=== PATIENT | female | born 1965 | race American Indian/Alaskan Native ===

== ENCOUNTER 2016-04-30 11:37 | Outpatient (CLI) | payer MEDICARE ==
--- NOTE | 2016-04-30 13:01 | XRay Report ---
Chest 2 views: History: Dyspnea, CHF. Findings: Borderline cardiomegaly. Trachea is midline. Suspicion of mild pulmonary venous congestion. No consolidation or pleural effusion. Impression: Cardiomegaly with suspicion of mild venous congestion.
== END 2016-04-30 11:38 | disposition home or self-care (01) ==
LOC: XRAY 11:37
PROVIDERS: ATTEND Specialist
DX: I50.9 Heart failure, unspecified (principal); I51.7 Cardiomegaly; R06.00 Dyspnea, unspecified; R09.02 Hypoxemia
CPT/HCPCS: 71020

== ENCOUNTER 2016-09-13 13:55 | Outpatient (CLI) | payer MEDICARE ==
--- NOTE | 2016-09-13 15:24 | Mammography Report ---
BILATERAL DIGITAL SCREENING MAMMOGRAM with CAD: 09/13/16 13:55:00 CLINICAL: Routine screening. COMPARISON:09/01/15 FINDINGS: The breasts are almost entirely fatty. No mass, architectural distortion or suspicious calcifications. IMPRESSION: No mammographic evidence of malignancy. BI-RADS CATEGORY: 1 - - Negative RECOMMENDATION: Routine mammographic screening in one year. COMMENT: Patient follow-up letters are generated by our [employer] application.
== END 2016-09-13 13:56 | disposition home or self-care (01) ==
LOC: MAMMO 13:55
PROVIDERS: ATTEND Obstetrics & Gynecology
DX: Z12.31 Encounter for screening mammogram for malignant neoplasm of breast (principal); I11.0 Hypertensive heart disease with heart failure; I50.9 Heart failure, unspecified; F17.200 Nicotine dependence, unspecified, uncomplicated
CPT/HCPCS: 77067; G0202

== ENCOUNTER 2017-04-06 20:15 | Inpatient (IN) | payer MEDICARE ==
[2017-04-06] MEDS ORDERED: PROVENTIL IH ONE (20:23)
[2017-04-06] MEDS ORDERED: ATROVENT IH ONE (20:23)
--- NOTE | 2017-04-06 20:38 | Emergency Department Report ---
ED Shortness of Breath HPI - General Stated Complaint: HILDA Time Seen by Provider: 04/06/17 20:30 Source: patient, EMS Limitations: Physical Limitation - History of Present Illness Initial Comments: 51 YO FEMALE BROUGHT IN BY EMS BECAUSE OR RESPIRATORY DISTRESS. PER EMS, THE PT 'S SATURATION WAS 70% ON ROOM AIR AND WENT UP TO 85 ON A NONREBREATHER. PT WAS PLACED ON BIPAP IMMEDIATELY UPON ARRIVAL. SHE IS ABLE TO ANSWER QUESTIONS BUT THSI IS DIFFICULT WITH THE BIPAP MASK IN PLACE. MD Complaint: shortness of breath -: Gradual, week(s) (few) Severity: severe Known History Of: COPD, asthma, congestive heart failure Associated Symptoms: denies other symptoms - Related Data Allergies Allergy/AdvReac Type Severity Reaction Status Date / Time No Known Allergies Allergy Unverified 08/12/13 15:01 ED Review of Systems ROS: Stated complaint: HILDA Other details as noted in HPI Constitutional: denies: chills, fever Eyes: denies: eye pain, eye discharge, vision change ENT: denies: ear pain, throat pain Respiratory: denies: cough, wheezing Cardiovascular: denies: chest pain, palpitations Endocrine: no symptoms reported Gastrointestinal: denies: abdominal pain, nausea, diarrhea Genitourinary: denies: urgency, dysuria, discharge Musculoskeletal: denies: back pain, joint swelling, arthralgia Skin: denies: rash, lesions Neurological: denies: headache, weakness, paresthesias Psychiatric: denies: anxiety, depression Hematological/Lymphatic: denies: easy bleeding, easy bruising ED Past Medical Hx - Past Medical History Hx Hypertension: Yes Hx Congestive Heart Failure: Yes Additional medical history: SARCOIDOSIS, high cholesterol - Surgical History Additional Surgical History: ECTOPIC LEFT TUBE REMOVED - Social History Smoking Status: Current Every Day Smoker Substance Use Type: Alcohol ED Physical Exam - General General appearance: alert, in distress - Head Head exam: Present: atraumatic, normocephalic - Eye Eye exam: Present: normal appearance, EOMI - ENT ENT exam: Present: mucous membranes moist - Neck Neck exam: Present: normal inspection, full ROM - Respiratory Respiratory exam: Present: normal lung sounds bilaterally, wheezes, rales, decreased breath sounds (bilateral). Absent: respiratory distress - Cardiovascular Cardiovascular Exam: Present: regular rate, normal rhythm. Absent: systolic murmur, diastolic murmur, rubs, gallop - GI/Abdominal GI/Abdominal exam: Present: soft, normal bowel sounds, other (large centripital fat) - Rectal Rectal exam: Present: deferred - Extremities Exam Extremities exam: Present: normal inspection, full ROM - Back Exam Back exam: Present: normal inspection - Neurological Exam Neurological exam: Present: alert, oriented X3, CN II-XII intact - Psychiatric Psychiatric exam: Present: normal affect, normal mood - Skin Skin exam: Present: warm, dry, intact, normal color. Absent: rash ED Course Vital Signs 04/06/17 04/06/17 04/06/17 20:20 20:34 22:11 Pulse Rate 82 Pulse Rate [ 80 69 Anterior Bilateral Throughout] Respiratory 31 H Rate Respiratory 28 H 30 H Rate [Anterior Bilateral Throughout] Blood Pressure 121/66 O2 Sat by Pulse 98 Oximetry - Reevaluation(s) Reevaluation #1: 04/06/17 22:25 PT DOING WELL ON BIPAP ED Medical Decision Making - Lab Data Result diagrams: 04/06/17 21:19 04/06/17 20:40 - EKG Data EKG shows normal: sinus rhythm, axis, intervals (PAC), QRS complexes, ST-T waves Rate: normal (84) - Radiology Data Radiology results: report reviewed, image reviewed (CXR:CHF, CANNOT EXCLUDE INFILTRATES) Critical Care Time: Yes Critical care time in (mins) excluding proc time.: 60 Critical care attestation.: If time is entered above; I have spent that time in minutes in the direct care of this critically ill patient, excluding procedure time. MOISES Critical Care Time: 60MIN ED Disposition Clinical Impression: Acute dyspnea, Sarcoidosis of lung Disposition: DC-09 OP ADMIT IP TO THIS HOSP Is pt being admited?: Yes Does the pt Need Aspirin: No Condition: Critical Referrals: JACINTO SAWYER MD [Primary Care Provider] - 3-5 Days Time of Disposition: 22:26 (DR MONROE HOSPITALIST PAGED AND CASE REVIEWED AND SHE WILL ADMIT THE PT TO THE HOSPITAL)
[2017-04-06 21:17] LABS: Creatine Kinase MB 2.7 ng/mL (0.0-4.0)
[2017-04-06 21:18] LABS: Alanine Aminotransferase 19 units/L (7-56); BUN/Creatinine Ratio 43; Blood Urea Nitrogen 17 mg/dL (7-17); Calcium 8.7 mg/dL (8.4-10.2); Hemolysis Index 3
--- NOTE | 2017-04-06 21:19 | XRay Report ---
FINAL REPORT PROCEDURE: Portable upright chest x-ray TECHNIQUE: Chest radiograph anteroposterior view. CPT 11481 HISTORY: short of breath COMPARISON: No prior studies are available for comparison. FINDINGS: The heart is enlarged. The pulmonary vasculature is distended and ill-defined. Interstitial markings are coarsened. Patchy alveolar densities are present in both lower lobes. I cannot exclude small effusions. No acute bony abnormalities are identified. IMPRESSION: Cardiomegaly and pulmonary venous hypertension changes as described with increased density in both lung bases as well as prominence of the interstitial markings suggesting acute congestive heart failure. Alveolar densities in the bases may represent asymmetric edema and/or atelectasis. Underlying infiltrates needs clinical exclusion...
[2017-04-06 21:28] LABS: Hematocrit 30.1 % (30.3-42.9); Hemoglobin 9.2 gm/dl (10.1-14.3); Mean Corpuscular HGB Conc 31 % (30-34); Mean Corpuscular Volume 79 fl (79-97); Platelet Count 272 K/mm3 (140-440); Red Blood Count 3.82 M/mm3 (3.65-5.03)
[2017-04-06] MEDS ORDERED: LASIX IV ONE (21:40)
[2017-04-06] MEDS ORDERED: NITRO-BID 2% TP ONE (21:40)
[2017-04-06 21:42] LABS: Mean Corpuscular Hemoglobin 24 pg (28-32); Red Cell Distribution Width 20.5 % (13.2-15.2)
[2017-04-06 22:12] LABS: Band Neutrophils # (Manual) 0.7 K/mm3; Basophils % (Manual) 0 % (0.0-1.8); Eosinophils % (Manual) 0 % (0.0-4.3); Total Cells Counted 100
[2017-04-06 22:13] LABS: Anisocytosis 1+
[2017-04-06 22:14] LABS: Giant Platelets Few; Hypochromasia 2+; Large Platelets Few
[2017-04-06 22:15] LABS: Ovalocytes Few; Poikilocytosis Few
[2017-04-06] MEDS ORDERED: PROVENTIL IH PRN (23:06)
[2017-04-06] MEDS ORDERED: MILK OF MAGNESIA PO PRN (23:06)
[2017-04-06] MEDS ORDERED: DULCOLAX PR PRN (23:06)
[2017-04-06] MEDS ORDERED: ZOFRAN IV PRN (23:06)
[2017-04-06] MEDS ORDERED: TYLENOL PO PRN (23:06)
--- NOTE | 2017-04-06 23:11 | History and Physical Report ---
History of Present Illness Date of examination: 04/06/17 History of present illness: 51 -year-old woman with a history of CHF, hypertension, hyperlipidemia, sarcoidosis, emergency room with complaints of shortness of breath and lower extremity edema 7 days. Her symptoms as worsened over the last 2 days. Patient will switch from daily Lasix to once weekly a" few months" ago. Denies PND, orthopnea, states she is compliant with medications. Patient was hypoxic and placed on BiPAP Review Of Systems: Constitutional: no weight loss Ears, eyes, nose, mouth and throat: no nasal congestion, no nasal discharge, no sinus pressure, blurry vision, diplopia Neck: No neck pain or rigidity. Cardiovascular: No chest pain, palpitations Respiratory: No cough Gastrointestinal: No abdominal pain, hematochezia Genitourinary : no dysuria, frequency , hematuria Musculoskeletal: no muscle ache Integumentary: no rash, no pruritis Neurological: no parathesias, focal weakness Endocrine: no cold or heat intolerance, no polyuria or polydipsia Hematologic/Lymphatic: no easy bruising, no easy bleeding, no gland swelling Allergic/Immunologic: no urticaria, no angioedema. PAST MEDICAL HISTORY:CHF, hypertension, hyperlipidemia, sarcoidosis, PAST SURGICAL HISTORY:left tube removed FAMILY HISTORY: Hypertension SOCIAL HISTORY: Quit smoking, social alcohol, no drugs Medications and Allergies Allergies Allergy/AdvReac Type Severity Reaction Status Date / Time No Known Allergies Allergy Unverified 08/12/13 15:01 Home Medications Medication Instructions Recorded Confirmed Last Taken Type Atorvastatin Calcium 40 mg PO HS 04/08/17 04/08/17 04/06/17 22:00 History ISOSORBIDE MONOnitrate [Imdur ER] 30 mg PO DAILY 04/08/17 04/08/17 04/06/17 09: 00 History Metformin HCl 500 mg PO BID 04/08/17 04/12/17 04/06/17 09:00 History Amiodarone [Cordarone 200 MG TAB] 200 mg PO BID #60 tablet 04/13/17 Unknown Rx Apixaban [Eliquis] 5 mg PO Q12HR #60 tablet 04/13/17 Unknown Rx Furosemide [Lasix TAB] 40 mg PO QDAY #30 tablet 04/13/17 Unknown Rx Metoprolol [Lopressor TAB] 50 mg PO BID #60 tablet 04/13/17 Unknown Rx Active Meds: Active Medications Acetaminophen (Tylenol) 650 mg PO Q4H PRN PRN Reason: Pain MILD(1-3)/Fever >100.5/ALVES Albuterol (Proventil) 2.5 mg IH Q3HRT PRN PRN Reason: Shortness Of Breath Aspirin (Aspirin) 325 mg PO QDAY HIREN Bisacodyl (Dulcolax) 10 mg [place] QDAY PRN PRN Reason: Constipation unrelieved by MOM Carvedilol (Coreg) 3.125 mg PO BID HIREN Enoxaparin Sodium (Lovenox) 40 mg SUB-Q QDAY HIREN Furosemide (Lasix) 40 mg IV BID@0600,1800 HIREN Lisinopril (Zestril) 2.5 mg PO QDAY HIREN Magnesium Hydroxide (Milk Of Magnesia) 30 ml PO Q4H PRN PRN Reason: Constipation Ondansetron HCl (Zofran) 4 mg IV Q8H PRN PRN Reason: N/V unrelieved by Reglan Oxycodone/Acetaminophen (Percocet 5/325) 1 tab PO Q6H PRN PRN Reason: Pain, Moderate (4-6) Exam - Physical Exam Narrative exam: Gen. appearance: Patient lying in bed in no acute distress HEENT: Normocephalic/atraumatic, pupils equal round reactive to light, extra occular movement intact, no scleral icterus, no JVD or thyromegaly or nodule, neck is supple, mucous membrane moist, no erythema or exudate Heart: S1-S2, regular rate and rhythm Lungs:crackles bilateral breathing comfortable Abdomen: Positive bowel sounds, nontender, nondistended, no organomegaly Extremities: + edema, cyanosis, clubbing Neuro:: Oriented 3 , cranial nerves II-12 intact, speech, motor intact Skin: No rash, nodules, warm dry - Constitutional Vitals: Temp Pulse Resp BP Pulse Ox 73 30 H 104/65 98 04/06/17 22:40 04/06/17 22:11 04/06/17 22:40 04/06/17 20:20 Results - Labs CBC & Chem 7: 04/12/17 05:20 04/12/17 05:20 Labs: Abnormal lab results 04/06/17 04/06/17 Range/Units 20:40 21:19 WBC 14.3 H (4.5-11.0) K/mm3 Hgb 9.2 L (10.1-14.3) gm/dl Hct 30.1 L (30.3-42.9) % MCH 24 L (28-32) pg RDW 20.5 H (13.2-15.2) % Seg Neuts % (Manual) 88.0 H (40.0-70.0) % Lymphocytes % (Manual) 6.0 L (13.4-35.0) % Nucleated RBC % 2.0 H (0.0-0.9) % Seg Neutrophils # Man 12.6 H (1.8-7.7) K/mm3 Lymphocytes # (Manual) 0.9 L (1.2-5.4) K/mm3 Chloride 96.9 L (98-107) mmol/L Creatinine 0.4 L (0.7-1.2) mg/dL Glucose 251 H (65-100) mg/dL NT-Pro-B Natriuret Pep 1023 H (0-900) pg/mL - Imaging and Cardiology EKG: image reviewed Chest x-ray: image reviewed Assessment and Plan Assessment Acute respiratory failure Acute CHF exacerbation, probably diastolic dysfunction Hypertension Hyperlipidemia Sarcoidosis Plan Admit to medicine Diurese and IV Lasix, continue BiPAP Monitor I/Os, daily weights Start beta baylee, MAGNOLIA inhibitor, aspirin Check cardiac enzymes, echo, consult cardiology Continue appropriate outpatient medications DVT prophylaxis
[2017-04-07] MEDS: LASIX IV SCH ×2 (05:10→18:27)
[2017-04-07 06:17] LABS: Basophils % (Auto) 0.3 % (0.0-1.8); Hematocrit 29.8 % (30.3-42.9); Hemoglobin 9.2 gm/dl (10.1-14.3); Lymphocytes # (Auto) 1.1 K/mm3 (1.2-5.4); Lymphocytes % (Auto) 9.8 % (13.4-35.0); Mean Corpuscular HGB Conc 31 % (30-34); Mean Corpuscular Volume 80 fl (79-97); Monocytes # (Auto) 0.7 K/mm3 (0.0-0.8); Monocytes % (Auto) 6.2 % (0.0-7.3); Platelet Count 269 K/mm3 (140-440); Red Blood Count 3.74 M/mm3 (3.65-5.03)
[2017-04-07 06:20] LABS: Mean Corpuscular Hemoglobin 25 pg (28-32); Red Cell Distribution Width 20.4 % (13.2-15.2)
[2017-04-07 06:23] LABS: BUN/Creatinine Ratio 32; Blood Urea Nitrogen 16 mg/dL (7-17); Calcium 8.5 mg/dL (8.4-10.2); Hemolysis Index 1
[2017-04-07] MEDS: ASPIRIN PO SCH (09:36)
[2017-04-07] MEDS: LOVENOX SUB-Q SCH (09:36)
--- NOTE | 2017-04-07 09:49 | Progress Note ---
Assessment and Plan Assessment and plan: Acute hypoxic respiratory failure. Etiology secondary to CHF exacerbation and sarcoidosis. Cont. Bipap as clinically indicated Acute CHF exacerbation. Etiology likely diastolic dysfunction. Check echocardiogram. BNP slightly elevated at 1023. Cont. beta baylee, MAGNOLIA inhibitor, aspirin. Cardiology consulted. Hypertension. Continue antihypertensive medications Hyperlipidemia. Sarcoidosis. The patient is followed by Dr. Chirinos History Interval history: No new issues overnight. Hospitalist Physical - Constitutional Vitals: Temp Pulse Resp BP Pulse Ox 98.5 F 80 18 103/64 95 04/07/17 04:36 04/07/17 04:36 04/07/17 04:36 04/07/17 04:36 04/07/17 04:36 General appearance: Present: no acute distress, well-nourished - EENT Eyes: Present: PERRL, EOM intact ENT: hearing intact, clear oral mucosa, dentition normal - Neck Neck: Present: supple, normal ROM - Respiratory Respiratory effort: normal Respiratory: bilateral: CTA - Cardiovascular Rhythm: regular Heart Sounds: Present: S1 & S2. Absent: gallop, rub - Extremities Extremities: no ischemia, No edema, Full ROM - Abdominal General gastrointestinal: soft, non-tender, non-distended, normal bowel sounds - Integumentary Integumentary: Present: clear, warm, dry - Neurologic Neurologic: CNII-XII intact, moves all extremities Results - Labs CBC & Chem 7: 04/07/17 04:57 04/07/17 04:57 Labs: Laboratory Last Values WBC 11.7 K/mm3 (4.5-11.0) H 04/07/17 04:57 RBC 3.74 M/mm3 (3.65-5.03) 04/07/17 04:57 Hgb 9.2 gm/dl (10.1-14.3) L 04/07/17 04:57 Hct 29.8 % (30.3-42.9) L 04/07/17 04:57 MCV 80 fl (79-97) 04/07/17 04:57 MCH 25 pg (28-32) L 04/07/17 04:57 MCHC 31 % (30-34) 04/07/17 04:57 RDW 20.4 % (13.2-15.2) H 04/07/17 04:57 Plt Count 269 K/mm3 (140-440) 04/07/17 04:57 Lymph % (Auto) 9.8 % (13.4-35.0) L 04/07/17 04:57 [place] % (Auto) 6.2 % (0.0-7.3) 04/07/17 04:57 Eos % (Auto) 0.0 % (0.0-4.3) 04/07/17 04:57 Baso % (Auto) 0.3 % (0.0-1.8) 04/07/17 04:57 Lymph # 1.1 K/mm3 (1.2-5.4) L 04/07/17 04:57 [place] # 0.7 K/mm3 (0.0-0.8) 04/07/17 04:57 Eos # 0.0 K/mm3 (0.0-0.4) 04/07/17 04:57 Baso # 0.0 K/mm3 (0.0-0.1) 04/07/17 04:57 Add Manual Diff Complete 04/06/17 21:19 Total Counted 100 04/06/17 21:19 Seg Neutrophils % 83.7 % (40.0-70.0) H 04/07/17 04:57 Seg Neuts % (Manual) 88.0 % (40.0-70.0) H 04/06/17 21:19 Band Neutrophils % 5.0 % 04/06/17 21:19 Lymphocytes % (Manual) 6.0 % (13.4-35.0) L 04/06/17 21:19 Reactive Lymphs % (Man) 0 % 04/06/17 21:19 Monocytes % (Manual) 1.0 % (0.0-7.3) 04/06/17 21:19 Eosinophils % (Manual) 0 % (0.0-4.3) 04/06/17 21:19 Basophils % (Manual) 0 % (0.0-1.8) 04/06/17 21:19 Metamyelocytes % 0 % 04/06/17 21:19 Myelocytes % 0 % 04/06/17 21:19 Promyelocytes % 0 % 04/06/17 21:19 Blast Cells % 0 % 04/06/17 21:19 Nucleated RBC % 2.0 % (0.0-0.9) H 04/06/17 21:19 Seg Neutrophils # 9.8 K/mm3 (1.8-7.7) H 04/07/17 04:57 Seg Neutrophils # Man 12.6 K/mm3 (1.8-7.7) H 04/06/17 21:19 Band Neutrophils # 0.7 K/mm3 04/06/17 21:19 Lymphocytes # (Manual) 0.9 K/mm3 (1.2-5.4) L 04/06/17 21:19 Abs React Lymphs (Man) 0.0 K/mm3 04/06/17 21:19 Monocytes # (Manual) 0.1 K/mm3 (0.0-0.8) 04/06/17 21:19 Eosinophils # (Manual) 0.0 K/mm3 (0.0-0.4) 04/06/17 21:19 Basophils # (Manual) 0.0 K/mm3 (0.0-0.1) 04/06/17 21:19 Metamyelocytes # 0.0 K/mm3 04/06/17 21:19 Myelocytes # 0.0 K/mm3 04/06/17 21:19 Promyelocytes # 0.0 K/mm3 04/06/17 21:19 Blast Cells # 0.0 K/mm3 04/06/17 21:19 WBC Morphology Not Reportable 04/06/17 21:19 Hypersegmented Neuts Not Reportable 04/06/17 21:19 Hyposegmented Neuts Not Reportable 04/06/17 21:19 Hypogranular Neuts Not Reportable 04/06/17 21:19 Smudge Cells Not Reportable 04/06/17 21:19 Toxic Granulation Not Reportable 04/06/17 21:19 Toxic Vacuolation Not Reportable 04/06/17 21:19 Dohle Bodies Not Reportable 04/06/17 21:19 Pelger-Huet Anomaly Not Reportable 04/06/17 21:19 Chiara Rods Not Reportable 04/06/17 21:19 Platelet Estimate Appears normal 04/06/17 21:19 Clumped Platelets Not Reportable 04/06/17 21:19 Plt Clumps, EDTA Not Reportable 04/06/17 21:19 Large Platelets Few 04/06/17 21:19 Giant Platelets Few 04/06/17 21:19 Platelet Satelliting Not Reportable 04/06/17 21:19 Plt Morphology Comment Not Reportable 04/06/17 21:19 RBC Morphology Not Reportable 04/06/17 21:19 Dimorphic RBCs Not Reportable 04/06/17 21:19 Polychromasia Few 04/06/17 21:19 Hypochromasia 2+ 04/06/17 21:19 Poikilocytosis Few 04/06/17 21:19 Anisocytosis 1+ 04/06/17 21:19 Microcytosis 1+ 04/06/17 21:19 Macrocytosis Not Reportable 04/06/17 21:19 Spherocytes Not Reportable 04/06/17 21:19 Pappenheimer Bodies Not Reportable 04/06/17 21:19 Sickle Cells Not Reportable 04/06/17 21:19 Target Cells Not Reportable 04/06/17 21:19 Tear Drop Cells Not Reportable 04/06/17 21:19 Ovalocytes Few 04/06/17 21:19 Helmet Cells Not Reportable 04/06/17 21:19 Mora-Tynan Bodies Not Reportable 04/06/17 21:19 [place] Rings Not Reportable 04/06/17 21:19 Poth Cells Not Reportable 04/06/17 21:19 Bite Cells Not Reportable 04/06/17 21:19 Crenated Cell Not Reportable 04/06/17 21:19 Elliptocytes Not Reportable 04/06/17 21:19 Acanthocytes (Spur) Not Reportable 04/06/17 21:19 Rouleaux Not Reportable 04/06/17 21:19 Hemoglobin C Crystals Not Reportable 04/06/17 21:19 Schistocytes Not Reportable 04/06/17 21:19 Malaria parasites Not Reportable 04/06/17 21:19 Bryant Bodies Not Reportable 04/06/17 21:19 Hem Pathologist Commnt No 04/06/17 21:19 POC ABG pH 7.435 (7.35-7.45) 04/06/17 22:54 POC ABG pCO2 41.8 (35-45) 04/06/17 22:54 POC ABG pO2 103 (80-105) 04/06/17 22:54 POC ABG HCO3 28.1 04/06/17 22:54 POC ABG Total CO2 29 04/06/17 22:54 POC ABG O2 Sat 98 04/06/17 22:54 POC ABG Base Excess 4 04/06/17 22:54 FiO2 80 % 04/06/17 22:54 Sodium 140 mmol/L (137-145) 04/07/17 04:57 Potassium 4.3 mmol/L (3.6-5.0) 04/07/17 04:57 Chloride 98.1 mmol/L (98-107) 04/07/17 04:57 Carbon Dioxide 30 mmol/L (22-30) 04/07/17 04:57 Anion Gap 16 mmol/L 04/07/17 04:57 BUN 16 mg/dL (7-17) 04/07/17 04:57 Creatinine 0.5 mg/dL (0.7-1.2) L 04/07/17 04:57 Estimated GFR > 60 ml/min 04/07/17 04:57 BUN/Creatinine Ratio 32 % 04/07/17 04:57 Glucose 127 mg/dL (65-100) H 04/07/17 04:57 Calcium 8.5 mg/dL (8.4-10.2) 04/07/17 04:57 Total Bilirubin 0.40 mg/dL (0.1-1.2) 04/06/17 20:40 AST 15 units/L (5-40) 04/06/17 20:40 ALT 19 units/L (7-56) 04/06/17 20:40 Alkaline Phosphatase 65 units/L (35-129) 04/06/17 20:40 Total Creatine Kinase 107 units/L (30-135) 04/06/17 20:40 CK-MB (CK-2) 2.7 ng/mL (0.0-4.0) 04/06/17 20:40 CK-MB (CK-2) Rel Index 2.5 (0-4) 04/06/17 20:40 Troponin T < 0.010 ng/mL (0.00-0.029) 04/06/17 20:40 NT-Pro-B Natriuret Pep 1023 pg/mL (0-900) H 04/06/17 20:40 Total Protein 7.2 g/dL (6.3-8.2) 04/06/17 20:40 Albumin 4.0 g/dL (3.9-5) 04/06/17 20:40 Albumin/Globulin Ratio 1.3 % 04/06/17 20:40
[2017-04-07] MEDS: ZESTRIL PO SCH (10:28)
[2017-04-07] MEDS: COREG PO SCH ×2 (10:29→21:56)
[2017-04-07] MEDS: LEVAQUIN 750MG/150ML 750 MG/150 ML BAG IV SCH (12:28)
--- NOTE | 2017-04-07 13:54 | Event Note ---
Date: 04/07/17 Cardiology note dictated #1 CHF #2 sarcoidosis #3 hypertension #4 hyperlipidemia Patient has been followed by Dr. Ornelas in the office. Patient is now admitted with acute onset of difficulty in breathing. This appears to be a combination of pulmonary as well as cardiac problems. We will obtain echocardiogram and follow on monitor closely with you Thank you for allowing me to participate in the care of this pleasant lady Dr. SAUL Saldivar
--- NOTE | 2017-04-07 14:07 | Consultation ---
History of Present Illness Consult date: 04/07/17 Reason for consult: dyspnea, COPD, other (CHF,sarcoid) History of present illness: Called to evaluate case of a 51-year-old -Wel[place] female, with history of obesity and sarcoidosis. The patient presented to the hospital complaining of shortness of breath. Onset is also unclear but apparently she had been short of breath for the past week. This has also was found to be of orthopnea and dyspnea upon exertion. Mild coughing and lower extremity swelling also reported. She denies fever, chills, hemoptysis or chest pain. She does not report flulike illness or FITO contact. She also has history of DRE and follows with Dr. Smith for this. Also uses oxygen at home. Patient claims to be using her CPAP as ordered, uses her oxygen as needed. Former smoker and she quit smoking years ago. She was diagnosed with sarcoidosis in [place], [place], many years ago and is not on active treatment reportedly at this time. Has not seen her surgical corsetier recently. Admission chest x-ray showed evidence of cardiomegaly with what appears to be pulmonary venous congestion, lower lobes infiltrates. This is different from her film in April. Past History Past Medical History: COPD, sarcoidosis, other (DRE) Social history: smoking (former). denies: alcohol abuse, prescription drug abuse Medications and Allergies Allergies Allergy/AdvReac Type Severity Reaction Status Date / Time No Known Allergies Allergy Unverified 08/12/13 15:01 Active Meds: Active Medications Acetaminophen (Tylenol) 650 mg PO Q4H PRN PRN Reason: Pain MILD(1-3)/Fever >100.5/ALVES Albuterol (Proventil) 2.5 mg IH Q3HRT PRN PRN Reason: Shortness Of Breath Aspirin (Aspirin) 325 mg PO QDAY [facility] Last Admin: 04/07/17 09:36 Dose: 325 mg Bisacodyl (Dulcolax) 10 mg WA QDAY PRN PRN Reason: Constipation unrelieved by MOM Carvedilol (Coreg) 3.125 mg PO BID [facility] Last Admin: 04/07/17 10:29 Dose: Not Given Enoxaparin Sodium (Lovenox) 40 mg SUB-Q QDAY [facility] Last Admin: 04/07/17 09:36 Dose: 40 mg Furosemide (Lasix) 40 mg IV BID@0600,1800 [facility] Last Admin: 04/07/17 05:10 Dose: 40 mg Levofloxacin/Dextrose (Levaquin 750mg/150ml) 750 mg in 150 mls @ 100 mls/hr IV Q24HR [facility] PRN Reason: Protocol Last Admin: 04/07/17 12:28 Dose: 100 mls/hr Lisinopril (Zestril) 2.5 mg PO QDAY [facility] Last Admin: 04/07/17 10:28 Dose: Not Given Magnesium Hydroxide (Milk Of Magnesia) 30 ml PO Q4H PRN PRN Reason: Constipation Ondansetron HCl (Zofran) 4 mg IV Q8H PRN PRN Reason: N/V unrelieved by Reglan Oxycodone/Acetaminophen (Percocet 5/325) 1 tab PO Q6H PRN PRN Reason: Pain, Moderate (4-6) Review of Systems Constitutional: weight gain, fatigue, malaise, daytime sleepiness, no fever, no chills, no sweats, no night sweats, no anorexia, no weakness Cardiovascular: orthopnea, palpitations, edema, shortness of breath, dyspnea on exertion, paroxysmal nocturnal dyspnea, no rapid/irregular heart beat, no syncope, no lightheadedness Respiratory: cough, shortness of breath, no cough with sputum, no excessive sputum, no hemoptysis, no wheezing Gastrointestinal: no abdominal pain, no nausea, no vomiting, no diarrhea Neurological: headaches, no head injury, no transient paralysis, no paralysis, no weakness, no parathesias, no numbness Psychiatric: memory loss, sleep disturbances, insomnia Allergic/Immunologic: no urticaria, no allergic rhinitis, no wheezing, no persistent infections Physical Examination Vital signs: Vital Signs Pulse Ox 69 L 04/06/17 20:08 General appearance: no acute distress, alert, other (morbidly obese) Eyes: non-icteric ENT: oropharynx moist, other (Mallampati 4) Ascultation: Bilateral: diminished breath sounds, rhonchi (sporadic bases) Cardiovascular: regular rate and rhythm Gastrointestinal: normoactive bowel sounds, non-distended Extremities: no cyanosis, other (trace pretibial edema. No cyanosis) Musculoskeletal: no deformities normal mental status, non-focal exam, CN II-XII normal, motor strength normal and mood appropriate, affect normal, anxious Results - Laboratory Findings CBC and BMP: 04/07/17 04:57 04/07/17 04:57 ABG POC ABG pH 7.435 (7.35-7.45) 04/06/17 22:54 POC ABG pCO2 41.8 (35-45) 04/06/17 22:54 POC ABG pO2 103 (80-105) 04/06/17 22:54 POC ABG HCO3 28.1 04/06/17 22:54 POC ABG Total CO2 29 04/06/17 22:54 POC ABG O2 Sat 98 04/06/17 22:54 Abnormal lab findings: Abnormal Labs 04/06/17 04/06/17 04/07/17 20:40 21:19 04:57 WBC 14.3 H 11.7 H Hgb 9.2 L 9.2 L Hct 30.1 L 29.8 L MCH 24 L 25 L RDW 20.5 H 20.4 H Lymph % (Auto) 9.8 L Lymph # 1.1 L Seg Neutrophils % 83.7 H Seg Neuts % (Manual) 88.0 H Lymphocytes % (Manual) 6.0 L Nucleated RBC % 2.0 H Seg Neutrophils # 9.8 H Seg Neutrophils # Man 12.6 H Lymphocytes # (Manual) 0.9 L Chloride 96.9 L Creatinine 0.4 L Glucose 251 H NT-Pro-B Natriuret Pep 1023 H 04/07/17 04:57 WBC Hgb Hct MCH RDW Lymph % (Auto) Lymph # Seg Neutrophils % Seg Neuts % (Manual) Lymphocytes % (Manual) Nucleated RBC % Seg Neutrophils # Seg Neutrophils # Man Lymphocytes # (Manual) Chloride Creatinine 0.5 L Glucose 127 H NT-Pro-B Natriuret Pep - Diagnostic Findings Chest x-ray: report reviewed, image reviewed Assessment and Plan Acute hypoxemic respiratory failure. 33 secondary to pulmonary vascular congestion at this point. Visited the context of previous tumor problems including sarcoidosis Congestive heart failure with exacerbation DRE. Patient remained status currently unclear. She claims to be compliant Morbid obesity Recommendations Continue current oxygen support. I agree with BiPAP at nighttime. Monitor tolerance and oximetry. Gentle diuresis. Echocardiogram evaluation with attention to diastolic ventricular dysfunction and pulmonary hypertension Will leave to cardiology to do any additional cardiac workup for CAD and cardiac sarcoid. DVT prophylaxis f/u chest x-rays in 24-48 hours. If persistent infiltrates after aggressive diuresis, consider chest CT scan high-resolution evaluation. Findings discussed with the patient in detail. All questions answered. Thanks
[2017-04-08] MEDS: LASIX IV SCH ×2 (06:26→17:44)
[2017-04-08] MEDS: LEVAQUIN 750MG/150ML 750 MG/150 ML BAG IV SCH (10:15)
[2017-04-08] MEDS: ZESTRIL PO SCH (10:15)
[2017-04-08] MEDS: ASPIRIN PO SCH (10:15)
[2017-04-08] MEDS: COREG PO SCH ×2 (10:16→21:47)
[2017-04-08] MEDS: LOVENOX SUB-Q SCH (10:16)
--- NOTE | 2017-04-08 13:27 | Progress Note ---
Assessment and Plan #1 CHF #2 sarcoidosis #3 hypertension #4 hyperlipidemia Patient is improving significantly. Echo is pending patient has no significant chest pain or difficulty breathing today. - Patient Problems (1) Acute CHF Current Visit: Yes Status: Acute (2) Sarcoidosis of lung Current Visit: Yes Status: Acute Subjective Date of service: 04/15/17 Interval history: Patient is feeling much better today. Dyspnea has improved significantly. Objective Vital Signs Temp Pulse Resp BP Pulse Ox 04/08/17 12:06 98.6 F 82 20 105/66 94 04/08/17 10:00 94 04/08/17 09:00 96 04/08/17 07:47 98.6 F 79 26 H 106/61 95 04/08/17 05:07 98.2 F 81 18 106/62 96 04/08/17 01:00 85 28 H 16 L 04/07/17 23:18 98.1 F 83 18 99/58 96 04/07/17 22:00 93 04/07/17 21:57 80 31 H 94 04/07/17 21:56 93 H 107/53 04/07/17 20:00 79 04/07/17 19:45 97.8 F 77 18 107/53 95 04/07/17 16:48 78 101/61 99 - Physical Examination General: Appears Well HEENT: Positive: PERRL Neck: Positive: neck supple Cardiac: Positive: Reg Rate and Rhythm Lungs: Positive: clear to auscultation Abdomen: Positive: Soft Skin: Positive: Clear Extremities: Present: normal - Imaging and Cardiology EKG: image reviewed
--- NOTE | 2017-04-08 13:48 | Progress Note ---
Assessment and Plan 51 y/o female with known sarcoid, DRE on CPAP admitted with CHF exacerbation and pulmonary edema 1. Continue net negative state on a daily basis 2. Likely can stop IV abx therapy 3. No need for oral steroid therapy at this time 4. Will continue to follow. Subjective Date of service: 04/08/17 Interval history: No acute events. Breathing is better Objective Vital Signs - 12hr 04/08/17 04/08/17 04/08/17 05:07 07:47 09:00 Temperature 98.2 F 98.6 F Pulse Rate 81 79 Respiratory 18 26 H Rate Blood Pressure 106/62 106/61 O2 Sat by Pulse 96 95 96 Oximetry 04/08/17 04/08/17 10:00 12:06 Temperature 98.6 F Pulse Rate 82 Respiratory 20 Rate Blood Pressure 105/66 O2 Sat by Pulse 94 94 Oximetry Constitutional: no acute distress, alert, other (morbidly obese) Eyes: non-icteric ENT: oropharynx moist, other (Mallampati 4) Ascultation: Bilateral: diminished breath sounds, rhonchi (sporadic bases) Cardiovascular: regular rate and rhythm Gastrointestinal: normoactive bowel sounds, non-distended Extremities: no cyanosis, other (trace pretibial edema. No cyanosis) Neurologic: normal mental status, non-focal exam, CN II-XII normal, motor strength normal and Psychiatric: mood appropriate, affect normal, anxious CBC and BMP: 04/09/17 06:02 04/09/17 06:02 ABG, PT/INR, D-dimer: ABG POC ABG pH 7.435 (7.35-7.45) 04/06/17 22:54 POC ABG pCO2 41.8 (35-45) 04/06/17 22:54 POC ABG pO2 103 (80-105) 04/06/17 22:54 POC ABG HCO3 28.1 04/06/17 22:54 POC ABG Total CO2 29 04/06/17 22:54 POC ABG O2 Sat 98 04/06/17 22:54 Abnormal lab findings: Abnormal Labs 04/06/17 04/06/17 04/07/17 20:40 21:19 04:57 WBC 14.3 H 11.7 H Hgb 9.2 L 9.2 L Hct 30.1 L 29.8 L MCH 24 L 25 L RDW 20.5 H 20.4 H Lymph % (Auto) 9.8 L Lymph # 1.1 L Seg Neutrophils % 83.7 H Seg Neuts % (Manual) 88.0 H Lymphocytes % (Manual) 6.0 L Nucleated RBC % 2.0 H Seg Neutrophils # 9.8 H Seg Neutrophils # Man 12.6 H Lymphocytes # (Manual) 0.9 L Chloride 96.9 L Creatinine 0.4 L Glucose 251 H NT-Pro-B Natriuret Pep 1023 H 04/07/17 04:57 WBC Hgb Hct MCH RDW Lymph % (Auto) Lymph # Seg Neutrophils % Seg Neuts % (Manual) Lymphocytes % (Manual) Nucleated RBC % Seg Neutrophils # Seg Neutrophils # Man Lymphocytes # (Manual) Chloride Creatinine 0.5 L Glucose 127 H NT-Pro-B Natriuret Pep
--- NOTE | 2017-04-08 13:53 | Consultation ---
REASON FOR EVALUATION: Difficulty in breathing. HISTORY OF PRESENT ILLNESS: The dyspnea has gotten much worse yesterday and she was apparently gasping for breath. The patient came to the Emergency Room and she is admitted for further management. The patient has a history of congestive heart failure for the past several years, originally diagnosed in 2004 and used to be followed by Dr. Yanes, currently followed by Alfreda. She is also known to have sarcoidosis and is followed by Dr. Chirinos. She is known to have hypertension and hyperlipidemia also. The patient claims to have stopped smoking recently. She denies chest pain. Currently her breathing has improved today. The patient is seen for further evaluation and management. REVIEW OF SYSTEMS: HEAD, EYES, EARS, NOSE AND THROAT: No symptoms. ENDOCRINE: No history of diabetes. No history of thyroid problems. GASTROINTESTINAL: No abdominal pain, nausea, or vomiting. Bowel habits have been regular. GENITOURINARY: No symptoms. CENTRAL NERVOUS SYSTEM: No history of cerebrovascular accident or convulsive disorder. PHYSICAL EXAMINATION: GENERAL: Adult moderately obese female, in no acute distress. VITAL SIGNS: Blood pressure 103/64. HEAD, EYES, EARS, NOSE, AND THROAT: Unremarkable. NECK: Supple. No thyromegaly. Both carotids are palpable and equal. Neck veins are flat. CHEST: Symmetrical. LUNGS: Essentially clear. HEART: S1 and S2 are heard with no S3. ABDOMEN: Soft, nontender, no hepatosplenomegaly. Peristaltic sounds are heard though. EXTREMITIES: No calf tenderness, 1+ edema is present. LABORATORY DATA: EKG: Sinus rhythm with occasional PACs, minor ST changes are present. WBC 11.7, hemoglobin 9.2, hematocrit 39.8. Sodium 140, potassium 4.3, BUN 16, creatinine 0.5, blood sugar 127. BNP 1023. IMPRESSION: 1. Congestive heart failure. 2. Hypertension. 3. Hyperlipidemia. 4. Sarcoidosis followed by Dr. Chirinos. 5. Respiratory failure. The patient is seen for cardiac evaluation. Her problem appears to be multifactorial including sarcoidosis with hypoxia requiring significant oxygen administration earlier. Today, she is doing better. She also appears to have mild congestive heart failure. We will obtain an echocardiogram. The patient will be monitored and followed closely along with you. Thank you for allowing me to participate in the care of this pleasant lady. JOB# [id number] M/NTS
--- NOTE | 2017-04-08 16:55 | XRay Report ---
FINAL REPORT PROCEDURE: XR CHEST 1V AP TECHNIQUE: Chest radiograph anteroposterior view. CPT 83142 HISTORY: Dyspnea COMPARISON: 04/06/2017 FINDINGS: Heart: Moderately enlarged. Mediastinum/Vessels: Moderate congestion. Lungs/Pleural space: Effusion and or airspace process in the lower lung zones decreased from prior study but incompletely resolved. Bony thorax: No acute osseous abnormality. Life support devices: None. IMPRESSION: Interval marked improved aeration of the lungs with persistent mild CHF and lower lung zone effusion/infiltrate or atelectasis
[2017-04-08] MEDS ORDERED: LOPRESSOR IV STA (18:36)
--- NOTE | 2017-04-08 18:43 | Progress Note ---
Assessment and Plan Assessment and plan: Acute hypoxic respiratory failure due to CHF exacerbation and sarcoidosis. Continue supplemental Oxygen. BIPAP as clinically indicated. Pulm following. Acute exacerbation of chronic CHF. Echocardiogram. BNP slightly elevated at 1023. Cont. Lasix iv, Coreh , MAGNOLIA inhibitor, aspirin. Cardiology following. Hypertension. Continue antihypertensive medications Diabetes mellitus type 2. On Metformin. Hyperlipidemia. Sarcoidosis. The patient is followed by Dr. Chirinos DVT prophylaxis with Lovenox. Full code status History Interval history: Shortness of breath worse on exertion, no chest pain Hospitalist Physical - Physical exam Narrative exam: GEN APPEARANCE : Not in acute distress, lying in bed, obese HEENT: Normocephalic, Atraumatic NECK : supple, no JVD LUNGS: Bilateral basal crackles, no wheezing HEART: S1 and S2 regular, no murmurs, rubs or gallop ABD: Soft, non tender, non distended, normal bowel sounds EXT: Bilateral leg edema, no clubbing, no cyanosis NEURO: Awake,alert, oriented x 3, speech normal, no focal signs - Constitutional Vitals: Temp Pulse Resp BP Pulse Ox 98.5 F 87 20 114/72 94 04/08/17 16:55 04/08/17 16:55 04/08/17 16:55 04/08/17 16:55 04/08/17 16:55 General appearance: Present: no acute distress, well-nourished Results - Labs CBC & Chem 7: 04/07/17 04:57 04/07/17 04:57 Labs: Laboratory Last Values WBC 11.7 K/mm3 (4.5-11.0) H 04/07/17 04:57 RBC 3.74 M/mm3 (3.65-5.03) 04/07/17 04:57 Hgb 9.2 gm/dl (10.1-14.3) L 04/07/17 04:57 Hct 29.8 % (30.3-42.9) L 04/07/17 04:57 MCV 80 fl (79-97) 04/07/17 04:57 MCH 25 pg (28-32) L 04/07/17 04:57 MCHC 31 % (30-34) 04/07/17 04:57 RDW 20.4 % (13.2-15.2) H 04/07/17 04:57 Plt Count 269 K/mm3 (140-440) 04/07/17 04:57 Lymph % (Auto) 9.8 % (13.4-35.0) L 04/07/17 04:57 [place] % (Auto) 6.2 % (0.0-7.3) 04/07/17 04:57 Eos % (Auto) 0.0 % (0.0-4.3) 04/07/17 04:57 Baso % (Auto) 0.3 % (0.0-1.8) 04/07/17 04:57 Lymph # 1.1 K/mm3 (1.2-5.4) L 04/07/17 04:57 [place] # 0.7 K/mm3 (0.0-0.8) 04/07/17 04:57 Eos # 0.0 K/mm3 (0.0-0.4) 04/07/17 04:57 Baso # 0.0 K/mm3 (0.0-0.1) 04/07/17 04:57 Add Manual Diff Complete 04/06/17 21:19 Total Counted 100 04/06/17 21:19 Seg Neutrophils % 83.7 % (40.0-70.0) H 04/07/17 04:57 Seg Neuts % (Manual) 88.0 % (40.0-70.0) H 04/06/17 21:19 Band Neutrophils % 5.0 % 04/06/17 21:19 Lymphocytes % (Manual) 6.0 % (13.4-35.0) L 04/06/17 21:19 Reactive Lymphs % (Man) 0 % 04/06/17 21:19 Monocytes % (Manual) 1.0 % (0.0-7.3) 04/06/17 21:19 Eosinophils % (Manual) 0 % (0.0-4.3) 04/06/17 21:19 Basophils % (Manual) 0 % (0.0-1.8) 04/06/17 21:19 Metamyelocytes % 0 % 04/06/17 21:19 Myelocytes % 0 % 04/06/17 21:19 Promyelocytes % 0 % 04/06/17 21:19 Blast Cells % 0 % 04/06/17 21:19 Nucleated RBC % 2.0 % (0.0-0.9) H 04/06/17 21:19 Seg Neutrophils # 9.8 K/mm3 (1.8-7.7) H 04/07/17 04:57 Seg Neutrophils # Man 12.6 K/mm3 (1.8-7.7) H 04/06/17 21:19 Band Neutrophils # 0.7 K/mm3 04/06/17 21:19 Lymphocytes # (Manual) 0.9 K/mm3 (1.2-5.4) L 04/06/17 21:19 Abs React Lymphs (Man) 0.0 K/mm3 04/06/17 21:19 Monocytes # (Manual) 0.1 K/mm3 (0.0-0.8) 04/06/17 21:19 Eosinophils # (Manual) 0.0 K/mm3 (0.0-0.4) 04/06/17 21:19 Basophils # (Manual) 0.0 K/mm3 (0.0-0.1) 04/06/17 21:19 Metamyelocytes # 0.0 K/mm3 04/06/17 21:19 Myelocytes # 0.0 K/mm3 04/06/17 21:19 Promyelocytes # 0.0 K/mm3 04/06/17 21:19 Blast Cells # 0.0 K/mm3 04/06/17 21:19 WBC Morphology Not Reportable 04/06/17 21:19 Hypersegmented Neuts Not Reportable 04/06/17 21:19 Hyposegmented Neuts Not Reportable 04/06/17 21:19 Hypogranular Neuts Not Reportable 04/06/17 21:19 Smudge Cells Not Reportable 04/06/17 21:19 Toxic Granulation Not Reportable 04/06/17 21:19 Toxic Vacuolation Not Reportable 04/06/17 21:19 Dohle Bodies Not Reportable 04/06/17 21:19 Pelger-Huet Anomaly Not Reportable 04/06/17 21:19 Chiara Rods Not Reportable 04/06/17 21:19 Platelet Estimate Appears normal 04/06/17 21:19 Clumped Platelets Not Reportable 04/06/17 21:19 Plt Clumps, EDTA Not Reportable 04/06/17 21:19 Large Platelets Few 04/06/17 21:19 Giant Platelets Few 04/06/17 21:19 Platelet Satelliting Not Reportable 04/06/17 21:19 Plt Morphology Comment Not Reportable 04/06/17 21:19 RBC Morphology Not Reportable 04/06/17 21:19 Dimorphic RBCs Not Reportable 04/06/17 21:19 Polychromasia Few 04/06/17 21:19 Hypochromasia 2+ 04/06/17 21:19 Poikilocytosis Few 04/06/17 21:19 Anisocytosis 1+ 04/06/17 21:19 Microcytosis 1+ 04/06/17 21:19 Macrocytosis Not Reportable 04/06/17 21:19 Spherocytes Not Reportable 04/06/17 21:19 Pappenheimer Bodies Not Reportable 04/06/17 21:19 Sickle Cells Not Reportable 04/06/17 21:19 Target Cells Not Reportable 04/06/17 21:19 Tear Drop Cells Not Reportable 04/06/17 21:19 Ovalocytes Few 04/06/17 21:19 Helmet Cells Not Reportable 04/06/17 21:19 Mora-Crockett Bodies Not Reportable 04/06/17 21:19 [place] Rings Not Reportable 04/06/17 21:19 [place] Cells Not Reportable 04/06/17 21:19 Bite Cells Not Reportable 04/06/17 21:19 Crenated Cell Not Reportable 04/06/17 21:19 Elliptocytes Not Reportable 04/06/17 21:19 Acanthocytes (Spur) Not Reportable 04/06/17 21:19 Rouleaux Not Reportable 04/06/17 21:19 Hemoglobin C Crystals Not Reportable 04/06/17 21:19 Schistocytes Not Reportable 04/06/17 21:19 Malaria parasites Not Reportable 04/06/17 21:19 Bryant Bodies Not Reportable 04/06/17 21:19 Hem Pathologist Commnt No 04/06/17 21:19 POC ABG pH 7.435 (7.35-7.45) 04/06/17 22:54 POC ABG pCO2 41.8 (35-45) 04/06/17 22:54 POC ABG pO2 103 (80-105) 04/06/17 22:54 POC ABG HCO3 28.1 04/06/17 22:54 POC ABG Total CO2 29 04/06/17 22:54 POC ABG O2 Sat 98 04/06/17 22:54 POC ABG Base Excess 4 04/06/17 22:54 FiO2 80 % 04/06/17 22:54 Sodium 140 mmol/L (137-145) 04/07/17 04:57 Potassium 4.3 mmol/L (3.6-5.0) 04/07/17 04:57 Chloride 98.1 mmol/L (98-107) 04/07/17 04:57 Carbon Dioxide 30 mmol/L (22-30) 04/07/17 04:57 Anion Gap 16 mmol/L 04/07/17 04:57 BUN 16 mg/dL (7-17) 04/07/17 04:57 Creatinine 0.5 mg/dL (0.7-1.2) L 04/07/17 04:57 Estimated GFR > 60 ml/min 04/07/17 04:57 BUN/Creatinine Ratio 32 % 04/07/17 04:57 Glucose 127 mg/dL (65-100) H 04/07/17 04:57 Calcium 8.5 mg/dL (8.4-10.2) 04/07/17 04:57 Total Bilirubin 0.40 mg/dL (0.1-1.2) 04/06/17 20:40 AST 15 units/L (5-40) 04/06/17 20:40 ALT 19 units/L (7-56) 04/06/17 20:40 Alkaline Phosphatase 65 units/L (35-129) 04/06/17 20:40 Total Creatine Kinase 107 units/L (30-135) 04/06/17 20:40 CK-MB (CK-2) 2.7 ng/mL (0.0-4.0) 04/06/17 20:40 CK-MB (CK-2) Rel Index 2.5 (0-4) 04/06/17 20:40 Troponin T < 0.010 ng/mL (0.00-0.029) 04/06/17 20:40 NT-Pro-B Natriuret Pep 1023 pg/mL (0-900) H 04/06/17 20:40 Total Protein 7.2 g/dL (6.3-8.2) 04/06/17 20:40 Albumin 4.0 g/dL (3.9-5) 04/06/17 20:40 Albumin/Globulin Ratio 1.3 % 04/06/17 20:40
[2017-04-08] MEDS: APRESOLINE PO SCH (21:46)
[2017-04-08] MEDS: PERCOCET 5/325 PO PRN (21:47)
[2017-04-08] MEDS: LOPRESSOR IV PRN (23:06)
[2017-04-09] MEDS ORDERED: CARDIZEM IV ONE (00:38)
[2017-04-09] MEDS: LOPRESSOR IV PRN ×3 (05:13→22:29)
[2017-04-09] MEDS: LASIX IV SCH ×2 (05:15→18:10)
[2017-04-09] MEDS: PERCOCET 5/325 PO PRN ×2 (05:17→18:00)
[2017-04-09 06:25] LABS: Hematocrit 30.5 % (30.3-42.9); Hemoglobin 9.4 gm/dl (10.1-14.3); Mean Corpuscular HGB Conc 31 % (30-34); Mean Corpuscular Volume 80 fl (79-97); Platelet Count 251 K/mm3 (140-440); Red Blood Count 3.83 M/mm3 (3.65-5.03)
[2017-04-09 06:27] LABS: Mean Corpuscular Hemoglobin 25 pg (28-32); Red Cell Distribution Width 20.6 % (13.2-15.2)
[2017-04-09 06:43] LABS: BUN/Creatinine Ratio 29; Blood Urea Nitrogen 20 mg/dL (7-17); Calcium 8.6 mg/dL (8.4-10.2); Hemolysis Index 1
[2017-04-09] MEDS ORDERED: GLUCOPHAGE PO SCH (08:00)
--- NOTE | 2017-04-09 08:03 | Progress Note ---
Assessment and Plan Assessment and plan: Acute hypoxic respiratory failure due to CHF exacerbation and sarcoidosis. Continue supplemental Oxygen. BIPAP as clinically indicated. Pulm following. Atrial fibrillation with rapid ventricular response. Start cardizem drip, Lovenox 1mg/kg and transfer to ICU Acute exacerbation of chronic CHF. Echocardiogram ordered. BNP slightly elevated at 1023. Cont. Lasix iv, Coreh , MAGNOLIA inhibitor, aspirin. Cardiology following. Elevated d-dimer. Will do CT chest when afib stable Hypertension. Continue antihypertensive medications Diabetes mellitus type 2. On Metformin. Hyperlipidemia. Sarcoidosis. The patient is followed as outpatient by Dr. Chirinos DVT prophylaxis with Lovenox. Full code status History Interval history: Shortness of breath worse on exertion, rapid heart rate on Telemetry No chest pain Hospitalist Physical - Physical exam Narrative exam: GEN APPEARANCE : Not in acute distress, morbidly obese HEENT: Normocephalic, Atraumatic NECK : supple, no JVD LUNGS: Bilateral basal crackles, no wheezing HEART: S1 and S2 irregular irregular, no murmurs, rubs or gallop ABD: Soft, non tender, non distended, normal bowel sounds EXT: Bilateral leg edema, no clubbing, no cyanosis NEURO: Awake,alert, oriented x 3, speech normal, no focal signs - Constitutional Vitals: Temp Pulse Resp BP Pulse Ox 97.6 F 65 24 127/73 100 04/09/17 07:40 04/09/17 07:40 04/09/17 07:40 04/09/17 07:40 04/09/17 07:40 General appearance: Present: no acute distress, well-nourished Results - Labs CBC & Chem 7: 04/09/17 06:02 04/09/17 06:02 Labs: Laboratory Last Values WBC 9.8 K/mm3 (4.5-11.0) 04/09/17 06:02 RBC 3.83 M/mm3 (3.65-5.03) 04/09/17 06:02 Hgb 9.4 gm/dl (10.1-14.3) L 04/09/17 06:02 Hct 30.5 % (30.3-42.9) 04/09/17 06:02 MCV 80 fl (79-97) 04/09/17 06:02 MCH 25 pg (28-32) L 04/09/17 06:02 MCHC 31 % (30-34) 04/09/17 06:02 RDW 20.6 % (13.2-15.2) H 04/09/17 06:02 Plt Count 251 K/mm3 (140-440) 04/09/17 06:02 Lymph % (Auto) 9.8 % (13.4-35.0) L 04/07/17 04:57 [place] % (Auto) 6.2 % (0.0-7.3) 04/07/17 04:57 Eos % (Auto) 0.0 % (0.0-4.3) 04/07/17 04:57 Baso % (Auto) 0.3 % (0.0-1.8) 04/07/17 04:57 Lymph # 1.1 K/mm3 (1.2-5.4) L 04/07/17 04:57 [place] # 0.7 K/mm3 (0.0-0.8) 04/07/17 04:57 Eos # 0.0 K/mm3 (0.0-0.4) 04/07/17 04:57 Baso # 0.0 K/mm3 (0.0-0.1) 04/07/17 04:57 Add Manual Diff Complete 04/06/17 21:19 Total Counted 100 04/06/17 21:19 Seg Neutrophils % 83.7 % (40.0-70.0) H 04/07/17 04:57 Seg Neuts % (Manual) 88.0 % (40.0-70.0) H 04/06/17 21:19 Band Neutrophils % 5.0 % 04/06/17 21:19 Lymphocytes % (Manual) 6.0 % (13.4-35.0) L 04/06/17 21:19 Reactive Lymphs % (Man) 0 % 04/06/17 21:19 Monocytes % (Manual) 1.0 % (0.0-7.3) 04/06/17 21:19 Eosinophils % (Manual) 0 % (0.0-4.3) 04/06/17 21:19 Basophils % (Manual) 0 % (0.0-1.8) 04/06/17 21:19 Metamyelocytes % 0 % 04/06/17 21:19 Myelocytes % 0 % 04/06/17 21:19 Promyelocytes % 0 % 04/06/17 21:19 Blast Cells % 0 % 04/06/17 21:19 Nucleated RBC % 2.0 % (0.0-0.9) H 04/06/17 21:19 Seg Neutrophils # 9.8 K/mm3 (1.8-7.7) H 04/07/17 04:57 Seg Neutrophils # Man 12.6 K/mm3 (1.8-7.7) H 04/06/17 21:19 Band Neutrophils # 0.7 K/mm3 04/06/17 21:19 Lymphocytes # (Manual) 0.9 K/mm3 (1.2-5.4) L 04/06/17 21:19 Abs React Lymphs (Man) 0.0 K/mm3 04/06/17 21:19 Monocytes # (Manual) 0.1 K/mm3 (0.0-0.8) 04/06/17 21:19 Eosinophils # (Manual) 0.0 K/mm3 (0.0-0.4) 04/06/17 21:19 Basophils # (Manual) 0.0 K/mm3 (0.0-0.1) 04/06/17 21:19 Metamyelocytes # 0.0 K/mm3 04/06/17 21:19 Myelocytes # 0.0 K/mm3 04/06/17 21:19 Promyelocytes # 0.0 K/mm3 04/06/17 21:19 Blast Cells # 0.0 K/mm3 04/06/17 21:19 WBC Morphology Not Reportable 04/06/17 21:19 Hypersegmented Neuts Not Reportable 04/06/17 21:19 Hyposegmented Neuts Not Reportable 04/06/17 21:19 Hypogranular Neuts Not Reportable 04/06/17 21:19 Smudge Cells Not Reportable 04/06/17 21:19 Toxic Granulation Not Reportable 04/06/17 21:19 Toxic Vacuolation Not Reportable 04/06/17 21:19 Dohle Bodies Not Reportable 04/06/17 21:19 Pelger-Huet Anomaly Not Reportable 04/06/17 21:19 Chiara Rods Not Reportable 04/06/17 21:19 Platelet Estimate Appears normal 04/06/17 21:19 Clumped Platelets Not Reportable 04/06/17 21:19 Plt Clumps, EDTA Not Reportable 04/06/17 21:19 Large Platelets Few 04/06/17 21:19 Giant Platelets Few 04/06/17 21:19 Platelet Satelliting Not Reportable 04/06/17 21:19 Plt Morphology Comment Not Reportable 04/06/17 21:19 RBC Morphology Not Reportable 04/06/17 21:19 Dimorphic RBCs Not Reportable 04/06/17 21:19 Polychromasia Few 04/06/17 21:19 Hypochromasia 2+ 04/06/17 21:19 Poikilocytosis Few 04/06/17 21:19 Anisocytosis 1+ 04/06/17 21:19 Microcytosis 1+ 04/06/17 21:19 Macrocytosis Not Reportable 04/06/17 21:19 Spherocytes Not Reportable 04/06/17 21:19 Pappenheimer Bodies Not Reportable 04/06/17 21:19 Sickle Cells Not Reportable 04/06/17 21:19 Target Cells Not Reportable 04/06/17 21:19 Tear Drop Cells Not Reportable 04/06/17 21:19 Ovalocytes Few 04/06/17 21:19 Helmet Cells Not Reportable 04/06/17 21:19 [place] Bodies Not Reportable 04/06/17 21:19 [place] Rings Not Reportable 04/06/17 21:19 Consuelo Cells Not Reportable 04/06/17 21:19 Bite Cells Not Reportable 04/06/17 21:19 Crenated Cell Not Reportable 04/06/17 21:19 Elliptocytes Not Reportable 04/06/17 21:19 Acanthocytes (Spur) Not Reportable 04/06/17 21:19 Rouleaux Not Reportable 04/06/17 21:19 Hemoglobin C Crystals Not Reportable 04/06/17 21:19 Schistocytes Not Reportable 04/06/17 21:19 Malaria parasites Not Reportable 04/06/17 21:19 [place] Bodies Not Reportable 04/06/17 21:19 Hem Pathologist Commnt No 04/06/17 21:19 D-Dimer 783.86 ng/mlDDU (0-234) H 04/09/17 06:02 POC ABG pH 7.435 (7.35-7.45) 04/06/17 22:54 POC ABG pCO2 41.8 (35-45) 04/06/17 22:54 POC ABG pO2 103 (80-105) 04/06/17 22:54 POC ABG HCO3 28.1 04/06/17 22:54 POC ABG Total CO2 29 04/06/17 22:54 POC ABG O2 Sat 98 04/06/17 22:54 POC ABG Base Excess 4 04/06/17 22:54 FiO2 80 % 04/06/17 22:54 Sodium 141 mmol/L (137-145) 04/09/17 06:02 Potassium 4.4 mmol/L (3.6-5.0) 04/09/17 06:02 Chloride 95.0 mmol/L (98-107) L 04/09/17 06:02 Carbon Dioxide 35 mmol/L (22-30) H 04/09/17 06:02 Anion Gap 15 mmol/L 04/09/17 06:02 BUN 20 mg/dL (7-17) H 04/09/17 06:02 Creatinine 0.7 mg/dL (0.7-1.2) 04/09/17 06:02 Estimated GFR > 60 ml/min 04/09/17 06:02 BUN/Creatinine Ratio 29 % 04/09/17 06:02 Glucose 186 mg/dL (65-100) H 04/09/17 06:02 Calcium 8.6 mg/dL (8.4-10.2) 04/09/17 06:02 Phosphorus 4.00 mg/dL (2.5-4.5) 04/09/17 06:02 Magnesium 1.70 mg/dL (1.7-2.3) 04/09/17 06:02 Total Bilirubin 0.40 mg/dL (0.1-1.2) 04/06/17 20:40 AST 15 units/L (5-40) 04/06/17 20:40 ALT 19 units/L (7-56) 04/06/17 20:40 Alkaline Phosphatase 65 units/L (35-129) 04/06/17 20:40 Total Creatine Kinase 107 units/L (30-135) 04/06/17 20:40 CK-MB (CK-2) 2.7 ng/mL (0.0-4.0) 04/06/17 20:40 CK-MB (CK-2) Rel Index 2.5 (0-4) 04/06/17 20:40 Troponin T < 0.010 ng/mL (0.00-0.029) 04/09/17 06:02 NT-Pro-B Natriuret Pep 1023 pg/mL (0-900) H 04/06/17 20:40 Total Protein 7.2 g/dL (6.3-8.2) 04/06/17 20:40 Albumin 4.0 g/dL (3.9-5) 04/06/17 20:40 Albumin/Globulin Ratio 1.3 % 04/06/17 20:40 TSH 2.850 mlU/mL (0.270-4.200) 04/09/17 06:02
[2017-04-09] MEDS ORDERED: LOVENOX SUB-Q STA (08:05)
[2017-04-09] MEDS ORDERED: LOVENOX SUB-Q ONE ×2 (09:00)
[2017-04-09] MEDS: CARDIZEM/D5W 100MG/100ML 100 MG/100 ML BAG IV SCH (09:46)
[2017-04-09] MEDS: ASPIRIN PO SCH (09:57)
[2017-04-09] MEDS ORDERED: NORVASC PO SCH (10:00)
[2017-04-09] MEDS ORDERED: NACL 0.9% 500 ML 500 ML IV ONE (10:00)
--- NOTE | 2017-04-09 10:01 | Progress Note ---
Assessment and Plan 51 y/o female with known sarcoid, DRE on CPAP admitted with CHF exacerbation and pulmonary edema now with tachycardia, appears to be afib with RVR 1. Normal saline bolus now 2. Will add mag level 3. Check TSH and Free T4 4. Hold all other BP meds at this time. May need to use Amio if BP becomes an issue vs cardioversion with electricity. Subjective Date of service: 04/09/17 Interval history: patient with elevation in heart rate this am. Currently in the 160's. No chest pain. Not short of breath. Essentially asymptomatic. IMS I assumed checked a D-Dimer this am and it was elevated but patient is not behaving like PE. Given metoprolol with no improvement in HR. Objective Vital Signs - 12hr 04/08/17 04/08/17 04/08/17 22:00 22:02 23:00 Temperature Pulse Rate 160 H 174 H Pulse Rate [ 165 H From Monitor] Respiratory 22 28 H Rate Respiratory 20 Rate [Lower Abdomen] Blood Pressure Blood Pressure [Right] O2 Sat by Pulse 96 Oximetry 04/08/17 04/09/17 04/09/17 23:06 01:02 01:13 Temperature Pulse Rate 168 H 166 H 169 H Pulse Rate [ From Monitor] Respiratory Rate Respiratory Rate [Lower Abdomen] Blood Pressure 102/75 109/85 Blood Pressure 109/85 [Right] O2 Sat by Pulse 96 Oximetry 04/09/17 04/09/17 04/09/17 05:13 05:17 07:40 Temperature 97.6 F Pulse Rate 158 H 65 Pulse Rate [ From Monitor] Respiratory 22 24 Rate Respiratory Rate [Lower Abdomen] Blood Pressure 107/78 127/73 Blood Pressure [Right] O2 Sat by Pulse 100 Oximetry 04/09/17 04/09/17 04/09/17 09:22 09:31 09:46 Temperature Pulse Rate 168 H 155 H 160 H Pulse Rate [ From Monitor] Respiratory 18 22 Rate Respiratory Rate [Lower Abdomen] Blood Pressure Blood Pressure [Right] O2 Sat by Pulse 91 Oximetry Constitutional: no acute distress, alert, other (morbidly obese) Eyes: non-icteric ENT: oropharynx moist, other (Mallampati 4) Ascultation: Bilateral: diminished breath sounds, rhonchi (sporadic bases) Cardiovascular: regular rate and rhythm Gastrointestinal: normoactive bowel sounds, non-distended Extremities: no cyanosis, other (trace pretibial edema. No cyanosis) Neurologic: normal mental status, non-focal exam, CN II-XII normal, motor strength normal and Psychiatric: mood appropriate, affect normal, anxious CBC and BMP: 04/09/17 06:02 04/09/17 06:02 ABG, PT/INR, D-dimer: ABG POC ABG pH 7.435 (7.35-7.45) 04/06/17 22:54 POC ABG pCO2 41.8 (35-45) 04/06/17 22:54 POC ABG pO2 103 (80-105) 04/06/17 22:54 POC ABG HCO3 28.1 04/06/17 22:54 POC ABG Total CO2 29 04/06/17 22:54 POC ABG O2 Sat 98 04/06/17 22:54 PT/INR, D-dimer D-Dimer 783.86 ng/mlDDU (0-234) H 04/09/17 06:02 Abnormal lab findings: Abnormal Labs 04/06/17 04/06/17 04/07/17 20:40 21:19 04:57 WBC 14.3 H 11.7 H Hgb 9.2 L 9.2 L Hct 30.1 L 29.8 L MCH 24 L 25 L RDW 20.5 H 20.4 H Lymph % (Auto) 9.8 L Lymph # 1.1 L Seg Neutrophils % 83.7 H Seg Neuts % (Manual) 88.0 H Lymphocytes % (Manual) 6.0 L Nucleated RBC % 2.0 H Seg Neutrophils # 9.8 H Seg Neutrophils # Man 12.6 H Lymphocytes # (Manual) 0.9 L D-Dimer Chloride 96.9 L Carbon Dioxide BUN Creatinine 0.4 L Glucose 251 H POC Glucose NT-Pro-B Natriuret Pep 1023 H 04/07/17 04/09/17 04/09/17 04:57 06:02 06:02 WBC Hgb 9.4 L Hct MCH 25 L RDW 20.6 H Lymph % (Auto) Lymph # Seg Neutrophils % Seg Neuts % (Manual) Lymphocytes % (Manual) Nucleated RBC % Seg Neutrophils # Seg Neutrophils # Man Lymphocytes # (Manual) D-Dimer Chloride 95.0 L Carbon Dioxide 35 H BUN 20 H Creatinine 0.5 L Glucose 127 H 186 H POC Glucose NT-Pro-B Natriuret Pep 04/09/17 04/09/17 06:02 08:04 WBC Hgb Hct MCH RDW Lymph % (Auto) Lymph # Seg Neutrophils % Seg Neuts % (Manual) Lymphocytes % (Manual) Nucleated RBC % Seg Neutrophils # Seg Neutrophils # Man Lymphocytes # (Manual) D-Dimer 783.86 H Chloride Carbon Dioxide BUN Creatinine Glucose POC Glucose 196 H NT-Pro-B Natriuret Pep
--- NOTE | 2017-04-09 10:29 | Progress Note ---
Assessment and Plan Assessment: New onset atrial fibrillation with RVR Acute on chronic respiratory failure Acute on chronic heart failure Sarcoidosis Hypertension Hyperlipidemia Plan: Agree with IV cardizem. Continue lasix and close monitoring of volume status. Await echo findings. The patient has been seen in conjunction with Dr. Schwartz who agrees with the assessment and plan of care. Subjective Date of service: 04/09/17 Principal diagnosis: atrial fibrillation with RVR Interval history: Patient transferred to ICU this morning for rapid afib. She has been started on a cardizem gtt. Objective Last Vital Signs Temp 97.6 F 04/09/17 07:40 Pulse 160 H 04/09/17 09:46 Resp 22 04/09/17 09:31 BP 127/73 04/09/17 07:40 Pulse Ox 91 04/09/17 09:31 - Physical Examination General: Appears Well, No Apparent Distress HEENT: Positive: PERRL Neck: Positive: neck supple Cardiac: Positive: irregularly irregular, S1/S2 Lungs: Positive: clear to auscultation Neuro: Positive: Grossly Intact Abdomen: Positive: Soft Skin: Positive: Clear. Negative: Rash Extremities: Present: normal - Labs and Meds CBC 04/09/17 Range/Units 06:02 WBC 9.8 (4.5-11.0) K/mm3 RBC 3.83 (3.65-5.03) M/mm3 Hgb 9.4 L (10.1-14.3) gm/dl Hct 30.5 (30.3-42.9) % Plt Count 251 (140-440) K/mm3 Comprehensive Metabolic Panel 04/09/17 Range/Units 06:02 Sodium 141 (137-145) mmol/L Potassium 4.4 (3.6-5.0) mmol/L Chloride 95.0 L (98-107) mmol/L Carbon Dioxide 35 H (22-30) mmol/L BUN 20 H (7-17) mg/dL Creatinine 0.7 (0.7-1.2) mg/dL Glucose 186 H (65-100) mg/dL Calcium 8.6 (8.4-10.2) mg/dL - Imaging and Cardiology EKG: image reviewed Echo: report reviewed (04/2016: EF 55%) - Telemetry EKG Rhythm: Atrial Fibrillation
[2017-04-09] MEDS ORDERED: MAGNESIUM SULFATE 3 GM in NACL 0.9% 100 ML IV ONE (10:30)
[2017-04-09] MEDS: APRESOLINE PO SCH ×2 (11:21→21:13)
[2017-04-09] MEDS: LEVAQUIN 750MG/150ML 750 MG/150 ML BAG IV SCH (11:21)
[2017-04-09] MEDS: COREG PO SCH ×2 (11:21→21:15)
[2017-04-09] MEDS: ALDACTONE PO SCH (11:21)
[2017-04-09] MEDS: IMDUR PO SCH (11:22)
[2017-04-09] MEDS: ZESTRIL PO SCH (11:22)
[2017-04-09] MEDS: NORVASC PO SCH (11:22)
[2017-04-09] MEDS ORDERED: GLUCOPHAGE ONE (13:11)
[2017-04-09] MEDS ORDERED: D50W (25GM) Syringe IV PRN (13:50)
[2017-04-09] MEDS ORDERED: CORDARONE 150 MG in D5W 97 ML IV ONE (14:30)
[2017-04-09] MEDS: CORDARONE 900 MG in D5W 482 ML IV SCH (16:15)
[2017-04-09] MEDS: NOVOLOG SUB-Q SCH ×2 (18:09→21:21)
[2017-04-10] MEDS: CARDIZEM/D5W 100MG/100ML 100 MG/100 ML BAG IV SCH ×2 (01:00→07:02)
[2017-04-10] MEDS: LOVENOX SUB-Q SCH ×3 (01:02→21:15)
[2017-04-10] MEDS: PERCOCET 5/325 PO PRN ×4 (01:54→21:16)
[2017-04-10 04:34] LABS: Hematocrit 29.5 % (30.3-42.9); Hemoglobin 9.1 gm/dl (10.1-14.3); Mean Corpuscular HGB Conc 31 % (30-34); Mean Corpuscular Volume 79 fl (79-97); Platelet Count 257 K/mm3 (140-440); Red Blood Count 3.76 M/mm3 (3.65-5.03)
[2017-04-10 04:36] LABS: Mean Corpuscular Hemoglobin 24 pg (28-32)
[2017-04-10 04:37] LABS: Red Cell Distribution Width 20.8 % (13.2-15.2)
[2017-04-10 04:54] LABS: BUN/Creatinine Ratio 31; Blood Urea Nitrogen 22 mg/dL (7-17); Calcium 8.6 mg/dL (8.4-10.2); Hemolysis Index 7
[2017-04-10] MEDS: LOPRESSOR IV PRN (05:03)
[2017-04-10] MEDS: LASIX IV SCH ×2 (07:02→17:43)
--- NOTE | 2017-04-10 08:29 | Progress Note ---
Assessment and Plan Assessment and plan: Acute hypoxic respiratory failure due to CHF exacerbation and sarcoidosis. Continue supplemental Oxygen. BIPAP as clinically indicated. Pulm following. Atrial fibrillation with rapid ventricular response. She was transferred here to ICU yesterday. Initially started on Cardizem drip. Heart rate was not controlled therefore switched to Amiodarone drip. Heart rate still uncontrolled. She denies chest pain or palpitations. cardiology following. Acute exacerbation of chronic CHF. Echocardiogram ordered. Cont. Lasix iv, Coreg , MAGNOLIA inhibitor, aspirin. Cardiology following. Elevated d-dimer. Ordered CTA chest. She refused saying she is claustrophobic. august order V/Q scan Hypertension. Continue antihypertensive medications Diabetes mellitus type 2. On Metformin. Hyperlipidemia. Sarcoidosis. The patient is followed as outpatient by Dr. Chirinos DVT prophylaxis with Lovenox. Full code status History Interval history: Shortness of breath worse on exertion, Patient diagnosed with rapid afib, new onset, Heart rate still elevated, No chest pain Hospitalist Physical - Physical exam Narrative exam: GEN APPEARANCE : Not in acute distress, morbidly obese HEENT: Normocephalic, Atraumatic NECK : supple, no JVD LUNGS: Bilateral basal crackles, no wheezing HEART: S1 and S2 irregular irregular, no murmurs, rubs or gallop ABD: Soft, non tender, non distended, normal bowel sounds EXT: Bilateral leg edema, no clubbing, no cyanosis NEURO: Awake,alert, oriented x 3, speech normal, no focal signs - Constitutional Vitals: Temp Pulse Resp BP Pulse Ox 98.5 F 156 H 33 H 144/98 93 04/10/17 04:00 04/10/17 05:03 04/10/17 03:01 04/10/17 05:03 04/10/17 07:09 General appearance: Present: no acute distress, well-nourished Results - Labs CBC & Chem 7: 04/10/17 03:57 04/10/17 03:57 Labs: Laboratory Last Values WBC 11.1 K/mm3 (4.5-11.0) H 04/10/17 03:57 RBC 3.76 M/mm3 (3.65-5.03) 04/10/17 03:57 Hgb 9.1 gm/dl (10.1-14.3) L 04/10/17 03:57 Hct 29.5 % (30.3-42.9) L 04/10/17 03:57 MCV 79 fl (79-97) 04/10/17 03:57 MCH 24 pg (28-32) L 04/10/17 03:57 MCHC 31 % (30-34) 04/10/17 03:57 RDW 20.8 % (13.2-15.2) H 04/10/17 03:57 Plt Count 257 K/mm3 (140-440) 04/10/17 03:57 Lymph % (Auto) 9.8 % (13.4-35.0) L 04/07/17 04:57 [place] % (Auto) 6.2 % (0.0-7.3) 04/07/17 04:57 Eos % (Auto) 0.0 % (0.0-4.3) 04/07/17 04:57 Baso % (Auto) 0.3 % (0.0-1.8) 04/07/17 04:57 Lymph # 1.1 K/mm3 (1.2-5.4) L 04/07/17 04:57 [place] # 0.7 K/mm3 (0.0-0.8) 04/07/17 04:57 Eos # 0.0 K/mm3 (0.0-0.4) 04/07/17 04:57 Baso # 0.0 K/mm3 (0.0-0.1) 04/07/17 04:57 Add Manual Diff Complete 04/06/17 21:19 Total Counted 100 04/06/17 21:19 Seg Neutrophils % 83.7 % (40.0-70.0) H 04/07/17 04:57 Seg Neuts % (Manual) 88.0 % (40.0-70.0) H 04/06/17 21:19 Band Neutrophils % 5.0 % 04/06/17 21:19 Lymphocytes % (Manual) 6.0 % (13.4-35.0) L 04/06/17 21:19 Reactive Lymphs % (Man) 0 % 04/06/17 21:19 Monocytes % (Manual) 1.0 % (0.0-7.3) 04/06/17 21:19 Eosinophils % (Manual) 0 % (0.0-4.3) 04/06/17 21:19 Basophils % (Manual) 0 % (0.0-1.8) 04/06/17 21:19 Metamyelocytes % 0 % 04/06/17 21:19 Myelocytes % 0 % 04/06/17 21:19 Promyelocytes % 0 % 04/06/17 21:19 Blast Cells % 0 % 04/06/17 21:19 Nucleated RBC % 2.0 % (0.0-0.9) H 04/06/17 21:19 Seg Neutrophils # 9.8 K/mm3 (1.8-7.7) H 04/07/17 04:57 Seg Neutrophils # Man 12.6 K/mm3 (1.8-7.7) H 04/06/17 21:19 Band Neutrophils # 0.7 K/mm3 04/06/17 21:19 Lymphocytes # (Manual) 0.9 K/mm3 (1.2-5.4) L 04/06/17 21:19 Abs React Lymphs (Man) 0.0 K/mm3 04/06/17 21:19 Monocytes # (Manual) 0.1 K/mm3 (0.0-0.8) 04/06/17 21:19 Eosinophils # (Manual) 0.0 K/mm3 (0.0-0.4) 04/06/17 21:19 Basophils # (Manual) 0.0 K/mm3 (0.0-0.1) 04/06/17 21:19 Metamyelocytes # 0.0 K/mm3 04/06/17 21:19 Myelocytes # 0.0 K/mm3 04/06/17 21:19 Promyelocytes # 0.0 K/mm3 04/06/17 21:19 Blast Cells # 0.0 K/mm3 04/06/17 21:19 WBC Morphology Not Reportable 04/06/17 21:19 Hypersegmented Neuts Not Reportable 04/06/17 21:19 Hyposegmented Neuts Not Reportable 04/06/17 21:19 Hypogranular Neuts Not Reportable 04/06/17 21:19 Smudge Cells Not Reportable 04/06/17 21:19 Toxic Granulation Not Reportable 04/06/17 21:19 Toxic Vacuolation Not Reportable 04/06/17 21:19 Dohle Bodies Not Reportable 04/06/17 21:19 Pelger-Huet Anomaly Not Reportable 04/06/17 21:19 Chiara Rods Not Reportable 04/06/17 21:19 Platelet Estimate Appears normal 04/06/17 21:19 Clumped Platelets Not Reportable 04/06/17 21:19 Plt Clumps, EDTA Not Reportable 04/06/17 21:19 Large Platelets Few 04/06/17 21:19 Giant Platelets Few 04/06/17 21:19 Platelet Satelliting Not Reportable 04/06/17 21:19 Plt Morphology Comment Not Reportable 04/06/17 21:19 RBC Morphology Not Reportable 04/06/17 21:19 Dimorphic RBCs Not Reportable 04/06/17 21:19 Polychromasia Few 04/06/17 21:19 Hypochromasia 2+ 04/06/17 21:19 Poikilocytosis Few 04/06/17 21:19 Anisocytosis 1+ 04/06/17 21:19 Microcytosis 1+ 04/06/17 21:19 Macrocytosis Not Reportable 04/06/17 21:19 Spherocytes Not Reportable 04/06/17 21:19 Pappenheimer Bodies Not Reportable 04/06/17 21:19 Sickle Cells Not Reportable 04/06/17 21:19 Target Cells Not Reportable 04/06/17 21:19 Tear Drop Cells Not Reportable 04/06/17 21:19 Ovalocytes Few 04/06/17 21:19 Helmet Cells Not Reportable 04/06/17 21:19 [place] Bodies Not Reportable 04/06/17 21:19 [place] Rings Not Reportable 04/06/17 21:19 Consuelo Cells Not Reportable 04/06/17 21:19 Bite Cells Not Reportable 04/06/17 21:19 Crenated Cell Not Reportable 04/06/17 21:19 Elliptocytes Not Reportable 04/06/17 21:19 Acanthocytes (Spur) Not Reportable 04/06/17 21:19 Rouleaux Not Reportable 04/06/17 21:19 Hemoglobin C Crystals Not Reportable 04/06/17 21:19 Schistocytes Not Reportable 04/06/17 21:19 Malaria parasites Not Reportable 04/06/17 21:19 [place] Bodies Not Reportable 04/06/17 21:19 Hem Pathologist Commnt No 04/06/17 21:19 D-Dimer 783.86 ng/mlDDU (0-234) H 04/09/17 06:02 POC ABG pH 7.435 (7.35-7.45) 04/06/17 22:54 POC ABG pCO2 41.8 (35-45) 04/06/17 22:54 POC ABG pO2 103 (80-105) 04/06/17 22:54 POC ABG HCO3 28.1 04/06/17 22:54 POC ABG Total CO2 29 04/06/17 22:54 POC ABG O2 Sat 98 04/06/17 22:54 POC ABG Base Excess 4 04/06/17 22:54 FiO2 80 % 04/06/17 22:54 Sodium 141 mmol/L (137-145) 04/10/17 03:57 Potassium 4.2 mmol/L (3.6-5.0) 04/10/17 03:57 Chloride 94.1 mmol/L (98-107) L 04/10/17 03:57 Carbon Dioxide 37 mmol/L (22-30) H 04/10/17 03:57 Anion Gap 14 mmol/L 04/10/17 03:57 BUN 22 mg/dL (7-17) H 04/10/17 03:57 Creatinine 0.7 mg/dL (0.7-1.2) 04/10/17 03:57 Estimated GFR > 60 ml/min 04/10/17 03:57 BUN/Creatinine Ratio 31 % 04/10/17 03:57 Glucose 183 mg/dL (65-100) H 04/10/17 03:57 POC Glucose 264 (70-105) H 04/09/17 21:18 Calcium 8.6 mg/dL (8.4-10.2) 04/10/17 03:57 Phosphorus 4.00 mg/dL (2.5-4.5) 04/09/17 06:02 Magnesium 1.70 mg/dL (1.7-2.3) 04/09/17 06:02 Total Bilirubin 0.40 mg/dL (0.1-1.2) 04/06/17 20:40 AST 15 units/L (5-40) 04/06/17 20:40 ALT 19 units/L (7-56) 04/06/17 20:40 Alkaline Phosphatase 65 units/L (35-129) 04/06/17 20:40 Total Creatine Kinase 107 units/L (30-135) 04/06/17 20:40 CK-MB (CK-2) 2.7 ng/mL (0.0-4.0) 04/06/17 20:40 CK-MB (CK-2) Rel Index 2.5 (0-4) 04/06/17 20:40 Troponin T < 0.010 ng/mL (0.00-0.029) 04/09/17 06:02 NT-Pro-B Natriuret Pep 1023 pg/mL (0-900) H 04/06/17 20:40 Total Protein 7.2 g/dL (6.3-8.2) 04/06/17 20:40 Albumin 4.0 g/dL (3.9-5) 04/06/17 20:40 Albumin/Globulin Ratio 1.3 % 04/06/17 20:40 TSH 2.850 mlU/mL (0.270-4.200) 04/09/17 06:02 Free T4 1.25 ng/dL (0.76-1.46) 04/09/17 06:02
[2017-04-10] MEDS: APRESOLINE PO SCH ×2 (09:08→21:15)
[2017-04-10] MEDS: COREG PO SCH (09:09)
[2017-04-10] MEDS: ALDACTONE PO SCH (09:09)
[2017-04-10] MEDS: NORVASC PO SCH (09:11)
[2017-04-10] MEDS: ASPIRIN PO SCH (09:12)
[2017-04-10] MEDS: IMDUR PO SCH (09:13)
[2017-04-10] MEDS: ZESTRIL PO SCH (09:13)
--- NOTE | 2017-04-10 09:21 | Progress Note ---
Assessment and Plan Assessment: New onset atrial fibrillation with RVR Acute on chronic respiratory failure Acute on chronic heart failure Sarcoidosis Hypertension Hyperlipidemia Plan: Patient remains in rapid atrial fibrillation. Will d/c cardizem gtt and rebolus with amiodarone and continue amio gtt at 1mg/min. Initiate digoxin (0.5mg x 1 then 0.25mg Q6H x 2). Will tentatively plan for ANGELIKA guided cardioversion tomorrow if patient does not respond to medication. The patient has been seen in conjunction with Dr. Schwartz who agrees with the assessment and plan of care. Subjective Date of service: 04/10/17 Principal diagnosis: atrial fibrillation with RVR Interval history: The patient is resting bed. States she "feels fine." She remains in afib with HR 130s-150s. Objective Last Vital Signs Temp 98.4 F 04/10/17 08:00 Pulse 144 H 04/10/17 10:01 Resp 27 H 04/10/17 10:01 BP 139/109 04/10/17 10:01 Pulse Ox 94 04/10/17 10:01 - Physical Examination General: Appears Well, No Apparent Distress HEENT: Positive: PERRL Neck: Positive: neck supple Cardiac: Positive: irregularly irregular, S1/S2 Lungs: Positive: Decreased Breath Sounds Neuro: Positive: Grossly Intact Abdomen: Positive: Soft Skin: Positive: Clear. Negative: Rash Extremities: Present: normal. Absent: edema - Labs and Meds CBC 04/10/17 Range/Units 03:57 WBC 11.1 H (4.5-11.0) K/mm3 RBC 3.76 (3.65-5.03) M/mm3 Hgb 9.1 L (10.1-14.3) gm/dl Hct 29.5 L (30.3-42.9) % Plt Count 257 (140-440) K/mm3 Comprehensive Metabolic Panel 04/10/17 Range/Units 03:57 Sodium 141 (137-145) mmol/L Potassium 4.2 (3.6-5.0) mmol/L Chloride 94.1 L (98-107) mmol/L Carbon Dioxide 37 H (22-30) mmol/L BUN 22 H (7-17) mg/dL Creatinine 0.7 (0.7-1.2) mg/dL Glucose 183 H (65-100) mg/dL Calcium 8.6 (8.4-10.2) mg/dL - Imaging and Cardiology EKG: image reviewed Echo: report reviewed (04/2016: EF 55%, 04/2017: technically suboptimal and nondiagnostic) - Telemetry EKG Rhythm: Atrial Fibrillation
[2017-04-10] MEDS: NOVOLOG SUB-Q SCH ×4 (09:28→21:14)
[2017-04-10] MEDS ORDERED: LANOXIN IV ONE ×2 (09:43→09:44)
--- NOTE | 2017-04-10 09:51 | Progress Note ---
Assessment and Plan 51 y/o female with known sarcoid, DRE on CPAP admitted with CHF exacerbation and pulmonary edema now with tachycardia, appears to be afib with RVR 1. Spoke with Cards, getting Dig today, if no conversion, will cardiovert electrically tomorrow per their plan. 2. Follow up mag Level 3. Thyroid studies are normal 4. Continue ICU care Subjective Date of service: 04/10/17 Principal diagnosis: atrial fibrillation with RVR Interval history: No acute events overnight. Still in Afib with RVR. Rate was not controlled on Dilt drip. Started on IV amiodarone. Rate still not controlled. K is normal, gave mag yesterday and ordered stat repeat. Breathing is stable on 5 liters NC Objective Vital Signs - 12hr 04/09/17 04/09/17 04/09/17 22:01 22:15 22:25 Temperature Pulse Rate 146 H 126 H 140 H Pulse Rate [ From Monitor] Pulse Rate [ Left Radial] Pulse Rate [ None] Pulse Rate [ Right Radial] Respiratory 24 21 26 H Rate Blood Pressure 178/121 178/121 178/121 O2 Sat by Pulse 100 98 99 Oximetry 04/09/17 04/09/17 04/09/17 22:28 22:29 23:01 Temperature Pulse Rate 151 H 143 H Pulse Rate [ From Monitor] Pulse Rate [ Left Radial] Pulse Rate [ 151 H None] Pulse Rate [ Right Radial] Respiratory 24 20 Rate Blood Pressure 178/78 178/78 204/62 O2 Sat by Pulse 99 Oximetry 04/09/17 04/10/17 04/10/17 23:52 00:00 00:01 Temperature 97.7 F Pulse Rate 148 H 141 H Pulse Rate [ 151 H From Monitor] Pulse Rate [ 156 H Left Radial] Pulse Rate [ None] Pulse Rate [ 142 H Right Radial] Respiratory 14 25 H Rate Blood Pressure 144/106 140/90 O2 Sat by Pulse 95 98 Oximetry 04/10/17 04/10/17 04/10/17 01:00 01:01 01:54 Temperature Pulse Rate 148 H 124 H Pulse Rate [ From Monitor] Pulse Rate [ Left Radial] Pulse Rate [ None] Pulse Rate [ Right Radial] Respiratory 24 28 H Rate Blood Pressure 144/106 144/106 O2 Sat by Pulse 97 Oximetry 04/10/17 04/10/17 04/10/17 02:01 03:01 04:00 Temperature 98.5 F Pulse Rate 137 H 152 H 145 H Pulse Rate [ From Monitor] Pulse Rate [ Left Radial] Pulse Rate [ None] Pulse Rate [ Right Radial] Respiratory 21 33 H 21 Rate Blood Pressure 148/116 120/85 135/97 O2 Sat by Pulse 98 97 95 Oximetry 04/10/17 04/10/17 04/10/17 05:01 05:03 06:01 Temperature Pulse Rate 152 H 156 H 143 H Pulse Rate [ From Monitor] Pulse Rate [ Left Radial] Pulse Rate [ None] Pulse Rate [ Right Radial] Respiratory 16 25 H Rate Blood Pressure 135/97 144/98 174/123 O2 Sat by Pulse 94 96 Oximetry 04/10/17 04/10/17 04/10/17 07:00 07:01 07:09 Temperature Pulse Rate 147 H 127 H Pulse Rate [ From Monitor] Pulse Rate [ Left Radial] Pulse Rate [ None] Pulse Rate [ Right Radial] Respiratory 18 Rate Blood Pressure 134/86 O2 Sat by Pulse 93 93 Oximetry 04/10/17 04/10/17 04/10/17 08:00 08:01 09:08 Temperature 98.4 F Pulse Rate 147 H 147 H Pulse Rate [ From Monitor] Pulse Rate [ Left Radial] Pulse Rate [ 121 H None] Pulse Rate [ Right Radial] Respiratory 21 27 H Rate Blood Pressure 136/104 136/104 129/102 O2 Sat by Pulse 92 92 Oximetry 04/10/17 04/10/17 04/10/17 09:09 09:11 09:13 Temperature Pulse Rate 146 H 138 H 139 H Pulse Rate [ From Monitor] Pulse Rate [ Left Radial] Pulse Rate [ None] Pulse Rate [ Right Radial] Respiratory Rate Blood Pressure 129/112 129/102 129/102 O2 Sat by Pulse Oximetry Constitutional: no acute distress, alert, other (morbidly obese) Eyes: non-icteric ENT: oropharynx moist, other (Mallampati 4) Ascultation: Bilateral: diminished breath sounds, rhonchi (sporadic bases) Cardiovascular: regular rate and rhythm Gastrointestinal: normoactive bowel sounds, non-distended Extremities: no cyanosis, other (trace pretibial edema. No cyanosis) Neurologic: normal mental status, non-focal exam, CN II-XII normal, motor strength normal and Psychiatric: mood appropriate, affect normal, anxious CBC and BMP: 04/10/17 03:57 04/10/17 03:57 ABG, PT/INR, D-dimer: ABG POC ABG pH 7.435 (7.35-7.45) 04/06/17 22:54 POC ABG pCO2 41.8 (35-45) 04/06/17 22:54 POC ABG pO2 103 (80-105) 04/06/17 22:54 POC ABG HCO3 28.1 04/06/17 22:54 POC ABG Total CO2 29 04/06/17 22:54 POC ABG O2 Sat 98 04/06/17 22:54 PT/INR, D-dimer D-Dimer 783.86 ng/mlDDU (0-234) H 04/09/17 06:02 Abnormal lab findings: Abnormal Labs 04/06/17 04/06/17 04/07/17 20:40 21:19 04:57 WBC 14.3 H 11.7 H Hgb 9.2 L 9.2 L Hct 30.1 L 29.8 L MCH 24 L 25 L RDW 20.5 H 20.4 H Lymph % (Auto) 9.8 L Lymph # 1.1 L Seg Neutrophils % 83.7 H Seg Neuts % (Manual) 88.0 H Lymphocytes % (Manual) 6.0 L Nucleated RBC % 2.0 H Seg Neutrophils # 9.8 H Seg Neutrophils # Man 12.6 H Lymphocytes # (Manual) 0.9 L D-Dimer Chloride 96.9 L Carbon Dioxide BUN Creatinine 0.4 L Glucose 251 H POC Glucose NT-Pro-B Natriuret Pep 1023 H 04/07/17 04/09/17 04/09/17 04:57 06:02 06:02 WBC Hgb 9.4 L Hct MCH 25 L RDW 20.6 H Lymph % (Auto) Lymph # Seg Neutrophils % Seg Neuts % (Manual) Lymphocytes % (Manual) Nucleated RBC % Seg Neutrophils # Seg Neutrophils # Man Lymphocytes # (Manual) D-Dimer Chloride 95.0 L Carbon Dioxide 35 H BUN 20 H Creatinine 0.5 L Glucose 127 H 186 H POC Glucose NT-Pro-B Natriuret Pep 04/09/17 04/09/17 04/09/17 06:02 08:04 11:46 WBC Hgb Hct MCH RDW Lymph % (Auto) Lymph # Seg Neutrophils % Seg Neuts % (Manual) Lymphocytes % (Manual) Nucleated RBC % Seg Neutrophils # Seg Neutrophils # Man Lymphocytes # (Manual) D-Dimer 783.86 H Chloride Carbon Dioxide BUN Creatinine Glucose POC Glucose 196 H 320 H NT-Pro-B Natriuret Pep 04/09/17 04/10/17 04/10/17 21:18 03:57 03:57 WBC 11.1 H Hgb 9.1 L Hct 29.5 L MCH 24 L RDW 20.8 H Lymph % (Auto) Lymph # Seg Neutrophils % Seg Neuts % (Manual) Lymphocytes % (Manual) Nucleated RBC % Seg Neutrophils # Seg Neutrophils # Man Lymphocytes # (Manual) D-Dimer Chloride 94.1 L Carbon Dioxide 37 H BUN 22 H Creatinine Glucose 183 H POC Glucose 264 H NT-Pro-B Natriuret Pep
[2017-04-10] MEDS ORDERED: CORDARONE 150 MG in D5W 100 ML IV ONE (10:00)
[2017-04-10] MEDS ORDERED: LOPRESSOR IV ONE (13:30)
[2017-04-10] MEDS: LANOXIN IV SCH ×2 (14:51→21:19)
[2017-04-11] MEDS: LASIX IV SCH ×2 (06:27→18:21)
[2017-04-11 07:31] LABS: BUN/Creatinine Ratio 33; Blood Urea Nitrogen 20 mg/dL (7-17); Calcium 8.8 mg/dL (8.4-10.2); Hemolysis Index 13
[2017-04-11 07:43] LABS: Mean Corpuscular HGB Conc 30 % (30-34); Mean Corpuscular Volume 78 fl (79-97); Platelet Count 234 K/mm3 (140-440); Red Blood Count 3.96 M/mm3 (3.65-5.03); Red Cell Distribution Width 19.6 % (13.2-15.2)
[2017-04-11 07:46] LABS: Hematocrit 30.7 % (30.3-42.9); Hemoglobin 9.1 gm/dl (10.1-14.3); Mean Corpuscular Hemoglobin 23 pg (28-32)
--- NOTE | 2017-04-11 08:53 | Progress Note ---
Assessment and Plan Assessment and plan: Acute hypoxic respiratory failure due to CHF exacerbation and sarcoidosis. Continue supplemental Oxygen. BIPAP as clinically indicated. Pulm following. Atrial fibrillation with rapid ventricular response. Continue Lovenox. Initially started on Cardizem drip. Heart rate was not controlled therefore switched to Amiodarone drip. Heart rate still uncontrolled. She denies chest pain or palpitations. cardiology following.For ANGELIKA and cardioversion tomorrow if heart rate remains high. Acute exacerbation of chronic CHF. Echocardiogram EF 50-55% Cont. Lasix iv, Coreg , MAGNOLIA inhibitor, aspirin. Cardiology following. Elevated d-dimer. Ordered CTA chest. She refused saying she is claustrophobic. May order V/Q scan Hypertension. Continue antihypertensive medications Diabetes mellitus type 2. On Metformin. Hyperlipidemia. Sarcoidosis. The patient is followed as outpatient by Dr. Chirinos DVT prophylaxis with Lovenox. Full code status History Interval history: Shortness of breath worse on exertion, Patient diagnosed with rapid afib, new onset, Heart rate still elevated, No chest pain She refused to do CT Chest Hospitalist Physical - Physical exam Narrative exam: GEN APPEARANCE : Not in acute distress, morbidly obese HEENT: Normocephalic, Atraumatic NECK : supple, no JVD LUNGS: Bilateral basal crackles, no wheezing HEART: S1 and S2 irregular irregular, no murmurs, rubs or gallop ABD: Soft, non tender, non distended, normal bowel sounds EXT: Bilateral leg edema, no clubbing, no cyanosis NEURO: Awake,alert, oriented x 3, speech normal, no focal signs - Constitutional Vitals: Temp Pulse Resp BP Pulse Ox 98.8 F 153 H 23 112/86 98 04/11/17 04:00 04/11/17 06:01 04/11/17 06:01 04/11/17 06:01 04/11/17 06:01 General appearance: Present: no acute distress, well-nourished Results - Labs CBC & Chem 7: 04/11/17 06:38 04/11/17 06:38 Labs: Laboratory Last Values WBC 12.9 K/mm3 (4.5-11.0) H 04/11/17 06:38 RBC 3.96 M/mm3 (3.65-5.03) 04/11/17 06:38 Hgb 9.1 gm/dl (10.1-14.3) L 04/11/17 06:38 Hct 30.7 % (30.3-42.9) 04/11/17 06:38 MCV 78 fl (79-97) L 04/11/17 06:38 MCH 23 pg (28-32) L 04/11/17 06:38 MCHC 30 % (30-34) 04/11/17 06:38 RDW 19.6 % (13.2-15.2) H 04/11/17 06:38 Plt Count 234 K/mm3 (140-440) 04/11/17 06:38 Lymph % (Auto) 9.8 % (13.4-35.0) L 04/07/17 04:57 [place] % (Auto) 6.2 % (0.0-7.3) 04/07/17 04:57 Eos % (Auto) 0.0 % (0.0-4.3) 04/07/17 04:57 Baso % (Auto) 0.3 % (0.0-1.8) 04/07/17 04:57 Lymph # 1.1 K/mm3 (1.2-5.4) L 04/07/17 04:57 [place] # 0.7 K/mm3 (0.0-0.8) 04/07/17 04:57 Eos # 0.0 K/mm3 (0.0-0.4) 04/07/17 04:57 Baso # 0.0 K/mm3 (0.0-0.1) 04/07/17 04:57 Add Manual Diff Complete 04/06/17 21:19 Total Counted 100 04/06/17 21:19 Seg Neutrophils % 83.7 % (40.0-70.0) H 04/07/17 04:57 Seg Neuts % (Manual) 88.0 % (40.0-70.0) H 04/06/17 21:19 Band Neutrophils % 5.0 % 04/06/17 21:19 Lymphocytes % (Manual) 6.0 % (13.4-35.0) L 04/06/17 21:19 Reactive Lymphs % (Man) 0 % 04/06/17 21:19 Monocytes % (Manual) 1.0 % (0.0-7.3) 04/06/17 21:19 Eosinophils % (Manual) 0 % (0.0-4.3) 04/06/17 21:19 Basophils % (Manual) 0 % (0.0-1.8) 04/06/17 21:19 Metamyelocytes % 0 % 04/06/17 21:19 Myelocytes % 0 % 04/06/17 21:19 Promyelocytes % 0 % 04/06/17 21:19 Blast Cells % 0 % 04/06/17 21:19 Nucleated RBC % 2.0 % (0.0-0.9) H 04/06/17 21:19 Seg Neutrophils # 9.8 K/mm3 (1.8-7.7) H 04/07/17 04:57 Seg Neutrophils # Man 12.6 K/mm3 (1.8-7.7) H 04/06/17 21:19 Band Neutrophils # 0.7 K/mm3 04/06/17 21:19 Lymphocytes # (Manual) 0.9 K/mm3 (1.2-5.4) L 04/06/17 21:19 Abs React Lymphs (Man) 0.0 K/mm3 04/06/17 21:19 Monocytes # (Manual) 0.1 K/mm3 (0.0-0.8) 04/06/17 21:19 Eosinophils # (Manual) 0.0 K/mm3 (0.0-0.4) 04/06/17 21:19 Basophils # (Manual) 0.0 K/mm3 (0.0-0.1) 04/06/17 21:19 Metamyelocytes # 0.0 K/mm3 04/06/17 21:19 Myelocytes # 0.0 K/mm3 04/06/17 21:19 Promyelocytes # 0.0 K/mm3 04/06/17 21:19 Blast Cells # 0.0 K/mm3 04/06/17 21:19 WBC Morphology Not Reportable 04/06/17 21:19 Hypersegmented Neuts Not Reportable 04/06/17 21:19 Hyposegmented Neuts Not Reportable 04/06/17 21:19 Hypogranular Neuts Not Reportable 04/06/17 21:19 Smudge Cells Not Reportable 04/06/17 21:19 Toxic Granulation Not Reportable 04/06/17 21:19 Toxic Vacuolation Not Reportable 04/06/17 21:19 Dohle Bodies Not Reportable 04/06/17 21:19 Pelger-Huet Anomaly Not Reportable 04/06/17 21:19 Chiara Rods Not Reportable 04/06/17 21:19 Platelet Estimate Appears normal 04/06/17 21:19 Clumped Platelets Not Reportable 04/06/17 21:19 Plt Clumps, EDTA Not Reportable 04/06/17 21:19 Large Platelets Few 04/06/17 21:19 Giant Platelets Few 04/06/17 21:19 Platelet Satelliting Not Reportable 04/06/17 21:19 Plt Morphology Comment Not Reportable 04/06/17 21:19 RBC Morphology Not Reportable 04/06/17 21:19 Dimorphic RBCs Not Reportable 04/06/17 21:19 Polychromasia Few 04/06/17 21:19 Hypochromasia 2+ 04/06/17 21:19 Poikilocytosis Few 04/06/17 21:19 Anisocytosis 1+ 04/06/17 21:19 Microcytosis 1+ 04/06/17 21:19 Macrocytosis Not Reportable 04/06/17 21:19 Spherocytes Not Reportable 04/06/17 21:19 Pappenheimer Bodies Not Reportable 04/06/17 21:19 Sickle Cells Not Reportable 04/06/17 21:19 Target Cells Not Reportable 04/06/17 21:19 Tear Drop Cells Not Reportable 04/06/17 21:19 Ovalocytes Few 04/06/17 21:19 Helmet Cells Not Reportable 04/06/17 21:19 [place] Bodies Not Reportable 04/06/17 21:19 [place] Rings Not Reportable 04/06/17 21:19 [place]uelo Cells Not Reportable 04/06/17 21:19 Bite Cells Not Reportable 04/06/17 21:19 Crenated Cell Not Reportable 04/06/17 21:19 Elliptocytes Not Reportable 04/06/17 21:19 Acanthocytes (Spur) Not Reportable 04/06/17 21:19 Rouleaux Not Reportable 04/06/17 21:19 Hemoglobin C Crystals Not Reportable 04/06/17 21:19 Schistocytes Not Reportable 04/06/17 21:19 Malaria parasites Not Reportable 04/06/17 21:19 [place] Bodies Not Reportable 04/06/17 21:19 Hem Pathologist Commnt No 04/06/17 21:19 D-Dimer 783.86 ng/mlDDU (0-234) H 04/09/17 06:02 POC ABG pH 7.435 (7.35-7.45) 04/06/17 22:54 POC ABG pCO2 41.8 (35-45) 04/06/17 22:54 POC ABG pO2 103 (80-105) 04/06/17 22:54 POC ABG HCO3 28.1 04/06/17 22:54 POC ABG Total CO2 29 04/06/17 22:54 POC ABG O2 Sat 98 04/06/17 22:54 POC ABG Base Excess 4 04/06/17 22:54 FiO2 80 % 04/06/17 22:54 Sodium 138 mmol/L (137-145) 04/11/17 06:38 Potassium 3.9 mmol/L (3.6-5.0) 04/11/17 06:38 Chloride 92.9 mmol/L (98-107) L 04/11/17 06:38 Carbon Dioxide 32 mmol/L (22-30) H 04/11/17 06:38 Anion Gap 17 mmol/L 04/11/17 06:38 BUN 20 mg/dL (7-17) H 04/11/17 06:38 Creatinine 0.6 mg/dL (0.7-1.2) L 04/11/17 06:38 Estimated GFR > 60 ml/min 04/11/17 06:38 BUN/Creatinine Ratio 33 % 04/11/17 06:38 Glucose 153 mg/dL (65-100) H 04/11/17 06:38 POC Glucose 219 (70-105) H 04/10/17 21:04 Calcium 8.8 mg/dL (8.4-10.2) 04/11/17 06:38 Phosphorus 4.00 mg/dL (2.5-4.5) 04/09/17 06:02 Magnesium 2.30 mg/dL (1.7-2.3) 04/10/17 03:57 Total Bilirubin 0.40 mg/dL (0.1-1.2) 04/06/17 20:40 AST 15 units/L (5-40) 04/06/17 20:40 ALT 19 units/L (7-56) 04/06/17 20:40 Alkaline Phosphatase 65 units/L (35-129) 04/06/17 20:40 Total Creatine Kinase 107 units/L (30-135) 04/06/17 20:40 CK-MB (CK-2) 2.7 ng/mL (0.0-4.0) 04/06/17 20:40 CK-MB (CK-2) Rel Index 2.5 (0-4) 04/06/17 20:40 Troponin T < 0.010 ng/mL (0.00-0.029) 04/09/17 06:02 NT-Pro-B Natriuret Pep 1023 pg/mL (0-900) H 04/06/17 20:40 Total Protein 7.2 g/dL (6.3-8.2) 04/06/17 20:40 Albumin 4.0 g/dL (3.9-5) 04/06/17 20:40 Albumin/Globulin Ratio 1.3 % 04/06/17 20:40 TSH 2.850 mlU/mL (0.270-4.200) 04/09/17 06:02 Free T4 1.25 ng/dL (0.76-1.46) 04/09/17 06:02
[2017-04-11] MEDS: ASPIRIN PO SCH (09:56)
[2017-04-11] MEDS: LOVENOX SUB-Q SCH ×2 (09:56→22:33)
[2017-04-11] MEDS: PERCOCET 5/325 PO PRN ×2 (09:57→18:19)
[2017-04-11] MEDS ORDERED: LOPRESSOR PO SCH ×2 (10:00)
--- NOTE | 2017-04-11 10:11 | Progress Note ---
Assessment and Plan Assessment: New onset atrial fibrillation with RVR Acute on chronic respiratory failure Acute on chronic diastolic heart failure Sarcoidosis Hypertension Hyperlipidemia Plan: Patient remains in rapid atrial fibrillation. Will d/c hydralazine and add PO metoprolol 50mg BID. Continue amiodarone gtt at 0.5mg/min. Plan for ANGELIKA guided cardioversion tomorrow morning at 8:00am. The patient has been seen in conjunction with Dr. Schwartz who agrees with the assessment and plan of care. Subjective Date of service: 04/11/17 Principal diagnosis: atrial fibrillation with RVR Interval history: The patient is resting in bed. No new complaints. Remains in atrial fibrillation with HR 150s. Objective Vital Signs Temp Pulse Pulse Pulse Resp BP Pulse Ox 04/11/17 08:00 99.1 F 04/11/17 06:01 153 H 23 112/86 98 04/11/17 05:01 20 112/87 100 04/11/17 04:01 165 H 22 126/92 96 04/11/17 04:00 98.8 F 122 H 94 04/11/17 03:01 151 H 18 112/73 88 04/11/17 02:01 131 H 21 114/79 98 04/11/17 01:00 109/57 92 04/11/17 00:49 78 20 130/85 100 04/11/17 00:01 152 H 20 118/88 96 04/11/17 00:00 98.7 F 120 H 94 04/10/17 23:01 154 H 19 118/88 95 04/10/17 23:00 140 H 04/10/17 22:01 140 H 19 122/80 90 04/10/17 21:19 140 H 118/87 04/10/17 21:16 17 04/10/17 21:15 135 H 118/87 04/10/17 21:01 140 H 26 H 118/87 96 04/10/17 20:01 134 H 27 H 102/66 95 04/10/17 20:00 98.8 F 142 H 17 95 04/10/17 19:01 146 H 20 102/66 97 04/10/17 16:00 98.3 F 150 H 96 04/10/17 15:00 150 H 04/10/17 14:51 150 H 04/10/17 12:00 97.9 F 138 H 20 140/82 100 04/10/17 11:01 121 H 24 139/109 95 - Physical Examination General: Appears Well, No Apparent Distress HEENT: Positive: PERRL Neck: Positive: neck supple Cardiac: Positive: irregularly irregular, S1/S2 Lungs: Positive: clear to auscultation Neuro: Positive: Grossly Intact Abdomen: Positive: Soft Skin: Positive: Clear. Negative: Rash Extremities: Present: normal. Absent: edema - Labs and Meds CBC 04/11/17 Range/Units 06:38 WBC 12.9 H (4.5-11.0) K/mm3 RBC 3.96 (3.65-5.03) M/mm3 Hgb 9.1 L (10.1-14.3) gm/dl Hct 30.7 (30.3-42.9) % Plt Count 234 (140-440) K/mm3 Comprehensive Metabolic Panel 04/11/17 Range/Units 06:38 Sodium 138 (137-145) mmol/L Potassium 3.9 (3.6-5.0) mmol/L Chloride 92.9 L (98-107) mmol/L Carbon Dioxide 32 H (22-30) mmol/L BUN 20 H (7-17) mg/dL Creatinine 0.6 L (0.7-1.2) mg/dL Glucose 153 H (65-100) mg/dL Calcium 8.8 (8.4-10.2) mg/dL - Imaging and Cardiology EKG: image reviewed Echo: report reviewed (04/2016: EF 55%, 04/2017: technically suboptimal and nondiagnostic) - Telemetry EKG Rhythm: Atrial Fibrillation
[2017-04-11] MEDS: NOVOLOG SUB-Q SCH ×4 (11:21→22:41)
[2017-04-11] MEDS: LOPRESSOR PO SCH ×2 (11:37→22:33)
--- NOTE | 2017-04-11 11:37 | Progress Note ---
Assessment and Plan 51 y/o female with known sarcoid, DRE on CPAP admitted with CHF exacerbation and pulmonary edema now with tachycardia, appears to be afib with RVR 1. Did not convert with added therapy. Per cards will cardiovert with ANGELIKA in the am 2. Asked for transfer but cards not comfortable with watching on floor. Clinically stable and hemodynamics unchanged. Subjective Date of service: 04/11/17 Principal diagnosis: atrial fibrillation with RVR Interval history: Remains in uncontrolled afib. Breathing is stable Objective Vital Signs - 12hr 04/11/17 04/11/17 04/11/17 00:00 00:01 00:49 Temperature 98.7 F Pulse Rate 152 H 78 Pulse Rate [ 120 H From Monitor] Respiratory 20 20 Rate Blood Pressure 118/88 130/85 O2 Sat by Pulse 94 96 100 Oximetry 04/11/17 04/11/17 04/11/17 01:00 02:01 03:01 Temperature Pulse Rate 131 H 151 H Pulse Rate [ From Monitor] Respiratory 21 18 Rate Blood Pressure 109/57 114/79 112/73 O2 Sat by Pulse 92 98 88 Oximetry 04/11/17 04/11/17 04/11/17 04:00 04:01 05:01 Temperature 98.8 F Pulse Rate 165 H Pulse Rate [ 122 H From Monitor] Respiratory 22 20 Rate Blood Pressure 126/92 112/87 O2 Sat by Pulse 94 96 100 Oximetry 04/11/17 04/11/17 06:01 08:00 Temperature 99.1 F Pulse Rate 153 H Pulse Rate [ From Monitor] Respiratory 23 Rate Blood Pressure 112/86 O2 Sat by Pulse 98 Oximetry Constitutional: no acute distress, alert, other (morbidly obese) Eyes: non-icteric ENT: oropharynx moist, other (Mallampati 4) Ascultation: Bilateral: diminished breath sounds Cardiovascular: regular rate and rhythm Gastrointestinal: normoactive bowel sounds, non-distended Extremities: no cyanosis, other (trace pretibial edema. No cyanosis) Neurologic: normal mental status, non-focal exam, CN II-XII normal, motor strength normal and Psychiatric: mood appropriate, affect normal, anxious CBC and BMP: 04/11/17 06:38 04/11/17 06:38 ABG, PT/INR, D-dimer: ABG POC ABG pH 7.435 (7.35-7.45) 04/06/17 22:54 POC ABG pCO2 41.8 (35-45) 04/06/17 22:54 POC ABG pO2 103 (80-105) 04/06/17 22:54 POC ABG HCO3 28.1 04/06/17 22:54 POC ABG Total CO2 29 04/06/17 22:54 POC ABG O2 Sat 98 04/06/17 22:54 PT/INR, D-dimer D-Dimer 783.86 ng/mlDDU (0-234) H 04/09/17 06:02 Abnormal lab findings: Abnormal Labs 04/06/17 04/06/17 04/07/17 20:40 21:19 04:57 WBC 14.3 H 11.7 H Hgb 9.2 L 9.2 L Hct 30.1 L 29.8 L MCV MCH 24 L 25 L RDW 20.5 H 20.4 H Lymph % (Auto) 9.8 L Lymph # 1.1 L Seg Neutrophils % 83.7 H Seg Neuts % (Manual) 88.0 H Lymphocytes % (Manual) 6.0 L Nucleated RBC % 2.0 H Seg Neutrophils # 9.8 H Seg Neutrophils # Man 12.6 H Lymphocytes # (Manual) 0.9 L D-Dimer Chloride 96.9 L Carbon Dioxide BUN Creatinine 0.4 L Glucose 251 H POC Glucose NT-Pro-B Natriuret Pep 1023 H 04/07/17 04/09/17 04/09/17 04:57 06:02 06:02 WBC Hgb 9.4 L Hct MCV MCH 25 L RDW 20.6 H Lymph % (Auto) Lymph # Seg Neutrophils % Seg Neuts % (Manual) Lymphocytes % (Manual) Nucleated RBC % Seg Neutrophils # Seg Neutrophils # Man Lymphocytes # (Manual) D-Dimer Chloride 95.0 L Carbon Dioxide 35 H BUN 20 H Creatinine 0.5 L Glucose 127 H 186 H POC Glucose NT-Pro-B Natriuret Pep 04/09/17 04/09/17 04/09/17 06:02 08:04 11:46 WBC Hgb Hct MCV MCH RDW Lymph % (Auto) Lymph # Seg Neutrophils % Seg Neuts % (Manual) Lymphocytes % (Manual) Nucleated RBC % Seg Neutrophils # Seg Neutrophils # Man Lymphocytes # (Manual) D-Dimer 783.86 H Chloride Carbon Dioxide BUN Creatinine Glucose POC Glucose 196 H 320 H NT-Pro-B Natriuret Pep 04/09/17 04/09/17 04/10/17 17:04 21:18 03:57 WBC 11.1 H Hgb 9.1 L Hct 29.5 L MCV MCH 24 L RDW 20.8 H Lymph % (Auto) Lymph # Seg Neutrophils % Seg Neuts % (Manual) Lymphocytes % (Manual) Nucleated RBC % Seg Neutrophils # Seg Neutrophils # Man Lymphocytes # (Manual) D-Dimer Chloride Carbon Dioxide BUN Creatinine Glucose POC Glucose 219 H 264 H NT-Pro-B Natriuret Pep 04/10/17 04/10/17 04/10/17 03:57 08:28 11:54 WBC Hgb Hct MCV MCH RDW Lymph % (Auto) Lymph # Seg Neutrophils % Seg Neuts % (Manual) Lymphocytes % (Manual) Nucleated RBC % Seg Neutrophils # Seg Neutrophils # Man Lymphocytes # (Manual) D-Dimer Chloride 94.1 L Carbon Dioxide 37 H BUN 22 H Creatinine Glucose 183 H POC Glucose 203 H 305 H NT-Pro-B Natriuret Pep 04/10/17 04/10/17 04/11/17 16:41 21:04 06:38 WBC 12.9 H Hgb 9.1 L Hct MCV 78 L MCH 23 L RDW 19.6 H Lymph % (Auto) Lymph # Seg Neutrophils % Seg Neuts % (Manual) Lymphocytes % (Manual) Nucleated RBC % Seg Neutrophils # Seg Neutrophils # Man Lymphocytes # (Manual) D-Dimer Chloride Carbon Dioxide BUN Creatinine Glucose POC Glucose 127 H 219 H NT-Pro-B Natriuret Pep 04/11/17 06:38 WBC Hgb Hct MCV MCH RDW Lymph % (Auto) Lymph # Seg Neutrophils % Seg Neuts % (Manual) Lymphocytes % (Manual) Nucleated RBC % Seg Neutrophils # Seg Neutrophils # Man Lymphocytes # (Manual) D-Dimer Chloride 92.9 L Carbon Dioxide 32 H BUN 20 H Creatinine 0.6 L Glucose 153 H POC Glucose NT-Pro-B Natriuret Pep
[2017-04-11] MEDS: CORDARONE 900 MG in D5W 482 ML IV SCH (20:18)
[2017-04-12 06:16] LABS: BUN/Creatinine Ratio 30; Blood Urea Nitrogen 18 mg/dL (7-17); Calcium 8.8 mg/dL (8.4-10.2); Hemolysis Index 2
[2017-04-12] MEDS: PERCOCET 5/325 PO PRN ×3 (07:07→20:48)
[2017-04-12 07:09] LABS: Mean Corpuscular HGB Conc 30 % (30-34); Mean Corpuscular Volume 78 fl (79-97); Platelet Count 195 K/mm3 (140-440); Red Blood Count 4.19 M/mm3 (3.65-5.03)
[2017-04-12 07:10] LABS: Hematocrit 32.8 % (30.3-42.9); Hemoglobin 9.7 gm/dl (10.1-14.3); Mean Corpuscular Hemoglobin 23 pg (28-32); Red Cell Distribution Width 20.3 % (13.2-15.2)
[2017-04-12] MEDS: LASIX IV SCH ×2 (07:10→18:34)
[2017-04-12] MEDS ORDERED: DIPRIVAN 10 MG/ML IV ONE (07:56)
[2017-04-12] MEDS ORDERED: VERSED ONE (07:57)
[2017-04-12] MEDS ORDERED: HURRICAINE ONE 20% TOPICAL SPRAY MM (08:10)
--- NOTE | 2017-04-12 08:15 | Progress Note ---
Assessment and Plan Assessment: New onset atrial fibrillation with RVR--> s/p DCCV this morning, currently sinus rhythm Acute on chronic respiratory failure Acute on chronic diastolic heart failure Sarcoidosis Hypertension Hyperlipidemia Plan: S/p successful DCCV this am. Remains in sinus rhythm. D/c amiodarone gtt and initiate PO amiodraone 200mg BID. Continue metoprolol 50mg BID. Initiate Eliquis 5mg PO BID. May transfer to telemetry from a cardiac standpoint. The patient has been seen in conjunction with Dr. Schwartz who agrees with the assessment and plan of care. Subjective Date of service: 04/12/17 Principal diagnosis: atrial fibrillation with RVR Interval history: The patient is resting in bed. No complaints. Underwent successful ANGELIKA guided cardioversion this morning. Remains in sinus rhythm. Objective Last Vital Signs Temp 100.7 F H 04/12/17 08:49 Pulse 91 H 04/12/17 09:06 Resp 20 04/12/17 09:06 BP 136/93 04/12/17 09:06 Pulse Ox 100 04/12/17 09:06 - Physical Examination General: Appears Well, No Apparent Distress HEENT: Positive: PERRL Neck: Positive: neck supple Cardiac: Positive: Reg Rate and Rhythm, S1/S2 Lungs: Positive: clear to auscultation Neuro: Positive: Grossly Intact Abdomen: Positive: Soft Skin: Positive: Clear. Negative: Rash Extremities: Present: normal. Absent: edema - Labs and Meds CBC 04/12/17 Range/Units 05:20 WBC 11.7 H (4.5-11.0) K/mm3 RBC 4.19 (3.65-5.03) M/mm3 Hgb 9.7 L (10.1-14.3) gm/dl Hct 32.8 (30.3-42.9) % Plt Count 195 (140-440) K/mm3 Comprehensive Metabolic Panel 04/12/17 Range/Units 05:20 Sodium 132 L (137-145) mmol/L Potassium 4.0 (3.6-5.0) mmol/L Chloride 104.0 (98-107) mmol/L Carbon Dioxide 35 H (22-30) mmol/L BUN 18 H (7-17) mg/dL Creatinine 0.6 L (0.7-1.2) mg/dL Glucose 133 H (65-100) mg/dL Calcium 8.8 (8.4-10.2) mg/dL - Imaging and Cardiology EKG: image reviewed Echo: report reviewed (04/2016: EF 55%, 04/2017: technically suboptimal and nondiagnostic) - Telemetry EKG Rhythm: Sinus Rhythm
[2017-04-12] MEDS ORDERED: NACL 0.9% 1000 ML 1,000 ML ONE (08:17)
[2017-04-12] MEDS ORDERED: APRESOLINE ONE (08:49)
[2017-04-12] MEDS ORDERED: NACL 0.9% 1000 ML 1,000 ML IV SCH (09:00)
[2017-04-12] MEDS ORDERED: HURRICAINE ONE 20% TOPICAL SPRAY MM NR (09:00)
--- NOTE | 2017-04-12 09:04 | Anesthesia Consultation ---
Anesthesia Consult and Med Hx Date of service: 04/12/17 - Airway Anesthetic Teeth Evaluation: Good ROM Head & Neck: Adequate Mental/Hyoid Distance: Adequate Mallampati Class: Class IV Intubation Access Assessment: Difficult - Pulmonary Exam CTA: Yes - Pre-Operative Health Status ASA Pre-Surgery Classification: ASA3 Proposed Anesthetic Plan: General - Pulmonary Hx Smoking: Yes (Quit 3 years ago) COPD: Yes Hx Sleep Apnea: Yes - Cardiovascular System Hx Hypertension: Yes Hx Cardia Arrhythmia: Yes (A fib) - Endocrine Hx Non-Insulin Dependent Diabetes: Yes - Other Systems Hx Obesity: Yes - Additional Comments Anesthesia Medical History Comments: CHF, DRE. NAC previously.
--- NOTE | 2017-04-12 09:05 | Anesthesia Day of Surgery ---
Anesthesia Day of Surgery - Day of Surgery Patient Examined: Yes Patient H&P Reviewed: Yes Patient is NPO: Yes
[2017-04-12] MEDS: LOPRESSOR PO SCH ×2 (10:30→22:57)
[2017-04-12] MEDS: CORDARONE PO SCH ×2 (10:30→22:57)
[2017-04-12] MEDS: NOVOLOG SUB-Q SCH ×4 (10:32→23:03)
--- NOTE | 2017-04-12 11:21 | Progress Note ---
Assessment and Plan 51 y/o female with known sarcoid, DRE on CPAP admitted with CHF exacerbation and pulmonary edema now with tachycardia, appears to be afib with RVR 1. Sinus rhythm now. hemodynamically stable 2. Transfer to floor 3. Sarcoid stable and not flaring Subjective Date of service: 04/12/17 Principal diagnosis: atrial fibrillation with RVR Interval history: Shocked this am after ANGELIKA and now in sinus rhythm. Heart rate stable. No acute events Post-therapy. Objective Vital Signs - 12hr 04/11/17 04/12/17 04/12/17 23:39 00:00 00:01 Temperature 98.8 F Temperature [ Post-Procedure] Pulse Rate 75 124 H 124 H Pulse Rate [ 124 H From Monitor] Pulse Rate [ Intra-Procedure ] Pulse Rate [ Post-Procedure] Pulse Rate [Pre -Procedure] Respiratory 18 23 Rate Respiratory Rate [Intra- Procedure] Respiratory Rate [Post- Procedure] Respiratory Rate [Pre- Procedure] Blood Pressure 113/73 Blood Pressure [Intra- Procedure] Blood Pressure [Post-Procedure ] Blood Pressure [Pre-Procedure] O2 Sat by Pulse 99 96 94 Oximetry O2 Sat by Pulse Oximetry [ Intra-Procedure ] O2 Sat by Pulse Oximetry [Post -Procedure] O2 Sat by Pulse Oximetry [Pre- Procedure] 04/12/17 04/12/17 04/12/17 01:01 02:01 03:01 Temperature Temperature [ Post-Procedure] Pulse Rate 106 H 123 H 143 H Pulse Rate [ From Monitor] Pulse Rate [ Intra-Procedure ] Pulse Rate [ Post-Procedure] Pulse Rate [Pre -Procedure] Respiratory 21 17 23 Rate Respiratory Rate [Intra- Procedure] Respiratory Rate [Post- Procedure] Respiratory Rate [Pre- Procedure] Blood Pressure 136/91 137/89 119/95 Blood Pressure [Intra- Procedure] Blood Pressure [Post-Procedure ] Blood Pressure [Pre-Procedure] O2 Sat by Pulse 90 93 93 Oximetry O2 Sat by Pulse Oximetry [ Intra-Procedure ] O2 Sat by Pulse Oximetry [Post -Procedure] O2 Sat by Pulse Oximetry [Pre- Procedure] 04/12/17 04/12/17 04/12/17 04:00 04:01 05:01 Temperature 98.8 F Temperature [ Post-Procedure] Pulse Rate 135 H 117 H Pulse Rate [ 118 H From Monitor] Pulse Rate [ Intra-Procedure ] Pulse Rate [ Post-Procedure] Pulse Rate [Pre -Procedure] Respiratory 15 16 Rate Respiratory Rate [Intra- Procedure] Respiratory Rate [Post- Procedure] Respiratory Rate [Pre- Procedure] Blood Pressure 124/90 134/80 Blood Pressure [Intra- Procedure] Blood Pressure [Post-Procedure ] Blood Pressure [Pre-Procedure] O2 Sat by Pulse 98 92 91 Oximetry O2 Sat by Pulse Oximetry [ Intra-Procedure ] O2 Sat by Pulse Oximetry [Post -Procedure] O2 Sat by Pulse Oximetry [Pre- Procedure] 04/12/17 04/12/17 04/12/17 06:01 07:01 08:00 Temperature 99.0 F Temperature [ Post-Procedure] Pulse Rate 117 H 157 H Pulse Rate [ From Monitor] Pulse Rate [ Intra-Procedure ] Pulse Rate [ Post-Procedure] Pulse Rate [Pre -Procedure] Respiratory 17 21 Rate Respiratory Rate [Intra- Procedure] Respiratory Rate [Post- Procedure] Respiratory Rate [Pre- Procedure] Blood Pressure 119/80 124/70 Blood Pressure [Intra- Procedure] Blood Pressure [Post-Procedure ] Blood Pressure [Pre-Procedure] O2 Sat by Pulse 86 88 Oximetry O2 Sat by Pulse Oximetry [ Intra-Procedure ] O2 Sat by Pulse Oximetry [Post -Procedure] O2 Sat by Pulse Oximetry [Pre- Procedure] 04/12/17 04/12/17 04/12/17 08:20 08:25 08:28 Temperature Temperature [ Post-Procedure] Pulse Rate Pulse Rate [ From Monitor] Pulse Rate [ 171 H 136 H Intra-Procedure ] Pulse Rate [ Post-Procedure] Pulse Rate [Pre 163 H -Procedure] Respiratory Rate Respiratory 16 21 Rate [Intra- Procedure] Respiratory Rate [Post- Procedure] Respiratory 22 Rate [Pre- Procedure] Blood Pressure Blood Pressure 135/98 127/72 [Intra- Procedure] Blood Pressure [Post-Procedure ] Blood Pressure 135/98 [Pre-Procedure] O2 Sat by Pulse Oximetry O2 Sat by Pulse 100 68 L Oximetry [ Intra-Procedure ] O2 Sat by Pulse Oximetry [Post -Procedure] O2 Sat by Pulse 100 Oximetry [Pre- Procedure] 04/12/17 04/12/17 04/12/17 08:33 08:36 08:38 Temperature Temperature [ Post-Procedure] Pulse Rate Pulse Rate [ From Monitor] Pulse Rate [ 150 H 137 H 139 H Intra-Procedure ] Pulse Rate [ Post-Procedure] Pulse Rate [Pre -Procedure] Respiratory Rate Respiratory 26 H 27 H 16 Rate [Intra- Procedure] Respiratory Rate [Post- Procedure] Respiratory Rate [Pre- Procedure] Blood Pressure Blood Pressure 147/91 147/91 132/87 [Intra- Procedure] Blood Pressure [Post-Procedure ] Blood Pressure [Pre-Procedure] O2 Sat by Pulse Oximetry O2 Sat by Pulse 93 83 L 84 Oximetry [ Intra-Procedure ] O2 Sat by Pulse Oximetry [Post -Procedure] O2 Sat by Pulse Oximetry [Pre- Procedure] 04/12/17 04/12/17 04/12/17 08:44 08:48 08:49 Temperature Temperature [ 100.7 F H Post-Procedure] Pulse Rate Pulse Rate [ From Monitor] Pulse Rate [ 139 H 95 H Intra-Procedure ] Pulse Rate [ 87 Post-Procedure] Pulse Rate [Pre -Procedure] Respiratory Rate Respiratory 50 H 12 Rate [Intra- Procedure] Respiratory 22 Rate [Post- Procedure] Respiratory Rate [Pre- Procedure] Blood Pressure Blood Pressure 140/99 145/81 [Intra- Procedure] Blood Pressure 145/81 [Post-Procedure ] Blood Pressure [Pre-Procedure] O2 Sat by Pulse Oximetry O2 Sat by Pulse 87 84 Oximetry [ Intra-Procedure ] O2 Sat by Pulse 92 Oximetry [Post -Procedure] O2 Sat by Pulse Oximetry [Pre- Procedure] 04/12/17 09:06 Temperature Temperature [ Post-Procedure] Pulse Rate Pulse Rate [ From Monitor] Pulse Rate [ Intra-Procedure ] Pulse Rate [ 91 H Post-Procedure] Pulse Rate [Pre -Procedure] Respiratory Rate Respiratory Rate [Intra- Procedure] Respiratory 20 Rate [Post- Procedure] Respiratory Rate [Pre- Procedure] Blood Pressure Blood Pressure [Intra- Procedure] Blood Pressure 136/93 [Post-Procedure ] Blood Pressure [Pre-Procedure] O2 Sat by Pulse Oximetry O2 Sat by Pulse Oximetry [ Intra-Procedure ] O2 Sat by Pulse 100 Oximetry [Post -Procedure] O2 Sat by Pulse Oximetry [Pre- Procedure] Constitutional: no acute distress, alert, other (morbidly obese) Eyes: non-icteric ENT: oropharynx moist, other (Mallampati 4) Ascultation: Bilateral: diminished breath sounds, rhonchi (sporadic bases) Cardiovascular: regular rate and rhythm Gastrointestinal: normoactive bowel sounds, non-distended Extremities: no cyanosis, other (trace pretibial edema. No cyanosis) Neurologic: normal mental status, non-focal exam, CN II-XII normal, motor strength normal and Psychiatric: mood appropriate, affect normal, anxious CBC and BMP: 04/12/17 05:20 04/12/17 05:20 ABG, PT/INR, D-dimer: ABG POC ABG pH 7.435 (7.35-7.45) 04/06/17 22:54 POC ABG pCO2 41.8 (35-45) 04/06/17 22:54 POC ABG pO2 103 (80-105) 04/06/17 22:54 POC ABG HCO3 28.1 04/06/17 22:54 POC ABG Total CO2 29 04/06/17 22:54 POC ABG O2 Sat 98 04/06/17 22:54 PT/INR, D-dimer D-Dimer 783.86 ng/mlDDU (0-234) H 04/09/17 06:02 Abnormal lab findings: Abnormal Labs 04/06/17 04/06/17 04/07/17 20:40 21:19 04:57 WBC 14.3 H 11.7 H Hgb 9.2 L 9.2 L Hct 30.1 L 29.8 L MCV MCH 24 L 25 L RDW 20.5 H 20.4 H Lymph % (Auto) 9.8 L Lymph # 1.1 L Seg Neutrophils % 83.7 H Seg Neuts % (Manual) 88.0 H Lymphocytes % (Manual) 6.0 L Nucleated RBC % 2.0 H Seg Neutrophils # 9.8 H Seg Neutrophils # Man 12.6 H Lymphocytes # (Manual) 0.9 L D-Dimer Sodium Chloride 96.9 L Carbon Dioxide BUN Creatinine 0.4 L Glucose 251 H POC Glucose NT-Pro-B Natriuret Pep 1023 H 04/07/17 04/09/17 04/09/17 04:57 06:02 06:02 WBC Hgb 9.4 L Hct MCV MCH 25 L RDW 20.6 H Lymph % (Auto) Lymph # Seg Neutrophils % Seg Neuts % (Manual) Lymphocytes % (Manual) Nucleated RBC % Seg Neutrophils # Seg Neutrophils # Man Lymphocytes # (Manual) D-Dimer Sodium Chloride 95.0 L Carbon Dioxide 35 H BUN 20 H Creatinine 0.5 L Glucose 127 H 186 H POC Glucose NT-Pro-B Natriuret Pep 04/09/17 04/09/1718 06:02 08:04 11:46 WBC Hgb Hct MCV MCH RDW Lymph % (Auto) Lymph # Seg Neutrophils % Seg Neuts % (Manual) Lymphocytes % (Manual) Nucleated RBC % Seg Neutrophils # Seg Neutrophils # Man Lymphocytes # (Manual) D-Dimer 783.86 H Sodium Chloride Carbon Dioxide BUN Creatinine Glucose POC Glucose 196 H 320 H NT-Pro-B Natriuret Pep 04/09/17 04/09/17 04/10/17 17:04 21:18 03:57 WBC 11.1 H Hgb 9.1 L Hct 29.5 L MCV MCH 24 L RDW 20.8 H Lymph % (Auto) Lymph # Seg Neutrophils % Seg Neuts % (Manual) Lymphocytes % (Manual) Nucleated RBC % Seg Neutrophils # Seg Neutrophils # Man Lymphocytes # (Manual) D-Dimer Sodium Chloride Carbon Dioxide BUN Creatinine Glucose POC Glucose 219 H 264 H NT-Pro-B Natriuret Pep 04/10/17 04/10/17 04/10/17 03:57 08:28 11:54 WBC Hgb Hct MCV MCH RDW Lymph % (Auto) Lymph # Seg Neutrophils % Seg Neuts % (Manual) Lymphocytes % (Manual) Nucleated RBC % Seg Neutrophils # Seg Neutrophils # Man Lymphocytes # (Manual) D-Dimer Sodium Chloride 94.1 L Carbon Dioxide 37 H BUN 22 H Creatinine Glucose 183 H POC Glucose 203 H 305 H NT-Pro-B Natriuret Pep 04/10/17 04/10/17 04/11/17 16:41 21:04 06:38 WBC 12.9 H Hgb 9.1 L Hct MCV 78 L MCH 23 L RDW 19.6 H Lymph % (Auto) Lymph # Seg Neutrophils % Seg Neuts % (Manual) Lymphocytes % (Manual) Nucleated RBC % Seg Neutrophils # Seg Neutrophils # Man Lymphocytes # (Manual) D-Dimer Sodium Chloride Carbon Dioxide BUN Creatinine Glucose POC Glucose 127 H 219 H NT-Pro-B Natriuret Pep 04/11/17 04/11/17 04/11/17 06:38 07:45 10:57 WBC Hgb Hct MCV MCH RDW Lymph % (Auto) Lymph # Seg Neutrophils % Seg Neuts % (Manual) Lymphocytes % (Manual) Nucleated RBC % Seg Neutrophils # Seg Neutrophils # Man Lymphocytes # (Manual) D-Dimer Sodium Chloride 92.9 L Carbon Dioxide 32 H BUN 20 H Creatinine 0.6 L Glucose 153 H POC Glucose 133 H 266 H NT-Pro-B Natriuret Pep 04/11/17 04/11/17 04/12/17 16:29 22:31 05:20 WBC 11.7 H Hgb 9.7 L Hct MCV 78 L MCH 23 L RDW 20.3 H Lymph % (Auto) Lymph # Seg Neutrophils % Seg Neuts % (Manual) Lymphocytes % (Manual) Nucleated RBC % Seg Neutrophils # Seg Neutrophils # Man Lymphocytes # (Manual) D-Dimer Sodium Chloride Carbon Dioxide BUN Creatinine Glucose POC Glucose 182 H 217 H NT-Pro-B Natriuret Pep 04/12/17 04/12/17 05:20 07:43 WBC Hgb Hct MCV MCH RDW Lymph % (Auto) Lymph # Seg Neutrophils % Seg Neuts % (Manual) Lymphocytes % (Manual) Nucleated RBC % Seg Neutrophils # Seg Neutrophils # Man Lymphocytes # (Manual) D-Dimer Sodium 132 L Chloride Carbon Dioxide 35 H BUN 18 H Creatinine 0.6 L Glucose 133 H POC Glucose 181 H NT-Pro-B Natriuret Pep
[2017-04-12] MEDS: ELIQUIS PO SCH ×2 (12:00→22:57)
[2017-04-12] MEDS: ASPIRIN PO SCH (16:51)
--- NOTE | 2017-04-12 18:10 | Progress Note ---
Hospitalist Physical - Constitutional Vitals: Temp Pulse Resp BP Pulse Ox 98.5 F 84 20 120/80 86 04/12/17 17:32 04/12/17 17:32 04/12/17 17:32 04/12/17 17:32 04/12/17 17:32 General appearance: Present: no acute distress, well-nourished Results - Labs CBC & Chem 7: 04/12/17 05:20 04/12/17 05:20 Labs: Laboratory Last Values WBC 11.7 K/mm3 (4.5-11.0) H 04/12/17 05:20 RBC 4.19 M/mm3 (3.65-5.03) 04/12/17 05:20 Hgb 9.7 gm/dl (10.1-14.3) L 04/12/17 05:20 Hct 32.8 % (30.3-42.9) 04/12/17 05:20 MCV 78 fl (79-97) L 04/12/17 05:20 MCH 23 pg (28-32) L 04/12/17 05:20 MCHC 30 % (30-34) 04/12/17 05:20 RDW 20.3 % (13.2-15.2) H 04/12/17 05:20 Plt Count 195 K/mm3 (140-440) 04/12/17 05:20 Lymph % (Auto) 9.8 % (13.4-35.0) L 04/07/17 04:57 [place] % (Auto) 6.2 % (0.0-7.3) 04/07/17 04:57 Eos % (Auto) 0.0 % (0.0-4.3) 04/07/17 04:57 Baso % (Auto) 0.3 % (0.0-1.8) 04/07/17 04:57 Lymph # 1.1 K/mm3 (1.2-5.4) L 04/07/17 04:57 [place] # 0.7 K/mm3 (0.0-0.8) 04/07/17 04:57 Eos # 0.0 K/mm3 (0.0-0.4) 04/07/17 04:57 Baso # 0.0 K/mm3 (0.0-0.1) 04/07/17 04:57 Add Manual Diff Complete 04/06/17 21:19 Total Counted 100 04/06/17 21:19 Seg Neutrophils % 83.7 % (40.0-70.0) H 04/07/17 04:57 Seg Neuts % (Manual) 88.0 % (40.0-70.0) H 04/06/17 21:19 Band Neutrophils % 5.0 % 04/06/17 21:19 Lymphocytes % (Manual) 6.0 % (13.4-35.0) L 04/06/17 21:19 Reactive Lymphs % (Man) 0 % 04/06/17 21:19 Monocytes % (Manual) 1.0 % (0.0-7.3) 04/06/17 21:19 Eosinophils % (Manual) 0 % (0.0-4.3) 04/06/17 21:19 Basophils % (Manual) 0 % (0.0-1.8) 04/06/17 21:19 Metamyelocytes % 0 % 04/06/17 21:19 Myelocytes % 0 % 04/06/17 21:19 Promyelocytes % 0 % 04/06/17 21:19 Blast Cells % 0 % 04/06/17 21:19 Nucleated RBC % 2.0 % (0.0-0.9) H 04/06/17 21:19 Seg Neutrophils # 9.8 K/mm3 (1.8-7.7) H 04/07/17 04:57 Seg Neutrophils # Man 12.6 K/mm3 (1.8-7.7) H 04/06/17 21:19 Band Neutrophils # 0.7 K/mm3 04/06/17 21:19 Lymphocytes # (Manual) 0.9 K/mm3 (1.2-5.4) L 04/06/17 21:19 Abs React Lymphs (Man) 0.0 K/mm3 04/06/17 21:19 Monocytes # (Manual) 0.1 K/mm3 (0.0-0.8) 04/06/17 21:19 Eosinophils # (Manual) 0.0 K/mm3 (0.0-0.4) 04/06/17 21:19 Basophils # (Manual) 0.0 K/mm3 (0.0-0.1) 04/06/17 21:19 Metamyelocytes # 0.0 K/mm3 04/06/17 21:19 Myelocytes # 0.0 K/mm3 04/06/17 21:19 Promyelocytes # 0.0 K/mm3 04/06/17 21:19 Blast Cells # 0.0 K/mm3 04/06/17 21:19 WBC Morphology Not Reportable 04/06/17 21:19 Hypersegmented Neuts Not Reportable 04/06/17 21:19 Hyposegmented Neuts Not Reportable 04/06/17 21:19 Hypogranular Neuts Not Reportable 04/06/17 21:19 Smudge Cells Not Reportable 04/06/17 21:19 Toxic Granulation Not Reportable 04/06/17 21:19 Toxic Vacuolation Not Reportable 04/06/17 21:19 Dohle Bodies Not Reportable 04/06/17 21:19 Pelger-Huet Anomaly Not Reportable 04/06/17 21:19 Chiara Rods Not Reportable 04/06/17 21:19 Platelet Estimate Appears normal 04/06/17 21:19 Clumped Platelets Not Reportable 04/06/17 21:19 Plt Clumps, EDTA Not Reportable 04/06/17 21:19 Large Platelets Few 04/06/17 21:19 Giant Platelets Few 04/06/17 21:19 Platelet Satelliting Not Reportable 04/06/17 21:19 Plt Morphology Comment Not Reportable 04/06/17 21:19 RBC Morphology Not Reportable 04/06/17 21:19 Dimorphic RBCs Not Reportable 04/06/17 21:19 Polychromasia Few 04/06/17 21:19 Hypochromasia 2+ 04/06/17 21:19 Poikilocytosis Few 04/06/17 21:19 Anisocytosis 1+ 04/06/17 21:19 Microcytosis 1+ 04/06/17 21:19 Macrocytosis Not Reportable 04/06/17 21:19 Spherocytes Not Reportable 04/06/17 21:19 Pappenheimer Bodies Not Reportable 04/06/17 21:19 Sickle Cells Not Reportable 04/06/17 21:19 Target Cells Not Reportable 04/06/17 21:19 Tear Drop Cells Not Reportable 04/06/17 21:19 Ovalocytes Few 04/06/17 21:19 Helmet Cells Not Reportable 04/06/17 21:19 Mora-Dufur Bodies Not Reportable 04/06/17 21:19 Wittmann Rings Not Reportable 04/06/17 21:19 [place] Cells Not Reportable 04/06/17 21:19 Bite Cells Not Reportable 04/06/17 21:19 Crenated Cell Not Reportable 04/06/17 21:19 Elliptocytes Not Reportable 04/06/17 21:19 Acanthocytes (Spur) Not Reportable 04/06/17 21:19 Rouleaux Not Reportable 04/06/17 21:19 Hemoglobin C Crystals Not Reportable 04/06/17 21:19 Schistocytes Not Reportable 04/06/17 21:19 Malaria parasites Not Reportable 04/06/17 21:19 [place] Bodies Not Reportable 04/06/17 21:19 Hem Pathologist Commnt No 04/06/17 21:19 D-Dimer 783.86 ng/mlDDU (0-234) H 04/09/17 06:02 POC ABG pH 7.435 (7.35-7.45) 04/06/17 22:54 POC ABG pCO2 41.8 (35-45) 04/06/17 22:54 POC ABG pO2 103 (80-105) 04/06/17 22:54 POC ABG HCO3 28.1 04/06/17 22:54 POC ABG Total CO2 29 04/06/17 22:54 POC ABG O2 Sat 98 04/06/17 22:54 POC ABG Base Excess 4 04/06/17 22:54 FiO2 80 % 04/06/17 22:54 Sodium 132 mmol/L (137-145) L 04/12/17 05:20 Potassium 4.0 mmol/L (3.6-5.0) 04/12/17 05:20 Chloride 104.0 mmol/L (98-107) 04/12/17 05:20 Carbon Dioxide 35 mmol/L (22-30) H 04/12/17 05:20 Anion Gap -3 mmol/L 04/12/17 05:20 BUN 18 mg/dL (7-17) H 04/12/17 05:20 Creatinine 0.6 mg/dL (0.7-1.2) L 04/12/17 05:20 Estimated GFR > 60 ml/min 04/12/17 05:20 BUN/Creatinine Ratio 30 % 04/12/17 05:20 Glucose 133 mg/dL (65-100) H 04/12/17 05:20 POC Glucose 312 (70-105) H 04/12/17 12:04 Calcium 8.8 mg/dL (8.4-10.2) 04/12/17 05:20 Phosphorus 4.00 mg/dL (2.5-4.5) 04/09/17 06:02 Magnesium 2.30 mg/dL (1.7-2.3) 04/10/17 03:57 Total Bilirubin 0.40 mg/dL (0.1-1.2) 04/06/17 20:40 AST 15 units/L (5-40) 04/06/17 20:40 ALT 19 units/L (7-56) 04/06/17 20:40 Alkaline Phosphatase 65 units/L (35-129) 04/06/17 20:40 Total Creatine Kinase 107 units/L (30-135) 04/06/17 20:40 CK-MB (CK-2) 2.7 ng/mL (0.0-4.0) 04/06/17 20:40 CK-MB (CK-2) Rel Index 2.5 (0-4) 04/06/17 20:40 Troponin T < 0.010 ng/mL (0.00-0.029) 04/09/17 06:02 NT-Pro-B Natriuret Pep 1023 pg/mL (0-900) H 04/06/17 20:40 Total Protein 7.2 g/dL (6.3-8.2) 04/06/17 20:40 Albumin 4.0 g/dL (3.9-5) 04/06/17 20:40 Albumin/Globulin Ratio 1.3 % 04/06/17 20:40 TSH 2.850 mlU/mL (0.270-4.200) 04/09/17 06:02 Free T4 1.25 ng/dL (0.76-1.46) 04/09/17 06:02
[2017-04-13] MEDS: LASIX IV SCH (06:22)
[2017-04-13 08:32] VITALS: BP 123/68
[2017-04-13] MEDS: PERCOCET 5/325 PO PRN (09:10)
[2017-04-13] MEDS: ASPIRIN PO SCH (09:10)
[2017-04-13] MEDS: ELIQUIS PO SCH (09:10)
[2017-04-13] MEDS: LOPRESSOR PO SCH (09:11)
[2017-04-13] MEDS: CORDARONE PO SCH (09:11)
[2017-04-13] MEDS: NOVOLOG SUB-Q SCH (09:28)
--- NOTE | 2017-04-13 09:31 | Progress Note ---
Assessment and Plan parox afib/rvr remains in nsr s/p hakeem guided dc cardioversion continue current mgt no new cardiac rec f/u with dr wells in office in 7-10 days Subjective Date of service: 04/13/17 Principal diagnosis: atrial fibrillation with RVR Interval history: no cp or sob remains in sinus rhythm Objective Vital Signs Temp Pulse Resp BP BP Pulse Ox 04/13/17 07:45 98.5 F 71 20 123/68 86 04/13/17 04:44 98.2 F 98 H 18 160/75 92 04/13/17 04:39 98.2 F 81 18 138/69 83 L 04/13/17 04:30 74 04/13/17 00:04 98.3 F 71 18 125/85 97 04/13/17 00:00 80 18 100 04/12/17 22:57 89 145/74 04/12/17 20:00 82 04/12/17 19:45 98.3 F 79 18 145/74 95 04/12/17 17:32 98.5 F 84 20 120/80 86 04/12/17 17:11 98.5 F 20 128/80 04/12/17 12:20 81 22 121/70 04/12/17 12:11 80 18 121/70 04/12/17 12:01 80 21 140/83 04/12/17 12:00 99.1 F 04/12/17 11:01 89 17 140/83 04/12/17 10:01 82 14 140/83 04/12/17 09:42 80 121/85 - Physical Examination General: Appears Well, No Apparent Distress HEENT: Positive: PERRL Neck: Positive: neck supple Cardiac: Positive: Reg Rate and Rhythm. Negative: S3 Lungs: Positive: clear to auscultation Neuro: Positive: Grossly Intact Abdomen: Positive: Soft Skin: Positive: Clear. Negative: Rash Extremities: Present: normal. Absent: edema - Imaging and Cardiology EKG: image reviewed Echo: report reviewed (04/2016: EF 55%, 04/2017: technically suboptimal and nondiagnostic)
--- NOTE | 2017-04-13 10:49 | Progress Note ---
Assessment and Plan 51 y/o female with known sarcoid, DRE on CPAP admitted with CHF exacerbation and pulmonary edema now with tachycardia, appears to be afib with RVR 1. Sinus rhythm now. hemodynamically stable 2. Sarcoid stable and not flaring 3. Stable pulm status. Will sign off. Call if questions. Subjective Date of service: 04/13/17 Principal diagnosis: atrial fibrillation with RVR Interval history: No acute events. Successful transfer to the floor. Objective Vital Signs - 12hr 04/12/17 04/13/17 04/13/17 22:57 00:00 00:04 Temperature 98.3 F Pulse Rate 89 80 71 Respiratory 18 18 Rate Blood Pressure 145/74 125/85 O2 Sat by Pulse 100 97 Oximetry 04/13/17 04/13/17 04/13/17 04:30 04:39 04:44 Temperature 98.2 F 98.2 F Pulse Rate 74 81 98 H Respiratory 18 18 Rate Blood Pressure 138/69 160/75 O2 Sat by Pulse 83 L 92 Oximetry 04/13/17 07:45 Temperature 98.5 F Pulse Rate 71 Respiratory 20 Rate Blood Pressure 123/68 O2 Sat by Pulse 86 Oximetry Constitutional: no acute distress, alert, other (morbidly obese) Eyes: non-icteric ENT: oropharynx moist, other (Mallampati 4) Ascultation: Bilateral: diminished breath sounds, rhonchi (sporadic bases) Cardiovascular: regular rate and rhythm Gastrointestinal: normoactive bowel sounds, non-distended Extremities: no cyanosis, other (trace pretibial edema. No cyanosis) Neurologic: normal mental status, non-focal exam, CN II-XII normal, motor strength normal and Psychiatric: mood appropriate, affect normal, anxious CBC and BMP: 04/12/17 05:20 04/12/17 05:20 ABG, PT/INR, D-dimer: ABG POC ABG pH 7.435 (7.35-7.45) 04/06/17 22:54 POC ABG pCO2 41.8 (35-45) 04/06/17 22:54 POC ABG pO2 103 (80-105) 04/06/17 22:54 POC ABG HCO3 28.1 04/06/17 22:54 POC ABG Total CO2 29 04/06/17 22:54 POC ABG O2 Sat 98 04/06/17 22:54 PT/INR, D-dimer D-Dimer 783.86 ng/mlDDU (0-234) H 04/09/17 06:02 Abnormal lab findings: Abnormal Labs 04/06/17 04/06/17 04/07/17 20:40 21:19 04:57 WBC 14.3 H 11.7 H Hgb 9.2 L 9.2 L Hct 30.1 L 29.8 L MCV MCH 24 L 25 L RDW 20.5 H 20.4 H Lymph % (Auto) 9.8 L Lymph # 1.1 L Seg Neutrophils % 83.7 H Seg Neuts % (Manual) 88.0 H Lymphocytes % (Manual) 6.0 L Nucleated RBC % 2.0 H Seg Neutrophils # 9.8 H Seg Neutrophils # Man 12.6 H Lymphocytes # (Manual) 0.9 L D-Dimer Sodium Chloride 96.9 L Carbon Dioxide BUN Creatinine 0.4 L Glucose 251 H POC Glucose NT-Pro-B Natriuret Pep 1023 H 04/07/17 04/09/17 04/09/17 04:57 06:02 06:02 WBC Hgb 9.4 L Hct MCV MCH 25 L RDW 20.6 H Lymph % (Auto) Lymph # Seg Neutrophils % Seg Neuts % (Manual) Lymphocytes % (Manual) Nucleated RBC % Seg Neutrophils # Seg Neutrophils # Man Lymphocytes # (Manual) D-Dimer Sodium Chloride 95.0 L Carbon Dioxide 35 H BUN 20 H Creatinine 0.5 L Glucose 127 H 186 H POC Glucose NT-Pro-B Natriuret Pep 04/09/17 04/09/17 04/09/17 06:02 08:04 11:46 WBC Hgb Hct MCV MCH RDW Lymph % (Auto) Lymph # Seg Neutrophils % Seg Neuts % (Manual) Lymphocytes % (Manual) Nucleated RBC % Seg Neutrophils # Seg Neutrophils # Man Lymphocytes # (Manual) D-Dimer 783.86 H Sodium Chloride Carbon Dioxide BUN Creatinine Glucose POC Glucose 196 H 320 H NT-Pro-B Natriuret Pep 04/09/17 04/09/17 04/10/17 17:04 21:18 03:57 WBC 11.1 H Hgb 9.1 L Hct 29.5 L MCV MCH 24 L RDW 20.8 H Lymph % (Auto) Lymph # Seg Neutrophils % Seg Neuts % (Manual) Lymphocytes % (Manual) Nucleated RBC % Seg Neutrophils # Seg Neutrophils # Man Lymphocytes # (Manual) D-Dimer Sodium Chloride Carbon Dioxide BUN Creatinine Glucose POC Glucose 219 H 264 H NT-Pro-B Natriuret Pep 04/10/17 04/10/17 04/10/17 03:57 08:28 11:54 WBC Hgb Hct MCV MCH RDW Lymph % (Auto) Lymph # Seg Neutrophils % Seg Neuts % (Manual) Lymphocytes % (Manual) Nucleated RBC % Seg Neutrophils # Seg Neutrophils # Man Lymphocytes # (Manual) D-Dimer Sodium Chloride 94.1 L Carbon Dioxide 37 H BUN 22 H Creatinine Glucose 183 H POC Glucose 203 H 305 H NT-Pro-B Natriuret Pep 04/10/17 04/10/17 04/11/17 16:41 21:04 06:38 WBC 12.9 H Hgb 9.1 L Hct MCV 78 L MCH 23 L RDW 19.6 H Lymph % (Auto) Lymph # Seg Neutrophils % Seg Neuts % (Manual) Lymphocytes % (Manual) Nucleated RBC % Seg Neutrophils # Seg Neutrophils # Man Lymphocytes # (Manual) D-Dimer Sodium Chloride Carbon Dioxide BUN Creatinine Glucose POC Glucose 127 H 219 H NT-Pro-B Natriuret Pep 04/11/17 04/11/17 04/11/17 06:38 07:45 10:57 WBC Hgb Hct MCV MCH RDW Lymph % (Auto) Lymph # Seg Neutrophils % Seg Neuts % (Manual) Lymphocytes % (Manual) Nucleated RBC % Seg Neutrophils # Seg Neutrophils # Man Lymphocytes # (Manual) D-Dimer Sodium Chloride 92.9 L Carbon Dioxide 32 H BUN 20 H Creatinine 0.6 L Glucose 153 H POC Glucose 133 H 266 H NT-Pro-B Natriuret Pep 04/11/17 04/11/17 04/12/17 16:29 22:31 05:20 WBC 11.7 H Hgb 9.7 L Hct MCV 78 L MCH 23 L RDW 20.3 H Lymph % (Auto) Lymph # Seg Neutrophils % Seg Neuts % (Manual) Lymphocytes % (Manual) Nucleated RBC % Seg Neutrophils # Seg Neutrophils # Man Lymphocytes # (Manual) D-Dimer Sodium Chloride Carbon Dioxide BUN Creatinine Glucose POC Glucose 182 H 217 H NT-Pro-B Natriuret Pep 04/12/17 04/12/17 04/12/17 05:20 07:43 12:04 WBC Hgb Hct MCV MCH RDW Lymph % (Auto) Lymph # Seg Neutrophils % Seg Neuts % (Manual) Lymphocytes % (Manual) Nucleated RBC % Seg Neutrophils # Seg Neutrophils # Man Lymphocytes # (Manual) D-Dimer Sodium 132 L Chloride Carbon Dioxide 35 H BUN 18 H Creatinine 0.6 L Glucose 133 H POC Glucose 181 H 312 H NT-Pro-B Natriuret Pep 04/12/17 04/13/17 21:22 09:28 WBC Hgb Hct MCV MCH RDW Lymph % (Auto) Lymph # Seg Neutrophils % Seg Neuts % (Manual) Lymphocytes % (Manual) Nucleated RBC % Seg Neutrophils # Seg Neutrophils # Man Lymphocytes # (Manual) D-Dimer Sodium Chloride Carbon Dioxide BUN Creatinine Glucose POC Glucose 320 H 152 H NT-Pro-B Natriuret Pep
--- NOTE | 2017-04-13 10:56 | Discharge Summary ---
Providers - Providers Date of Admission: 04/06/17 23:06 Date of discharge: 04/13/17 Attending physician: JACINTO MEJIA 04/06/17 23:06 Consult to Physician [CONS] Routine Consulting Provider: NINO GANT Reason For Exam: chf Place consult to:: Notified:: Phone number called:: [phone] Was contact made?: Yes If yes, spoke with:: JULISA Time called:: 09:52 Comment:: MENA Primary care physician: JACINTO SAWYER Hospitalization Condition: Fair Disposition: DC-01 TO HOME OR SELFCARE Exam - Constitutional Vitals: Temp Pulse Resp BP Pulse Ox 98.5 F 71 20 123/68 86 04/13/17 07:45 04/13/17 07:45 04/13/17 07:45 04/13/17 07:45 04/13/17 07:45 Plan Activity: advance as tolerated Diet: low fat, low cholesterol, low salt, diabetic Additional Instructions: 1.Follow up with PCP in 1 week. 2.Follow up with Dr. Gant in 1 week. 3.Check BMP in 1 week to be followed by PCP Follow up with: JACINTO SAWYER MD [Primary Care Provider] - 3-5 Days Prescriptions: Amiodarone [Cordarone 200 MG TAB] 200 mg PO BID #60 tablet Apixaban [Eliquis] 5 mg PO Q12HR #60 tablet Furosemide [Lasix TAB] 40 mg PO QDAY #30 tablet Metoprolol [Lopressor TAB] 50 mg PO BID #60 tablet
--- NOTE | 2017-04-14 02:54 | Procedure Note ---
REASON FOR ELECTRICAL CARDIOVERSION: Atrial fibrillation. DESCRIPTION OF PROCEDURE: Informed consent was first obtained for electrical cardioversion. With the patient in a supine position, electrode pads were applied over the anterior and posterior chest govea. The patient was then placed on the continuous electrocardiographic and hemodynamic monitoring. The patient was sedated by the anesthesiologist using intravenous propofol. After adequate sedation, a 200-joule synchronized shock was applied over the electrode pads. The patient promptly converted to normal sinus rhythm. The procedure was well tolerated with no obvious complications. JOB# [id number] CHRISTY/KATHI
== END 2017-04-13 11:20 | disposition home or self-care (01) | DRG 291 ==
LOC: ED 20:15 → 4A 23:06 → CC1 04-09 09:30 → 4A 04-12 12:59
PROVIDERS: ADMIT Internal Medicine; ATTEND Internal Medicine
PROC: 4A033R1 Measurement of Arterial Saturation, Peripheral, Percutaneous Approach (ICD-10-PCS; 2017-04-06)
PROC: 5A09357 Assistance with Respiratory Ventilation, Less than 24 Consecutive Hours, Continuous Positive Airway Pressure (ICD-10-PCS; 2017-04-06)
PROC: 5A09357 Assistance with Respiratory Ventilation, Less than 24 Consecutive Hours, Continuous Positive Airway Pressure (ICD-10-PCS; 2017-04-07)
PROC: 5A09357 Assistance with Respiratory Ventilation, Less than 24 Consecutive Hours, Continuous Positive Airway Pressure (ICD-10-PCS; 2017-04-08)
PROC: 5A09357 Assistance with Respiratory Ventilation, Less than 24 Consecutive Hours, Continuous Positive Airway Pressure (ICD-10-PCS; 2017-04-09)
PROC: 5A09357 Assistance with Respiratory Ventilation, Less than 24 Consecutive Hours, Continuous Positive Airway Pressure (ICD-10-PCS; 2017-04-10)
PROC: 5A09357 Assistance with Respiratory Ventilation, Less than 24 Consecutive Hours, Continuous Positive Airway Pressure (ICD-10-PCS; 2017-04-11)
PROC: 5A2204Z Restoration of Cardiac Rhythm, Single (ICD-10-PCS; principal; 2017-04-12)
PROC: B24BZZ4 Ultrasonography of Heart with Aorta, Transesophageal (ICD-10-PCS; 2017-04-12)
PROC: 5A09357 Assistance with Respiratory Ventilation, Less than 24 Consecutive Hours, Continuous Positive Airway Pressure (ICD-10-PCS; 2017-04-13)
DX: I11.0 Hypertensive heart disease with heart failure (principal); J96.01 Acute respiratory failure with hypoxia; Z68.42 Body mass index [BMI] 45.0-49.9, adult; E78.5 Hyperlipidemia, unspecified; E11.9 Type 2 diabetes mellitus without complications; E78.00 Pure hypercholesterolemia, unspecified; D86.0 Sarcoidosis of lung; E66.9 Obesity, unspecified; G47.33 Obstructive sleep apnea (adult) (pediatric); I48.0 Paroxysmal atrial fibrillation; Z87.891 Personal history of nicotine dependence; Z82.49 Family history of ischemic heart disease and other diseases of the circulatory system; Z79.84 Long term (current) use of oral hypoglycemic drugs; Z79.899 Other long term (current) drug therapy; I50.33 Acute on chronic diastolic (congestive) heart failure
CPT/HCPCS: 36415; 71010; 71045; 80048; 80053; 82550; 82553; 82803; 82962; 83735; 83880; 84100; 84439; 84443; 84484; 85007; 85025; 85027; 85379; 93005; 93010; 93306; 93312; 93320; 93325; 94640; 94660; 94760; 96374; 99291; A9270-GY; J0282; J0360; J1160; J1650; J1815; J1940; J1956; J2250; J2704; J3475; J7030; J7040; J7060

== ENCOUNTER 2017-05-15 09:34 | Inpatient (IN) | payer MEDICARE ==
[2017-05-15 10:50] LABS: Basophils # (Auto) 0.1 K/mm3 (0.0-0.1); Basophils % (Auto) 0.7 % (0.0-1.8); Eosinophils % (Auto) 0.5 % (0.0-4.3); Lymphocytes # (Auto) 1.5 K/mm3 (1.2-5.4); Lymphocytes % (Auto) 18.2 % (13.4-35.0); Mean Corpuscular HGB Conc 29 % (30-34); Mean Corpuscular Volume 75 fl (79-97); Monocytes # (Auto) 0.7 K/mm3 (0.0-0.8); Monocytes % (Auto) 8.2 % (0.0-7.3); Platelet Count 418 K/mm3 (140-440); Red Blood Count 3.53 M/mm3 (3.65-5.03)
[2017-05-15 10:53] LABS: Hematocrit 26.3 % (30.3-42.9); Hemoglobin 7.6 gm/dl (10.1-14.3); Mean Corpuscular Hemoglobin 22 pg (28-32); Red Cell Distribution Width 23.2 % (13.2-15.2)
[2017-05-15 11:06] LABS: BUN/Creatinine Ratio 18; Blood Urea Nitrogen 11 mg/dL (7-17); Calcium 7.8 mg/dL (8.4-10.2); Hemolysis Index 2
--- NOTE | 2017-05-15 11:41 | XRay Report ---
ROUTINE CHEST, TWO VIEWS: HISTORY: Shortness of breath. Moderate cardiomegaly and pulmonary venous congestion are identified. The lungs are generally clear. No evidence for pneumonia, CHF or pneumothorax. The bony structures are grossly intact. Little change since 04/08/17. IMPRESSION: Cardiomegaly and pulmonary venous congestion but no CHF.
[2017-05-15] MEDS ORDERED: NACL 0.9% 500 ML 500 ML IV ONE (12:17)
--- NOTE | 2017-05-15 12:20 | Emergency Department Report ---
HPI - General Chief Complaint: Dyspnea/Respdistress Time Seen by Provider: 05/15/17 10:50 - HPI HPI: The patient is a 52-year-old female with a history of congestive heart failure who presents for evaluation of worsening dyspnea. The patient has a history of congestive heart failure and has experienced progressively worsening dyspnea for the past 6-8 weeks, significantly worsened and constant for the past one to 2 weeks, exacerbated with exertion or ambulation, improved at rest. She shares that she experienced a heavy episode of vaginal bleeding one to 2 weeks ago for her symptoms worsen. She has a history of fibroids and episodic heavy bleeding. She also admits to severe bilateral lower leg swelling for the past week. The patient denies fever, cough, syncope, chest pain, hemoptysis, unilateral leg swelling, oral contraceptive use, recent immobilization, history of DVT or PE, recent cancer. ED Past Medical Hx - Past Medical History Previous Medical History?: Yes Hx Hypertension: Yes Hx Congestive Heart Failure: Yes Hx Diabetes: Yes Hx COPD: Yes Additional medical history: SARCOIDOSIS, high cholesterol - Surgical History Past Surgical History?: Yes Additional Surgical History: ECTOPIC LEFT TUBE REMOVED - Social History Smoking Status: Never Smoker Substance Use Type: Alcohol - Medications Home Medications: Home Medications Medication Instructions Recorded Confirmed Last Taken Type Atorvastatin Calcium 40 mg PO HS 04/08/17 04/08/17 04/06/17 22:00 History ISOSORBIDE MONOnitrate [Imdur ER] 30 mg PO DAILY 04/08/17 04/08/17 04/06/17 09: 00 History Metformin HCl 500 mg PO BID 04/08/17 04/12/17 04/06/17 09:00 History Amiodarone [Cordarone 200 MG TAB] 200 mg PO BID #60 tablet 04/13/17 Unknown Rx Apixaban [Eliquis] 5 mg PO Q12HR #60 tablet 04/13/17 Unknown Rx Furosemide [Lasix TAB] 40 mg PO QDAY #30 tablet 04/13/17 Unknown Rx Metoprolol [Lopressor TAB] 50 mg PO BID #60 tablet 04/13/17 Unknown Rx ED Review of Systems ROS: Stated complaint: LOW BLOOD COUNT Other details as noted in HPI Constitutional: denies: fever ENT: denies: throat or neck pain Respiratory: reports cough and shortness of breath Cardiovascular: denies: chest pain Endocrine: denies unexplained weight loss or gain Gastrointestinal: denies: abdominal pain, nausea Genitourinary: denies: dysuria Musculoskeletal: reports leg swelling Skin: denies: rash Neurological: denies: headache Hematological/Lymphatic: denies: easy bleeding or easy bruising Psych: denies sadness or hopelessness Physical Exam - Physical Exam Vital Signs: Vital Signs 05/15/17 10:16 Temperature 98.6 F Pulse Rate 98 H Respiratory 22 Rate Blood Pressure 120/81 O2 Sat by Pulse 72 L Oximetry Physical Exam: General: well-nourished, well-developed, no acute distress Head: Normocephalic, atraumatic Eyes: normal sclera ENT: Mucous membranes are pink and moist Neck: trachea midline, neck supple, No neck stiffness, no cervical adenopathy Respiratory: Mildly diminished bibasilar breath sounds and rales present Cardio: S1 and S2 present, no murmurs, rubs, gallops, capillary refill is brisk Abdomen: Normoactive bowel sounds, soft abdomen, no rigidity, no guarding or rebound tenderness Chest WALL/Back: No tenderness to palpation of the chest wall, no CVA tenderness with percussion Musc: 2+ pitting edema to the bilateral lower legs present Skin: No rash Neuro: no facial drooping, normal speech Psych: Normal affect ED Course Vital Signs 05/15/17 10:16 Temperature 98.6 F Pulse Rate 98 H Respiratory 22 Rate Blood Pressure 120/81 O2 Sat by Pulse 72 L Oximetry ED Medical Decision Making - Lab Data Result diagrams: 05/15/17 10:30 05/15/17 10:30 - Medical Decision Making The patient was seen and examined by myself. The patient is placed on a property assessment monitor and continuous pulse ox. On initial evaluation, the patient was found to have tachycardia and hypoxia on room air. The patient is placed on supplemental oxygen. Evaluation orders were placed. X-ray of the chest as evidenced cardiomegaly. The patient is given Lasix for treatment of her CHF. Lab results revealed low hemoglobin of 7.6. As the patient's found have tachycardia, hypoxia, with severely low hemoglobin, she'll be transfused 1 unit PRBCs for txt of her severe symptomatic anemia. As she is also expressive fluid overload and acute exacerbation of CHF, she'll be admitted for continued treatment and close cardio pulmonary monitoring. The on-call hospitalist service was contacted. They agreed to admit the patient for further treatment and close monitoring. The ED admit order was placed. The patient was admitted in guarded condition. Critical care attestation.: If time is entered above; I have spent that time in minutes in the direct care of this critically ill patient, excluding procedure time. ED Disposition Clinical Impression: Severe anemia, Symptomatic anemia, Anemia requiring transfusions, Hypoxia Acute CHF Qualifiers: Congestive heart failure type: systolic Qualified Code(s): I50.21 - Acute systolic (congestive) heart failure Disposition: 09 OP ADMIT IP TO THIS HOSP Is pt being admited?: Yes Does the pt Need Aspirin: Yes Condition: Serious Time of Disposition: 12:19
[2017-05-15] MEDS ORDERED: LASIX IV ONE (12:31)
[2017-05-15] MEDS ORDERED: NACL 0.9% 250ML 250 ML IV ONE (17:30)
--- NOTE | 2017-05-15 19:04 | History and Physical Report ---
History of Present Illness Date of examination: 05/15/17 Date of admission: 05/15/17 12:58 Chief complaint: CC Increasing SOB on minimal exertion History of present illness: MARY 52-year-old female with a history of congestive heart failure,Arrhythmias T2DM and CAD presents for evaluation of worsening dyspnea. The patient has a history of congestive heart failure and has experienced progressively worsening dyspnea for the past 6-8 weeks, significantly worsened and constant for the past one to 2 weeks, exacerbated with exertion or ambulation, improved at rest. Also ortopnea present.She shares that she experienced a heavy episode of vaginal bleeding one to 2 weeks ago and her symptoms worsened. She has a history of fibroids and episodic heavy bleeding. She also admits to severe bilateral lower leg swelling for the past week. The patient denies fever, cough , syncope, chest pain, hemoptysis, unilateral leg swelling, oral contraceptive use, recent immobilization, history of DVT or PE, recent cancer. Past Medical History Previous Medical History?: Yes Hx Hypertension: Yes Hx Congestive Heart Failure: Yes Hx Diabetes: Yes Hx COPD: Yes Additional medical history: SARCOIDOSIS, high cholesterol Surgical History Past Surgical History?: Yes Additional Surgical History: ECTOPIC LEFT TUBE REMOVED Social History Smoking Status: Never Smoker Substance Use Type: Alcohol Fam Hx Htn - Medications Home Medications: Home Medications Medication Instructions Recorded Confirmed Last Taken Type Atorvastatin Calcium 40 mg PO HS 04/08/17 04/08/17 04/06/17 22:00 History ISOSORBIDE MONOnitrate [Imdur ER] 30 mg PO DAILY 04/08/17 04/08/17 04/06/17 09: 00 History Metformin HCl 500 mg PO BID 04/08/17 04/12/17 04/06/17 09:00 History Amiodarone [Cordarone 200 MG TAB] 200 mg PO BID #60 tablet 04/13/17 Unknown Rx Apixaban [Eliquis] 5 mg PO Q12HR #60 tablet 04/13/17 Unknown Rx Furosemide [Lasix TAB] 40 mg PO QDAY #30 tablet 04/13/17 Unknown Rx Metoprolol [Lopressor TAB] 50 mg PO BID #60 tablet 04/13/17 Unknown Rx ROS: Stated complaint: LOW BLOOD COUNT Other details as noted in HPI Constitutional: denies: fever ENT: denies: throat or neck pain Respiratory: reports cough and shortness of breath Cardiovascular: denies: chest pain Endocrine: denies unexplained weight loss or gain Gastrointestinal: denies: abdominal pain, nausea Genitourinary: denies: dysuria Musculoskeletal: reports leg swelling Skin: denies: rash Neurological: denies: headache Hematological/Lymphatic: denies: easy bleeding or easy bruising Psych: denies sadness or hopelessness Medications and Allergies Allergies Allergy/AdvReac Type Severity Reaction Status Date / Time No Known Allergies Allergy Unverified 08/12/13 15:01 Home Medications Medication Instructions Recorded Confirmed Last Taken Type Atorvastatin Calcium 40 mg PO HS 04/08/17 05/15/17 04/06/17 22:00 History ISOSORBIDE MONOnitrate [Imdur ER] 60 mg PO DAILY 04/08/17 05/15/17 04/06/17 09: 00 History Metformin HCl 500 mg PO BID 04/08/17 05/15/17 04/06/17 09:00 History Amiodarone [Cordarone 200 MG TAB] 200 mg PO BID #60 tablet 04/13/17 05/15/17 Unknown Rx Apixaban [Eliquis] 5 mg PO Q12HR #60 tablet 04/13/17 05/15/17 Unknown Rx Furosemide [Lasix TAB] 40 mg PO QDAY #30 tablet 04/13/17 05/15/17 Unknown Rx Metoprolol [Lopressor TAB] 50 mg PO BID #60 tablet 04/13/17 05/15/17 Unknown Rx ALBUTEROL Inhaler [Proair] 2 puff IH QID PRN 05/15/17 05/15/17 Unknown History Budesonide/Formoterol Fumarate 10.2 gm IH PRN 05/15/17 05/15/17 Unknown History [Symbicort 80-4.5 Mcg Inhaler] HYDROcodone/APAP 5-325 [Powell 1 each PO Q6HR PRN 05/15/17 05/15/17 Unknown History 5/325] buPROPion SR [Wellbutrin Sr] 150 mg PO BID 05/15/17 05/15/17 Unknown History Active Meds: Active Medications Oxycodone/Acetaminophen (Percocet 5/325) 1 tab PO Q6H PRN PRN Reason: Pain, Moderate (4-6) Exam - Constitutional Vitals: Temp Pulse Resp BP Pulse Ox 98.8 F 60 20 133/87 97 05/15/17 18:08 05/15/17 18:08 05/15/17 18:08 05/15/17 18:08 05/15/17 18:08 General appearance: Present: no acute distress, well-nourished - EENT Eyes: Present: PERRL ENT: hearing intact, clear oral mucosa - Neck Neck: Present: supple, normal ROM - Respiratory Respiratory effort: normal Respiratory: bilateral: CTA - Cardiovascular Heart rate: 82 Rhythm: regular Heart Sounds: Present: S1 & S2. Absent: rub, click - Extremities Extremities: no ischemia, pulses intact, pulses symmetrical, No edema Peripheral Pulses: within normal limits - Abdominal General gastrointestinal: Present: soft, non-tender, non-distended, normal bowel sounds Female genitourinary: Present: normal - Integumentary Integumentary: Present: clear, warm, dry - Musculoskeletal Musculoskeletal: gait normal, strength equal bilaterally - Psychiatric Psychiatric: appropriate mood/affect, intact judgment & insight - Neurologic Neurologic: CNII-XII intact, moves all extremities - Allied Health Allied health notes reviewed: nursing, case management Results - Labs CBC & Chem 7: 05/15/17 10:30 05/15/17 10:30 Labs: Laboratory Last Values WBC 8.3 K/mm3 (4.5-11.0) 05/15/17 10:30 RBC 3.53 M/mm3 (3.65-5.03) L 05/15/17 10:30 Hgb 7.6 gm/dl (10.1-14.3) L 05/15/17 10:30 Hct 26.3 % (30.3-42.9) L 05/15/17 10:30 MCV 75 fl (79-97) L 05/15/17 10:30 MCH 22 pg (28-32) L 05/15/17 10:30 MCHC 29 % (30-34) L 05/15/17 10:30 RDW 23.2 % (13.2-15.2) H 05/15/17 10:30 Plt Count 418 K/mm3 (140-440) 05/15/17 10:30 Lymph % (Auto) 18.2 % (13.4-35.0) 05/15/17 10:30 [place] % (Auto) 8.2 % (0.0-7.3) H 05/15/17 10:30 Eos % (Auto) 0.5 % (0.0-4.3) 05/15/17 10:30 Baso % (Auto) 0.7 % (0.0-1.8) 05/15/17 10:30 Lymph # 1.5 K/mm3 (1.2-5.4) 05/15/17 10:30 [place] # 0.7 K/mm3 (0.0-0.8) 05/15/17 10:30 Eos # 0.0 K/mm3 (0.0-0.4) 05/15/17 10:30 Baso # 0.1 K/mm3 (0.0-0.1) 05/15/17 10:30 Seg Neutrophils % 72.4 % (40.0-70.0) H 05/15/17 10:30 Seg Neutrophils # 6.0 K/mm3 (1.8-7.7) 05/15/17 10:30 Sodium 144 mmol/L (137-145) 05/15/17 10:30 Potassium 3.8 mmol/L (3.6-5.0) 05/15/17 10:30 Chloride 96.0 mmol/L (98-107) L 05/15/17 10:30 Carbon Dioxide 33 mmol/L (22-30) H 05/15/17 10:30 Anion Gap 19 mmol/L 05/15/17 10:30 BUN 11 mg/dL (7-17) 05/15/17 10:30 Creatinine 0.6 mg/dL (0.7-1.2) L 05/15/17 10:30 Estimated GFR > 60 ml/min 05/15/17 10:30 BUN/Creatinine Ratio 18 % 05/15/17 10:30 Glucose 163 mg/dL (65-100) H 05/15/17 10:30 Calcium 7.8 mg/dL (8.4-10.2) L 05/15/17 10:30 Troponin T < 0.010 ng/mL (0.00-0.029) 05/15/17 12:25 NT-Pro-B Natriuret Pep 2140 pg/mL (0-900) H 05/15/17 12:25 HCG, Qual Negative (Negative) 05/15/17 10:30 Blood Type O POSITIVE 05/15/17 12:25 Antibody Screen Negative 05/15/17 10:30 Crossmatch See Detail 05/15/17 10:30 Short CBC 05/15/17 Range/Units 10:30 WBC 8.3 (4.5-11.0) K/mm3 Hgb 7.6 L (10.1-14.3) gm/dl Hct 26.3 L (30.3-42.9) % Plt Count 418 (140-440) K/mm3 BMP 05/15/17 10:30 Sodium 144 Potassium 3.8 Chloride 96.0 L Carbon Dioxide 33 H BUN 11 Creatinine 0.6 L Glucose 163 H Calcium 7.8 L Cardiac Enzymes 05/15/17 Range/Units 12:25 Troponin T < 0.010 (0.00-0.029) ng/mL - Imaging and Cardiology EKG: report reviewed (NSR 82/min ) Chest x-ray: report reviewed (PVC) Assessment and Plan Advance Directives: Yes (Full code) VTE prophylaxis?: Chemical Plan of care discussed with patient/family: Yes - Patient Problems (1) Acute on chronic diastolic (congestive) heart failure Current Visit: No Status: Acute Plan to address problem: CHF exacerbation Lasix 40 mg q24 IV ECHO for EF and Valve fun Diastolic Heart failurection (2) Symptomatic anemia Current Visit: Yes Status: Chronic Plan to address problem: No Transfusion at this point Iron levels low Supplement Iron Has Fibroids Corporate Travel Coordinator consult so that she can follow as out patient for Menorrhagia (3) Paroxysmal atrial fibrillation Current Visit: Yes Status: Chronic Plan to address problem: On Amiodarone and Plavix/Eliquis.Eliquis kept on Hold.Will defer to cardiology (4) HLD (hyperlipidemia) Current Visit: Yes Status: Chronic Qualifiers: Hyperlipidemia type: mixed hyperlipidemia Qualified Code(s): E78.2 - Mixed hyperlipidemia Plan to address problem: on statins (5) Arrhythmia Current Visit: Yes Status: Chronic Qualifiers: Arrhythmia type: atrial fibrillation Plan to address problem: Amiodarone (6) T2DM (type 2 diabetes mellitus) Current Visit: Yes Status: Chronic Qualifiers: Diabetes mellitus complication status: without complication Plan to address problem: Cont Metformin and coverage Check A1c (7) HTN (hypertension) Current Visit: Yes Status: Chronic Qualifiers: Hypertension type: essential hypertension Qualified Code(s): I10 - Essential (primary) hypertension Plan to address problem: On Metoprolol (8) DVT prophylaxis Current Visit: Yes Status: Acute Plan to address problem: on Scd's
[2017-05-15] MEDS: PERCOCET 5/325 PO PRN (19:27)
[2017-05-16] MEDS ORDERED: MILK OF MAGNESIA PO PRN (00:12)
[2017-05-16] MEDS ORDERED: TYLENOL PO PRN (00:12)
[2017-05-16] MEDS ORDERED: DILAUDID IV PRN (00:12)
[2017-05-16] MEDS ORDERED: DULCOLAX PR PRN (00:12)
[2017-05-16] MEDS ORDERED: ZOFRAN IV PRN (00:12)
[2017-05-16] MEDS: PERCOCET 5/325 PO PRN ×3 (02:16→18:13)
[2017-05-16 03:24] LABS: % Iron Saturation 3.52 %
[2017-05-16 07:09] LABS: Basophils % (Auto) 0.4 % (0.0-1.8); Eosinophils # (Auto) 0.1 K/mm3 (0.0-0.4); Eosinophils % (Auto) 0.9 % (0.0-4.3); Lymphocytes # (Auto) 1.7 K/mm3 (1.2-5.4); Lymphocytes % (Auto) 19.7 % (13.4-35.0); Mean Corpuscular HGB Conc 29 % (30-34); Mean Corpuscular Volume 75 fl (79-97); Monocytes # (Auto) 0.7 K/mm3 (0.0-0.8); Monocytes % (Auto) 7.9 % (0.0-7.3); Platelet Count 373 K/mm3 (140-440); Red Blood Count 3.73 M/mm3 (3.65-5.03)
[2017-05-16 07:11] LABS: Hematocrit 27.8 % (30.3-42.9); Hemoglobin 8.1 gm/dl (10.1-14.3); Mean Corpuscular Hemoglobin 22 pg (28-32); Red Cell Distribution Width 23.7 % (13.2-15.2)
[2017-05-16 07:31] LABS: BUN/Creatinine Ratio 20; Blood Urea Nitrogen 12 mg/dL (7-17); Calcium 7.8 mg/dL (8.4-10.2); Hemolysis Index 5
--- NOTE | 2017-05-16 08:47 | Progress Note ---
Assessment and Plan (1) Acute on chronic diastolic (congestive) heart failure CHF exacerbation Lasix 40 mg q24 IV, ACEI, BB, ECHO for EF and Valve fun Diastolic Heart failurection (2) Symptomatic anemia Secondary to menorrhagia from uterine fibroid No Transfusion at this point Iron levels low Supplement Iron Manager Educational consult so that she can follow as out patient for Menorrhagia (3) Paroxysmal atrial fibrillation low dose Amiodarone and Lopressor Hold Plavix/Eliquis because of systemic anemia Cardiology following (4) HLD (hyperlipidemia) on statins (5) Arrhythmia Arrhythmia type: atrial fibrillation Plan to address problem: On Amiodarone (6) T2DM (type 2 diabetes mellitus) Cont sliding scale insulin, consistent carbohydrate diet Metformin Check A1c 7.7% (7) HTN (hypertension) On Metoprolol (8) DVT prophylaxis on Scd's. Holding anticoagulation because of menorrhagia and symptomatic anemia Subjective Date of service: 05/16/17 Principal diagnosis: diastolic heart failure, symptomatic anemia, PAfib, diabetes Interval history: Patient is a do not on the chart. Complaining of pain on the lowest extremities , bilateral pedal edema, knee pain, shortness of breath. Objective - Constitutional Vitals: Vital Signs - 12hr 05/15/17 05/15/17 05/15/17 20:59 21:29 22:00 Temperature 98.9 F 98.9 F Pulse Rate 120 H 117 H Respiratory 20 20 18 Rate Blood Pressure 148/95 144/90 O2 Sat by Pulse 96 97 97 Oximetry 05/15/17 05/15/17 05/16/17 22:52 22:59 00:48 Temperature 99 F 99.1 F Pulse Rate 130 H 120 H 108 H Respiratory 20 18 Rate Blood Pressure 145/109 132/94 O2 Sat by Pulse 94 100 Oximetry 05/16/17 05/16/17 03:07 05:07 Temperature 98.6 F Pulse Rate 111 H 131 H Respiratory 20 22 Rate Blood Pressure 135/84 O2 Sat by Pulse 94 92 Oximetry General appearance: Present: no acute distress, well-nourished - EENT Eyes: PERRL, EOM intact - Neck Neck: supple, normal ROM - Respiratory Respiratory effort: normal Respiratory: bilateral: diminished - Cardiovascular Rhythm: regular Heart Sounds: Present: S1 & S2. Absent: gallop, rub Extremities: pulses intact, No edema, normal color, Full ROM - Gastrointestinal General gastrointestinal: Present: soft, non-tender, non-distended, normal bowel sounds - Genitourinary Female genitourinary: normal - Integumentary Integumentary: clear, warm, dry - Musculoskeletal Musculoskeletal: 1, strength equal bilaterally - Neurologic Neurologic: moves all extremities - Psychiatric Psychiatric: appropriate mood/affect, intact judgment & insight, memory intact - Labs CBC & Chem 7: 05/16/17 06:13 05/16/17 06:13 Labs: Abnormal lab results 05/15/17 05/15/17 05/15/17 Range/Units 10:30 10:30 10:30 RBC 3.53 L (3.65-5.03) M/mm3 Hgb 7.6 L (10.1-14.3) gm/dl Hct 26.3 L (30.3-42.9) % MCV 75 L (79-97) fl MCH 22 L (28-32) pg MCHC 29 L (30-34) % RDW 23.2 H (13.2-15.2) % Wood % (Auto) 8.2 H (0.0-7.3) % Seg Neutrophils % 72.4 H (40.0-70.0) % Sodium (137-145) mmol/L Chloride 96.0 L (98-107) mmol/L Carbon Dioxide 33 H (22-30) mmol/L Creatinine 0.6 L (0.7-1.2) mg/dL Glucose 163 H (65-100) mg/dL POC Glucose (70-105) Hemoglobin A1c (4-6) % Calcium 7.8 L (8.4-10.2) mg/dL Iron (37-170) ug/dL NT-Pro-B Natriuret Pep (0-900) pg/mL Crossmatch See Detail 05/15/17 05/15/17 05/15/17 Range/Units 12:25 16:07 22:01 RBC (3.65-5.03) M/mm3 Hgb (10.1-14.3) gm/dl Hct (30.3-42.9) % MCV (79-97) fl MCH (28-32) pg MCHC (30-34) % RDW (13.2-15.2) % Wood % (Auto) (0.0-7.3) % Seg Neutrophils % (40.0-70.0) % Sodium (137-145) mmol/L Chloride (98-107) mmol/L Carbon Dioxide (22-30) mmol/L Creatinine (0.7-1.2) mg/dL Glucose (65-100) mg/dL POC Glucose 186 H 116 H (70-105) Hemoglobin A1c (4-6) % Calcium (8.4-10.2) mg/dL Iron (37-170) ug/dL NT-Pro-B Natriuret Pep 2140 H (0-900) pg/mL Crossmatch 05/16/17 05/16/17 05/16/17 Range/Units 01:03 01:03 06:13 RBC (3.65-5.03) M/mm3 Hgb 8.1 L (10.1-14.3) gm/dl Hct 27.8 L (30.3-42.9) % MCV 75 L (79-97) fl MCH 22 L (28-32) pg MCHC 29 L (30-34) % RDW 23.7 H (13.2-15.2) % Wood % (Auto) 7.9 H (0.0-7.3) % Seg Neutrophils % 71.1 H (40.0-70.0) % Sodium (137-145) mmol/L Chloride (98-107) mmol/L Carbon Dioxide (22-30) mmol/L Creatinine (0.7-1.2) mg/dL Glucose (65-100) mg/dL POC Glucose (70-105) Hemoglobin A1c 7.7 H (4-6) % Calcium (8.4-10.2) mg/dL Iron 14 L (37-170) ug/dL NT-Pro-B Natriuret Pep (0-900) pg/mL Crossmatch 05/16/17 Range/Units 06:13 RBC (3.65-5.03) M/mm3 Hgb (10.1-14.3) gm/dl Hct (30.3-42.9) % MCV (79-97) fl MCH (28-32) pg MCHC (30-34) % RDW (13.2-15.2) % Wood % (Auto) (0.0-7.3) % Seg Neutrophils % (40.0-70.0) % Sodium 146 H (137-145) mmol/L Chloride (98-107) mmol/L Carbon Dioxide 35 H (22-30) mmol/L Creatinine 0.6 L (0.7-1.2) mg/dL Glucose 135 H (65-100) mg/dL POC Glucose (70-105) Hemoglobin A1c (4-6) % Calcium 7.8 L (8.4-10.2) mg/dL Iron (37-170) ug/dL NT-Pro-B Natriuret Pep (0-900) pg/mL Crossmatch
[2017-05-16] MEDS: PEPCID PO SCH ×2 (09:37→21:47)
[2017-05-16] MEDS: HEPARIN SUB-Q SCH ×2 (10:00→21:48)
[2017-05-16] MEDS ORDERED: FEOSOL PO SCH (10:00)
--- NOTE | 2017-05-16 11:00 | Consultation ---
History of Present Illness Consult date: 05/16/17 Requesting physician: ARISTEO CORONEL Consult reason: atrial fibrillation History of present illness: This is a 52-year-old -Spanish female with morbid obesity and obesity hypoventilation COPD and hypertension who last month had atrial fibrillation and was TE cardioverted placed on elquis. Patient had blood work done at my office which revealed a decrease in hemoglobin to 8.5 patient was asked to come to the emergency room for further evaluation should symptoms A.1 patient does have fatigue patient is having increased swelling in the right more to the left patient also has been drinking increased amounts of liquids. Patient denies any black stools or blood in the stools but does have a history of fibroids. Patient denies any syncope or palpitations but increased fatigue Past History Past Medical History: atrial fib (HAKEEM and cardioverted April 2016 was on 1 month of liquids), COPD, diabetes, hypertension, hyperlipidemia, other (morbid obesity) Social history: smoking (ex-smoker) Family history: denies: no significant family history Medications and Allergies Allergies Allergy/AdvReac Type Severity Reaction Status Date / Time No Known Allergies Allergy Unverified 08/12/13 15:01 Home Medications Medication Instructions Recorded Confirmed Last Taken Type Atorvastatin Calcium 40 mg PO HS 04/08/17 05/15/17 04/06/17 22:00 History ISOSORBIDE MONOnitrate [Imdur ER] 60 mg PO DAILY 04/08/17 05/15/17 04/06/17 09: 00 History Metformin HCl 500 mg PO BID 04/08/17 05/15/17 04/06/17 09:00 History Apixaban [Eliquis] 5 mg PO Q12HR #60 tablet 04/13/17 05/15/17 Unknown Rx Furosemide [Lasix TAB] 40 mg PO QDAY #30 tablet 04/13/17 05/15/17 Unknown Rx Metoprolol [Lopressor TAB] 50 mg PO BID #60 tablet 04/13/17 05/15/17 Unknown Rx ALBUTEROL Inhaler [Proair] 2 puff IH QID PRN 05/15/17 05/15/17 Unknown History Budesonide/Formoterol Fumarate 10.2 gm IH PRN 05/15/17 05/15/17 Unknown History [Symbicort 80-4.5 Mcg Inhaler] HYDROcodone/APAP 5-325 [[place] 1 each PO Q6HR PRN 05/15/17 05/15/17 Unknown History 5/325] buPROPion SR [Wellbutrin Sr] 150 mg PO BID 05/15/17 05/15/17 Unknown History Amiodarone [Cordarone 200 MG TAB] 200 mg PO QDAY 05/16/17 05/15/17 Unknown History Active Meds: Active Medications Acetaminophen (Tylenol) 650 mg PO Q4H PRN PRN Reason: Pain MILD(1-3)/Fever >100.5/ALVES Bisacodyl (Dulcolax) 10 mg [place] QDAY PRN PRN Reason: Constipation unrelieved by MOM Famotidine (Pepcid) 20 mg PO BID HIREN Last Admin: 05/16/17 09:37 Dose: 20 mg Heparin Sodium (Porcine) (Heparin) 5,000 unit SUB-Q Q12HR HIREN Hydromorphone HCl (Dilaudid) 0.5 mg IV Q3H PRN PRN Reason: Pain , Severe (7-10) Magnesium Hydroxide (Milk Of Magnesia) 30 ml PO Q4H PRN PRN Reason: Constipation Ondansetron HCl (Zofran) 4 mg IV Q8H PRN PRN Reason: N/V unrelieved by Reglan Oxycodone/Acetaminophen (Percocet 5/325) 1 tab PO Q6H PRN PRN Reason: Pain, Moderate (4-6) Last Admin: 05/16/17 09:36 Dose: 1 tab Review of Systems All systems: negative (as per hpi) Physical Examination Vital Signs Temp Pulse Resp BP Pulse Ox 98.6 F 98 H 22 120/81 72 L 05/15/17 10:16 05/15/17 10:16 05/15/17 10:16 05/15/17 10:16 05/15/17 10:16 General appearance: no acute distress, well-nourished HEENT: Positive: PERRL, Mucus Membranes Moist Neck: Positive: neck supple, trachea midline Cardiac: Positive: Reg Rate and Rhythm, S1/S2. Negative: Audible Murmur Lungs: Positive: clear to auscultation, Normal Breath Sounds Neuro: Positive: Grossly Intact Abdomen: Positive: Soft, Active Bowel Sounds. Negative: Tender, Distended Female genitourinary: deferred Skin: Positive: Clear Incision: Cardiac Cath Site Musculoskeletal: No Pain, Normal Range of Motion Extremities: Present: normal, edema, +1 Edema Results 05/16/17 06:13 05/16/17 06:13 CBC 05/15/17 05/16/17 Range/Units 10:30 06:13 WBC 8.3 8.7 (4.5-11.0) K/mm3 RBC 3.53 L 3.73 (3.65-5.03) M/mm3 Hgb 7.6 L 8.1 L (10.1-14.3) gm/dl Hct 26.3 L 27.8 L (30.3-42.9) % Plt Count 418 373 (140-440) K/mm3 Lymph # 1.5 1.7 (1.2-5.4) K/mm3 [place] # 0.7 (0.0-0.8) K/mm3 Eos # 0.1 (0.0-0.4) K/mm3 Baso # 0.0 (0.0-0.1) K/mm3 Comprehensive Metabolic Panel 05/15/17 05/16/17 Range/Units 10:30 06:13 Sodium 144 146 H (137-145) mmol/L Potassium 3.8 3.6 (3.6-5.0) mmol/L Chloride 96.0 L 98.3 (98-107) mmol/L Carbon Dioxide 33 H 35 H (22-30) mmol/L BUN 11 12 (7-17) mg/dL Creatinine 0.6 L 0.6 L (0.7-1.2) mg/dL Glucose 163 H 135 H (65-100) mg/dL Calcium 7.8 L 7.8 L (8.4-10.2) mg/dL - Imaging and Cardiology Stress echo: report reviewed (09/2015 normal myocardial perfusion scan no ischemia noted) Echo: report reviewed (04/2016 hakeem normal LV function and no mitral regurgitation mitral stenosis now. 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 and stool for occult blood for the proximal H fibrillation restart low-dose amiodarone once a day Lopressor 25 twice a day - Patient Problems (1) Hypoxia Current Visit: Yes Status: Chronic (2) Symptomatic anemia Current Visit: Yes Status: Acute (3) HLD (hyperlipidemia) Current Visit: Yes Status: Chronic Qualifiers: Hyperlipidemia type: mixed hyperlipidemia Qualified Code(s): E78.2 - Mixed hyperlipidemia (4) HTN (hypertension) Current Visit: Yes Status: Chronic Qualifiers: Hypertension type: essential hypertension Qualified Code(s): I10 - Essential (primary) hypertension (5) Paroxysmal atrial fibrillation Current Visit: Yes Status: Chronic (6) T2DM (type 2 diabetes mellitus) Current Visit: Yes Status: Chronic Qualifiers: Diabetes mellitus complication status: without complication (7) Morbid obesity Current Visit: Yes Status: Chronic
[2017-05-16] MEDS: LASIX IV SCH (17:58)
[2017-05-16] MEDS ORDERED: NORCO 5/325 PO PRN (18:04)
[2017-05-16] MEDS ORDERED: PROAIR IH PRN (18:04)
[2017-05-16] MEDS ORDERED: NON-FORMULARY (Budesonide/Formoterol Fumarate [Symbicort 80-4.5 Mcg Inhaler] 10.2 GM) IH SCH (18:15)
[2017-05-16] MEDS ORDERED: PROVENTIL IH PRN (18:17)
[2017-05-16 19:16] LABS: Bacteria,Urine 2+ /HPF (Negative); Bilirubin,Urine NEG (Negative); Blood,Urine LG (Negative); Color,Urine Amber (Yellow); Mucus,Urine FEW /HPF; Nitrite,Urine NEG (Negative)
--- NOTE | 2017-05-16 19:23 | Consultation ---
History of Present Illness Consult date: 05/16/17 Requesting physician: ARISTEO CORONEL Reason for consult: menorrhagia History of present illness: Late entry. Thank you for the consult. The patient is a 52-year-old -Togol[place] female 1 para 0010 LMP was initially admitted for dyspnea on exertion with a history of congestive heart failure, morbid obesity, diabetes, hypertension, COPD, sarcoidosis, atrial fibrillation and coronary artery disease. During this hospital visit she was found to be severely anemic with a hemoglobin of 7.6. She reports irregular frequent menses more than once per month with blood clots for years and a known history of uterine fibroids. She has a senior center director, Dr. Rivas [place] she frequ[place] regularly. The patient reports having an ultrasound, Pap smear, and endometrial biopsy in [address] Rivas. She has a follow-up appointment scheduled on 05/20/2017 and plans to have a hysterectomy performed by Dr. Rivas. She declines pelvic examination or pelvic ultrasound today. 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 Family/Genetic History: hypertension Social history: no significant social history Medications and Allergies Allergies Allergy/AdvReac Type Severity Reaction Status Date / Time No Known Allergies Allergy Unverified 08/12/13 15:01 Home Medications Medication Instructions Recorded Confirmed Last Taken Type Atorvastatin Calcium 40 mg PO HS 04/08/17 05/15/17 04/06/17 22:00 History ISOSORBIDE MONOnitrate [Imdur ER] 60 mg PO DAILY 04/08/17 05/15/17 04/06/17 09: 00 History Metformin HCl 500 mg PO BID 04/08/17 05/15/17 04/06/17 09:00 History Apixaban [Eliquis] 5 mg PO Q12HR #60 tablet 04/13/17 05/15/17 Unknown Rx Furosemide [Lasix TAB] 40 mg PO QDAY #30 tablet 04/13/17 05/15/17 Unknown Rx Metoprolol [Lopressor TAB] 50 mg PO BID #60 tablet 04/13/17 05/15/17 Unknown Rx ALBUTEROL Inhaler [Proair] 2 puff IH QID PRN 05/15/17 05/15/17 Unknown History Budesonide/Formoterol Fumarate 10.2 gm IH PRN 05/15/17 05/15/17 Unknown History [Symbicort 80-4.5 Mcg Inhaler] HYDROcodone/APAP 5-325 [[place] 1 each PO Q6HR PRN 05/15/17 05/15/17 Unknown History 5/325] buPROPion SR [Wellbutrin Sr] 150 mg PO BID 05/15/17 05/15/17 Unknown History Amiodarone [Cordarone 200 MG TAB] 200 mg PO QDAY 05/16/17 05/15/17 Unknown History Active Meds: Active Medications Acetaminophen (Tylenol) 650 mg PO Q4H PRN PRN Reason: Pain MILD(1-3)/Fever >100.5/ALVES Acetaminophen/Hydrocodone Bitart ([place] 5/325) 1 each PO Q6HR PRN PRN Reason: Pain Albuterol (Proventil) 2.5 mg IH Q4HRT PRN PRN Reason: Shortness Of Breath Amiodarone HCl (Cordarone) 200 mg PO QDAY [facility] Arformoterol Tartrate ([place]rov[place] Nebu) 15 mcg IH Q12HRT [facility] Atorvastatin Calcium (Lipitor) 40 mg PO HS [facility] Bisacodyl (Dulcolax) 10 mg [place] QDAY PRN PRN Reason: Constipation unrelieved by MOM Budesonide (Pulmicort) 0.5 mg IH Q12HRT [facility] Bupropion HCl (Wellbutrin Sr) 150 mg PO BID [facility] Famotidine (Pepcid) 20 mg PO BID [facility] Last Admin: 05/16/17 09:37 Dose: 20 mg Ferrous Sulfate (Feosol) 325 mg PO BID [facility] Furosemide (Lasix) 40 mg IV 0600,1800 [facility] Last Admin: 05/16/17 17:58 Dose: 40 mg Heparin Sodium (Porcine) (Heparin) 5,000 unit SUB-Q Q12HR [facility] Last Admin: 05/16/17 10:00 Dose: 5,000 unit Hydromorphone HCl (Dilaudid) 0.5 mg IV Q3H PRN PRN Reason: Pain , Severe (7-10) Isosorbide Mononitrate (Imdur) 60 mg PO DAILY [facility] Magnesium Hydroxide (Milk Of Magnesia) 30 ml PO Q4H PRN PRN Reason: Constipation Last Admin: 05/16/17 18:25 Dose: 30 ml Metoprolol Tartrate (Lopressor) 25 mg PO BID HIREN Metoprolol Tartrate (Lopressor) 50 mg PO BID HIREN Ondansetron HCl (Zofran) 4 mg IV Q8H PRN PRN Reason: N/V unrelieved by Reglan Oxycodone/Acetaminophen (Percocet 5/325) 1 tab PO Q6H PRN PRN Reason: Pain, Moderate (4-6) Last Admin: 05/16/17 18:13 Dose: 1 tab Review of Systems All systems: negative Respiratory: shortness of breath, dyspnea on exertion Genitourinary: vaginal bleeding - Vital Signs Vital signs: Vital Signs Temp Pulse Resp BP Pulse Ox 98.6 F 98 H 22 120/81 72 L 05/15/17 10:16 05/15/17 10:16 05/15/17 10:16 05/15/17 10:16 05/15/17 10:16 Temp Pulse Resp BP Pulse Ox 97.7 F 80 22 130/79 100 05/16/17 16:00 05/16/17 16:00 05/16/17 16:00 05/16/17 16:00 05/16/17 16:00 - Physical Exam Breasts: Positive: deferred Cardiovascular: Regular rate Lungs: Positive: Clear to auscultation Abdomen: Positive: soft (obese) Extremities: Positive: edema Results Result Diagrams: 05/16/17 06:13 05/16/17 06:13 Abnormal lab results 05/15/17 05/15/17 05/15/17 Range/Units 10:30 16:07 22:01 Hgb (10.1-14.3) gm/dl Hct (30.3-42.9) % MCV (79-97) fl MCH (28-32) pg MCHC (30-34) % RDW (13.2-15.2) % [place] % (Auto) (0.0-7.3) % Seg Neutrophils % (40.0-70.0) % Sodium (137-145) mmol/L Carbon Dioxide (22-30) mmol/L Creatinine (0.7-1.2) mg/dL Glucose (65-100) mg/dL POC Glucose 186 H 116 H (70-105) Hemoglobin A1c (4-6) % Calcium (8.4-10.2) mg/dL Iron (37-170) ug/dL Crossmatch See Detail 05/16/17 05/16/17 05/16/17 Range/Units 01:03 01:03 06:13 Hgb 8.1 L (10.1-14.3) gm/dl Hct 27.8 L (30.3-42.9) % MCV 75 L (79-97) fl MCH 22 L (28-32) pg MCHC 29 L (30-34) % RDW 23.7 H (13.2-15.2) % [place] % (Auto) 7.9 H (0.0-7.3) % Seg Neutrophils % 71.1 H (40.0-70.0) % Sodium (137-145) mmol/L Carbon Dioxide (22-30) mmol/L Creatinine (0.7-1.2) mg/dL Glucose (65-100) mg/dL POC Glucose (70-105) Hemoglobin A1c 7.7 H (4-6) % Calcium (8.4-10.2) mg/dL Iron 14 L (37-170) ug/dL Crossmatch 05/16/17 05/16/17 Range/Units 06:13 12:56 Hgb (10.1-14.3) gm/dl Hct (30.3-42.9) % MCV (79-97) fl MCH (28-32) pg MCHC (30-34) % RDW (13.2-15.2) % [place] % (Auto) (0.0-7.3) % Seg Neutrophils % (40.0-70.0) % Sodium 146 H (137-145) mmol/L Carbon Dioxide 35 H (22-30) mmol/L Creatinine 0.6 L (0.7-1.2) mg/dL Glucose 135 H (65-100) mg/dL POC Glucose 152 H (70-105) Hemoglobin A1c (4-6) % Calcium 7.8 L (8.4-10.2) mg/dL Iron (37-170) ug/dL Crossmatch All other labs normal. Assessment and Plan A: Multiple Medical Comorbidities Fibroid uterus Dysfunctional uterine bleeding Symptomatic anemia status post transfusion P: Per patient, her dysfunctional uterine bleeding is a known issue being managed by her senior center director Dr. Rivas. She declines any further evaluation here in the hospital and plans to follow-up with her physician on 05/20/2017. Thank you again for the consult.
[2017-05-16] MEDS: BROVANA NEBU IH SCH (20:55)
[2017-05-16] MEDS: PULMICORT IH SCH (20:55)
[2017-05-16] MEDS: LOPRESSOR PO SCH ×2 (21:47→21:48)
[2017-05-16] MEDS: WELLBUTRIN SR PO SCH (21:47)
[2017-05-16] MEDS: IMDUR PO SCH (21:47)
[2017-05-16] MEDS: FEOSOL PO SCH (21:48)
[2017-05-17] MEDS: LASIX IV SCH (05:42)
[2017-05-17 07:33] LABS: Basophils % (Auto) 0.6 % (0.0-1.8); Eosinophils # (Auto) 0.1 K/mm3 (0.0-0.4); Eosinophils % (Auto) 1.4 % (0.0-4.3); Lymphocytes # (Auto) 1.5 K/mm3 (1.2-5.4); Mean Corpuscular HGB Conc 29 % (30-34); Mean Corpuscular Volume 75 fl (79-97); Monocytes # (Auto) 0.6 K/mm3 (0.0-0.8); Monocytes % (Auto) 7.6 % (0.0-7.3); Platelet Count 389 K/mm3 (140-440); Red Blood Count 3.66 M/mm3 (3.65-5.03)
[2017-05-17] MEDS: PULMICORT IH SCH (07:33)
[2017-05-17] MEDS: BROVANA NEBU IH SCH (07:33)
[2017-05-17 07:34] LABS: Hematocrit 27.5 % (30.3-42.9); Mean Corpuscular Hemoglobin 22 pg (28-32); Red Cell Distribution Width 23.6 % (13.2-15.2)
[2017-05-17 07:51] LABS: Alanine Aminotransferase 88 units/L (7-56); Albumin 3.4 g/dL (3.9-5); BUN/Creatinine Ratio 23; Blood Urea Nitrogen 16 mg/dL (7-17); Calcium 8.2 mg/dL (8.4-10.2); Hemolysis Index 1
--- NOTE | 2017-05-17 08:41 | Progress Note ---
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 Holding anticoagulation because of menorrhagia and symptomatic anemia Subjective Date of service: 05/17/17 Principal diagnosis: diastolic heart failure, symptomatic anemia, PAfib, diabetes Interval history: Patient is a do not on the chart. Complaining of pain on the lowest extremities , bilateral pedal edema, knee pain, shortness of breath. Objective - Constitutional Vitals: Vital Signs - 12hr 05/16/17 05/16/17 05/17/17 21:19 22:00 01:00 Temperature 98.1 F Pulse Rate 79 65 Respiratory 20 Rate Blood Pressure 125/82 [Left] O2 Sat by Pulse 97 Oximetry 05/17/17 05:23 Temperature 98.9 F Pulse Rate 63 Respiratory 18 Rate Blood Pressure 114/71 [Left] O2 Sat by Pulse 98 Oximetry General appearance: Present: no acute distress, well-nourished - EENT Eyes: PERRL, EOM intact - Neck Neck: supple, normal ROM - Respiratory Respiratory effort: normal Respiratory: bilateral: CTA - Breasts Breasts: normal - Cardiovascular Rhythm: regular Heart Sounds: Present: S1 & S2. Absent: gallop, rub Extremities: pulses intact, No edema, normal color, Full ROM - Gastrointestinal General gastrointestinal: Present: soft, non-tender, non-distended, normal bowel sounds - Genitourinary Female genitourinary: normal - Integumentary Integumentary: clear, warm, dry - Musculoskeletal Musculoskeletal: 1, strength equal bilaterally - Neurologic Neurologic: moves all extremities - Psychiatric Psychiatric: memory intact, appropriate mood/affect, intact judgment & insight - Labs CBC & Chem 7: 05/17/17 07:01 05/17/17 07:01 Labs: Abnormal lab results 05/16/17 05/16/17 05/16/17 Range/Units 12:56 16:18 21:19 Hgb (10.1-14.3) gm/dl Hct (30.3-42.9) % MCV (79-97) fl MCH (28-32) pg MCHC (30-34) % RDW (13.2-15.2) % [place] % (Auto) (0.0-7.3) % Seg Neutrophils % (40.0-70.0) % Chloride (98-107) mmol/L Carbon Dioxide (22-30) mmol/L Glucose (65-100) mg/dL POC Glucose 152 H 170 H 119 H (70-105) Calcium (8.4-10.2) mg/dL ALT (7-56) units/L Total Protein (6.3-8.2) g/dL Albumin (3.9-5) g/dL 05/17/17 05/17/17 Range/Units 07:01 07:01 Hgb 8.0 L (10.1-14.3) gm/dl Hct 27.5 L (30.3-42.9) % MCV 75 L (79-97) fl MCH 22 L (28-32) pg MCHC 29 L (30-34) % RDW 23.6 H (13.2-15.2) % [place] % (Auto) 7.6 H (0.0-7.3) % Seg Neutrophils % 71.4 H (40.0-70.0) % Chloride 96.5 L (98-107) mmol/L Carbon Dioxide 39 H (22-30) mmol/L Glucose 143 H (65-100) mg/dL POC Glucose (70-105) Calcium 8.2 L (8.4-10.2) mg/dL ALT 88 H (7-56) units/L Total Protein 6.1 L (6.3-8.2) g/dL Albumin 3.4 L (3.9-5) g/dL
[2017-05-17] MEDS ORDERED: CORDARONE PO SCH (10:00)
[2017-05-17] MEDS: WELLBUTRIN SR PO SCH (11:06)
[2017-05-17] MEDS: IMDUR PO SCH (11:06)
[2017-05-17] MEDS: LOPRESSOR PO SCH ×2 (11:07→11:25)
[2017-05-17] MEDS: PEPCID PO SCH (11:07)
[2017-05-17] MEDS: HEPARIN SUB-Q SCH (11:07)
[2017-05-17] MEDS: FEOSOL PO SCH (11:08)
[2017-05-17] MEDS: PERCOCET 5/325 PO PRN (11:08)
--- NOTE | 2017-05-17 11:30 | Progress Note ---
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 bilateral venous ultrasound negative for DVT - Patient Problems (1) Hypoxia Current Visit: Yes Status: Chronic (2) Symptomatic anemia Current Visit: Yes Status: Acute (3) HLD (hyperlipidemia) Current Visit: Yes Status: Chronic Qualifiers: Hyperlipidemia type: mixed hyperlipidemia Qualified Code(s): E78.2 - Mixed hyperlipidemia (4) HTN (hypertension) Current Visit: Yes Status: Chronic Qualifiers: Hypertension type: essential hypertension Qualified Code(s): I10 - Essential (primary) hypertension (5) Paroxysmal atrial fibrillation Current Visit: Yes Status: Chronic (6) T2DM (type 2 diabetes mellitus) Current Visit: Yes Status: Chronic Qualifiers: Diabetes mellitus complication status: without complication (7) Morbid obesity Current Visit: Yes Status: Chronic (8) Acute diastolic CHF (congestive heart failure), NYHA class 1 Current Visit: Yes Status: Acute Subjective Date of service: 05/17/17 Principal diagnosis: diastolic heart failure, symptomatic anemia, PAfib, diabetes Interval history: pt swelling is better and sob is better Objective Vital Signs Temp Pulse Pulse Resp BP BP Pulse Ox 05/17/17 10:00 65 05/17/17 09:01 98.1 F 71 20 110/62 90 05/17/17 07:50 65 05/17/17 05:23 98.9 F 63 18 114/71 98 05/17/17 04:30 66 114/71 97 05/17/17 01:00 98.1 F 65 20 125/82 05/17/17 00:19 67 125/82 95 05/16/17 22:00 79 05/16/17 21:19 97 05/16/17 20:35 97.5 F L 77 18 122/77 05/16/17 19:56 76 122/77 98 05/16/17 16:00 97.7 F 80 22 130/79 100 - Physical Examination General: No Apparent Distress HEENT: Positive: PERRL, Mucus Membranes Moist Neck: Positive: neck supple, trachea midline Cardiac: Positive: Reg Rate and Rhythm Lungs: Positive: clear to auscultation Neuro: Positive: Grossly Intact Abdomen: Positive: Soft, Active Bowel Sounds. Negative: Tender, Distended Skin: Positive: Clear Incision: Cardiac Cath Site Musculoskeletal: No Pain, Normal Range of Motion Extremities: Present: normal, edema, +1 Edema - Labs and Meds Cardiac Enzymes 05/17/17 Range/Units 07:01 AST 22 (5-40) units/L CBC 05/17/17 Range/Units 07:01 WBC 7.7 (4.5-11.0) K/mm3 RBC 3.66 (3.65-5.03) M/mm3 Hgb 8.0 L (10.1-14.3) gm/dl Hct 27.5 L (30.3-42.9) % Plt Count 389 (140-440) K/mm3 Lymph # 1.5 (1.2-5.4) K/mm3 [place] # 0.6 (0.0-0.8) K/mm3 Eos # 0.1 (0.0-0.4) K/mm3 Baso # 0.0 (0.0-0.1) K/mm3 Comprehensive Metabolic Panel 05/17/17 Range/Units 07:01 Sodium 144 (137-145) mmol/L Potassium 4.2 (3.6-5.0) mmol/L Chloride 96.5 L (98-107) mmol/L Carbon Dioxide 39 H (22-30) mmol/L BUN 16 (7-17) mg/dL Creatinine 0.7 (0.7-1.2) mg/dL Glucose 143 H (65-100) mg/dL Calcium 8.2 L (8.4-10.2) mg/dL AST 22 (5-40) units/L ALT 88 H (7-56) units/L Alkaline Phosphatase 126 (35-129) units/L Total Protein 6.1 L (6.3-8.2) g/dL Albumin 3.4 L (3.9-5) g/dL - Imaging and Cardiology EKG: report reviewed (NSR 82/min ) Stress echo: report reviewed (09/2015 normal myocardial perfusion scan no ischemia noted) Echo: report reviewed (04/2016 hakeem normal LV function and no mitral regurgitation mitral stenosis now. Follow AST) - Telemetry EKG Rhythm: Sinus Rhythm
[2017-05-17 13:12] VITALS: BP 113/69
--- NOTE | 2017-05-17 15:58 | Discharge Summary ---
Providers - Providers Date of Admission: 05/15/17 12:58 Date of discharge: 05/17/17 Attending physician: JOHNATHON BOWMAN 05/16/17 00:22 Consult to Physician [CONS] Routine Consulting Provider: MICHAEL GIANG Reason For Exam: CHF Place consult to:: Dr. Root Notified:: Dayna PETER Phone number called:: Was contact made?: Yes If yes, spoke with:: [facility]-answering service Time called:: 08:12 05/16/17 06:49 Consult to Physician [CONS] Routine Consulting Provider: SUZANNE YU Reason For Exam: Menorrhagia Place consult to:: Dr. Yu Notified:: Dayna PETER Phone number called:: Was contact made?: Yes If yes, spoke with:: [facility]office Time called:: 09:36 Primary care physician: COMPUTER SYSTEMS CONSULTANT Hospitalization Reason for admission: shortness of breath, pedal edema. Symptomatically anemia Condition: Serious Pertinent studies: Chest x-ray that shows pulmonary venous congestion Doppler of the extremities that shows no DVT Procedures: None Hospital course: Patient is a 52-year-old female with a history of congestive heart failure, Arrhythmias T2DM and CAD presents for evaluation of worsening dyspnea. The patient has a history of congestive heart failure and has experienced progressively worsening dyspnea for the past 6-8 weeks, significantly worsened and constant for the past one to 2 weeks, exacerbated with exertion or ambulation, improved at rest. Pt also has orthopnea. She stated that she experienced a heavy episode of vaginal bleeding one to 2 weeks ago and her symptoms worsened. She has a history of fibroids and episodic heavy bleeding. She also admits to severe bilateral lower leg swelling for the past week. The patient denies fever, cough, syncope, chest pain, hemoptysis, unilateral leg swelling, oral contraceptive use, recent immobilization, history of DVT or PE, recent cancer. On admission was commenced on diuresis, beta blockers, isosorbide. Echocardiogram of 04/2016 showed normal ejection fraction. Stress test of 09/2015 was also normal. Patient has a history of increased alcohol ingestion as well as increased fluid ingestion. Counseling on fluid restriction was done. EXERCISE PHYSIOLOGIST CERTIFIED consult was obtained because of history of uterine fibroid and menorrhagia. Was advised to follow school crossing guard on an outpatient basis provided management of her uterine fibroid. Guaiac test was negative. Anemia was remarkable for iron deficiency anemia. Had transfusion of 1 units of blood. Hemoglobin improved from 7.6-8.1.Insulin scale insulin initiated because DM - II. A1c was 7.7. Glycemic control was optimized. Dizziness, shortness of breath and weakness improvement. Patient is therefore been discharged today to follow up with primary care physician as well as shipping room helper. He is 7 days respectively Discussed at length with the shipping room helper regarding patient care. Disposition: DC-01 TO HOME OR SELFCARE Time spent for discharge: > 33 mins Core Measure Documentation - Palliative Care Palliative Care/ Comfort Measures: Not Applicable - Core Measures Any of the following diagnoses?: none Exam - Physical Exam Narrative exam: Constitutional: Well-nourished well-developed. Obese. In no distress Head: Normocephalic atraumatic Eyes: Pupils are equal round and reactive to light Nose: No enlarged turbinates, no septal deviation. Mouth: Moist mucous membranes. Neck: Supple no thyromegaly. No bruit. No JVD Heart: Regular rate and rhythm, S1-S2 abnormal. No rubs murmurs or gallop Lungs: Clear to auscultation bilaterally no rales or rhonchi Abdomen: Soft, nontender. Bowel sound are present. Extremities: 2+ pretibial edema. no cyanosis and no clubbing. Neuro: Alert oriented Oriented x3. No focal sensory or motor deficit. Skin: No rashes no hyperemic spots Psychiatry: Euthymic. Calm. - Constitutional Vitals: Temp Pulse Resp BP Pulse Ox 98.1 F 66 20 113/69 90 05/17/17 09:01 05/17/17 12:15 05/17/17 12:15 05/17/17 12:15 05/17/17 12:15 Plan Activity: advance as tolerated, fall precautions Weight Bearing Status: Touch Down Weight Bearing Diet: low salt Special Instructions: restrict fluid intake to Follow up with: CARMELO LOVE MD [Primary Care Provider] - 3-5 Days NINO SCHUMACHER MD [Staff Physician] - 7 Days Forms: Discharge Signature Page Prescriptions: ALBUTEROL Inhaler [ProAir HFA Inhaler] 2 puff IH QID PRN #1 inha PRN Reason: Shortness Of Breath ALBUTEROL NEB's [Proventil 0.083% NEBS] 2.5 mg IH Q4HRT PRN #100 nebu PRN Reason: Shortness Of Breath Amiodarone [Cordarone 200 MG TAB] 200 mg PO QDAY #30 tablet Apixaban [Eliquis] 5 mg PO Q12HR #60 tablet AtorvaSTATin [Lipitor] 40 mg PO HS #30 tablet Bisacodyl [Dulcolax suppos] 10 mg IN QDAY PRN #30 supp.rect PRN Reason: Constipation unrelieved by MOM Budesonide [Pulmicort Respules] 0.5 mg IH Q12HRT #60 nebu Budesonide/Formoterol Fumarate [Symbicort 80-4.5 Mcg Inhaler] 10.2 gm IH PRN #1 hfa.aer.ad buPROPion SR [Wellbutrin SR] 150 mg PO BID #60 tablet Famotidine [Pepcid] 20 mg PO BID #60 tablet Ferrous Sulfate [Feosol 325 MG tab] 325 mg PO BID #60 tablet Furosemide [Lasix TAB] 40 mg PO QDAY #30 tablet ISOSORBIDE MONOnitrate [Imdur ER] 60 mg PO DAILY #30 tablet Metformin HCl 500 mg PO BID #60 tablet Metoprolol [Lopressor TAB] 50 mg PO BID #60 tablet
[2017-05-18] MEDS ORDERED: LASIX PO SCH (10:00)
== END 2017-05-17 17:52 | disposition home or self-care (01) | DRG 291 ==
LOC: ED 09:34 → 4A 12:58
PROVIDERS: ADMIT Internal Medicine; ATTEND Family Medicine
PROC: 30233N1 Transfusion of Nonautologous Red Blood Cells into Peripheral Vein, Percutaneous Approach (ICD-10-PCS; 2017-05-15)
PROC: 5A0935Z Assistance with Respiratory Ventilation, Less than 24 Consecutive Hours (ICD-10-PCS; principal; 2017-05-16)
DX: I11.0 Hypertensive heart disease with heart failure (principal); J96.21 Acute and chronic respiratory failure with hypoxia; Z68.42 Body mass index [BMI] 45.0-49.9, adult; E66.2 Morbid (severe) obesity with alveolar hypoventilation; I50.33 Acute on chronic diastolic (congestive) heart failure; D64.9 Anemia, unspecified; I48.0 Paroxysmal atrial fibrillation; E11.9 Type 2 diabetes mellitus without complications; J44.9 Chronic obstructive pulmonary disease, unspecified; E78.00 Pure hypercholesterolemia, unspecified; I25.10 Atherosclerotic heart disease of native coronary artery without angina pectoris; E78.5 Hyperlipidemia, unspecified; N92.0 Excessive and frequent menstruation with regular cycle; I49.9 Cardiac arrhythmia, unspecified; Z87.891 Personal history of nicotine dependence; Z82.49 Family history of ischemic heart disease and other diseases of the circulatory system; Z86.718 Personal history of other venous thrombosis and embolism; D25.9 Leiomyoma of uterus, unspecified
CPT/HCPCS: 36415; 71046; 80048; 80053; 81001; 82607; 82747; 82962; 83036; 83550; 83880; 84484; 84703; 85025; 86850; 86900; 86901; 86920; 93005; 93010; 93970; 94660; 96374; A9270-GY; J1644; J1940; J7040; J7050; P9016

== ENCOUNTER 2017-06-09 23:37 | Emergency (ER) | payer MEDICARE ==
[2017-06-10] MEDS ORDERED: LASIX IV ONE (00:04)
[2017-06-10 00:37] LABS: Mean Corpuscular HGB Conc 30 % (30-34); Mean Corpuscular Volume 79 fl (79-97); Red Blood Count 4.34 M/mm3 (3.65-5.03)
--- NOTE | 2017-06-10 00:41 | XRay Report ---
FINAL REPORT EXAM: XR CHEST 1V AP HISTORY: chest pain TECHNIQUE: A portable upright view the chest was obtained and compared to the study of 04/08/2017. FINDINGS: The cardiac silhouette is moderately enlarged. The lungs appear mildly congested. There are no localized infiltrates or effusions. There are EKG leads overlying the chest wall. The skeletal structures do not show any acute changes. IMPRESSION: Cardiomegaly with mild congestion. No localized infiltrates or effusions.
[2017-06-10 00:45] LABS: Hematocrit 34.4 % (30.3-42.9); Hemoglobin 10.3 gm/dl (10.1-14.3); Mean Corpuscular Hemoglobin 24 pg (28-32); Platelet Count 289 K/mm3 (140-440); Red Cell Distribution Width 30.4 % (13.2-15.2)
[2017-06-10] MEDS ORDERED: PERCOCET 5/325 PO PRN (00:46)
[2017-06-10] MEDS ORDERED: LASIX PO ONE (00:46)
[2017-06-10 00:48] LABS: BUN/Creatinine Ratio 23; Blood Urea Nitrogen 14 mg/dL (7-17); Calcium 7.7 mg/dL (8.4-10.2); Hemolysis Index 55
--- NOTE | 2017-06-10 01:23 | XRay Report ---
FINAL REPORT PROCEDURE: XR FOOT 2V LT TECHNIQUE: LEFT foot radiographs, AP and lateral views. HISTORY: left foot pain and swelling, COMPARISON: No prior studies are available for comparison. FINDINGS: Fracture (s) and/or Dislocation(s): None . Alignment: Normal. Joint space(s): Normal. Soft tissues: Moderate soft tissue swelling over the mid and forefoot Bone mineralization: Normal. Foreign bodies: None. Calcaneal spurring: Small inferior calcaneal spur IMPRESSION: There is no evidence of an acute fracture. There is moderate soft tissue swelling over the mid and forefoot.
[2017-06-10 01:29] LABS: Basophils % (Manual) 0 % (0.0-1.8); Eosinophils % (Manual) 0 % (0.0-4.3); Myelocytes # (Manual) 0.2 K/mm3; Total Cells Counted 100
[2017-06-10 01:30] LABS: Anisocytosis 3+; Hypochromasia 2+; Large Platelets Few; Platelet Estimate Consistent w Auto; Target Cells Few
--- NOTE | 2017-06-10 01:32 | Emergency Department Report ---
HPI - General Chief Complaint: Extremity Problem,Nontraumatic Time Seen by Provider: 06/10/17 00:02 - HPI HPI: The patient is a 52-year-old female who presents for evaluation of bilateral lower leg swelling and pain. The patient has a history of CHF and venous insufficiency, has a space in the symptoms in the past. She states her current episode of leg swelling and pain has been ongoing for the past one day, has been constant, worsening, currently 10/10 in severity, throbbing in quality, and is exacerbated with ablation or weightbearing. She also has some mild dyspnea as well. The patient denies fever, trauma to the legs or feet, ecchymosis or color change in the legs, chest pain, syncope, hemoptysis, unilateral leg swelling, recent immobilization, history of DVT or PE, recent cancer. ED Past Medical Hx - Past Medical History Previous Medical History?: Yes Hx Hypertension: Yes Hx Congestive Heart Failure: Yes Hx Diabetes: Yes Hx Asthma: No Hx COPD: Yes Additional medical history: SARCOIDOSIS, high cholesterol - Surgical History Past Surgical History?: Yes Additional Surgical History: ECTOPIC LEFT TUBE REMOVED - Social History Smoking Status: Former Smoker Substance Use Type: None - Medications Home Medications: Home Medications Medication Instructions Recorded Confirmed Last Taken Type ALBUTEROL Inhaler [ProAir HFA 2 puff IH QID PRN #1 inha 05/17/17 Unknown Rx Inhaler] ALBUTEROL NEB's [Proventil 0.083% 2.5 mg IH Q4HRT PRN #100 nebu 05/17/17 Unknown Rx NEBS] Amiodarone [Cordarone 200 MG TAB] 200 mg PO QDAY #30 tablet 05/17/17 Unknown Rx Apixaban [Eliquis] 5 mg PO Q12HR #60 tablet 05/17/17 Unknown Rx AtorvaSTATin [Lipitor] 40 mg PO HS #30 tablet 05/17/17 Unknown Rx Bisacodyl [Dulcolax suppos] 10 mg [place] QDAY PRN #30 supp.rect 05/17/17 Unknown Rx Budesonide [Pulmicort Respules] 0.5 mg IH Q12HRT #60 nebu 05/17/17 Unknown Rx Budesonide/Formoterol Fumarate 10.2 gm IH PRN #1 hfa.aer.ad 05/17/17 Unknown Rx [Symbicort 80-4.5 Mcg Inhaler] Famotidine [Pepcid] 20 mg PO BID #60 tablet 05/17/17 Unknown Rx Ferrous Sulfate [Feosol 325 MG tab] 325 mg PO BID #60 tablet 05/17/17 Unknown Rx Furosemide [Lasix TAB] 40 mg PO QDAY #30 tablet 05/17/17 Unknown Rx ISOSORBIDE MONOnitrate [Imdur ER] 60 mg PO DAILY #30 tablet 05/17/17 Unknown Rx Metformin HCl 500 mg PO BID #60 tablet 05/17/17 Unknown Rx Metoprolol [Lopressor TAB] 50 mg PO BID #60 tablet 05/17/17 Unknown Rx buPROPion SR [Wellbutrin SR] 150 mg PO BID #60 tablet 05/17/17 Unknown Rx oxyCODONE /ACETAMINOPHEN [Percocet 1 tab PO Q6H PRN tablet 05/17/17 Unknown Rx 5/325 mg] traMADol [Ultram 50 MG tab] 50 mg PO Q6HR PRN #10 tablet 06/10/17 Unknown Rx ED Review of Systems ROS: Stated complaint: SOB Other details as noted in HPI Constitutional: denies: fever ENT: denies: throat or neck pain Respiratory: denies: cough, shortness of breath Cardiovascular: denies: chest pain Endocrine: denies unexplained weight loss or gain Gastrointestinal: denies: abdominal pain, nausea Genitourinary: denies: dysuria Musculoskeletal: reports leg swelling and pain Skin: denies: rash Neurological: denies: headache Hematological/Lymphatic: denies: easy bleeding or easy bruising Psych: denies sadness or hopelessness Physical Exam - Physical Exam Vital Signs: Vital Signs 06/09/17 06/09/17 06/09/17 23:42 23:45 23:46 Temperature 98.3 F Pulse Rate 81 78 79 Respiratory 27 H 29 H 35 H Rate Blood Pressure 159/94 159/94 O2 Sat by Pulse 75 L 94 97 Oximetry 06/10/17 06/10/17 06/10/17 00:01 00:15 00:31 Temperature Pulse Rate 77 78 80 Respiratory 30 H 18 29 H Rate Blood Pressure 162/91 157/83 O2 Sat by Pulse 98 94 95 Oximetry 06/10/17 06/10/17 06/10/17 00:32 00:35 00:45 Temperature Pulse Rate 80 80 Respiratory 29 H 30 H 33 H Rate Blood Pressure 157/83 165/91 O2 Sat by Pulse 97 95 96 Oximetry 06/10/17 01:01 Temperature Pulse Rate 78 Respiratory 11 L Rate Blood Pressure 171/86 O2 Sat by Pulse 92 Oximetry Physical Exam: General: well-nourished, well-developed, no acute distress Head: Normocephalic, atraumatic Eyes: normal sclera ENT: Mucous membranes are pink and moist Neck: trachea midline, neck supple, No neck stiffness, no cervical adenopathy Respiratory: Breath sounds equal bilaterally, no wheezing, rales, or rhonchi Cardio: S1 and S2 present, no murmurs, rubs, gallops, capillary refill is brisk Abdomen: Normoactive bowel sounds, soft abdomen, no rigidity, no guarding or rebound tenderness Musc: 1+ pitting edema to bilateral lower legs and feet Skin: No rash Neuro: no facial drooping, normal speech Psych: Normal affect ED Course Vital Signs 06/09/17 06/09/17 06/09/17 23:42 23:45 23:46 Temperature 98.3 F Pulse Rate 81 78 79 Respiratory 27 H 29 H 35 H Rate Blood Pressure 159/94 159/94 O2 Sat by Pulse 75 L 94 97 Oximetry 06/10/17 06/10/17 06/10/17 00:01 00:15 00:31 Temperature Pulse Rate 77 78 80 Respiratory 30 H 18 29 H Rate Blood Pressure 162/91 157/83 O2 Sat by Pulse 98 94 95 Oximetry 06/10/17 06/10/17 06/10/17 00:32 00:35 00:45 Temperature Pulse Rate 80 80 Respiratory 29 H 30 H 33 H Rate Blood Pressure 157/83 165/91 O2 Sat by Pulse 97 95 96 Oximetry 06/10/17 01:01 Temperature Pulse Rate 78 Respiratory 11 L Rate Blood Pressure 171/86 O2 Sat by Pulse 92 Oximetry ED Medical Decision Making - Lab Data Result diagrams: 06/10/17 00:13 06/10/17 00:13 - Medical Decision Making The patient was seen and examined by myself. The patient is placed on a tongue carrier and continuous pulse ox. On initial evaluation, the patient was found to be in no distress. Evaluation orders were placed. The patient is given pain medicine and tablet of Lasix for treatment of her CHF. Lab results revealed mildly elevated BNP and otherwise were reassuring including normal WBC. X-ray of the chest is negative for acute decompensated CHF, pneumonia, pneumothorax, or other emergent disease process. X-ray of the left foot is negative for fracture or signs of infection. The patient was reevaluated and reported that their symptoms were improved. The patient is stable for discharge with outpatient follow-up. The patient is given follow-up and return instructions. The patient expressed understanding and agreed with the plan. The patient is discharged in stable condition. Critical care attestation.: If time is entered above; I have spent that time in minutes in the direct care of this critically ill patient, excluding procedure time. ED Disposition Clinical Impression: Chronic systolic CHF (congestive heart failure), Pain of left lower extremity, Venous insufficiency of both lower extremities Disposition: DC-01 TO HOME OR SELFCARE Is pt being admited?: No Does the pt Need Aspirin: No Condition: Stable Instructions: Heart Failure (ED), Stasis Dermatitis (ED) Referrals: JACINTO SAWYER MD [Primary Care Provider] - 3-5 Days Time of Disposition: 02:09
[2017-06-10 02:15] VITALS: BP 155/89
== END 2017-06-10 06:34 | disposition home or self-care (01) ==
LOC: ED 23:37
DX: I11.0 Hypertensive heart disease with heart failure (principal); I50.22 Chronic systolic (congestive) heart failure; I87.2 Venous insufficiency (chronic) (peripheral); E11.9 Type 2 diabetes mellitus without complications; J44.9 Chronic obstructive pulmonary disease, unspecified; E78.00 Pure hypercholesterolemia, unspecified; Z87.891 Personal history of nicotine dependence
CPT/HCPCS: 36415; 71045; 73620; 80048; 85007; 85025; 93005; 93010; 99284; J1940

== ENCOUNTER 2017-08-26 22:37 | Inpatient (IN) | payer MEDICARE ==
[2017-08-27 00:12] LABS: Hematocrit 47.7 % (30.3-42.9); Hemoglobin 14.9 gm/dl (10.1-14.3); Mean Corpuscular HGB Conc 31 % (30-34); Mean Corpuscular Hemoglobin 28 pg (28-32); Mean Corpuscular Volume 89 fl (79-97); Red Blood Count 5.36 M/mm3 (3.65-5.03)
[2017-08-27 00:21] LABS: Platelet Count 173 K/mm3 (140-440); Red Cell Distribution Width 20.5 % (13.2-15.2)
[2017-08-27 00:29] LABS: BUN/Creatinine Ratio 21; Blood Urea Nitrogen 17 mg/dL (7-17); Calcium 9.1 mg/dL (8.4-10.2); Hemolysis Index 11
--- NOTE | 2017-08-27 00:36 | XRay Report ---
FINAL REPORT EXAM: XR CHEST ROUTINE 2V HISTORY: Shortness of breath TECHNIQUE: A total of 5 images were obtained of the chest. Comparison is made to the study of 06/10/2017. FINDINGS: The cardiac silhouette is moderately enlarged. The lungs are not overtly congested. There are no localized infiltrates or effusions. The bones and soft tissues reveal generalized obesity. IMPRESSION: Generalized enlargement of the cardiac silhouette. No localized infiltrates or congestion.
[2017-08-27 02:22] LABS: Anisocytosis 1+; Band Neutrophils # (Manual) 0.1 K/mm3; Basophils % (Manual) 0 % (0.0-1.8); Eosinophils % (Manual) 0 % (0.0-4.3); Ovalocytes 1+; Total Cells Counted 100
[2017-08-27 02:23] LABS: Hypochromasia Few
[2017-08-27] MEDS ORDERED: LASIX 100 MG in NACL 0.9% 50 ML IV ONE (06:55)
[2017-08-27] MEDS ORDERED: BABY ASPIRIN PO ONE (06:57)
--- NOTE | 2017-08-27 06:57 | Emergency Department Report ---
ED Shortness of Breath HPI - General Chief Complaint: Dyspnea/Respdistress Stated Complaint: SOB Time Seen by Provider: 08/27/17 06:45 Source: patient, RN notes reviewed, old records reviewed Mode of arrival: Wheelchair Limitations: No Limitations - History of Present Illness Initial Comments: This is a 52-year-old female who was previously unknown to this either. Cardiology: Dr. Gant Past medical history: Morbid obesity, obesity hypoventilation syndrome, COPD, hypertension, history of atrial fibrillation, status post cardioversion, patient not sure if she is currently on systemic anticoagulation. Patient presents to the ear with a complaint of shortness of breath, orthopnea, unintentional weight gain, leg swelling. She has tightness in her legs, thighs and breasts. Her symptoms are constant. They worse with physical exertion. They decrease with rest. The patient denies DVT and pulmonary embolus risk factors. She denies alcohol consumption. She denies dietary indiscretions. MD Complaint: shortness of breath -: Gradual Consistency: constant Improves With: oxygen, rest, upright position, medication Worsens With: lying flat, exertion Known History Of: COPD, congestive heart failure - Related Data Home Oxygen Therapy: No Previous Rx's Medication Instructions Recorded Last Taken Type ALBUTEROL Inhaler [ProAir HFA 2 puff IH QID PRN #1 inha 05/17/17 Unknown Rx Inhaler] ALBUTEROL NEB's [Proventil 0.083% 2.5 mg IH Q4HRT PRN #100 nebu 05/17/17 Unknown Rx NEBS] Amiodarone [Cordarone 200 MG TAB] 200 mg PO QDAY #30 tablet 05/17/17 Unknown Rx Apixaban [Eliquis] 5 mg PO Q12HR #60 tablet 05/17/17 Unknown Rx AtorvaSTATin [Lipitor] 40 mg PO HS #30 tablet 05/17/17 Unknown Rx Bisacodyl [Dulcolax suppos] 10 mg [place] QDAY PRN #30 supp.rect 05/17/17 Unknown Rx Budesonide [Pulmicort Respules] 0.5 mg IH Q12HRT #60 nebu 05/17/17 Unknown Rx Budesonide/Formoterol Fumarate 10.2 gm IH PRN #1 hfa.aer.ad 05/17/17 Unknown Rx [Symbicort 80-4.5 Mcg Inhaler] Famotidine [Pepcid] 20 mg PO BID #60 tablet 05/17/17 Unknown Rx Ferrous Sulfate [Feosol 325 MG tab] 325 mg PO BID #60 tablet 05/17/17 Unknown Rx Furosemide [Lasix TAB] 40 mg PO QDAY #30 tablet 05/17/17 Unknown Rx ISOSORBIDE MONOnitrate [Imdur ER] 60 mg PO DAILY #30 tablet 05/17/17 Unknown Rx Metformin HCl 500 mg PO BID #60 tablet 05/17/17 Unknown Rx Metoprolol [Lopressor TAB] 50 mg PO BID #60 tablet 05/17/17 Unknown Rx buPROPion SR [Wellbutrin SR] 150 mg PO BID #60 tablet 05/17/17 Unknown Rx oxyCODONE /ACETAMINOPHEN [Percocet 1 tab PO Q6H PRN tablet 05/17/17 Unknown Rx 5/325 mg] traMADol [Ultram 50 MG tab] 50 mg PO Q6HR PRN #10 tablet 06/10/17 Unknown Rx Allergies Allergy/AdvReac Type Severity Reaction Status Date / Time No Known Allergies Allergy Verified 08/26/17 23:49 ED Review of Systems ROS: Stated complaint: SOB Other details as noted in HPI Comment: All other systems reviewed and negative Constitutional: malaise Respiratory: shortness of breath Cardiovascular: orthopnea, edema. denies: chest pain Gastrointestinal: abdominal pain ED Past Medical Hx - Past Medical History Hx Hypertension: Yes Hx Congestive Heart Failure: Yes Hx Diabetes: Yes Hx Asthma: No Hx COPD: Yes Additional medical history: SARCOIDOSIS, high cholesterol - Surgical History Additional Surgical History: ECTOPIC LEFT TUBE REMOVED - Social History Smoking Status: Never Smoker Substance Use Type: None - Medications Home Medications: Home Medications Medication Instructions Recorded Confirmed Last Taken Type ALBUTEROL Inhaler [ProAir HFA 2 puff IH QID PRN #1 inha 05/17/17 Unknown Rx Inhaler] ALBUTEROL NEB's [Proventil 0.083% 2.5 mg IH Q4HRT PRN #100 nebu 05/17/17 Unknown Rx NEBS] Amiodarone [Cordarone 200 MG TAB] 200 mg PO QDAY #30 tablet 05/17/17 Unknown Rx Apixaban [Eliquis] 5 mg PO Q12HR #60 tablet 05/17/17 Unknown Rx AtorvaSTATin [Lipitor] 40 mg PO HS #30 tablet 05/17/17 Unknown Rx Bisacodyl [Dulcolax suppos] 10 mg [place] QDAY PRN #30 supp.rect 05/17/17 Unknown Rx Budesonide [Pulmicort Respules] 0.5 mg IH Q12HRT #60 nebu 05/17/17 Unknown Rx Budesonide/Formoterol Fumarate 10.2 gm IH PRN #1 hfa.aer.ad 05/17/17 Unknown Rx [Symbicort 80-4.5 Mcg Inhaler] Famotidine [Pepcid] 20 mg PO BID #60 tablet 05/17/17 Unknown Rx Ferrous Sulfate [Feosol 325 MG tab] 325 mg PO BID #60 tablet 05/17/17 Unknown Rx Furosemide [Lasix TAB] 40 mg PO QDAY #30 tablet 05/17/17 Unknown Rx ISOSORBIDE MONOnitrate [Imdur ER] 60 mg PO DAILY #30 tablet 05/17/17 Unknown Rx Metformin HCl 500 mg PO BID #60 tablet 05/17/17 Unknown Rx Metoprolol [Lopressor TAB] 50 mg PO BID #60 tablet 05/17/17 Unknown Rx buPROPion SR [Wellbutrin SR] 150 mg PO BID #60 tablet 05/17/17 Unknown Rx oxyCODONE /ACETAMINOPHEN [Percocet 1 tab PO Q6H PRN tablet 05/17/17 Unknown Rx 5/325 mg] traMADol [Ultram 50 MG tab] 50 mg PO Q6HR PRN #10 tablet 06/10/17 Unknown Rx ED Physical Exam - General Limitations: No Limitations General appearance: alert, in distress, obese - Head Head exam: Present: atraumatic, normocephalic - Eye Eye exam: Present: normal appearance, EOMI - ENT ENT exam: Present: normal exam, normal orophraynx, mucous membranes moist - Neck Neck exam: Present: normal inspection, full ROM - Respiratory Respiratory exam: Present: decreased breath sounds. Absent: respiratory distress - Cardiovascular Cardiovascular Exam: Present: regular rate, normal rhythm, normal heart sounds. Absent: systolic murmur, diastolic murmur, rubs, gallop - GI/Abdominal GI/Abdominal exam: Present: soft, tenderness (there is no redness, pus, streaking on the anterior abdominal wall), normal bowel sounds, other (there is abdominal wall tenderness and anasarca noted). Absent: distended, guarding, rebound, rigid, pulsatile mass - Extremities Exam Extremities exam: Present: normal inspection, full ROM, tenderness, pedal edema , calf tenderness (there is no palpable cord. This is a negative Homans sign.) , other (there is 4+ pitting edema up to the proximal thigh) - Back Exam Back exam: Present: normal inspection, full ROM. Absent: tenderness, CVA tenderness (R), paraspinal tenderness, vertebral tenderness - Neurological Exam Neurological exam: Present: alert, oriented X3, CN II-XII intact, other ( Extraocular movements intact. Tongue midline. No facial droop. Facial sensation intact to light touch in the V1, V2, V3 distribution bilaterally. 5 and 5 strength in 4 extremities.. Sensation is intact to light touch in 4 extremities.). Absent: motor sensory deficit - Psychiatric Psychiatric exam: Present: normal affect, normal mood - Skin Skin exam: Present: warm, dry, intact, normal color. Absent: rash ED Course Vital Signs 08/26/17 08/26/17 08/27/17 22:57 23:42 04:52 Temperature 98.3 F 98.3 F Pulse Rate 70 68 69 Respiratory 18 22 Rate Blood Pressure 168/115 168/115 Blood Pressure [Right] O2 Sat by Pulse 92 92 84 Oximetry 08/27/17 08/27/17 08/27/17 05:00 05:03 05:15 Temperature 97.8 F Pulse Rate 67 66 68 Respiratory 11 L 17 15 Rate Blood Pressure 164/113 161/108 Blood Pressure 161/108 [Right] O2 Sat by Pulse 89 88 94 Oximetry 08/27/17 08/27/17 08/27/17 05:31 05:45 06:01 Temperature Pulse Rate 67 66 67 Respiratory 12 9 L 15 Rate Blood Pressure 155/107 164/113 174/111 Blood Pressure [Right] O2 Sat by Pulse 96 91 86 Oximetry 08/27/17 08/27/17 08/27/17 06:15 06:30 06:45 Temperature Pulse Rate 67 66 69 Respiratory 15 26 H 18 Rate Blood Pressure 174/111 187/124 187/124 Blood Pressure [Right] O2 Sat by Pulse 87 87 86 Oximetry 08/27/17 08/27/17 08/27/17 07:01 07:15 07:31 Temperature Pulse Rate 65 67 68 Respiratory 24 14 16 Rate Blood Pressure 178/114 187/124 177/112 Blood Pressure [Right] O2 Sat by Pulse 88 94 89 Oximetry ED Medical Decision Making - Lab Data Result diagrams: 08/26/17 23:55 08/26/17 23:55 Vital Signs 08/26/17 08/26/17 08/27/17 22:57 23:42 04:52 Temperature 98.3 F 98.3 F Pulse Rate 70 68 69 Respiratory 18 22 Rate Blood Pressure 168/115 168/115 Blood Pressure [Right] O2 Sat by Pulse 92 92 84 Oximetry 08/27/17 08/27/17 08/27/17 05:00 05:03 05:15 Temperature 97.8 F Pulse Rate 67 66 68 Respiratory 11 L 17 15 Rate Blood Pressure 164/113 161/108 Blood Pressure 161/108 [Right] O2 Sat by Pulse 89 88 94 Oximetry 08/27/17 08/27/17 08/27/17 05:31 05:45 06:01 Temperature Pulse Rate 67 66 67 Respiratory 12 9 L 15 Rate Blood Pressure 155/107 164/113 174/111 Blood Pressure [Right] O2 Sat by Pulse 96 91 86 Oximetry 08/27/17 08/27/17 08/27/17 06:15 06:30 06:45 Temperature Pulse Rate 67 66 69 Respiratory 15 26 H 18 Rate Blood Pressure 174/111 187/124 187/124 Blood Pressure [Right] O2 Sat by Pulse 87 87 86 Oximetry 08/27/17 08/27/17 08/27/17 07:01 07:15 07:31 Temperature Pulse Rate 65 67 68 Respiratory 24 14 16 Rate Blood Pressure 178/114 187/124 177/112 Blood Pressure [Right] O2 Sat by Pulse 88 94 89 Oximetry Lab Results 08/26/17 08/26/17 08/27/17 Range/Units 23:55 23:55 07:07 WBC 7.1 (4.5-11.0) K/mm3 RBC 5.36 H (3.65-5.03) M/mm3 Hgb 14.9 H (10.1-14.3) gm/dl Hct 47.7 H (30.3-42.9) % MCV 89 (79-97) fl MCH 28 (28-32) pg MCHC 31 (30-34) % RDW 20.5 H (13.2-15.2) % Plt Count 173 (140-440) K/mm3 Add Manual Diff Complete Total Counted 100 Seg Neuts % (Manual) 82.0 H (40.0-70.0) % Band Neutrophils % 1.0 % Lymphocytes % (Manual) 12.0 L (13.4-35.0) % Reactive Lymphs % (Man) 0 % Monocytes % (Manual) 5.0 (0.0-7.3) % Eosinophils % (Manual) 0 (0.0-4.3) % Basophils % (Manual) 0 (0.0-1.8) % Metamyelocytes % 0 % Myelocytes % 0 % Promyelocytes % 0 % Blast Cells % 0 % Nucleated RBC % Not Reportable Seg Neutrophils # Man 5.8 (1.8-7.7) K/mm3 Band Neutrophils # 0.1 K/mm3 Lymphocytes # (Manual) 0.9 L (1.2-5.4) K/mm3 Abs React Lymphs (Man) 0.0 K/mm3 Monocytes # (Manual) 0.4 (0.0-0.8) K/mm3 Eosinophils # (Manual) 0.0 (0.0-0.4) K/mm3 Basophils # (Manual) 0.0 (0.0-0.1) K/mm3 Metamyelocytes # 0.0 K/mm3 Myelocytes # 0.0 K/mm3 Promyelocytes # 0.0 K/mm3 Blast Cells # 0.0 K/mm3 WBC Morphology Not Reportable Hypersegmented Neuts Not Reportable Hyposegmented Neuts Not Reportable Hypogranular Neuts Not Reportable Smudge Cells Not Reportable Toxic Granulation Not Reportable Toxic Vacuolation Not Reportable Dohle Bodies Not Reportable Pelger-Huet Anomaly Not Reportable Chiara Rods Not Reportable Platelet Estimate Appears normal Clumped Platelets Not Reportable Plt Clumps, EDTA Not Reportable Large Platelets Not Reportable Giant Platelets Not Reportable Platelet Satelliting Not Reportable Plt Morphology Comment Not Reportable RBC Morphology Not Reportable Dimorphic RBCs Not Reportable Polychromasia Not Reportable Hypochromasia Few Poikilocytosis Not Reportable Anisocytosis 1+ Microcytosis Not Reportable Macrocytosis Not Reportable Spherocytes Not Reportable Pappenheimer Bodies Not Reportable Sickle Cells Not Reportable Target Cells Not Reportable Tear Drop Cells Not Reportable Ovalocytes 1+ Helmet Cells Not Reportable [place] Bodies Not Reportable [place] Rings Not Reportable [place] Cells Not Reportable Bite Cells Not Reportable Crenated Cell Not Reportable Elliptocytes Not Reportable Acanthocytes (Spur) Not Reportable Rouleaux Not Reportable Hemoglobin C Crystals Not Reportable Schistocytes Not Reportable Malaria parasites Not Reportable Bryant Bodies Not Reportable Hem Pathologist Commnt No PT 22.5 H (12.2-14.9) Sec. INR 1.85 H (0.87-1.13) Sodium 140 (137-145) mmol/L Potassium 4.1 (3.6-5.0) mmol/L Chloride 90.3 L (98-107) mmol/L Carbon Dioxide 37 H (22-30) mmol/L Anion Gap 17 mmol/L BUN 17 (7-17) mg/dL Creatinine 0.8 (0.7-1.2) mg/dL Estimated GFR > 60 ml/min BUN/Creatinine Ratio 21 % Glucose 117 H (65-100) mg/dL Calcium 9.1 (8.4-10.2) mg/dL NT-Pro-B Natriuret Pep (0-900) pg/mL 08/27/17 Range/Units 07:07 WBC (4.5-11.0) K/mm3 RBC (3.65-5.03) M/mm3 Hgb (10.1-14.3) gm/dl Hct (30.3-42.9) % MCV (79-97) fl MCH (28-32) pg MCHC (30-34) % RDW (13.2-15.2) % Plt Count (140-440) K/mm3 Add Manual Diff Total Counted Seg Neuts % (Manual) (40.0-70.0) % Band Neutrophils % % Lymphocytes % (Manual) (13.4-35.0) % Reactive Lymphs % (Man) % Monocytes % (Manual) (0.0-7.3) % Eosinophils % (Manual) (0.0-4.3) % Basophils % (Manual) (0.0-1.8) % Metamyelocytes % % Myelocytes % % Promyelocytes % % Blast Cells % % Nucleated RBC % Seg Neutrophils # Man (1.8-7.7) K/mm3 Band Neutrophils # K/mm3 Lymphocytes # (Manual) (1.2-5.4) K/mm3 Abs React Lymphs (Man) K/mm3 Monocytes # (Manual) (0.0-0.8) K/mm3 Eosinophils # (Manual) (0.0-0.4) K/mm3 Basophils # (Manual) (0.0-0.1) K/mm3 Metamyelocytes # K/mm3 Myelocytes # K/mm3 Promyelocytes # K/mm3 Blast Cells # K/mm3 WBC Morphology Hypersegmented Neuts Hyposegmented Neuts Hypogranular Neuts Smudge Cells Toxic Granulation Toxic Vacuolation Dohle Bodies Pelger-Huet Anomaly Chiara Rods Platelet Estimate Clumped Platelets Plt Clumps, EDTA Large Platelets Giant Platelets Platelet Satelliting Plt Morphology Comment RBC Morphology Dimorphic RBCs Polychromasia Hypochromasia Poikilocytosis Anisocytosis Microcytosis Macrocytosis Spherocytes Pappenheimer Bodies Sickle Cells Target Cells Tear Drop Cells Ovalocytes Helmet Cells [place] Bodies [place] Rings [place] Cells Bite Cells Crenated Cell Elliptocytes Acanthocytes (Spur) Rouleaux Hemoglobin C Crystals Schistocytes Malaria parasites Bryant Bodies Hem Pathologist Commnt PT (12.2-14.9) Sec. INR (0.87-1.13) Sodium (137-145) mmol/L Potassium (3.6-5.0) mmol/L Chloride (98-107) mmol/L Carbon Dioxide (22-30) mmol/L Anion Gap mmol/L BUN (7-17) mg/dL Creatinine (0.7-1.2) mg/dL Estimated GFR ml/min BUN/Creatinine Ratio % Glucose (65-100) mg/dL Calcium (8.4-10.2) mg/dL NT-Pro-B Natriuret Pep 2624 H (0-900) pg/mL - EKG Data -: EKG Interpreted by In - EKG Data 08/27/17 09:24 Normal sinus, rightward axis, low voltage, abnormal EKG, not consistent with a STEMI, there is poor R-wave progression - Radiology Data Radiology results: report reviewed, image reviewed X-ray of the chest demonstrates cardiomegaly. LIVE [facility] SHUBHAMELISE PEREZ Female : 1965 MedRec# [id number] 08/27/17 08:55 - Radiology Dept. Note by PALOMO WILSON Located Within [facility] Num: [id number] : 1965 Patient Age: 52 VASCULAR LAB.PRELIMINARY REPORT. BLE VENOUS DUPLEX DONE BEDSIDE. TECHNICALLY DIFFICULT AND LIMITED DUE TO HABITUS/SEVERE BLE SWELLING. NO EVIDENCE OF DVT/ SVT IN VESSELS VISUALIZED. Initialized on 08/27/17 08:55 - END OF NOTE - Medical Decision Making Differential diagnosis, including but not limited to: Pericardial effusion, DVT , right-sided heart failure, pulmonary hypertension, congestive heart failure, multifactorial respiratory failure Assessment and plan: 52-year-old female with orthopnea, shortness of breath, hypoxia, ABG pending, suspect likely hypercarbia, with no pulmonary embolus or DVT risk factors, with a negative lower extremity DVT study, as for anticoagulation we started by inpatient team. Patient started on nitroglycerin , BiPAP, high volume diuresis. Case is discussed with cardiology, Dr. Zhang, history of peripheral following consultation and he agreed with the aforementioned management strategies. The case was discussed with Hospital physician, Dr. Richards, who accepted the patient to the medical service. Patient reassessed, appears improved on BiPAP, arterial blood gas is pending, given poor mobility, fluid overload, fully catheter is ordered. Critical Care Time: Yes Critical care time in (mins) excluding proc time.: 35 Critical care attestation.: If time is entered above; I have spent that time in minutes in the direct care of this critically ill patient, excluding procedure time. ED Disposition Clinical Impression: Acute dyspnea, Acute CHF Disposition: OP ADMIT IP TO THIS HOSP Is pt being admited?: Yes Does the pt Need Aspirin: Yes Condition: Good
[2017-08-27] MEDS ORDERED: TRIDIL DRIP 50MG/250ML 50 MG/250 ML BOTTLE IV SCH (07:00)
[2017-08-27] MEDS ORDERED: LASIX IV ONE (07:00)
[2017-08-27 07:49] LABS: INR 1.85 (0.87-1.13)
--- NOTE | 2017-08-27 08:57 | History and Physical Report ---
History of Present Illness Date of examination: 08/27/17 Date of admission: 08/27/17 07:24 Chief complaint: Shortness of breath, generalized body swelling History of present illness: Patient is a 52-year-old morbidly obese female with a history of congestive heart failure, Afib, T2DM and CAD presents for evaluation of worsening dyspnea of 1 week duration. She also complained of cough that is productive of slight yellowish sputum. Significantly worsened and constant for the past one to one week, exacerbated with exertion or ambulation, improved at rest. Pt also has orthopnea. She also admits to severe bilateral lower leg swelling for the past week. The patient denies fever, syncope, chest pain, hemoptysis, unilateral leg swelling, oral contraceptive use, recent immobilization, history of DVT or PE. Echocardiogram of 04/2016 showed normal ejection fraction. She also complaint of generalized pain as she is very swollen all over with tightening and tensed skin. On admission to ED BP 187/120, was BNP was 2624, ans CXR showed cardiomegaly. In patient admission was therefore requested for furthe evaluation and management Past History Past Medical History: atrial fib, COPD, diabetes, heart failure, hypertension Past Surgical History: Other (ectopic surgery) Social history: alcohol abuse. denies: smoking, prescription drug abuse Family history: other (both parent had Hear failure) Medications and Allergies Allergies Allergy/AdvReac Type Severity Reaction Status Date / Time No Known Allergies Allergy Verified 08/26/17 23:49 Home Medications Medication Instructions Recorded Confirmed Last Taken Type ALBUTEROL Inhaler [ProAir HFA 2 puff IH QID PRN #1 inha 05/17/17 08/27/17 Unknown Rx Inhaler] ALBUTEROL NEB's [Proventil 0.083% 2.5 mg IH Q4HRT PRN #100 nebu 05/17/17 Unknown Rx NEBS] Amiodarone [Cordarone 200 MG TAB] 200 mg PO QDAY #30 tablet 05/17/17 08/27/17 Unknown Rx Apixaban [Eliquis] 5 mg PO Q12HR #60 tablet 05/17/17 08/27/17 Unknown Rx AtorvaSTATin [Lipitor] 40 mg PO HS #30 tablet 05/17/17 08/27/17 Unknown Rx Bisacodyl [Dulcolax suppos] 10 mg [place] QDAY PRN #30 supp.rect 05/17/17 08/27/17 Unknown Rx Budesonide [Pulmicort Respules] 0.5 mg IH Q12HRT #60 nebu 05/17/17 08/27/17 Unknown Rx Budesonide/Formoterol Fumarate 10.2 gm IH PRN #1 hfa.aer.ad 05/17/17 08/27/17 Unknown Rx [Symbicort 80-4.5 Mcg Inhaler] Famotidine [Pepcid] 20 mg PO BID #60 tablet 05/17/17 08/27/17 Unknown Rx Ferrous Sulfate [Feosol 325 MG tab] 325 mg PO BID #60 tablet 05/17/17 08/27/17 Unknown Rx Furosemide [Lasix TAB] 40 mg PO QDAY #30 tablet 05/17/17 08/27/17 Unknown Rx ISOSORBIDE MONOnitrate [Imdur ER] 60 mg PO DAILY #30 tablet 05/17/17 08/27/17 Unknown Rx Metformin HCl 500 mg PO BID #60 tablet 05/17/17 08/27/17 Unknown Rx Metoprolol [Lopressor TAB] 50 mg PO BID #60 tablet 05/17/17 08/27/17 Unknown Rx buPROPion SR [Wellbutrin SR] 150 mg PO BID #60 tablet 05/17/17 08/27/17 Unknown Rx oxyCODONE /ACETAMINOPHEN [Percocet 1 tab PO Q6H PRN tablet 05/17/17 08/27/17 Unknown Rx 5/325 mg] Active Meds: Active Medications Nitroglycerin/Dextrose (Tridil Drip 50mg/250ml) 50 mg in 250 mls @ 3 mls/hr IV TITR HIREN; Protocol Review of Systems Constitutional: weight gain, no fever, no chills, no sweats Ears, nose, mouth and throat: no ear pain, no ear discharge, no tinnitis, no decreased hearing Breasts: swelling Cardiovascular: orthopnea, shortness of breath, no chest pain, no palpitations, no rapid/irregular heart beat, no syncope Respiratory: cough, cough with sputum, shortness of breath, no excessive sputum , no hemoptysis Gastrointestinal: no abdominal pain, no nausea, no vomiting, no diarrhea Musculoskeletal: no neck stiffness, no neck pain, no shooting arm pain, no arm numbness/tingling, no shooting leg pain Integumentary: no rash, no pruritis, no redness, no sores, no wounds Neurological: no head injury, no transient paralysis, no paralysis, no weakness , no parathesias, no numbness Psychiatric: no anxiety, no memory loss, no change in sleep habits Exam - Constitutional Vitals: Temp Pulse Resp BP Pulse Ox 97.8 F 68 16 177/112 89 08/27/17 05:03 08/27/17 07:31 08/27/17 07:31 08/27/17 07:31 08/27/17 07:31 General appearance: Present: mild distress, well-nourished, obese - EENT Eyes: Present: PERRL ENT: hearing intact, clear oral mucosa - Neck Neck: Present: supple, normal ROM - Respiratory Respiratory effort: normal Respiratory: bilateral: diminished - Cardiovascular Heart Sounds: Present: S1 & S2. Absent: rub, click - Extremities Extremities: pulses symmetrical Extremity abnormal: edema Peripheral Pulses: within normal limits - Abdominal General gastrointestinal: Present: soft, non-tender, non-distended, normal bowel sounds Female genitourinary: Present: normal - Integumentary Integumentary: Present: clear, warm, dry - Musculoskeletal Musculoskeletal: gait normal, strength equal bilaterally - Psychiatric Psychiatric: appropriate mood/affect, intact judgment & insight - Neurologic Neurologic: CNII-XII intact, moves all extremities Results - Labs CBC & Chem 7: 08/26/17 23:55 08/26/17 23:55 Labs: Abnormal lab results 08/26/17 08/26/17 08/27/17 Range/Units 23:55 23:55 07:07 RBC 5.36 H (3.65-5.03) M/mm3 Hgb 14.9 H (10.1-14.3) gm/dl Hct 47.7 H (30.3-42.9) % RDW 20.5 H (13.2-15.2) % Seg Neuts % (Manual) 82.0 H (40.0-70.0) % Lymphocytes % (Manual) 12.0 L (13.4-35.0) % Lymphocytes # (Manual) 0.9 L (1.2-5.4) K/mm3 PT 22.5 H (12.2-14.9) Sec. INR 1.85 H (0.87-1.13) Chloride 90.3 L (98-107) mmol/L Carbon Dioxide 37 H (22-30) mmol/L Glucose 117 H (65-100) mg/dL NT-Pro-B Natriuret Pep (0-900) pg/mL 08/27/17 Range/Units 07:07 RBC (3.65-5.03) M/mm3 Hgb (10.1-14.3) gm/dl Hct (30.3-42.9) % RDW (13.2-15.2) % Seg Neuts % (Manual) (40.0-70.0) % Lymphocytes % (Manual) (13.4-35.0) % Lymphocytes # (Manual) (1.2-5.4) K/mm3 PT (12.2-14.9) Sec. 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 Pt already on Eliquis
[2017-08-27] MEDS ORDERED: PROVENTIL IH PRN (09:11)
[2017-08-27] MEDS ORDERED: DULCOLAX PR PRN (09:11)
[2017-08-27] MEDS ORDERED: NON-FORMULARY (Budesonide/Formoterol Fumarate [Symbicort 80-4.5 Mcg Inhaler] 10.2 GM) IH SCH (09:15)
[2017-08-27] MEDS ORDERED: IMDUR PO SCH (10:00)
[2017-08-27] MEDS ORDERED: ZESTRIL PO SCH (10:00)
[2017-08-27] MEDS ORDERED: LASIX IV SCH (10:00)
[2017-08-27] MEDS ORDERED: ELIQUIS PO SCH (10:00)
--- NOTE | 2017-08-27 10:39 | Consultation ---
History of Present Illness Consult date: 08/27/17 Requesting physician: JOHNATHON BOWMAN Consult reason: congestive heart failure History of present illness: The patient is followed by Dr. Gant at our office. She has chronic HFpEF, DRE/OHS, COPD and chronic respiratory failure on home oxygen therapy. She claims that since March 2017, she has noted progressive generalized edema. Symptoms became more prominent over the last couple of months with exertional dyspnea. She has chronic orthopnea as well. She has no chest pain. She had been high-dose furosemide with Zaroxolyn at home without adequate response. Past History Past Medical History: atrial fib (paroxysmal atrial fibrillation. She was electrically cardioverted in April 2016.), COPD, diabetes, heart failure ( chronic diastolic HF), hypertension, other (DRE/OHS, echocardiogram in April 2017 revealed an ejection fraction of 60%.) Past Surgical History: Other (ectopic surgery) Social history: other (former smoker. 2 years ago. She drinks wine socially.) . denies: smoking, alcohol abuse, prescription drug abuse Family history: other (both parents have a history of heart failure). denies: CAD Medications and Allergies Allergies Allergy/AdvReac Type Severity Reaction Status Date / Time No Known Allergies Allergy Verified 08/26/17 23:49 Home Medications Medication Instructions Recorded Confirmed Last Taken Type ALBUTEROL Inhaler [ProAir HFA 2 puff IH QID PRN #1 inha 05/17/17 Unknown Rx Inhaler] ALBUTEROL NEB's [Proventil 0.083% 2.5 mg IH Q4HRT PRN #100 nebu 05/17/17 Unknown Rx NEBS] Amiodarone [Cordarone 200 MG TAB] 200 mg PO QDAY #30 tablet 05/17/17 Unknown Rx Apixaban [Eliquis] 5 mg PO Q12HR #60 tablet 05/17/17 Unknown Rx AtorvaSTATin [Lipitor] 40 mg PO HS #30 tablet 05/17/17 Unknown Rx Bisacodyl [Dulcolax suppos] 10 mg FL QDAY PRN #30 supp.rect 05/17/17 Unknown Rx Budesonide [Pulmicort Respules] 0.5 mg IH Q12HRT #60 nebu 05/17/17 Unknown Rx Budesonide/Formoterol Fumarate 10.2 gm IH PRN #1 hfa.aer.ad 05/17/17 Unknown Rx [Symbicort 80-4.5 Mcg Inhaler] Famotidine [Pepcid] 20 mg PO BID #60 tablet 05/17/17 Unknown Rx Ferrous Sulfate [Feosol 325 MG tab] 325 mg PO BID #60 tablet 05/17/17 Unknown Rx Furosemide [Lasix TAB] 40 mg PO QDAY #30 tablet 05/17/17 Unknown Rx ISOSORBIDE MONOnitrate [Imdur ER] 60 mg PO DAILY #30 tablet 05/17/17 Unknown Rx Metformin HCl 500 mg PO BID #60 tablet 05/17/17 Unknown Rx Metoprolol [Lopressor TAB] 50 mg PO BID #60 tablet 05/17/17 Unknown Rx buPROPion SR [Wellbutrin SR] 150 mg PO BID #60 tablet 05/17/17 Unknown Rx oxyCODONE /ACETAMINOPHEN [Percocet 1 tab PO Q6H PRN tablet 05/17/17 Unknown Rx 5/325 mg] traMADol [Ultram 50 MG tab] 50 mg PO Q6HR PRN #10 tablet 06/10/17 Unknown Rx Active Meds: Active Medications Albuterol (Proventil) 2.5 mg IH Q4HRT PRN PRN Reason: Shortness Of Breath Amiodarone HCl (Cordarone) 200 mg PO QDAY HIREN Atorvastatin Calcium (Lipitor) 40 mg PO HS HIREN Bisacodyl (Dulcolax) 10 mg FL QDAY PRN PRN Reason: Constipation unrelieved by MOM Budesonide (Pulmicort) 0.5 mg IH Q12HRT HIREN Bupropion HCl (Wellbutrin Sr) 150 mg PO BID HIREN Famotidine (Pepcid) 20 mg IV QDAY HIREN Furosemide (Lasix) 40 mg IV QDAY HIREN Nitroglycerin/Dextrose (Tridil Drip 50mg/250ml) 50 mg in 250 mls @ 3 mls/hr IV TITR HIREN; Protocol Isosorbide Mononitrate (Imdur) 60 mg PO DAILY HIREN Lisinopril (Zestril) 20 mg PO BID HIREN Metformin HCl (Glucophage) 500 mg PO BID HIREN Metoprolol Tartrate (Lopressor) 50 mg PO BID HIREN Miscellaneous Medication (Budesonide/Formoterol Fumarate [Symbicort 80-4.5 Mcg Inhaler]) 10.2 gm IH PRN [facility] Oxycodone/Acetaminophen (Percocet 5/325) 1 tab PO Q6H PRN PRN Reason: Pain, Moderate (4-6) Review of Systems Constitutional: no fever, no chills Ears, nose, mouth and throat: no ear pain, no ear discharge, no sore throat Breasts: swelling Cardiovascular: orthopnea, edema, shortness of breath, dyspnea on exertion, paroxysmal nocturnal dyspnea, no chest pain, no palpitations Respiratory: shortness of breath, dyspnea on exertion, sleep apnea, home oxygen , no cough, no hemoptysis Gastrointestinal: no abdominal pain, no nausea, no vomiting, no diarrhea, no constipation Genitourinary Female: no dysuria, no urinary frequency Rectal: no pain, no bleeding Musculoskeletal: no neck stiffness, no neck pain, no myalgias Integumentary: no rash, no pruritis Neurological: no weakness, no parathesias, no headaches Endocrine: no cold intolerance, no heat intolerance Hematologic/Lymphatic: no easy bruising Allergic/Immunologic: no urticaria, no angioedema Physical Examination Vital Signs Last Vital Signs Temp 97.8 F 08/27/17 05:03 Pulse 68 08/27/17 07:31 Resp 16 08/27/17 07:31 BP 177/112 08/27/17 07:31 Pulse Ox 89 08/27/17 07:31 General appearance: mild distress HEENT: Positive: EOMI, Normocephaly, Mucus Membranes Moist Neck: Positive: neck supple, trachea midline, JVD/HJR (elevated) Cardiac: Positive: Reg Rate and Rhythm, S1/S2 Lungs: Positive: Decreased Breath Sounds Neuro: Positive: Grossly Intact Abdomen: Positive: Soft, Active Bowel Sounds. Negative: Tender Skin: Positive: Other (thick and edematous) Musculoskeletal: Normal Range of Motion Extremities: Present: +3 Edema Results 08/26/17 23:55 08/26/17 23:55 Coagulation 08/27/17 Range/Units 07:07 PT 22.5 H (12.2-14.9) Sec. INR 1.85 H (0.87-1.13) CBC 08/26/17 Range/Units 23:55 WBC 7.1 (4.5-11.0) K/mm3 RBC 5.36 H (3.65-5.03) M/mm3 Hgb 14.9 H (10.1-14.3) gm/dl Hct 47.7 H (30.3-42.9) % Plt Count 173 (140-440) K/mm3 Comprehensive Metabolic Panel 08/26/17 Range/Units 23:55 Sodium 140 (137-145) mmol/L Potassium 4.1 (3.6-5.0) mmol/L Chloride 90.3 L (98-107) mmol/L Carbon Dioxide 37 H (22-30) mmol/L BUN 17 (7-17) mg/dL Creatinine 0.8 (0.7-1.2) mg/dL Glucose 117 H (65-100) mg/dL Calcium 9.1 (8.4-10.2) mg/dL - Imaging and Cardiology EKG: image reviewed EKG interpretations - Telemetry EKG Rhythm: Sinus Rhythm - EKG Sinus rhythms and dysrhythmias: sinus rhythm Assessment and Plan Optimize antihypertensive regimen. Initiate IV diuretics with Bumex. - Patient Problems (1) Acute on chronic heart failure with normal ejection fraction Current Visit: Yes Status: Acute (2) Acute on chronic respiratory failure with hypoxemia Current Visit: Yes Status: Acute (3) Uncontrolled hypertension Current Visit: Yes Status: Acute (4) Anasarca Current Visit: Yes Status: Acute (5) Obstructive sleep apnea Current Visit: Yes Status: Chronic (6) Paroxysmal atrial fibrillation Current Visit: No Status: Chronic (7) COPD (chronic obstructive pulmonary disease) Current Visit: Yes Status: Chronic (8) Obesity hypoventilation syndrome Current Visit: Yes Status: Chronic (9) T2DM (type 2 diabetes mellitus) Current Visit: Yes Status: Chronic
[2017-08-27] MEDS: LOPRESSOR PO SCH ×2 (14:00→22:09)
[2017-08-27] MEDS: GLUCOPHAGE PO SCH ×2 (14:00→20:03)
[2017-08-27] MEDS: PEPCID IV SCH (14:01)
[2017-08-27] MEDS: PULMICORT IH SCH ×3 (14:56→23:09)
[2017-08-27] MEDS: BROVANA NEBU IH SCH ×3 (14:57→23:09)
[2017-08-27] MEDS: ZESTRIL PO SCH (15:46)
[2017-08-27] MEDS: IMDUR PO SCH (15:46)
[2017-08-27] MEDS: CORDARONE PO SCH (15:47)
[2017-08-27] MEDS: WELLBUTRIN SR PO SCH ×2 (15:47→23:01)
[2017-08-27] MEDS: APRESOLINE PO SCH ×3 (17:01→21:13)
[2017-08-27] MEDS ORDERED: APRESOLINE IV PRN (19:07)
[2017-08-27] MEDS: PERCOCET 5/325 PO PRN (20:02)
[2017-08-27] MEDS: LASIX IV SCH (20:03)
[2017-08-28] MEDS: LASIX IV SCH ×2 (07:05→18:24)
[2017-08-28 07:55] LABS: Mean Corpuscular HGB Conc 31 % (30-34); Mean Corpuscular Hemoglobin 28 pg (28-32); Mean Corpuscular Volume 89 fl (79-97)
[2017-08-28 08:02] LABS: Hematocrit 46.3 % (30.3-42.9); Hemoglobin 14.3 gm/dl (10.1-14.3); Red Cell Distribution Width 20.2 % (13.2-15.2)
[2017-08-28 08:05] LABS: INR 1.68 (0.87-1.13)
[2017-08-28 08:15] LABS: Alanine Aminotransferase 36 units/L (7-56); Albumin 3.4 g/dL (3.9-5); BUN/Creatinine Ratio 20; Blood Urea Nitrogen 16 mg/dL (7-17); Calcium 8.9 mg/dL (8.4-10.2); Hemolysis Index 10
[2017-08-28] MEDS: BROVANA NEBU IH SCH ×2 (08:50→20:55)
[2017-08-28] MEDS: PEPCID IV SCH (09:36)
[2017-08-28] MEDS: PERCOCET 5/325 PO PRN ×2 (09:37→22:26)
[2017-08-28] MEDS: BABY ASPIRIN PO SCH (09:37)
[2017-08-28] MEDS: CORDARONE PO SCH (09:40)
[2017-08-28] MEDS: GLUCOPHAGE PO SCH ×2 (09:40→17:00)
[2017-08-28] MEDS: WELLBUTRIN SR PO SCH ×2 (09:40→22:19)
[2017-08-28] MEDS: APRESOLINE PO SCH ×2 (09:45→13:37)
[2017-08-28] MEDS: IMDUR PO SCH (09:45)
[2017-08-28] MEDS: LOPRESSOR PO SCH ×2 (09:46→22:19)
[2017-08-28 09:52] LABS: Anisocytosis 1+; Eosinophils % (Manual) 0 % (0.0-4.3); Hypochromasia Few; Ovalocytes 1+; Target Cells Rare; Tear Drop Cells Rare; Total Cells Counted 100
[2017-08-28 09:53] LABS: Acanthocytes Rare; Large Platelets 1+; Platelet Count 156 K/mm3 (140-440); Stomatocytes Few
[2017-08-28] MEDS ORDERED: MAGNESIUM SULFATE 2GM/50ML 2 GM/50 ML BAG IV NR (09:58)
[2017-08-28] MEDS: ZESTRIL PO SCH (10:00)
[2017-08-28] MEDS ORDERED: K-DUR PO NR (10:30)
[2017-08-28] MEDS ORDERED: MAGNESIUM SULFATE 1 GM in WATER FOR INJ (PF) 23 ML IV ONE (11:08)
--- NOTE | 2017-08-28 11:09 | Progress Note ---
Assessment and Plan - Acute on chronic diastolic (congestive) heart failure CHF exacerbation commence pt on Daily weight stick Is and Os iv Lasix 40 mg q24, ACEI, BB, Had ECHO in 04/2016 with normal EF Pt's band shover consulted - Acute on chronic hypercapneic respiratory failure On Bronchodilators - COPD on home oxygen Supplemental oxygen and Braonchodilatos - DRE/OHS with hypercpnea cautious ox - T2DM (type 2 diabetes mellitus) Cont sliding scale insulin, consistent carbohydrate diet Metformin Check A1c - Hypokalemia and hypomagnesemia Will Supplements - HLD (hyperlipidemia) on statins - HTN (hypertension) commnece Metoprolol, ACEI, hydrallzin - DVT prophylaxis with Scd's. Pt already on Eliquis Subjective Date of service: 08/28/17 Principal diagnosis: acute on chronic diastolic heart failure, acute on chronic respiratory fail Interval history: Patient seen and examined. Still having shortness of breath Objective - Exam Narrative Exam: Constitutional: Morbidly obese Well-nourished well-developed. In no distress Head: Normocephalic atraumatic Eyes: Pupils are equal round and reactive to light Nose: No enlarged turbinates, no septal deviation. Mouth: Moist mucous membranes. Neck: Supple no thyromegaly. No bruit. No JVD Heart: Regular rate and rhythm, S1-S2 abnormal. No rubs murmurs or gallop Lungs: Decreased breath sounds bilaterally with rhonchi Abdomen: Soft, nontender. Bowel sound are present. Extremities: No edema no cyanosis and no clubbing. Neuro: Alert oriented Oriented x3. No focal sensory or motor deficit. Skin: No rashes no hyperemic spots Psychiatry: Euthymic. Calm. - Constitutional Vitals: Vital Signs - 12hr 08/27/17 08/27/17 08/27/17 23:09 23:10 23:20 Temperature Pulse Rate 70 69 Pulse Rate [ 70 Bilateral Bases ] Respiratory 10 L 11 L Rate Respiratory 21 Rate [Bilateral Bases] Blood Pressure 152/89 148/93 Blood Pressure [Right] O2 Sat by Pulse Oximetry 08/27/17 08/27/17 08/27/17 23:30 23:40 23:50 Temperature Pulse Rate 68 68 68 Pulse Rate [ 78 Bilateral Bases ] Respiratory 17 20 26 H Rate Respiratory 22 Rate [Bilateral Bases] Blood Pressure 148/93 148/93 148/93 Blood Pressure [Right] O2 Sat by Pulse Oximetry 08/28/17 08/28/17 08/28/17 00:00 00:10 00:22 Temperature Pulse Rate 66 64 Pulse Rate [ Bilateral Bases ] Respiratory 10 L 19 Rate Respiratory Rate [Bilateral Bases] Blood Pressure 148/93 148/93 148/93 Blood Pressure [Right] O2 Sat by Pulse Oximetry 08/28/17 08/28/17 08/28/17 00:31 00:35 00:42 Temperature 98 F Pulse Rate 67 Pulse Rate [ Bilateral Bases ] Respiratory 16 Rate Respiratory Rate [Bilateral Bases] Blood Pressure 148/93 148/93 Blood Pressure 137/83 [Right] O2 Sat by Pulse 94 Oximetry 08/28/17 08/28/17 08/28/17 00:51 00:55 01:00 Temperature 97.9 F Pulse Rate 85 66 Pulse Rate [ Bilateral Bases ] Respiratory 18 Rate Respiratory Rate [Bilateral Bases] Blood Pressure 148/93 Blood Pressure 128/66 [Right] O2 Sat by Pulse 92 Oximetry 08/28/17 08/28/17 08/28/17 02:00 04:58 09:37 Temperature 98.2 F Pulse Rate 94 H 74 Pulse Rate [ Bilateral Bases ] Respiratory 21 18 20 Rate Respiratory Rate [Bilateral Bases] Blood Pressure 140/82 Blood Pressure [Right] O2 Sat by Pulse 93 92 Oximetry 08/28/17 08/28/17 08/28/17 09:39 09:45 09:46 Temperature Pulse Rate 78 78 Pulse Rate [ Bilateral Bases ] Respiratory 20 Rate Respiratory Rate [Bilateral Bases] Blood Pressure 153/101 153/101 153/101 Blood Pressure [Right] O2 Sat by Pulse Oximetry - Labs CBC & Chem 7: 08/28/17 06:52 08/28/17 06:52 Labs: Abnormal lab results 08/27/17 08/27/17 08/28/17 Range/Units 11:40 21:02 06:42 RBC (3.65-5.03) M/mm3 Hct (30.3-42.9) % RDW (13.2-15.2) % Seg Neuts % (Manual) (40.0-70.0) % Lymphocytes % (Manual) (13.4-35.0) % Seg Neutrophils # Man (1.8-7.7) K/mm3 Lymphocytes # (Manual) (1.2-5.4) K/mm3 PT (12.2-14.9) Sec. INR (0.87-1.13) POC ABG pH 7.334 L (7.35-7.45) POC ABG pCO2 73.2 H (35-45) Potassium (3.6-5.0) mmol/L Chloride (98-107) mmol/L Carbon Dioxide (22-30) mmol/L Glucose (65-100) mg/dL POC Glucose 120 H (70-105) Hemoglobin A1c 6.4 H (4-6) % Magnesium (1.7-2.3) mg/dL Total Bilirubin (0.1-1.2) mg/dL Alkaline Phosphatase (35-129) units/L Albumin (3.9-5) g/dL 08/28/17 08/28/17 08/28/17 Range/Units 06:52 06:52 06:52 RBC 5.20 H (3.65-5.03) M/mm3 Hct 46.3 H (30.3-42.9) % RDW 20.2 H (13.2-15.2) % Seg Neuts % (Manual) 87.0 H (40.0-70.0) % Lymphocytes % (Manual) 7.0 L (13.4-35.0) % Seg Neutrophils # Man 8.0 H (1.8-7.7) K/mm3 Lymphocytes # (Manual) 0.6 L (1.2-5.4) K/mm3 PT 20.8 H (12.2-14.9) Sec. INR 1.68 H (0.87-1.13) POC ABG pH (7.35-7.45) POC ABG pCO2 (35-45) Potassium 3.5 L (3.6-5.0) mmol/L Chloride 92.3 L (98-107) mmol/L Carbon Dioxide 40 H (22-30) mmol/L Glucose 118 H (65-100) mg/dL POC Glucose (70-105) Hemoglobin A1c (4-6) % Magnesium 1.50 L (1.7-2.3) mg/dL Total Bilirubin 1.80 H (0.1-1.2) mg/dL Alkaline Phosphatase 171 H (35-129) units/L Albumin 3.4 L (3.9-5) g/dL
[2017-08-28] MEDS: KCL 10MEQ/100ML 10 MEQ/100 ML BAG IV SCH ×3 (12:00→14:19)
--- NOTE | 2017-08-28 12:04 | Progress Note ---
Assessment and Plan Optimize antihypertensive regimen. Continue diuresis with IV lasix BID. Obtain strict I&Os and daily weights. The patient has been seen in conjunction with Dr. Vogel who agrees with the assessment and plan of care. - Patient Problems (1) Acute on chronic heart failure with normal ejection fraction Current Visit: Yes Status: Acute (2) Acute on chronic respiratory failure with hypoxemia Current Visit: Yes Status: Acute (3) Anasarca Current Visit: Yes Status: Acute (4) Uncontrolled hypertension Current Visit: Yes Status: Acute (5) Obstructive sleep apnea Current Visit: Yes Status: Chronic (6) Paroxysmal atrial fibrillation Current Visit: Yes Status: Chronic (7) COPD (chronic obstructive pulmonary disease) Current Visit: Yes Status: Chronic (8) Diabetes Current Visit: Yes Status: Chronic (9) Obesity hypoventilation syndrome Current Visit: Yes Status: Chronic (10) Hypokalemia Current Visit: Yes Status: Acute (11) Hypomagnesemia Current Visit: Yes Status: Acute Subjective Date of service: 08/28/17 Principal diagnosis: acute on chronic diastolic heart failure, acute on chronic respiratory fail Interval history: pt sitting up in chair, still with complaints of SOB and generalized edema. Objective Last Vital Signs Temp 98.2 F 08/28/17 04:58 Pulse 78 08/28/17 09:46 Resp 20 08/28/17 09:39 BP 153/101 08/28/17 09:46 Pulse Ox 92 08/28/17 04:58 - Physical Examination HEENT: Positive: EOMI, Normocephaly, Mucus Membranes Moist Neck: Positive: neck supple, trachea midline, JVD/HJR (elevated) Cardiac: Positive: Reg Rate and Rhythm, S1/S2 Lungs: Positive: clear to auscultation Neuro: Positive: Grossly Intact Abdomen: Positive: Soft, Active Bowel Sounds. Negative: Tender Skin: Positive: Other (thick and edematous) Musculoskeletal: Normal Range of Motion Extremities: Present: edema (generalized), +3 Edema (BLE ) - Labs and Meds Cardiac Enzymes 08/28/17 Range/Units 06:52 AST 34 (5-40) units/L Coagulation 08/28/17 Range/Units 06:52 PT 20.8 H (12.2-14.9) Sec. INR 1.68 H (0.87-1.13) CBC 08/28/17 Range/Units 06:52 WBC 9.2 (4.5-11.0) K/mm3 RBC 5.20 H (3.65-5.03) M/mm3 Hgb 14.3 (10.1-14.3) gm/dl Hct 46.3 H (30.3-42.9) % Plt Count 156 (140-440) K/mm3 Comprehensive Metabolic Panel 08/28/17 Range/Units 06:52 Sodium 144 (137-145) mmol/L Potassium 3.5 L (3.6-5.0) mmol/L Chloride 92.3 L (98-107) mmol/L Carbon Dioxide 40 H (22-30) mmol/L BUN 16 (7-17) mg/dL Creatinine 0.8 (0.7-1.2) mg/dL Glucose 118 H (65-100) mg/dL Calcium 8.9 (8.4-10.2) mg/dL AST 34 (5-40) units/L ALT 36 (7-56) units/L Alkaline Phosphatase 171 H (35-129) units/L Total Protein 6.9 (6.3-8.2) g/dL Albumin 3.4 L (3.9-5) g/dL - Imaging and Cardiology EKG: image reviewed Echo: report reviewed (04/2017 (ANGELIKA prior to [facility]): EF 55-60%, no intracardiac thrombus or shunt, LA mod dilated, mild MR, mild TR, LVH. ) - Telemetry EKG Rhythm: Sinus Rhythm - EKG Sinus rhythms and dysrhythmias: sinus rhythm
[2017-08-28] MEDS: PULMICORT IH SCH ×2 (12:09→20:55)
[2017-08-28] MEDS ORDERED: NACL 0.9% 250ML 0 ML ONE (14:09)
[2017-08-28] MEDS ORDERED: K-DUR PO ONE (15:00)
[2017-08-29] MEDS: LASIX IV SCH ×2 (05:55→18:47)
[2017-08-29 07:19] LABS: Mean Corpuscular HGB Conc 31 % (30-34); Mean Corpuscular Hemoglobin 27 pg (28-32); Mean Corpuscular Volume 89 fl (79-97); Red Blood Count 5.12 M/mm3 (3.65-5.03); Red Cell Distribution Width 19.9 % (13.2-15.2)
[2017-08-29 07:26] LABS: Hematocrit 45.6 % (30.3-42.9); Hemoglobin 13.9 gm/dl (10.1-14.3)
[2017-08-29 07:27] LABS: Platelet Count 151 K/mm3 (140-440)
[2017-08-29 07:43] LABS: Alanine Aminotransferase 33 units/L (7-56); Albumin 3.4 g/dL (3.9-5); BUN/Creatinine Ratio 21; Blood Urea Nitrogen 17 mg/dL (7-17); Calcium 8.9 mg/dL (8.4-10.2); Hemolysis Index 45
[2017-08-29 08:48] LABS: Basophils % (Manual) 0 % (0.0-1.8); Eosinophils % (Manual) 0 % (0.0-4.3); Total Cells Counted 100
[2017-08-29 08:49] LABS: Anisocytosis 1+; Hypochromasia Few; Platelet Estimate Consistent w Auto; Target Cells Rare
[2017-08-29] MEDS: PERCOCET 5/325 PO PRN ×2 (09:19→18:54)
[2017-08-29] MEDS: APRESOLINE PO SCH ×3 (09:19→21:33)
[2017-08-29] MEDS: BABY ASPIRIN PO SCH (09:20)
[2017-08-29] MEDS: K-DUR PO SCH (09:20)
[2017-08-29] MEDS: PEPCID PO SCH (09:20)
[2017-08-29] MEDS: LOPRESSOR PO SCH ×2 (09:21→21:34)
[2017-08-29] MEDS: CORDARONE PO SCH (09:21)
[2017-08-29] MEDS: WELLBUTRIN SR PO SCH ×2 (09:21→21:34)
[2017-08-29] MEDS: GLUCOPHAGE PO SCH ×2 (09:21→18:47)
[2017-08-29] MEDS: ZESTRIL PO SCH (09:21)
[2017-08-29] MEDS: IMDUR PO SCH (09:22)
[2017-08-29] MEDS: PULMICORT IH SCH (10:12)
[2017-08-29] MEDS: BROVANA NEBU IH SCH (10:13)
--- NOTE | 2017-08-29 11:18 | Progress Note ---
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 - Acute on chronic hypercapneic respiratory failure On Bronchodilators Continue to monitor respiratory acidosis Pulm consulted - COPD on home oxygen Supplemental oxygen and Braonchodilatos - DRE/OHS with hypercpnea cautious ox - T2DM (type 2 diabetes mellitus) Cont sliding scale insulin, consistent carbohydrate diet, well managed POC glucose Metformin A1c was 6.4 - Hypokalemia and hypomagnesemia Supplements provided, continue monitoring Potassium normalized - HLD (hyperlipidemia) on statins - HTN (hypertension) commneced Metoprolol, ACEI, hydrallzin Blood pressure at 147/90 mm Hg - DVT prophylaxis with Scd's. Pt already on Eliquis Subjective Date of service: 08/29/17 Principal diagnosis: acute on chronic diastolic heart failure, acute on chronic respiratory fail Interval history: Patient seen and examined. Still having shortness of breath. Pulm consulted Objective - Exam Narrative Exam: Constitutional: Morbidly obese Well-nourished well-developed. In no distress Head: Normocephalic atraumatic Eyes: Pupils are equal round and reactive to light Nose: No enlarged turbinates, no septal deviation. Mouth: Moist mucous membranes. Neck: Supple no thyromegaly. No bruit. No JVD Heart: Regular rate and rhythm, S1-S2 abnormal. No rubs murmurs or gallop Lungs: Decreased breath sounds bilaterally with rhonchi. Abdomen: Soft, nontender. Bowel sound are present. Extremities: No edema no cyanosis and no clubbing. Neuro: Alert oriented Oriented x3. No focal sensory or motor deficit. Skin: No rashes no hyperemic spots Psychiatry: Euthymic. Calm. - Constitutional Vitals: Vital Signs - 12hr 08/28/17 08/29/17 08/29/17 23:55 00:04 00:05 Temperature 98.3 F Pulse Rate 91 H 71 71 Respiratory 20 18 Rate Respiratory Rate [Left Shoulder] Blood Pressure 142/88 Blood Pressure [Right] O2 Sat by Pulse 94 94 96 Oximetry 0508/29/17 08/29/17 04:37 07:36 09:08 Temperature 98.3 F 97.9 F Pulse Rate 68 67 Respiratory 18 20 Rate Respiratory Rate [Left Shoulder] Blood Pressure 147/90 Blood Pressure 155/102 [Right] O2 Sat by Pulse 92 94 89 Oximetry 08/29/17 08/29/17 08/29/17 09:19 09:21 09:22 Temperature Pulse Rate 67 67 Respiratory 20 Rate Respiratory Rate [Left Shoulder] Blood Pressure 147/90 147/90 Blood Pressure [Right] O2 Sat by Pulse Oximetry 08/29/17 09:31 Temperature Pulse Rate Respiratory Rate Respiratory 20 Rate [Left Shoulder] Blood Pressure Blood Pressure [Right] O2 Sat by Pulse Oximetry - Labs CBC & Chem 7: 08/29/17 06:36 08/29/17 06:36 Labs: Abnormal lab results 08/28/17 08/28/17 08/28/17 Range/Units 13:59 17:17 22:14 RBC (3.65-5.03) M/mm3 Hct (30.3-42.9) % MCH (28-32) pg RDW (13.2-15.2) % Seg Neuts % (Manual) (40.0-70.0) % Lymphocytes % (Manual) (13.4-35.0) % Monocytes % (Manual) (0.0-7.3) % Lymphocytes # (Manual) (1.2-5.4) K/mm3 Chloride (98-107) mmol/L Carbon Dioxide (22-30) mmol/L POC Glucose 131 H 156 H 165 H (70-105) Total Bilirubin (0.1-1.2) mg/dL Alkaline Phosphatase (35-129) units/L Albumin (3.9-5) g/dL 08/29/17 08/29/17 Range/Units 06:36 06:36 RBC 5.12 H (3.65-5.03) M/mm3 Hct 45.6 H (30.3-42.9) % MCH 27 L (28-32) pg RDW 19.9 H (13.2-15.2) % Seg Neuts % (Manual) 80.0 H (40.0-70.0) % Lymphocytes % (Manual) 11.0 L (13.4-35.0) % Monocytes % (Manual) 9.0 H (0.0-7.3) % Lymphocytes # (Manual) 1.0 L (1.2-5.4) K/mm3 Chloride 95.9 L (98-107) mmol/L Carbon Dioxide 45 H* (22-30) mmol/L POC Glucose (70-105) Total Bilirubin 1.70 H (0.1-1.2) mg/dL Alkaline Phosphatase 159 H (35-129) units/L Albumin 3.4 L (3.9-5) g/dL
--- NOTE | 2017-08-29 11:58 | Progress Note ---
Assessment and Plan Continue diuresis with IV lasix BID. Obtain strict I&Os and daily weights. The patient has been seen in conjunction with Dr. Vogel who agrees with the assessment and plan of care. - Patient Problems (1) Acute on chronic heart failure with normal ejection fraction Current Visit: Yes Status: Acute (2) Acute on chronic respiratory failure with hypoxemia Current Visit: Yes Status: Acute (3) Anasarca Current Visit: Yes Status: Acute (4) Uncontrolled hypertension Current Visit: Yes Status: Acute (5) Obstructive sleep apnea Current Visit: Yes Status: Chronic (6) Paroxysmal atrial fibrillation Current Visit: Yes Status: Chronic (7) COPD (chronic obstructive pulmonary disease) Current Visit: Yes Status: Chronic (8) Diabetes Current Visit: Yes Status: Chronic (9) Obesity hypoventilation syndrome Current Visit: Yes Status: Chronic (10) Hypokalemia Current Visit: Yes Status: Acute (11) Hypomagnesemia Current Visit: Yes Status: Acute Subjective Date of service: 08/29/17 Principal diagnosis: acute on chronic diastolic heart failure, acute on chronic respiratory fail Interval history: pt ambulating around room, still with complaints of SOB and generalized edema although she reports these symptoms are gradually improving. Objective Last Vital Signs Temp 97.9 F 08/29/17 09:08 Pulse 67 08/29/17 09:22 Resp 20 08/29/17 09:31 BP 147/90 08/29/17 09:22 Pulse Ox 89 08/29/17 09:08 - Physical Examination HEENT: Positive: EOMI, Normocephaly, Mucus Membranes Moist Neck: Positive: neck supple, trachea midline, JVD/HJR (elevated) Cardiac: Positive: Reg Rate and Rhythm, S1/S2 Lungs: Positive: clear to auscultation Neuro: Positive: Grossly Intact Abdomen: Positive: Soft, Active Bowel Sounds. Negative: Tender Skin: Positive: Other (thick and edematous) Musculoskeletal: Normal Range of Motion Extremities: Present: edema (generalized), +2 Edema (BLE) - Labs and Meds Cardiac Enzymes 08/29/17 Range/Units 06:36 AST 33 (5-40) units/L CBC 08/29/17 Range/Units 06:36 WBC 9.0 (4.5-11.0) K/mm3 RBC 5.12 H (3.65-5.03) M/mm3 Hgb 13.9 (10.1-14.3) gm/dl Hct 45.6 H (30.3-42.9) % Plt Count 151 (140-440) K/mm3 Comprehensive Metabolic Panel 08/29/17 Range/Units 06:36 Sodium 144 (137-145) mmol/L Potassium 4.2 (3.6-5.0) mmol/L Chloride 95.9 L (98-107) mmol/L Carbon Dioxide 45 H* (22-30) mmol/L BUN 17 (7-17) mg/dL Creatinine 0.8 (0.7-1.2) mg/dL Glucose 88 (65-100) mg/dL Calcium 8.9 (8.4-10.2) mg/dL AST 33 (5-40) units/L ALT 33 (7-56) units/L Alkaline Phosphatase 159 H (35-129) units/L Total Protein 6.7 (6.3-8.2) g/dL Albumin 3.4 L (3.9-5) g/dL - Imaging and Cardiology EKG: image reviewed Echo: report reviewed (04/2017 (ANGELIKA prior to [facility]): EF 55-60%, no intracardiac thrombus or shunt, LA mod dilated, mild MR, mild TR, LVH. ) - Telemetry EKG Rhythm: Sinus Rhythm - EKG Sinus rhythms and dysrhythmias: sinus rhythm
--- NOTE | 2017-08-29 13:58 | Consultation ---
History of Present Illness Consult date: 08/29/17 Requesting physician: JOHNATHON BOWMAN Reason for consult: obstructive sleep apnea History of present illness: 52 y/o morbidly obese female, followed by Dr. Chirinos for DRE, admitted with worsening shortness of breath and baseline chronic respiratory failure. patient is on 5 liters at home. States that he CPAP machine is older and needs to be serviced but I am not sure if she is wearing at night or not. Has been getting IV diuresis and slowly is improving. Primary asked us to see patient. She is a chronic CO2 retainer given her blood gas from 2 days ago that was almost completely compensated. She appears to have somewhat of a contraction alkalosis now, most likely secondary to lasix therapy, however she needs this. Past History Past Medical History: atrial fib, diabetes, heart failure, hypertension Past Surgical History: Other (ectopic surgery) Social history: alcohol abuse. denies: smoking, prescription drug abuse Family history: other (both parent had Hear failure) Medications and Allergies Allergies Allergy/AdvReac Type Severity Reaction Status Date / Time No Known Allergies Allergy Verified 08/26/17 23:49 Home Medications Medication Instructions Recorded Confirmed Last Taken Type ALBUTEROL Inhaler [ProAir HFA 2 puff IH QID PRN #1 inha 05/17/17 08/27/17 Unknown Rx Inhaler] ALBUTEROL NEB's [Proventil 0.083% 2.5 mg IH Q4HRT PRN #100 nebu 05/17/17 Unknown Rx NEBS] Amiodarone [Cordarone 200 MG TAB] 200 mg PO QDAY #30 tablet 05/17/17 08/27/17 Unknown Rx Apixaban [Eliquis] 5 mg PO Q12HR #60 tablet 05/17/17 08/27/17 Unknown Rx AtorvaSTATin [Lipitor] 40 mg PO HS #30 tablet 05/17/17 08/27/17 Unknown Rx Bisacodyl [Dulcolax suppos] 10 mg [place] QDAY PRN #30 supp.rect 05/17/17 08/27/17 Unknown Rx Budesonide [Pulmicort Respules] 0.5 mg IH Q12HRT #60 nebu 05/17/17 08/27/17 Unknown Rx Budesonide/Formoterol Fumarate 10.2 gm IH PRN #1 hfa.aer.ad 05/17/17 08/27/17 Unknown Rx [Symbicort 80-4.5 Mcg Inhaler] Famotidine [Pepcid] 20 mg PO BID #60 tablet 05/17/17 08/27/17 Unknown Rx Ferrous Sulfate [Feosol 325 MG tab] 325 mg PO BID #60 tablet 05/17/17 08/27/17 Unknown Rx Furosemide [Lasix TAB] 40 mg PO QDAY #30 tablet 05/17/17 08/27/17 Unknown Rx ISOSORBIDE MONOnitrate [Imdur ER] 60 mg PO DAILY #30 tablet 05/17/17 08/27/17 Unknown Rx Metformin HCl 500 mg PO BID #60 tablet 05/17/17 08/27/17 Unknown Rx Metoprolol [Lopressor TAB] 50 mg PO BID #60 tablet 05/17/17 08/27/17 Unknown Rx buPROPion SR [Wellbutrin SR] 150 mg PO BID #60 tablet 05/17/17 08/27/17 Unknown Rx oxyCODONE /ACETAMINOPHEN [Percocet 1 tab PO Q6H PRN tablet 05/17/17 08/27/17 Unknown Rx 5/325 mg] Active Meds: Active Medications Albuterol (Proventil) 2.5 mg IH Q4HRT PRN PRN Reason: Shortness Of Breath Last Admin: 08/27/17 14:56 Dose: 2.5 mg Amiodarone HCl (Cordarone) 200 mg PO QDAY [facility] Last Admin: 08/29/17 09:21 Dose: 200 mg Arformoterol Tartrate (Brovana Nebu) 15 mcg IH Q12HRT [facility] Last Admin: 08/29/17 10:13 Dose: Not Given Aspirin (Baby Aspirin) 81 mg PO QDAY [facility] Last Admin: 08/29/17 09:20 Dose: 81 mg Atorvastatin Calcium (Lipitor) 40 mg PO [facility] Last Admin: 08/28/17 22:19 Dose: 40 mg Bisacodyl (Dulcolax) 10 mg [place] QDAY PRN PRN Reason: Constipation unrelieved by MOM Budesonide (Pulmicort) 0.5 mg IH Q12HRT [facility] Last Admin: 08/29/17 10:12 Dose: Not Given Bupropion HCl (Wellbutrin Sr) 150 mg PO BID [facility] Last Admin: 08/29/17 09:21 Dose: 150 mg Famotidine (Pepcid) 20 mg PO DAILY [facility] Last Admin: 08/29/17 09:20 Dose: 20 mg Furosemide (Lasix) 80 mg IV 0600,1800 [facility] Last Admin: 08/29/17 05:55 Dose: 80 mg Hydralazine HCl (Apresoline) 100 mg PO TID [facility] Last Admin: 08/29/17 09:19 Dose: 100 mg Isosorbide Mononitrate (Imdur) 60 mg PO QDAY [facility] Last Admin: 08/29/17 09:22 Dose: 60 mg Lisinopril (Zestril) 40 mg PO QDAY [facility] Last Admin: 08/29/17 09:21 Dose: 40 mg Metformin HCl (Glucophage) 500 mg PO BIDDIAB [facility] Last Admin: 08/29/17 09:21 Dose: 500 mg Metoprolol Tartrate (Lopressor) 50 mg PO BID [facility] Last Admin: 08/29/17 09:21 Dose: 50 mg Oxycodone/Acetaminophen (Percocet 5/325) 1 tab PO Q6H PRN PRN Reason: Pain, Moderate (4-6) Last Admin: 08/29/17 09:19 Dose: 1 tab Potassium Chloride (K-Dur) 20 meq PO QDAY [facility] Last Admin: 08/29/17 09:20 Dose: 20 meq Review of Systems All systems: negative Physical Examination Vital signs: Vital Signs Pulse BP Pulse Ox 68 168/115 95 08/26/17 22:56 08/26/17 22:56 08/26/17 22:56 General appearance: no acute distress, alert Eyes: non-icteric ENT: other Neck: supple Effort: mildly labored Ascultation: Bilateral: diminished breath sounds, rales Percussion: Bilateral: not dull Cardiovascular: regular rate and rhythm Gastrointestinal: other (obese) Results - Laboratory Findings CBC and BMP: 08/29/17 06:36 08/29/17 06:36 ABG POC ABG pH 7.334 (7.35-7.45) L 08/27/17 11:40 POC ABG pCO2 73.2 (35-45) H 08/27/17 11:40 POC ABG pO2 84 (80-105) 08/27/17 11:40 POC ABG HCO3 38.9 08/27/17 11:40 POC ABG Total CO2 41 08/27/17 11:40 POC ABG O2 Sat 95 08/27/17 11:40 PT/INR, D-dimer PT 20.8 Sec. (12.2-14.9) H 08/28/17 06:52 INR 1.68 (0.87-1.13) H 08/28/17 06:52 Abnormal lab findings: Abnormal Labs 08/26/17 08/26/17 08/27/17 23:55 23:55 07:07 RBC 5.36 H Hgb 14.9 H Hct 47.7 H MCH RDW 20.5 H Seg Neuts % (Manual) 82.0 H Lymphocytes % (Manual) 12.0 L Monocytes % (Manual) Seg Neutrophils # Man Lymphocytes # (Manual) 0.9 L PT 22.5 H INR 1.85 H POC ABG pH POC ABG pCO2 Potassium Chloride 90.3 L Carbon Dioxide 37 H Glucose 117 H POC Glucose Hemoglobin A1c Magnesium Total Bilirubin Alkaline Phosphatase NT-Pro-B Natriuret Pep Albumin 08/27/17 08/27/17 08/27/17 07:07 11:40 21:02 RBC Hgb Hct MCH RDW Seg Neuts % (Manual) Lymphocytes % (Manual) Monocytes % (Manual) Seg Neutrophils # Man Lymphocytes # (Manual) PT INR POC ABG pH 7.334 L POC ABG pCO2 73.2 H Potassium Chloride Carbon Dioxide Glucose POC Glucose Hemoglobin A1c 6.4 H Magnesium Total Bilirubin Alkaline Phosphatase NT-Pro-B Natriuret Pep 2624 H Albumin 08/28/17 08/28/17 08/28/17 06:42 06:52 06:52 RBC 5.20 H Hgb Hct 46.3 H MCH RDW 20.2 H Seg Neuts % (Manual) 87.0 H Lymphocytes % (Manual) 7.0 L Monocytes % (Manual) Seg Neutrophils # Man 8.0 H Lymphocytes # (Manual) 0.6 L PT 20.8 H INR 1.68 H POC ABG pH POC ABG pCO2 Potassium Chloride Carbon Dioxide Glucose POC Glucose 120 H Hemoglobin A1c Magnesium Total Bilirubin Alkaline Phosphatase NT-Pro-B Natriuret Pep Albumin 08/28/17 08/28/17 08/28/17 06:52 13:59 17:17 RBC Hgb Hct MCH RDW Seg Neuts % (Manual) Lymphocytes % (Manual) Monocytes % (Manual) Seg Neutrophils # Man Lymphocytes # (Manual) PT INR POC ABG pH POC ABG pCO2 Potassium 3.5 L Chloride 92.3 L Carbon Dioxide 40 H Glucose 118 H POC Glucose 131 H 156 H Hemoglobin A1c Magnesium 1.50 L Total Bilirubin 1.80 H Alkaline Phosphatase 171 H NT-Pro-B Natriuret Pep Albumin 3.4 L 08/28/17 08/29/17 08/29/17 22:14 06:36 06:36 RBC 5.12 H Hgb Hct 45.6 H MCH 27 L RDW 19.9 H Seg Neuts % (Manual) 80.0 H Lymphocytes % (Manual) 11.0 L Monocytes % (Manual) 9.0 H Seg Neutrophils # Man Lymphocytes # (Manual) 1.0 L PT INR POC ABG pH POC ABG pCO2 Potassium Chloride 95.9 L Carbon Dioxide 45 H* Glucose POC Glucose 165 H Hemoglobin A1c Magnesium Total Bilirubin 1.70 H Alkaline Phosphatase 159 H NT-Pro-B Natriuret Pep Albumin 3.4 L 08/29/17 12:23 RBC Hgb Hct MCH RDW Seg Neuts % (Manual) Lymphocytes % (Manual) Monocytes % (Manual) Seg Neutrophils # Man Lymphocytes # (Manual) PT INR POC ABG pH POC ABG pCO2 Potassium Chloride Carbon Dioxide Glucose POC Glucose 121 H Hemoglobin A1c Magnesium Total Bilirubin Alkaline Phosphatase NT-Pro-B Natriuret Pep Albumin - Diagnostic Findings Chest x-ray: image reviewed (cardiomegaly with pulmonary edema) Assessment and Plan 52 y/o morbidly obese female with chronic respiratory failure, OHS, and DRE admitted with worsening dyspnea, found to be volume overloaded. 1. Agree with IV diuresis as being guided by cardiology 2. Patient does not have COPD, nor in COPD exacerbation, can continue PRN albuterol 3. Patient wears 5 liters O2 at home, suggest not trying to wean below this 4. Continue PPV at night here 5. Thank you for this consult, will continue to follow along with you.
[2017-08-30] MEDS: LASIX IV SCH ×2 (05:27→17:11)
[2017-08-30 08:10] LABS: Mean Corpuscular HGB Conc 30 % (30-34); Mean Corpuscular Hemoglobin 27 pg (28-32); Mean Corpuscular Volume 90 fl (79-97); Red Blood Count 5.48 M/mm3 (3.65-5.03); Red Cell Distribution Width 19.8 % (13.2-15.2)
[2017-08-30 08:28] LABS: Hematocrit 49.1 % (30.3-42.9); Hemoglobin 14.9 gm/dl (10.1-14.3)
[2017-08-30 08:30] LABS: Alanine Aminotransferase 36 units/L (7-56); BUN/Creatinine Ratio 21; Blood Urea Nitrogen 19 mg/dL (7-17); Hemolysis Index 43
[2017-08-30] MEDS: PERCOCET 5/325 PO PRN ×3 (09:31→22:19)
[2017-08-30] MEDS: GLUCOPHAGE PO SCH ×2 (09:32→17:12)
[2017-08-30] MEDS: APRESOLINE PO SCH ×3 (09:37→22:20)
[2017-08-30] MEDS: LOPRESSOR PO SCH ×2 (10:30→22:19)
[2017-08-30] MEDS: BABY ASPIRIN PO SCH (10:31)
[2017-08-30] MEDS: IMDUR PO SCH (10:31)
[2017-08-30] MEDS: K-DUR PO SCH (10:31)
[2017-08-30] MEDS: WELLBUTRIN SR PO SCH ×2 (10:34→22:19)
[2017-08-30] MEDS: ZESTRIL PO SCH ×2 (10:34→10:36)
[2017-08-30] MEDS: PEPCID PO SCH (10:35)
[2017-08-30] MEDS: CORDARONE PO SCH (10:35)
[2017-08-30 11:09] LABS: Basophils % (Manual) 0 % (0.0-1.8); Eosinophils % (Manual) 0 % (0.0-4.3); Total Cells Counted 100
[2017-08-30 11:10] LABS: RBC Morphology Normal
[2017-08-30 11:14] LABS: Platelet Count 170 K/mm3 (140-440)
--- NOTE | 2017-08-30 12:05 | Progress Note ---
Assessment and Plan She has been diuresing significantly in response to current management. Continue IV diuretics and follow renal indices closely. - Patient Problems (1) Acute on chronic heart failure with normal ejection fraction Current Visit: Yes Status: Acute (2) Acute on chronic respiratory failure with hypoxemia Current Visit: Yes Status: Acute (3) Uncontrolled hypertension Current Visit: Yes Status: Acute (4) Anasarca Current Visit: Yes Status: Acute (5) Obstructive sleep apnea Current Visit: Yes Status: Chronic (6) Paroxysmal atrial fibrillation Current Visit: Yes Status: Chronic (7) COPD (chronic obstructive pulmonary disease) Current Visit: Yes Status: Chronic (8) Obesity hypoventilation syndrome Current Visit: Yes Status: Chronic (9) T2DM (type 2 diabetes mellitus) Current Visit: Yes Status: Chronic Subjective Date of service: 08/30/17 Principal diagnosis: Acute on chronic HFpEF, Acute on chronic resp failure, uncontrolled HTN Interval history: She claims that she is still unable to take deep breaths at times. Objective Vital Signs Temp Pulse Resp BP BP Pulse Ox 08/30/17 10:36 69 139/92 08/30/17 10:34 69 139/92 08/30/17 10:31 69 139/92 08/30/17 10:30 115 H 08/30/17 10:00 98 08/30/17 09:43 20 100 08/30/17 09:31 18 08/30/17 09:03 97.6 F 69 20 139/92 93 08/30/17 08:58 100 08/30/17 04:13 68 126/75 88 08/30/17 04:10 97.6 F 08/29/17 23:44 98.3 F 69 20 140/89 98 08/29/17 23:29 68 08/29/17 22:00 20 100 08/29/17 21:34 71 147/92 08/29/17 19:54 18 08/29/17 19:36 98.1 F 74 18 125/87 95 08/29/17 18:54 20 08/29/17 16:27 98.6 F 71 18 155/102 99 08/29/17 12:12 97.9 F 70 20 150/88 94 - Physical Examination General: No Apparent Distress HEENT: Positive: EOMI, Normocephaly, Mucus Membranes Moist Neck: Positive: neck supple, trachea midline, JVD/HJR (elevated) Cardiac: Positive: Reg Rate and Rhythm Lungs: Positive: clear to auscultation Neuro: Positive: Grossly Intact Abdomen: Positive: Soft, Active Bowel Sounds. Negative: Tender Skin: Positive: Other (thick and edematous) Musculoskeletal: Normal Range of Motion Extremities: Present: edema (generalized), +2 Edema (BLE) - Labs and Meds Cardiac Enzymes 08/30/17 Range/Units 07:30 AST 38 (5-40) units/L CBC 08/30/17 Range/Units 07:30 WBC 7.7 (4.5-11.0) K/mm3 RBC 5.48 H (3.65-5.03) M/mm3 Hgb 14.9 H (10.1-14.3) gm/dl Hct 49.1 H (30.3-42.9) % Plt Count 170 (140-440) K/mm3 Comprehensive Metabolic Panel 08/30/17 Range/Units 07:30 Sodium 143 (137-145) mmol/L Potassium 4.0 (3.6-5.0) mmol/L Chloride 90.3 L (98-107) mmol/L Carbon Dioxide 39 H (22-30) mmol/L BUN 19 H (7-17) mg/dL Creatinine 0.9 (0.7-1.2) mg/dL Glucose 97 (65-100) mg/dL Calcium 9.0 (8.4-10.2) mg/dL AST 38 (5-40) units/L ALT 36 (7-56) units/L Alkaline Phosphatase 183 H (35-129) units/L Total Protein 7.6 (6.3-8.2) g/dL Albumin 4.0 (3.9-5) g/dL - Imaging and Cardiology EKG: image reviewed Echo: report reviewed (04/2017 (ANGELIKA prior to [facility]): EF 55-60%, no intracardiac thrombus or shunt, LA mod dilated, mild MR, mild TR, LVH. ) - Telemetry EKG Rhythm: Sinus Rhythm - EKG Sinus rhythms and dysrhythmias: sinus rhythm
--- NOTE | 2017-08-30 14:04 | Progress Note ---
Assessment and Plan 52 y/o morbidly obese female with chronic respiratory failure, OHS, and DRE admitted with worsening dyspnea, found to be volume overloaded. 1. Agree with IV diuresis as being guided by cardiology 2. Patient does not have COPD, nor in COPD exacerbation, can continue PRN albuterol (patient has Sarcoid, likely stage IV) 3. Patient wears 5 liters O2 at home, suggest not trying to wean below this 4. Continue PPV at night here 5. Thank you for this consult, will continue to follow along with you. Subjective Date of service: 08/30/17 Principal diagnosis: Acute on chronic HFpEF, Acute on chronic resp failure, uncontrolled HTN Interval history: No acute events. Down in O2 requirements significantly. Unsure if bipap was worn last night as it is not documented in the chart. Objective Vital Signs - 12hr 08/30/17 08/30/17 08/30/17 04:10 04:13 08:58 Temperature 97.6 F Pulse Rate 68 Respiratory Rate Blood Pressure 126/75 O2 Sat by Pulse 88 100 Oximetry 08/30/17 08/30/17 08/30/17 09:03 09:31 09:43 Temperature 97.6 F Pulse Rate 69 Respiratory 20 18 20 Rate Blood Pressure 139/92 O2 Sat by Pulse 93 100 Oximetry 08/30/17 08/30/17 08/30/17 10:00 10:30 10:31 Temperature Pulse Rate 115 H 69 Respiratory Rate Blood Pressure 139/92 O2 Sat by Pulse 98 Oximetry 08/30/17 08/30/17 08/30/17 10:34 10:36 12:04 Temperature 97.9 F Pulse Rate 69 69 68 Respiratory 20 Rate Blood Pressure 139/92 139/92 136/93 O2 Sat by Pulse 85 Oximetry Constitutional: no acute distress, alert Eyes: non-icteric ENT: other Neck: supple Effort: mildly labored Ascultation: Bilateral: diminished breath sounds, rales Percussion: Bilateral: not dull Cardiovascular: regular rate and rhythm Gastrointestinal: other (obese) CBC and BMP: 08/30/17 07:30 08/30/17 07:30 ABG, PT/INR, D-dimer: ABG POC ABG pH 7.334 (7.35-7.45) L 08/27/17 11:40 POC ABG pCO2 73.2 (35-45) H 08/27/17 11:40 POC ABG pO2 84 (80-105) 08/27/17 11:40 POC ABG HCO3 38.9 08/27/17 11:40 POC ABG Total CO2 41 08/27/17 11:40 POC ABG O2 Sat 95 08/27/17 11:40 PT/INR, D-dimer PT 20.8 Sec. (12.2-14.9) H 08/28/17 06:52 INR 1.68 (0.87-1.13) H 08/28/17 06:52 Abnormal lab findings: Abnormal Labs 08/26/17 08/26/17 08/27/17 23:55 23:55 07:07 RBC 5.36 H Hgb 14.9 H Hct 47.7 H MCH RDW 20.5 H Seg Neuts % (Manual) 82.0 H Lymphocytes % (Manual) 12.0 L Monocytes % (Manual) Seg Neutrophils # Man Lymphocytes # (Manual) 0.9 L PT 22.5 H INR 1.85 H POC ABG pH POC ABG pCO2 Potassium Chloride 90.3 L Carbon Dioxide 37 H BUN Glucose 117 H POC Glucose Hemoglobin A1c Magnesium Total Bilirubin Alkaline Phosphatase NT-Pro-B Natriuret Pep Albumin 08/27/17 08/27/17 08/27/17 07:07 11:40 21:02 RBC Hgb Hct MCH RDW Seg Neuts % (Manual) Lymphocytes % (Manual) Monocytes % (Manual) Seg Neutrophils # Man Lymphocytes # (Manual) PT INR POC ABG pH 7.334 L POC ABG pCO2 73.2 H Potassium Chloride Carbon Dioxide BUN Glucose POC Glucose Hemoglobin A1c 6.4 H Magnesium Total Bilirubin Alkaline Phosphatase NT-Pro-B Natriuret Pep 2624 H Albumin 08/28/17 08/28/17 08/28/17 06:42 06:52 06:52 RBC 5.20 H Hgb Hct 46.3 H MCH RDW 20.2 H Seg Neuts % (Manual) 87.0 H Lymphocytes % (Manual) 7.0 L Monocytes % (Manual) Seg Neutrophils # Man 8.0 H Lymphocytes # (Manual) 0.6 L PT 20.8 H INR 1.68 H POC ABG pH POC ABG pCO2 Potassium Chloride Carbon Dioxide BUN Glucose POC Glucose 120 H Hemoglobin A1c Magnesium Total Bilirubin Alkaline Phosphatase NT-Pro-B Natriuret Pep Albumin 08/28/17 08/28/17 08/28/17 06:52 13:59 17:17 RBC Hgb Hct MCH RDW Seg Neuts % (Manual) Lymphocytes % (Manual) Monocytes % (Manual) Seg Neutrophils # Man Lymphocytes # (Manual) PT INR POC ABG pH POC ABG pCO2 Potassium 3.5 L Chloride 92.3 L Carbon Dioxide 40 H BUN Glucose 118 H POC Glucose 131 H 156 H Hemoglobin A1c Magnesium 1.50 L Total Bilirubin 1.80 H Alkaline Phosphatase 171 H NT-Pro-B Natriuret Pep Albumin 3.4 L 08/28/17 08/29/17 08/29/17 22:14 06:36 06:36 RBC 5.12 H Hgb Hct 45.6 H MCH 27 L RDW 19.9 H Seg Neuts % (Manual) 80.0 H Lymphocytes % (Manual) 11.0 L Monocytes % (Manual) 9.0 H Seg Neutrophils # Man Lymphocytes # (Manual) 1.0 L PT INR POC ABG pH POC ABG pCO2 Potassium Chloride 95.9 L Carbon Dioxide 45 H* BUN Glucose POC Glucose 165 H Hemoglobin A1c Magnesium Total Bilirubin 1.70 H Alkaline Phosphatase 159 H NT-Pro-B Natriuret Pep Albumin 3.4 L 08/29/17 08/29/17 08/29/17 12:23 16:33 22:09 RBC Hgb Hct MCH RDW Seg Neuts % (Manual) Lymphocytes % (Manual) Monocytes % (Manual) Seg Neutrophils # Man Lymphocytes # (Manual) PT INR POC ABG pH POC ABG pCO2 Potassium Chloride Carbon Dioxide BUN Glucose POC Glucose 121 H 130 H 131 H Hemoglobin A1c Magnesium Total Bilirubin Alkaline Phosphatase NT-Pro-B Natriuret Pep Albumin 08/30/17 08/30/17 08/30/17 07:30 07:30 12:14 RBC 5.48 H Hgb 14.9 H Hct 49.1 H MCH 27 L RDW 19.8 H Seg Neuts % (Manual) 84.0 H Lymphocytes % (Manual) 11.0 L Monocytes % (Manual) Seg Neutrophils # Man Lymphocytes # (Manual) 0.8 L PT INR POC ABG pH POC ABG pCO2 Potassium Chloride 90.3 L Carbon Dioxide 39 H BUN 19 H Glucose POC Glucose 151 H Hemoglobin A1c Magnesium Total Bilirubin 1.70 H Alkaline Phosphatase 183 H NT-Pro-B Natriuret Pep Albumin
--- NOTE | 2017-08-30 17:14 | Progress Note ---
Assessment and Plan Assessment and plan: Acute on chronic diastolic (congestive) heart failure CHF exacerbation - CXR indicated generalized enlargement of cardiac silhouette without localized infiltrates/congestion - IV Lasix 80 mg BID, lisinopril and metoprolol - Had ECHO in 04/2017 with normal EF 55-60% and no intracardiac thrombus or shunt - Cardiology consult appreciated Acute on chronic hypercapneic respiratory failure, DRE, COPD - On Bronchodilators - Continue to monitor respiratory acidosis - Pulm consult appreciated T2DM (type 2 diabetes mellitus) - Continue metformin - A1c was 6.4 Hypokalemia and hypomagnesemia - Supplements provided, continue monitoring - Potassium normalized HLD (hyperlipidemia) - on statins HTN (hypertension) - Continue Metoprolol, ACEI, hydrallzin - Blood pressure at 137/107 mm Hg - DVT prophylaxis with Scd's. Pt already on Eliquis History Interval history: Patient was seen and evaluated this morning, patient has shortness of breath and bilateral leg swelling. Hospitalist Physical - Physical exam Narrative exam: Not in cardiopulmonary distress. The patient is morbidly obese. Vital signs as documented. Head exam is unremarkable. No scleral icterus . Neck is without jugular venous distension, thyromegaly, or carotid bruits. Lungs scattered wheezing Cardiac exam reveals regular rate and Rhythm. Abdominal exam reveals normal bowel sounds. Extremities are nonedematous and both femoral and pedal pulses are normal. RETAIL FIELD REPRESENTATIVE: Alert and oriented 3. No focal weakness. - Constitutional Vitals: Temp Pulse Resp BP Pulse Ox 97.9 F 68 20 136/93 85 08/30/17 12:04 08/30/17 12:04 08/30/17 12:04 08/30/17 12:04 08/30/17 12:04 General appearance: Present: mild distress, well-nourished, obese Results - Labs CBC & Chem 7: 08/30/17 07:30 08/30/17 07:30 Labs: Laboratory Last Values WBC 7.7 K/mm3 (4.5-11.0) 08/30/17 07:30 RBC 5.48 M/mm3 (3.65-5.03) H 08/30/17 07:30 Hgb 14.9 gm/dl (10.1-14.3) H 08/30/17 07:30 Hct 49.1 % (30.3-42.9) H 08/30/17 07:30 MCV 90 fl (79-97) 08/30/17 07:30 MCH 27 pg (28-32) L 08/30/17 07:30 MCHC 30 % (30-34) 08/30/17 07:30 RDW 19.8 % (13.2-15.2) H 08/30/17 07:30 Plt Count 170 K/mm3 (140-440) 08/30/17 07:30 Add Manual Diff Complete 08/30/17 07:30 Total Counted 100 08/30/17 07:30 Seg Neuts % (Manual) 84.0 % (40.0-70.0) H 08/30/17 07:30 Band Neutrophils % 0 % 08/30/17 07:30 Lymphocytes % (Manual) 11.0 % (13.4-35.0) L 08/30/17 07:30 Reactive Lymphs % (Man) 0 % 08/30/17 07:30 Monocytes % (Manual) 5.0 % (0.0-7.3) 08/30/17 07:30 Eosinophils % (Manual) 0 % (0.0-4.3) 08/30/17 07:30 Basophils % (Manual) 0 % (0.0-1.8) 08/30/17 07:30 Metamyelocytes % 0 % 08/30/17 07:30 Myelocytes % 0 % 08/30/17 07:30 Promyelocytes % 0 % 08/30/17 07:30 Blast Cells % 0 % 08/30/17 07:30 Nucleated RBC % Not Reportable 08/30/17 07:30 Seg Neutrophils # Man 6.5 K/mm3 (1.8-7.7) 08/30/17 07:30 Band Neutrophils # 0.0 K/mm3 08/30/17 07:30 Lymphocytes # (Manual) 0.8 K/mm3 (1.2-5.4) L 08/30/17 07:30 Abs React Lymphs (Man) 0.0 K/mm3 08/30/17 07:30 Monocytes # (Manual) 0.4 K/mm3 (0.0-0.8) 08/30/17 07:30 Eosinophils # (Manual) 0.0 K/mm3 (0.0-0.4) 08/30/17 07:30 Basophils # (Manual) 0.0 K/mm3 (0.0-0.1) 08/30/17 07:30 Metamyelocytes # 0.0 K/mm3 08/30/17 07:30 Myelocytes # 0.0 K/mm3 08/30/17 07:30 Promyelocytes # 0.0 K/mm3 08/30/17 07:30 Blast Cells # 0.0 K/mm3 08/30/17 07:30 WBC Morphology Not Reportable 08/30/17 07:30 Hypersegmented Neuts Not Reportable 08/30/17 07:30 Hyposegmented Neuts Not Reportable 08/30/17 07:30 Hypogranular Neuts Not Reportable 08/30/17 07:30 Smudge Cells Not Reportable 08/30/17 07:30 Toxic Granulation Not Reportable 08/30/17 07:30 Toxic Vacuolation Not Reportable 08/30/17 07:30 Dohle Bodies Not Reportable 08/30/17 07:30 Pelger-Huet Anomaly Not Reportable 08/30/17 07:30 Chiara Rods Not Reportable 08/30/17 07:30 Platelet Estimate Not Reportable 08/30/17 07:30 Clumped Platelets Not Reportable 08/30/17 07:30 Plt Clumps, EDTA Not Reportable 08/30/17 07:30 Large Platelets Not Reportable 08/30/17 07:30 Giant Platelets Not Reportable 08/30/17 07:30 Platelet Satelliting Not Reportable 08/30/17 07:30 Plt Morphology Comment Not Reportable 08/30/17 07:30 RBC Morphology Normal 08/30/17 07:30 Dimorphic RBCs Not Reportable 08/30/17 07:30 Polychromasia Not Reportable 08/30/17 07:30 Hypochromasia Not Reportable 08/30/17 07:30 Poikilocytosis Not Reportable 08/30/17 07:30 Anisocytosis Not Reportable 08/30/17 07:30 Microcytosis Not Reportable 08/30/17 07:30 Macrocytosis Not Reportable 08/30/17 07:30 Spherocytes Not Reportable 08/30/17 07:30 Pappenheimer Bodies Not Reportable 08/30/17 07:30 Sickle Cells Not Reportable 08/30/17 07:30 Target Cells Not Reportable 08/30/17 07:30 Tear Drop Cells Not Reportable 08/30/17 07:30 Ovalocytes Not Reportable 08/30/17 07:30 Stomatocytes Few 08/28/17 06:52 Helmet Cells Not Reportable 08/30/17 07:30 [place] Bodies Not Reportable 08/30/17 07:30 [place] Rings Not Reportable 08/30/17 07:30 [place] Cells Not Reportable 08/30/17 07:30 Bite Cells Not Reportable 08/30/17 07:30 Crenated Cell Not Reportable 08/30/17 07:30 Elliptocytes Not Reportable 08/30/17 07:30 Acanthocytes (Spur) Not Reportable 08/30/17 07:30 Rouleaux Not Reportable 08/30/17 07:30 Hemoglobin C Crystals Not Reportable 08/30/17 07:30 Schistocytes Not Reportable 08/30/17 07:30 Malaria parasites Not Reportable 08/30/17 07:30 [place] Bodies Not Reportable 08/30/17 07:30 Hem Pathologist Commnt No 08/30/17 07:30 PT 20.8 Sec. (12.2-14.9) H 08/28/17 06:52 INR 1.68 (0.87-1.13) H 08/28/17 06:52 POC ABG pH 7.334 (7.35-7.45) L 08/27/17 11:40 POC ABG pCO2 73.2 (35-45) H 08/27/17 11:40 POC ABG pO2 84 (80-105) 08/27/17 11:40 POC ABG HCO3 38.9 08/27/17 11:40 POC ABG Total CO2 41 08/27/17 11:40 POC ABG O2 Sat 95 08/27/17 11:40 POC ABG Base Excess 13 08/27/17 11:40 FiO2 35 % 08/27/17 11:40 Sodium 143 mmol/L (137-145) 08/30/17 07:30 Potassium 4.0 mmol/L (3.6-5.0) 08/30/17 07:30 Chloride 90.3 mmol/L (98-107) L 08/30/17 07:30 Carbon Dioxide 39 mmol/L (22-30) H 08/30/17 07:30 Anion Gap 18 mmol/L 08/30/17 07:30 BUN 19 mg/dL (7-17) H 08/30/17 07:30 Creatinine 0.9 mg/dL (0.7-1.2) 08/30/17 07:30 Estimated GFR > 60 ml/min 08/30/17 07:30 BUN/Creatinine Ratio 21 % 08/30/17 07:30 Glucose 97 mg/dL (65-100) 08/30/17 07:30 POC Glucose 151 (70-105) H 08/30/17 12:14 Hemoglobin A1c 6.4 % (4-6) H 08/27/17 21:02 Calcium 9.0 mg/dL (8.4-10.2) 08/30/17 07:30 Phosphorus 4.50 mg/dL (2.5-4.5) 08/28/17 06:52 Magnesium 1.50 mg/dL (1.7-2.3) L 08/28/17 06:52 Total Bilirubin 1.70 mg/dL (0.1-1.2) H 08/30/17 07:30 AST 38 units/L (5-40) 08/30/17 07:30 ALT 36 units/L (7-56) 08/30/17 07:30 Alkaline Phosphatase 183 units/L (35-129) H 08/30/17 07:30 NT-Pro-B Natriuret Pep 2624 pg/mL (0-900) H 08/27/17 07:07 Total Protein 7.6 g/dL (6.3-8.2) 08/30/17 07:30 Albumin 4.0 g/dL (3.9-5) 08/30/17 07:30 Albumin/Globulin Ratio 1.1 % 08/30/17 07:30
[2017-08-31] MEDS: LASIX IV SCH ×2 (06:43→18:18)
--- NOTE | 2017-08-31 09:51 | Progress Note ---
Assessment and Plan 52 y/o morbidly obese female with chronic respiratory failure, OHS, and DRE admitted with worsening dyspnea, found to be volume overloaded. 1. Agree with IV diuresis as being guided by cardiology 2. Patient does not have COPD, nor in COPD exacerbation, can continue PRN albuterol (patient has Sarcoid, likely stage IV) 3. Patient wears 5 liters O2 at home. 4. Continue PPV at night here, patient is refusing and is noncompliant with therapy at home. Subjective Date of service: 08/31/17 Principal diagnosis: Acute on chronic HFpEF, Acute on chronic resp failure, uncontrolled HTN Interval history: No acute events. Refusing Positive pressure ventilation now at night Objective Vital Signs - 12hr 08/30/17 08/30/17 22:00 23:36 Temperature 98.3 F Pulse Rate 64 70 Respiratory 18 Rate Blood Pressure 148/99 O2 Sat by Pulse 91 Oximetry Constitutional: no acute distress, alert Eyes: non-icteric ENT: other Neck: supple Effort: mildly labored Ascultation: Bilateral: diminished breath sounds, rales Percussion: Bilateral: not dull Cardiovascular: regular rate and rhythm Gastrointestinal: other (obese) CBC and BMP: 08/30/17 07:30 08/30/17 07:30 ABG, PT/INR, D-dimer: ABG POC ABG pH 7.334 (7.35-7.45) L 08/27/17 11:40 POC ABG pCO2 73.2 (35-45) H 08/27/17 11:40 POC ABG pO2 84 (80-105) 08/27/17 11:40 POC ABG HCO3 38.9 08/27/17 11:40 POC ABG Total CO2 41 08/27/17 11:40 POC ABG O2 Sat 95 08/27/17 11:40 PT/INR, D-dimer PT 20.8 Sec. (12.2-14.9) H 08/28/17 06:52 INR 1.68 (0.87-1.13) H 08/28/17 06:52 Abnormal lab findings: Abnormal Labs 08/26/17 08/26/17 08/27/17 23:55 23:55 07:07 RBC 5.36 H Hgb 14.9 H Hct 47.7 H MCH RDW 20.5 H Seg Neuts % (Manual) 82.0 H Lymphocytes % (Manual) 12.0 L Monocytes % (Manual) Seg Neutrophils # Man Lymphocytes # (Manual) 0.9 L PT 22.5 H INR 1.85 H POC ABG pH POC ABG pCO2 Potassium Chloride 90.3 L Carbon Dioxide 37 H BUN Glucose 117 H POC Glucose Hemoglobin A1c Magnesium Total Bilirubin Alkaline Phosphatase NT-Pro-B Natriuret Pep Albumin 08/27/17 08/27/17 08/27/17 07:07 11:40 21:02 RBC Hgb Hct MCH RDW Seg Neuts % (Manual) Lymphocytes % (Manual) Monocytes % (Manual) Seg Neutrophils # Man Lymphocytes # (Manual) PT INR POC ABG pH 7.334 L POC ABG pCO2 73.2 H Potassium Chloride Carbon Dioxide BUN Glucose POC Glucose Hemoglobin A1c 6.4 H Magnesium Total Bilirubin Alkaline Phosphatase NT-Pro-B Natriuret Pep 2624 H Albumin 08/28/17 08/28/17 08/28/17 06:42 06:52 06:52 RBC 5.20 H Hgb Hct 46.3 H MCH RDW 20.2 H Seg Neuts % (Manual) 87.0 H Lymphocytes % (Manual) 7.0 L Monocytes % (Manual) Seg Neutrophils # Man 8.0 H Lymphocytes # (Manual) 0.6 L PT 20.8 H INR 1.68 H POC ABG pH POC ABG pCO2 Potassium Chloride Carbon Dioxide BUN Glucose POC Glucose 120 H Hemoglobin A1c Magnesium Total Bilirubin Alkaline Phosphatase NT-Pro-B Natriuret Pep Albumin 08/28/17 08/28/17 08/28/17 06:52 13:59 17:17 RBC Hgb Hct MCH RDW Seg Neuts % (Manual) Lymphocytes % (Manual) Monocytes % (Manual) Seg Neutrophils # Man Lymphocytes # (Manual) PT INR POC ABG pH POC ABG pCO2 Potassium 3.5 L Chloride 92.3 L Carbon Dioxide 40 H BUN Glucose 118 H POC Glucose 131 H 156 H Hemoglobin A1c Magnesium 1.50 L Total Bilirubin 1.80 H Alkaline Phosphatase 171 H NT-Pro-B Natriuret Pep Albumin 3.4 L 08/28/17 08/29/17 08/29/17 22:14 06:36 06:36 RBC 5.12 H Hgb Hct 45.6 H MCH 27 L RDW 19.9 H Seg Neuts % (Manual) 80.0 H Lymphocytes % (Manual) 11.0 L Monocytes % (Manual) 9.0 H Seg Neutrophils # Man Lymphocytes # (Manual) 1.0 L PT INR POC ABG pH POC ABG pCO2 Potassium Chloride 95.9 L Carbon Dioxide 45 H* BUN Glucose POC Glucose 165 H Hemoglobin A1c Magnesium Total Bilirubin 1.70 H Alkaline Phosphatase 159 H NT-Pro-B Natriuret Pep Albumin 3.4 L 08/29/17 08/29/17 08/29/17 12:23 16:33 22:09 RBC Hgb Hct MCH RDW Seg Neuts % (Manual) Lymphocytes % (Manual) Monocytes % (Manual) Seg Neutrophils # Man Lymphocytes # (Manual) PT INR POC ABG pH POC ABG pCO2 Potassium Chloride Carbon Dioxide BUN Glucose POC Glucose 121 H 130 H 131 H Hemoglobin A1c Magnesium Total Bilirubin Alkaline Phosphatase NT-Pro-B Natriuret Pep Albumin 08/30/17 08/30/17 08/30/17 07:30 07:30 12:14 RBC 5.48 H Hgb 14.9 H Hct 49.1 H MCH 27 L RDW 19.8 H Seg Neuts % (Manual) 84.0 H Lymphocytes % (Manual) 11.0 L Monocytes % (Manual) Seg Neutrophils # Man Lymphocytes # (Manual) 0.8 L PT INR POC ABG pH POC ABG pCO2 Potassium Chloride 90.3 L Carbon Dioxide 39 H BUN 19 H Glucose POC Glucose 151 H Hemoglobin A1c Magnesium Total Bilirubin 1.70 H Alkaline Phosphatase 183 H NT-Pro-B Natriuret Pep Albumin 08/30/17 08/31/17 21:53 06:21 RBC Hgb Hct MCH RDW Seg Neuts % (Manual) Lymphocytes % (Manual) Monocytes % (Manual) Seg Neutrophils # Man Lymphocytes # (Manual) PT INR POC ABG pH POC ABG pCO2 Potassium Chloride Carbon Dioxide BUN Glucose POC Glucose 113 H 109 H Hemoglobin A1c Magnesium Total Bilirubin Alkaline Phosphatase NT-Pro-B Natriuret Pep Albumin
[2017-08-31] MEDS: ZESTRIL PO SCH (11:01)
[2017-08-31] MEDS: PEPCID PO SCH (11:01)
[2017-08-31] MEDS: K-DUR PO SCH (11:01)
[2017-08-31] MEDS: LOPRESSOR PO SCH ×2 (11:01→21:33)
[2017-08-31] MEDS: IMDUR PO SCH (11:02)
[2017-08-31] MEDS: CORDARONE PO SCH (11:02)
[2017-08-31] MEDS: WELLBUTRIN SR PO SCH ×2 (11:02→21:33)
[2017-08-31] MEDS: BABY ASPIRIN PO SCH (11:02)
[2017-08-31] MEDS: PERCOCET 5/325 PO PRN ×2 (11:04→18:19)
[2017-08-31] MEDS: APRESOLINE PO SCH ×3 (11:04→19:39)
[2017-08-31] MEDS: GLUCOPHAGE PO SCH ×2 (11:04→18:18)
--- NOTE | 2017-08-31 14:28 | Progress Note ---
Assessment and Plan Assessment and plan: Acute on chronic diastolic (congestive) heart failure CHF exacerbation - CXR indicated generalized enlargement of cardiac silhouette without localized infiltrates/congestion - IV Lasix 80 mg BID, lisinopril and metoprolol - Had ECHO in 04/2017 with normal EF 55-60% and no intracardiac thrombus or shunt - Cardiology consult appreciated Acute on chronic hypercapneic respiratory failure, DRE, COPD - On Bronchodilators - Continue to monitor respiratory acidosis - Pulm consult appreciated T2DM (type 2 diabetes mellitus) - Continue metformin - A1c was 6.4 Hypokalemia and hypomagnesemia - Supplements provided, continue monitoring - Potassium normalized HLD (hyperlipidemia) - on statins HTN (hypertension) - Continue Metoprolol, ACEI, hydrallzin - Blood pressure at 137/107 mm Hg - DVT prophylaxis with Scd's. Pt already on Eliquis History Interval history: Patient was seen and evaluated this morning, patient has shortness of breath and bilateral leg swelling. Hospitalist Physical - Physical exam Narrative exam: Not in cardiopulmonary distress. The patient is morbidly obese. Vital signs as documented. Head exam is unremarkable. No scleral icterus . Neck is without jugular venous distension, thyromegaly, or carotid bruits. Lungs scattered wheezing Cardiac exam reveals regular rate and Rhythm. Abdominal exam reveals normal bowel sounds. Extremities are nonedematous and both femoral and pedal pulses are normal. [employer]: Alert and oriented 3. No focal weakness. - Constitutional Vitals: Temp Pulse Resp BP Pulse Ox 97.9 F 64 18 137/107 94 08/31/17 12:29 08/31/17 09:43 08/31/17 12:29 08/31/17 12:29 08/31/17 09:43 General appearance: Present: mild distress, well-nourished, obese Results - Labs CBC & Chem 7: 08/30/17 07:30 08/30/17 07:30 Labs: Laboratory Last Values WBC 7.7 K/mm3 (4.5-11.0) 08/30/17 07:30 RBC 5.48 M/mm3 (3.65-5.03) H 08/30/17 07:30 Hgb 14.9 gm/dl (10.1-14.3) H 08/30/17 07:30 Hct 49.1 % (30.3-42.9) H 08/30/17 07:30 MCV 90 fl (79-97) 08/30/17 07:30 MCH 27 pg (28-32) L 08/30/17 07:30 MCHC 30 % (30-34) 08/30/17 07:30 RDW 19.8 % (13.2-15.2) H 08/30/17 07:30 Plt Count 170 K/mm3 (140-440) 08/30/17 07:30 Add Manual Diff Complete 08/30/17 07:30 Total Counted 100 08/30/17 07:30 Seg Neuts % (Manual) 84.0 % (40.0-70.0) H 08/30/17 07:30 Band Neutrophils % 0 % 08/30/17 07:30 Lymphocytes % (Manual) 11.0 % (13.4-35.0) L 08/30/17 07:30 Reactive Lymphs % (Man) 0 % 08/30/17 07:30 Monocytes % (Manual) 5.0 % (0.0-7.3) 08/30/17 07:30 Eosinophils % (Manual) 0 % (0.0-4.3) 08/30/17 07:30 Basophils % (Manual) 0 % (0.0-1.8) 08/30/17 07:30 Metamyelocytes % 0 % 08/30/17 07:30 Myelocytes % 0 % 08/30/17 07:30 Promyelocytes % 0 % 08/30/17 07:30 Blast Cells % 0 % 08/30/17 07:30 Nucleated RBC % Not Reportable 08/30/17 07:30 Seg Neutrophils # Man 6.5 K/mm3 (1.8-7.7) 08/30/17 07:30 Band Neutrophils # 0.0 K/mm3 08/30/17 07:30 Lymphocytes # (Manual) 0.8 K/mm3 (1.2-5.4) L 08/30/17 07:30 Abs React Lymphs (Man) 0.0 K/mm3 08/30/17 07:30 Monocytes # (Manual) 0.4 K/mm3 (0.0-0.8) 08/30/17 07:30 Eosinophils # (Manual) 0.0 K/mm3 (0.0-0.4) 08/30/17 07:30 Basophils # (Manual) 0.0 K/mm3 (0.0-0.1) 08/30/17 07:30 Metamyelocytes # 0.0 K/mm3 08/30/17 07:30 Myelocytes # 0.0 K/mm3 08/30/17 07:30 Promyelocytes # 0.0 K/mm3 08/30/17 07:30 Blast Cells # 0.0 K/mm3 08/30/17 07:30 WBC Morphology Not Reportable 08/30/17 07:30 Hypersegmented Neuts Not Reportable 08/30/17 07:30 Hyposegmented Neuts Not Reportable 08/30/17 07:30 Hypogranular Neuts Not Reportable 08/30/17 07:30 Smudge Cells Not Reportable 08/30/17 07:30 Toxic Granulation Not Reportable 08/30/17 07:30 Toxic Vacuolation Not Reportable 08/30/17 07:30 Dohle Bodies Not Reportable 08/30/17 07:30 Pelger-Huet Anomaly Not Reportable 08/30/17 07:30 Chiara Rods Not Reportable 08/30/17 07:30 Platelet Estimate Not Reportable 08/30/17 07:30 Clumped Platelets Not Reportable 08/30/17 07:30 Plt Clumps, EDTA Not Reportable 08/30/17 07:30 Large Platelets Not Reportable 08/30/17 07:30 Giant Platelets Not Reportable 08/30/17 07:30 Platelet Satelliting Not Reportable 08/30/17 07:30 Plt Morphology Comment Not Reportable 08/30/17 07:30 RBC Morphology Normal 08/30/17 07:30 Dimorphic RBCs Not Reportable 08/30/17 07:30 Polychromasia Not Reportable 08/30/17 07:30 Hypochromasia Not Reportable 08/30/17 07:30 Poikilocytosis Not Reportable 08/30/17 07:30 Anisocytosis Not Reportable 08/30/17 07:30 Microcytosis Not Reportable 08/30/17 07:30 Macrocytosis Not Reportable 08/30/17 07:30 Spherocytes Not Reportable 08/30/17 07:30 Pappenheimer Bodies Not Reportable 08/30/17 07:30 Sickle Cells Not Reportable 08/30/17 07:30 Target Cells Not Reportable 08/30/17 07:30 Tear Drop Cells Not Reportable 08/30/17 07:30 Ovalocytes Not Reportable 08/30/17 07:30 Stomatocytes Few 08/28/17 06:52 Helmet Cells Not Reportable 08/30/17 07:30 [place] Bodies Not Reportable 08/30/17 07:30 [place] Rings Not Reportable 08/30/17 07:30 Vanderbilt Cells Not Reportable 08/30/17 07:30 Bite Cells Not Reportable 08/30/17 07:30 Crenated Cell Not Reportable 08/30/17 07:30 Elliptocytes Not Reportable 08/30/17 07:30 Acanthocytes (Spur) Not Reportable 08/30/17 07:30 Rouleaux Not Reportable 08/30/17 07:30 Hemoglobin C Crystals Not Reportable 08/30/17 07:30 Schistocytes Not Reportable 08/30/17 07:30 Malaria parasites Not Reportable 08/30/17 07:30 Bryant Bodies Not Reportable 08/30/17 07:30 Hem Pathologist Commnt No 08/30/17 07:30 PT 20.8 Sec. (12.2-14.9) H 08/28/17 06:52 INR 1.68 (0.87-1.13) H 08/28/17 06:52 POC ABG pH 7.334 (7.35-7.45) L 08/27/17 11:40 POC ABG pCO2 73.2 (35-45) H 08/27/17 11:40 POC ABG pO2 84 (80-105) 08/27/17 11:40 POC ABG HCO3 38.9 08/27/17 11:40 POC ABG Total CO2 41 08/27/17 11:40 POC ABG O2 Sat 95 08/27/17 11:40 POC ABG Base Excess 13 08/27/17 11:40 FiO2 35 % 08/27/17 11:40 Sodium 143 mmol/L (137-145) 08/30/17 07:30 Potassium 4.0 mmol/L (3.6-5.0) 08/30/17 07:30 Chloride 90.3 mmol/L (98-107) L 08/30/17 07:30 Carbon Dioxide 39 mmol/L (22-30) H 08/30/17 07:30 Anion Gap 18 mmol/L 08/30/17 07:30 BUN 19 mg/dL (7-17) H 08/30/17 07:30 Creatinine 0.9 mg/dL (0.7-1.2) 08/30/17 07:30 Estimated GFR > 60 ml/min 08/30/17 07:30 BUN/Creatinine Ratio 21 % 08/30/17 07:30 Glucose 97 mg/dL (65-100) 08/30/17 07:30 POC Glucose 109 (70-105) H 08/31/17 06:21 Hemoglobin A1c 6.4 % (4-6) H 08/27/17 21:02 Calcium 9.0 mg/dL (8.4-10.2) 08/30/17 07:30 Phosphorus 4.50 mg/dL (2.5-4.5) 08/28/17 06:52 Magnesium 1.50 mg/dL (1.7-2.3) L 08/28/17 06:52 Total Bilirubin 1.70 mg/dL (0.1-1.2) H 08/30/17 07:30 AST 38 units/L (5-40) 08/30/17 07:30 ALT 36 units/L (7-56) 08/30/17 07:30 Alkaline Phosphatase 183 units/L (35-129) H 08/30/17 07:30 NT-Pro-B Natriuret Pep 2624 pg/mL (0-900) H 08/27/17 07:07 Total Protein 7.6 g/dL (6.3-8.2) 08/30/17 07:30 Albumin 4.0 g/dL (3.9-5) 08/30/17 07:30 Albumin/Globulin Ratio 1.1 % 08/30/17 07:30
[2017-08-31 15:01] LABS: BUN/Creatinine Ratio 23; Blood Urea Nitrogen 21 mg/dL (7-17); Calcium 8.9 mg/dL (8.4-10.2); Hemolysis Index 12
--- NOTE | 2017-08-31 19:42 | Progress Note ---
Assessment and Plan - Patient Problems (1) Acute on chronic heart failure with normal ejection fraction Current Visit: Yes Status: Acute (2) COPD (chronic obstructive pulmonary disease) Current Visit: Yes Status: Chronic (3) Diabetes Current Visit: Yes Status: Chronic (4) Obstructive sleep apnea Current Visit: Yes Status: Chronic (5) Paroxysmal atrial fibrillation Current Visit: Yes Status: Chronic Subjective Date of service: 08/31/17 Principal diagnosis: Acute on chronic HFpEF, Acute on chronic resp failure, uncontrolled HTN Interval history: patient still gets SOB easily. Objective Vital Signs Temp Pulse Pulse Resp BP Pulse Ox 08/31/17 16:25 98.6 F 20 166/108 08/31/17 14:40 98 08/31/17 12:29 97.9 F 18 137/107 08/31/17 09:43 64 64 20 94 08/31/17 08:55 97.8 F 71 20 156/98 93 08/31/17 03:55 98.2 F 67 18 150/92 99 08/30/17 23:36 98.3 F 70 18 148/99 91 08/30/17 22:00 64 - Physical Examination General: No Apparent Distress, Other (obese) HEENT: Positive: EOMI, Normocephaly, Mucus Membranes Moist Neck: Positive: neck supple, trachea midline, JVD/HJR (elevated) Cardiac: Positive: Regular Rhythm Lungs: Positive: Decreased Breath Sounds Neuro: Positive: Grossly Intact Abdomen: Positive: Soft, Active Bowel Sounds. Negative: Tender Skin: Positive: Other (thick and edematous) Musculoskeletal: Normal Range of Motion Extremities: Present: edema (generalized), +1 Edema (BLE) - Labs and Meds Comprehensive Metabolic Panel 08/31/17 Range/Units 13:59 Sodium 142 (137-145) mmol/L Potassium 4.1 (3.6-5.0) mmol/L Chloride 91.3 L (98-107) mmol/L Carbon Dioxide 42 H* (22-30) mmol/L BUN 21 H (7-17) mg/dL Creatinine 0.9 (0.7-1.2) mg/dL Glucose 99 (65-100) mg/dL Calcium 8.9 (8.4-10.2) mg/dL - Imaging and Cardiology EKG: image reviewed Echo: report reviewed (04/2017 ([facility]EL[facility] prior to [facility]): EF 55-60%, no intracardiac thrombus or shunt, LA mod dilated, mild MR, mild TR, LVH. ) - EKG Sinus rhythms and dysrhythmias: sinus rhythm
[2017-09-01] MEDS: LASIX IV SCH ×2 (05:20→17:15)
[2017-09-01] MEDS: PERCOCET 5/325 PO PRN ×3 (05:21→19:20)
[2017-09-01] MEDS: GLUCOPHAGE PO SCH ×2 (08:51→17:15)
[2017-09-01] MEDS: APRESOLINE PO SCH ×3 (10:00→22:22)
[2017-09-01] MEDS: CORDARONE PO SCH (10:29)
[2017-09-01] MEDS: LOPRESSOR PO SCH ×2 (10:30→22:22)
[2017-09-01] MEDS: IMDUR PO SCH (10:30)
[2017-09-01] MEDS: ZESTRIL PO SCH (10:30)
[2017-09-01] MEDS: WELLBUTRIN SR PO SCH ×2 (10:30→22:22)
[2017-09-01] MEDS: PEPCID PO SCH (10:30)
[2017-09-01] MEDS: BABY ASPIRIN PO SCH (10:31)
[2017-09-01] MEDS: K-DUR PO SCH (10:31)
--- NOTE | 2017-09-01 12:57 | Progress Note ---
Assessment and Plan 52 y/o morbidly obese female with chronic respiratory failure, OHS, and DRE admitted with worsening dyspnea, found to be volume overloaded. No new recs from a pulmonary standpoint. No objection to discharge when primary team is ready. Will see as needed 1. Agree with IV diuresis as being guided by cardiology 2. Patient does not have COPD, nor in COPD exacerbation, can continue PRN albuterol (patient has Sarcoid, likely stage IV) 3. Patient wears 5 liters O2 at home. 4. Continue PPV at night here, patient is refusing and is noncompliant with therapy at home. Subjective Date of service: 09/01/17 Principal diagnosis: Acute on chronic HFpEF, Acute on chronic resp failure, uncontrolled HTN Interval history: No acute events. Stable on 4 liters NC Objective Vital Signs - 12hr 09/01/17 09/01/17 09/01/17 04:48 05:21 06:21 Temperature 98.4 F Pulse Rate 70 Respiratory 18 20 20 Rate Blood Pressure 142/75 O2 Sat by Pulse 98 Oximetry 09/01/17 09/01/17 09/01/17 08:28 10:00 10:30 Temperature 97.6 F Pulse Rate 70 70 Respiratory 20 Rate Blood Pressure 179/93 179/93 O2 Sat by Pulse 96 93 Oximetry 09/01/17 12:48 Temperature Pulse Rate Respiratory 20 Rate Blood Pressure O2 Sat by Pulse Oximetry Constitutional: no acute distress, alert Eyes: non-icteric ENT: other Neck: supple Effort: mildly labored Ascultation: Bilateral: diminished breath sounds, rales Percussion: Bilateral: not dull Cardiovascular: regular rate and rhythm Gastrointestinal: other (obese) CBC and BMP: 08/30/17 07:30 08/31/17 13:59 ABG, PT/INR, D-dimer: ABG POC ABG pH 7.334 (7.35-7.45) L 08/27/17 11:40 POC ABG pCO2 73.2 (35-45) H 08/27/17 11:40 POC ABG pO2 84 (80-105) 08/27/17 11:40 POC ABG HCO3 38.9 08/27/17 11:40 POC ABG Total CO2 41 08/27/17 11:40 POC ABG O2 Sat 95 08/27/17 11:40 PT/INR, D-dimer PT 20.8 Sec. (12.2-14.9) H 08/28/17 06:52 INR 1.68 (0.87-1.13) H 08/28/17 06:52 Abnormal lab findings: Abnormal Labs 08/26/17 08/26/17 08/27/17 23:55 23:55 07:07 RBC 5.36 H Hgb 14.9 H Hct 47.7 H MCH RDW 20.5 H Seg Neuts % (Manual) 82.0 H Lymphocytes % (Manual) 12.0 L Monocytes % (Manual) Seg Neutrophils # Man Lymphocytes # (Manual) 0.9 L PT 22.5 H INR 1.85 H POC ABG pH POC ABG pCO2 Potassium Chloride 90.3 L Carbon Dioxide 37 H BUN Glucose 117 H POC Glucose Hemoglobin A1c Magnesium Total Bilirubin Alkaline Phosphatase NT-Pro-B Natriuret Pep Albumin 08/27/17 08/27/17 08/27/17 07:07 11:40 21:02 RBC Hgb Hct MCH RDW Seg Neuts % (Manual) Lymphocytes % (Manual) Monocytes % (Manual) Seg Neutrophils # Man Lymphocytes # (Manual) PT INR POC ABG pH 7.334 L POC ABG pCO2 73.2 H Potassium Chloride Carbon Dioxide BUN Glucose POC Glucose Hemoglobin A1c 6.4 H Magnesium Total Bilirubin Alkaline Phosphatase NT-Pro-B Natriuret Pep 2624 H Albumin 08/28/17 08/28/17 08/28/17 06:42 06:52 06:52 RBC 5.20 H Hgb Hct 46.3 H MCH RDW 20.2 H Seg Neuts % (Manual) 87.0 H Lymphocytes % (Manual) 7.0 L Monocytes % (Manual) Seg Neutrophils # Man 8.0 H Lymphocytes # (Manual) 0.6 L PT 20.8 H INR 1.68 H POC ABG pH POC ABG pCO2 Potassium Chloride Carbon Dioxide BUN Glucose POC Glucose 120 H Hemoglobin A1c Magnesium Total Bilirubin Alkaline Phosphatase NT-Pro-B Natriuret Pep Albumin 08/28/17 08/28/17 08/28/17 06:52 13:59 17:17 RBC Hgb Hct MCH RDW Seg Neuts % (Manual) Lymphocytes % (Manual) Monocytes % (Manual) Seg Neutrophils # Man Lymphocytes # (Manual) PT INR POC ABG pH POC ABG pCO2 Potassium 3.5 L Chloride 92.3 L Carbon Dioxide 40 H BUN Glucose 118 H POC Glucose 131 H 156 H Hemoglobin A1c Magnesium 1.50 L Total Bilirubin 1.80 H Alkaline Phosphatase 171 H NT-Pro-B Natriuret Pep Albumin 3.4 L 08/28/17 08/29/17 08/29/17 22:14 06:36 06:36 RBC 5.12 H Hgb Hct 45.6 H MCH 27 L RDW 19.9 H Seg Neuts % (Manual) 80.0 H Lymphocytes % (Manual) 11.0 L Monocytes % (Manual) 9.0 H Seg Neutrophils # Man Lymphocytes # (Manual) 1.0 L PT INR POC ABG pH POC ABG pCO2 Potassium Chloride 95.9 L Carbon Dioxide 45 H* BUN Glucose POC Glucose 165 H Hemoglobin A1c Magnesium Total Bilirubin 1.70 H Alkaline Phosphatase 159 H NT-Pro-B Natriuret Pep Albumin 3.4 L 08/29/17 08/29/17 08/29/17 12:23 16:33 22:09 RBC Hgb Hct MCH RDW Seg Neuts % (Manual) Lymphocytes % (Manual) Monocytes % (Manual) Seg Neutrophils # Man Lymphocytes # (Manual) PT INR POC ABG pH POC ABG pCO2 Potassium Chloride Carbon Dioxide BUN Glucose POC Glucose 121 H 130 H 131 H Hemoglobin A1c Magnesium Total Bilirubin Alkaline Phosphatase NT-Pro-B Natriuret Pep Albumin 08/30/17 08/30/17 08/30/17 07:30 07:30 12:14 RBC 5.48 H Hgb 14.9 H Hct 49.1 H MCH 27 L RDW 19.8 H Seg Neuts % (Manual) 84.0 H Lymphocytes % (Manual) 11.0 L Monocytes % (Manual) Seg Neutrophils # Man Lymphocytes # (Manual) 0.8 L PT INR POC ABG pH POC ABG pCO2 Potassium Chloride 90.3 L Carbon Dioxide 39 H BUN 19 H Glucose POC Glucose 151 H Hemoglobin A1c Magnesium Total Bilirubin 1.70 H Alkaline Phosphatase 183 H NT-Pro-B Natriuret Pep Albumin 08/30/17 08/31/17 08/31/17 21:53 06:21 12:42 RBC Hgb Hct MCH RDW Seg Neuts % (Manual) Lymphocytes % (Manual) Monocytes % (Manual) Seg Neutrophils # Man Lymphocytes # (Manual) PT INR POC ABG pH POC ABG pCO2 Potassium Chloride Carbon Dioxide BUN Glucose POC Glucose 113 H 109 H 118 H Hemoglobin A1c Magnesium Total Bilirubin Alkaline Phosphatase NT-Pro-B Natriuret Pep Albumin 08/31/17 08/31/17 13:59 21:08 RBC Hgb Hct MCH RDW Seg Neuts % (Manual) Lymphocytes % (Manual) Monocytes % (Manual) Seg Neutrophils # Man Lymphocytes # (Manual) PT INR POC ABG pH POC ABG pCO2 Potassium Chloride 91.3 L Carbon Dioxide 42 H* BUN 21 H Glucose POC Glucose 116 H Hemoglobin A1c Magnesium Total Bilirubin Alkaline Phosphatase NT-Pro-B Natriuret Pep Albumin
--- NOTE | 2017-09-01 17:15 | Progress Note ---
Assessment and Plan Assessment and plan: Acute on chronic diastolic (congestive) heart failure CHF exacerbation - CXR indicated generalized enlargement of cardiac silhouette without localized infiltrates/congestion - IV Lasix 80 mg BID, lisinopril and metoprolol - Had ECHO in 04/2017 with normal EF 55-60% and no intracardiac thrombus or shunt - Cardiology consult appreciated Acute on chronic hypercapneic respiratory failure, DRE, COPD - On Bronchodilators - Continue to monitor respiratory acidosis - Pulm consult appreciated T2DM (type 2 diabetes mellitus) - Continue metformin - A1c was 6.4 Hypokalemia and hypomagnesemia - Supplements provided, continue monitoring - Potassium normalized HLD (hyperlipidemia) - on statins HTN (hypertension) - Continue Metoprolol, ACEI, hydrallzin - Blood pressure at 137/107 mm Hg - DVT prophylaxis with Scd's. Pt already on Eliquis History Interval history: Patient was seen and evaluated this morning, patient has shortness of breath and bilateral leg swelling. Hospitalist Physical - Physical exam Narrative exam: Not in cardiopulmonary distress. The patient is morbidly obese. Vital signs as documented. Head exam is unremarkable. No scleral icterus . Neck is without jugular venous distension, thyromegaly, or carotid bruits. Lungs scattered wheezing Cardiac exam reveals regular rate and Rhythm. Abdominal exam reveals normal bowel sounds. Extremities +2 pedal and pretibial edema. SENIOR BUSINESS ARCHITECT: Alert and oriented 3. No focal weakness. - Constitutional Vitals: Temp Pulse Resp BP Pulse Ox 98.6 F 71 20 163/108 100 09/01/17 12:03 09/01/17 15:15 09/01/17 12:48 09/01/17 15:14 09/01/17 15:15 General appearance: Present: mild distress, well-nourished, obese Results - Labs CBC & Chem 7: 08/30/17 07:30 08/31/17 13:59 Labs: Laboratory Last Values WBC 7.7 K/mm3 (4.5-11.0) 08/30/17 07:30 RBC 5.48 M/mm3 (3.65-5.03) H 08/30/17 07:30 Hgb 14.9 gm/dl (10.1-14.3) H 08/30/17 07:30 Hct 49.1 % (30.3-42.9) H 08/30/17 07:30 MCV 90 fl (79-97) 08/30/17 07:30 MCH 27 pg (28-32) L 08/30/17 07:30 MCHC 30 % (30-34) 08/30/17 07:30 RDW 19.8 % (13.2-15.2) H 08/30/17 07:30 Plt Count 170 K/mm3 (140-440) 08/30/17 07:30 Add Manual Diff Complete 08/30/17 07:30 Total Counted 100 08/30/17 07:30 Seg Neuts % (Manual) 84.0 % (40.0-70.0) H 08/30/17 07:30 Band Neutrophils % 0 % 08/30/17 07:30 Lymphocytes % (Manual) 11.0 % (13.4-35.0) L 08/30/17 07:30 Reactive Lymphs % (Man) 0 % 08/30/17 07:30 Monocytes % (Manual) 5.0 % (0.0-7.3) 08/30/17 07:30 Eosinophils % (Manual) 0 % (0.0-4.3) 08/30/17 07:30 Basophils % (Manual) 0 % (0.0-1.8) 08/30/17 07:30 Metamyelocytes % 0 % 08/30/17 07:30 Myelocytes % 0 % 08/30/17 07:30 Promyelocytes % 0 % 08/30/17 07:30 Blast Cells % 0 % 08/30/17 07:30 Nucleated RBC % Not Reportable 08/30/17 07:30 Seg Neutrophils # Man 6.5 K/mm3 (1.8-7.7) 08/30/17 07:30 Band Neutrophils # 0.0 K/mm3 08/30/17 07:30 Lymphocytes # (Manual) 0.8 K/mm3 (1.2-5.4) L 08/30/17 07:30 Abs React Lymphs (Man) 0.0 K/mm3 08/30/17 07:30 Monocytes # (Manual) 0.4 K/mm3 (0.0-0.8) 08/30/17 07:30 Eosinophils # (Manual) 0.0 K/mm3 (0.0-0.4) 08/30/17 07:30 Basophils # (Manual) 0.0 K/mm3 (0.0-0.1) 08/30/17 07:30 Metamyelocytes # 0.0 K/mm3 08/30/17 07:30 Myelocytes # 0.0 K/mm3 08/30/17 07:30 Promyelocytes # 0.0 K/mm3 08/30/17 07:30 Blast Cells # 0.0 K/mm3 08/30/17 07:30 WBC Morphology Not Reportable 08/30/17 07:30 Hypersegmented Neuts Not Reportable 08/30/17 07:30 Hyposegmented Neuts Not Reportable 08/30/17 07:30 Hypogranular Neuts Not Reportable 08/30/17 07:30 Smudge Cells Not Reportable 08/30/17 07:30 Toxic Granulation Not Reportable 08/30/17 07:30 Toxic Vacuolation Not Reportable 08/30/17 07:30 Dohle Bodies Not Reportable 08/30/17 07:30 Pelger-Huet Anomaly Not Reportable 08/30/17 07:30 Chiara Rods Not Reportable 08/30/17 07:30 Platelet Estimate Not Reportable 08/30/17 07:30 Clumped Platelets Not Reportable 08/30/17 07:30 Plt Clumps, EDTA Not Reportable 08/30/17 07:30 Large Platelets Not Reportable 08/30/17 07:30 Giant Platelets Not Reportable 08/30/17 07:30 Platelet Satelliting Not Reportable 08/30/17 07:30 Plt Morphology Comment Not Reportable 08/30/17 07:30 RBC Morphology Normal 08/30/17 07:30 Dimorphic RBCs Not Reportable 08/30/17 07:30 Polychromasia Not Reportable 08/30/17 07:30 Hypochromasia Not Reportable 08/30/17 07:30 Poikilocytosis Not Reportable 08/30/17 07:30 Anisocytosis Not Reportable 08/30/17 07:30 Microcytosis Not Reportable 08/30/17 07:30 Macrocytosis Not Reportable 08/30/17 07:30 Spherocytes Not Reportable 08/30/17 07:30 Pappenheimer Bodies Not Reportable 08/30/17 07:30 Sickle Cells Not Reportable 08/30/17 07:30 Target Cells Not Reportable 08/30/17 07:30 Tear Drop Cells Not Reportable 08/30/17 07:30 Ovalocytes Not Reportable 08/30/17 07:30 Stomatocytes Few 08/28/17 06:52 Helmet Cells Not Reportable 08/30/17 07:30 [place] Bodies Not Reportable 08/30/17 07:30 [place] Rings Not Reportable 08/30/17 07:30 Consuelo Cells Not Reportable 08/30/17 07:30 Bite Cells Not Reportable 08/30/17 07:30 Crenated Cell Not Reportable 08/30/17 07:30 Elliptocytes Not Reportable 08/30/17 07:30 Acanthocytes (Spur) Not Reportable 08/30/17 07:30 Rouleaux Not Reportable 08/30/17 07:30 Hemoglobin C Crystals Not Reportable 08/30/17 07:30 Schistocytes Not Reportable 08/30/17 07:30 Malaria parasites Not Reportable 08/30/17 07:30 Bryant Bodies Not Reportable 08/30/17 07:30 Hem Pathologist Commnt No 08/30/17 07:30 PT 20.8 Sec. (12.2-14.9) H 08/28/17 06:52 INR 1.68 (0.87-1.13) H 08/28/17 06:52 POC ABG pH 7.334 (7.35-7.45) L 08/27/17 11:40 POC ABG pCO2 73.2 (35-45) H 08/27/17 11:40 POC ABG pO2 84 (80-105) 08/27/17 11:40 POC ABG HCO3 38.9 08/27/17 11:40 POC ABG Total CO2 41 08/27/17 11:40 POC ABG O2 Sat 95 08/27/17 11:40 POC ABG Base Excess 13 08/27/17 11:40 FiO2 35 % 08/27/17 11:40 Sodium 142 mmol/L (137-145) 08/31/17 13:59 Potassium 4.1 mmol/L (3.6-5.0) 08/31/17 13:59 Chloride 91.3 mmol/L (98-107) L 08/31/17 13:59 Carbon Dioxide 42 mmol/L (22-30) H* 08/31/17 13:59 Anion Gap 14 mmol/L 08/31/17 13:59 BUN 21 mg/dL (7-17) H 08/31/17 13:59 Creatinine 0.9 mg/dL (0.7-1.2) 08/31/17 13:59 Estimated GFR > 60 ml/min 08/31/17 13:59 BUN/Creatinine Ratio 23 % 08/31/17 13:59 Glucose 99 mg/dL (65-100) 08/31/17 13:59 POC Glucose 87 (70-105) 09/01/17 16:26 Hemoglobin A1c 6.4 % (4-6) H 08/27/17 21:02 Calcium 8.9 mg/dL (8.4-10.2) 08/31/17 13:59 Phosphorus 4.50 mg/dL (2.5-4.5) 08/28/17 06:52 Magnesium 1.50 mg/dL (1.7-2.3) L 08/28/17 06:52 Total Bilirubin 1.70 mg/dL (0.1-1.2) H 08/30/17 07:30 AST 38 units/L (5-40) 08/30/17 07:30 ALT 36 units/L (7-56) 08/30/17 07:30 Alkaline Phosphatase 183 units/L (35-129) H 08/30/17 07:30 NT-Pro-B Natriuret Pep 2624 pg/mL (0-900) H 08/27/17 07:07 Total Protein 7.6 g/dL (6.3-8.2) 08/30/17 07:30 Albumin 4.0 g/dL (3.9-5) 08/30/17 07:30 Albumin/Globulin Ratio 1.1 % 08/30/17 07:30
--- NOTE | 2017-09-01 18:04 | Progress Note ---
Assessment and Plan Continue diuresis,monitor renal function. - Patient Problems (1) Acute on chronic heart failure with normal ejection fraction Current Visit: Yes Status: Acute (2) COPD (chronic obstructive pulmonary disease) Current Visit: Yes Status: Chronic (3) Diabetes Current Visit: Yes Status: Chronic (4) Obstructive sleep apnea Current Visit: Yes Status: Chronic (5) Paroxysmal atrial fibrillation Current Visit: Yes Status: Chronic Subjective Date of service: 09/01/17 Principal diagnosis: Acute on chronic HFpEF, Acute on chronic resp failure, uncontrolled HTN Interval history: 09/01/2017>says breathing better,diuresing well. Objective Vital Signs Temp Pulse Pulse Resp Resp BP BP 09/01/17 17:22 98.6 F 86 20 163/108 09/01/17 15:15 71 09/01/17 15:14 163/108 09/01/17 12:48 20 09/01/17 12:03 98.6 F 70 20 158/98 09/01/17 10:30 70 179/93 09/01/17 10:00 69 70 21 09/01/17 08:28 97.6 F 70 20 179/93 09/01/17 06:21 20 09/01/17 05:21 20 09/01/17 04:48 98.4 F 70 18 142/75 09/01/17 00:00 98.2 F 63 18 158/100 08/31/17 21:33 70 156/101 08/31/17 20:10 20 08/31/17 20:04 70 08/31/17 19:30 20 08/31/17 19:21 98.2 F 70 18 180/106 08/31/17 19:19 18 Pulse Ox 09/01/17 17:22 96 09/01/17 15:15 100 09/01/17 15:14 09/01/17 12:48 09/01/17 12:03 97 09/01/17 10:30 09/01/17 10:00 96 09/01/17 08:28 96 09/01/17 06:21 09/01/17 05:21 09/01/17 04:48 98 09/01/17 00:00 89 08/31/17 21:33 08/31/17 20:10 97 08/31/17 20:04 08/31/17 19:30 08/31/17 19:21 95 08/31/17 19:19 - Physical Examination General: No Apparent Distress, Other (obese) HEENT: Positive: EOMI, Normocephaly, Mucus Membranes Moist Neck: Positive: neck supple, trachea midline, JVD/HJR (elevated) Cardiac: Positive: Regular Rhythm Lungs: Positive: Decreased Breath Sounds Neuro: Positive: Grossly Intact Abdomen: Positive: Soft, Active Bowel Sounds. Negative: Tender Skin: Positive: Other (thick and edematous) Musculoskeletal: Normal Range of Motion Extremities: Present: edema (generalized), +1 Edema (BLE) - Imaging and Cardiology EKG: image reviewed Echo: report reviewed (04/2017 (ANGELIKA prior to DCCV): EF 55-60%, no intracardiac thrombus or shunt, LA mod dilated, mild MR, mild TR, LVH. ) - EKG Sinus rhythms and dysrhythmias: sinus rhythm
[2017-09-02] MEDS: LASIX IV SCH ×2 (07:55→18:04)
[2017-09-02] MEDS: PERCOCET 5/325 PO PRN ×3 (07:55→20:42)
[2017-09-02] MEDS: GLUCOPHAGE PO SCH ×2 (08:22→18:02)
[2017-09-02] MEDS: APRESOLINE PO SCH ×3 (08:22→22:35)
[2017-09-02 09:36] LABS: Alanine Aminotransferase 31 units/L (7-56); Albumin 3.5 g/dL (3.9-5); BUN/Creatinine Ratio 26; Blood Urea Nitrogen 18 mg/dL (7-17); Calcium 6.9 mg/dL (8.4-10.2); Hemolysis Index 7; Mean Corpuscular HGB Conc 31 % (30-34); Mean Corpuscular Hemoglobin 27 pg (28-32); Mean Corpuscular Volume 89 fl (79-97); Red Blood Count 5.07 M/mm3 (3.65-5.03)
[2017-09-02 09:37] LABS: Hematocrit 45.1 % (30.3-42.9); Hemoglobin 13.8 gm/dl (10.1-14.3)
[2017-09-02 10:23] LABS: Basophils % (Manual) 0 % (0.0-1.8); Total Cells Counted 100
[2017-09-02 10:24] LABS: Hypochromasia 1+; Platelet Count 148 K/mm3 (140-440); Platelet Estimate Consistent w Auto
[2017-09-02] MEDS: LOPRESSOR PO SCH ×2 (10:47→22:36)
[2017-09-02] MEDS: ZESTRIL PO SCH (10:47)
[2017-09-02] MEDS: BABY ASPIRIN PO SCH (10:48)
[2017-09-02] MEDS: PEPCID PO SCH (10:48)
[2017-09-02] MEDS: K-DUR PO SCH (10:48)
[2017-09-02] MEDS: IMDUR PO SCH (10:48)
[2017-09-02] MEDS: CORDARONE PO SCH (10:48)
[2017-09-02] MEDS: WELLBUTRIN SR PO SCH ×2 (10:48→22:36)
--- NOTE | 2017-09-02 13:18 | Progress Note ---
Assessment and Plan Acute on chronic respiratory failure. Controlled PAF Decompensated congestive heart failure with preserved ejection fraction OHS DRE Severe morbid obesity Recommendations Continue current respiratory care BiPAP at night According to the patient, she needs her CPAP to be serviced by Diane SOLIMAN. Please check this with discharge planning She follows with Dr. Chirinos at home. Can be discharged from pulmonary standpoint for office follow-up Subjective Date of service: 09/02/17 Principal diagnosis: Acute on chronic HFpEF, Acute on chronic resp failure, uncontrolled HTN Interval history: Denies any respiratory complaints at the present time. She had a CPAP/BiPAP at home, complaints of the current FFV here in the hospital Objective Vital Signs - 12hr 09/02/17 09/02/17 09/02/17 01:47 08:27 08:41 Temperature 98.9 F 97.9 F Pulse Rate 67 67 Pulse Rate [ 67 Apical] Respiratory 18 20 21 Rate Blood Pressure Blood Pressure 153/91 160/102 [Right] O2 Sat by Pulse 96 94 Oximetry 09/02/17 09/02/17 09/02/17 10:47 10:48 11:32 Temperature 98.3 F Pulse Rate 67 67 71 Pulse Rate [ Apical] Respiratory 20 Rate Blood Pressure 160/102 160/102 147/94 Blood Pressure [Right] O2 Sat by Pulse 96 Oximetry Constitutional: no acute distress, alert, other (morbidly obese) Eyes: non-icteric ENT: other Neck: supple Effort: mildly labored Ascultation: Bilateral: diminished breath sounds Percussion: Bilateral: not dull Cardiovascular: regular rate and rhythm Integumentary: normal Neurologic: normal mental status, non-focal exam, pupils equal and round, CN II- XII normal Psychiatric: mood appropriate CBC and BMP: 09/02/17 08:33 09/02/17 08:33 ABG, PT/INR, D-dimer: ABG POC ABG pH 7.334 (7.35-7.45) L 08/27/17 11:40 POC ABG pCO2 73.2 (35-45) H 08/27/17 11:40 POC ABG pO2 84 (80-105) 08/27/17 11:40 POC ABG HCO3 38.9 08/27/17 11:40 POC ABG Total CO2 41 08/27/17 11:40 POC ABG O2 Sat 95 08/27/17 11:40 PT/INR, D-dimer PT 20.8 Sec. (12.2-14.9) H 08/28/17 06:52 INR 1.68 (0.87-1.13) H 08/28/17 06:52 Abnormal lab findings: Abnormal Labs 08/26/17 08/26/17 08/27/17 23:55 23:55 07:07 RBC 5.36 H Hgb 14.9 H Hct 47.7 H MCH RDW 20.5 H Seg Neuts % (Manual) 82.0 H Lymphocytes % (Manual) 12.0 L Monocytes % (Manual) Seg Neutrophils # Man Lymphocytes # (Manual) 0.9 L PT 22.5 H INR 1.85 H POC ABG pH POC ABG pCO2 Potassium Chloride 90.3 L Carbon Dioxide 37 H BUN Glucose 117 H POC Glucose Hemoglobin A1c Calcium Magnesium Total Bilirubin AST Alkaline Phosphatase NT-Pro-B Natriuret Pep Albumin 08/27/17 08/27/17 08/27/17 07:07 11:40 21:02 RBC Hgb Hct MCH RDW Seg Neuts % (Manual) Lymphocytes % (Manual) Monocytes % (Manual) Seg Neutrophils # Man Lymphocytes # (Manual) PT INR POC ABG pH 7.334 L POC ABG pCO2 73.2 H Potassium Chloride Carbon Dioxide BUN Glucose POC Glucose Hemoglobin A1c 6.4 H Calcium Magnesium Total Bilirubin AST Alkaline Phosphatase NT-Pro-B Natriuret Pep 2624 H Albumin 08/28/17 08/28/17 08/28/17 06:42 06:52 06:52 RBC 5.20 H Hgb Hct 46.3 H MCH RDW 20.2 H Seg Neuts % (Manual) 87.0 H Lymphocytes % (Manual) 7.0 L Monocytes % (Manual) Seg Neutrophils # Man 8.0 H Lymphocytes # (Manual) 0.6 L PT 20.8 H INR 1.68 H POC ABG pH POC ABG pCO2 Potassium Chloride Carbon Dioxide BUN Glucose POC Glucose 120 H Hemoglobin A1c Calcium Magnesium Total Bilirubin AST Alkaline Phosphatase NT-Pro-B Natriuret Pep Albumin 08/28/17 08/28/17 08/28/17 06:52 13:59 17:17 RBC Hgb Hct MCH RDW Seg Neuts % (Manual) Lymphocytes % (Manual) Monocytes % (Manual) Seg Neutrophils # Man Lymphocytes # (Manual) PT INR POC ABG pH POC ABG pCO2 Potassium 3.5 L Chloride 92.3 L Carbon Dioxide 40 H BUN Glucose 118 H POC Glucose 131 H 156 H Hemoglobin A1c Calcium Magnesium 1.50 L Total Bilirubin 1.80 H AST Alkaline Phosphatase 171 H NT-Pro-B Natriuret Pep Albumin 3.4 L 08/28/17 08/29/17 08/29/17 22:14 06:36 06:36 RBC 5.12 H Hgb Hct 45.6 H MCH 27 L RDW 19.9 H Seg Neuts % (Manual) 80.0 H Lymphocytes % (Manual) 11.0 L Monocytes % (Manual) 9.0 H Seg Neutrophils # Man Lymphocytes # (Manual) 1.0 L PT INR POC ABG pH POC ABG pCO2 Potassium Chloride 95.9 L Carbon Dioxide 45 H* BUN Glucose POC Glucose 165 H Hemoglobin A1c Calcium Magnesium Total Bilirubin 1.70 H AST Alkaline Phosphatase 159 H NT-Pro-B Natriuret Pep Albumin 3.4 L 08/29/17 08/29/17 08/29/17 12:23 16:33 22:09 RBC Hgb Hct MCH RDW Seg Neuts % (Manual) Lymphocytes % (Manual) Monocytes % (Manual) Seg Neutrophils # Man Lymphocytes # (Manual) PT INR POC ABG pH POC ABG pCO2 Potassium Chloride Carbon Dioxide BUN Glucose POC Glucose 121 H 130 H 131 H Hemoglobin A1c Calcium Magnesium Total Bilirubin AST Alkaline Phosphatase NT-Pro-B Natriuret Pep Albumin 08/30/17 08/30/17 08/30/17 07:30 07:30 12:14 RBC 5.48 H Hgb 14.9 H Hct 49.1 H MCH 27 L RDW 19.8 H Seg Neuts % (Manual) 84.0 H Lymphocytes % (Manual) 11.0 L Monocytes % (Manual) Seg Neutrophils # Man Lymphocytes # (Manual) 0.8 L PT INR POC ABG pH POC ABG pCO2 Potassium Chloride 90.3 L Carbon Dioxide 39 H BUN 19 H Glucose POC Glucose 151 H Hemoglobin A1c Calcium Magnesium Total Bilirubin 1.70 H AST Alkaline Phosphatase 183 H NT-Pro-B Natriuret Pep Albumin 08/30/17 08/31/17 08/31/17 21:53 06:21 12:42 RBC Hgb Hct MCH RDW Seg Neuts % (Manual) Lymphocytes % (Manual) Monocytes % (Manual) Seg Neutrophils # Man Lymphocytes # (Manual) PT INR POC ABG pH POC ABG pCO2 Potassium Chloride Carbon Dioxide BUN Glucose POC Glucose 113 H 109 H 118 H Hemoglobin A1c Calcium Magnesium Total Bilirubin AST Alkaline Phosphatase NT-Pro-B Natriuret Pep Albumin 08/31/17 08/31/17 09/01/17 13:59 21:08 20:26 RBC Hgb Hct MCH RDW Seg Neuts % (Manual) Lymphocytes % (Manual) Monocytes % (Manual) Seg Neutrophils # Man Lymphocytes # (Manual) PT INR POC ABG pH POC ABG pCO2 Potassium Chloride 91.3 L Carbon Dioxide 42 H* BUN 21 H Glucose POC Glucose 116 H 136 H Hemoglobin A1c Calcium Magnesium Total Bilirubin AST Alkaline Phosphatase NT-Pro-B Natriuret Pep Albumin 09/02/17 09/02/17 09/02/17 08:33 08:33 11:39 RBC 5.07 H Hgb Hct 45.1 H MCH 27 L RDW 19.0 H Seg Neuts % (Manual) 78.0 H Lymphocytes % (Manual) 11.0 L Monocytes % (Manual) 10.0 H Seg Neutrophils # Man Lymphocytes # (Manual) 0.8 L PT INR POC ABG pH POC ABG pCO2 Potassium Chloride 90.6 L Carbon Dioxide 42 H* BUN 18 H Glucose POC Glucose 127 H Hemoglobin A1c Calcium 6.9 L D Magnesium Total Bilirubin 2.10 H AST 43 H Alkaline Phosphatase 169 H NT-Pro-B Natriuret Pep Albumin 3.5 L
--- NOTE | 2017-09-02 13:42 | Progress Note ---
Assessment and Plan - Acute on chronic diastolic (congestive) heart failure CHF exacerbation CXR indicated generalized enlargement of cardiac silhouette without localized infiltrates/congestion commence pt on Daily weight stick Is and Os iv Lasix 40 mg q24, ACEI, BB, Had ECHO in 04/2017 with normal EF 55-60% and no intracardiac thrombus or shunt Pt's stave grader consulted - Acute on chronic hypercapneic respiratory failure On Bronchodilators Continue to monitor respiratory acidosis Pulm consulted - COPD on home oxygen Supplemental oxygen and Braonchodilatos - DRE/OHS with hypercpnea cautious ox - T2DM (type 2 diabetes mellitus) Cont sliding scale insulin, consistent carbohydrate diet, well managed POC glucose Metformin - HLD (hyperlipidemia) on statins - HTN (hypertension) commneced Metoprolol, ACEI, hydrallzin Blood pressure at 147/90 mm Hg - DVT prophylaxis with Scd's. Pt already on Eliquis Subjective Date of service: 09/02/17 Principal diagnosis: Acute on chronic HFpEF, Acute on chronic resp failure, uncontrolled HTN Interval history: Patient seen and examined. Still having shortness of breath. Denies any fever. Objective - Exam Narrative Exam: Constitutional: Morbidly obese Well-nourished well-developed. In mild distress on slight exertion Head: Normocephalic atraumatic Eyes: Pupils are equal round and reactive to light Nose: No enlarged turbinates, no septal deviation. Mouth: Moist mucous membranes. Neck: Supple no thyromegaly. No bruit. No JVD Heart: Regular rate and rhythm, S1-S2 abnormal. No rubs murmurs or gallop Lungs: Decreased breath sounds bilaterally with rhonchi. Abdomen: Soft, nontender. Bowel sound are present. Extremities: Trace pedal edema. no cyanosis and no clubbing. Neuro: Alert oriented Oriented x3. No focal sensory or motor deficit. Skin: No rashes no hyperemic spots Psychiatry: Euthymic. Calm. - Constitutional Vitals: Vital Signs - 12hr 09/02/17 09/02/17 09/02/17 01:47 08:27 08:41 Temperature 98.9 F 97.9 F Pulse Rate 67 67 Pulse Rate [ 67 Apical] Respiratory 18 20 21 Rate Blood Pressure Blood Pressure 153/91 160/102 [Right] O2 Sat by Pulse 96 94 Oximetry 09/02/17 09/02/17 09/02/17 10:47 10:48 11:32 Temperature 98.3 F Pulse Rate 67 67 71 Pulse Rate [ Apical] Respiratory 20 Rate Blood Pressure 160/102 160/102 147/94 Blood Pressure [Right] O2 Sat by Pulse 96 Oximetry - Labs CBC & Chem 7: 09/02/17 08:33 09/02/17 08:33 Labs: Abnormal lab results 09/01/17 09/02/17 09/02/17 Range/Units 20:26 08:33 08:33 RBC 5.07 H (3.65-5.03) M/mm3 Hct 45.1 H (30.3-42.9) % MCH 27 L (28-32) pg RDW 19.0 H (13.2-15.2) % Seg Neuts % (Manual) 78.0 H (40.0-70.0) % Lymphocytes % (Manual) 11.0 L (13.4-35.0) % Monocytes % (Manual) 10.0 H (0.0-7.3) % Lymphocytes # (Manual) 0.8 L (1.2-5.4) K/mm3 Chloride 90.6 L (98-107) mmol/L Carbon Dioxide 42 H* (22-30) mmol/L BUN 18 H (7-17) mg/dL POC Glucose 136 H (70-105) Calcium 6.9 L D (8.4-10.2) mg/dL Total Bilirubin 2.10 H (0.1-1.2) mg/dL AST 43 H (5-40) units/L Alkaline Phosphatase 169 H (35-129) units/L Albumin 3.5 L (3.9-5) g/dL 09/02/17 Range/Units 11:39 RBC (3.65-5.03) M/mm3 Hct (30.3-42.9) % MCH (28-32) pg RDW (13.2-15.2) % Seg Neuts % (Manual) (40.0-70.0) % Lymphocytes % (Manual) (13.4-35.0) % Monocytes % (Manual) (0.0-7.3) % Lymphocytes # (Manual) (1.2-5.4) K/mm3 Chloride (98-107) mmol/L Carbon Dioxide (22-30) mmol/L BUN (7-17) mg/dL POC Glucose 127 H (70-105) Calcium (8.4-10.2) mg/dL Total Bilirubin (0.1-1.2) mg/dL AST (5-40) units/L Alkaline Phosphatase (35-129) units/L Albumin (3.9-5) g/dL
--- NOTE | 2017-09-02 17:31 | Progress Note ---
Assessment and Plan Continue diuresis,monitor renal function.SOB better,lungs sound clear.Cardiac jackson stable for d/c. - Patient Problems (1) Acute on chronic heart failure with normal ejection fraction Current Visit: Yes Status: Acute (2) COPD (chronic obstructive pulmonary disease) Current Visit: Yes Status: Chronic (3) Diabetes Current Visit: Yes Status: Chronic (4) Obstructive sleep apnea Current Visit: Yes Status: Chronic (5) Paroxysmal atrial fibrillation Current Visit: Yes Status: Chronic Subjective Date of service: 09/02/17 Principal diagnosis: Acute on chronic HFpEF, Acute on chronic resp failure, uncontrolled HTN Interval history: 09/01/2017>says breathing better,diuresing well. Objective Vital Signs Temp Pulse Pulse Resp BP BP Pulse Ox 09/02/17 13:54 21 09/02/17 11:32 98.3 F 71 20 147/94 96 09/02/17 10:48 67 160/102 09/02/17 10:47 67 160/102 09/02/17 10:00 97 09/02/17 08:41 67 21 09/02/17 08:27 97.9 F 67 20 160/102 94 09/02/17 01:47 98.9 F 67 18 153/91 96 09/01/17 22:22 68 132/85 09/01/17 20:18 97.9 F 68 18 132/85 96 09/01/17 19:20 21 - Physical Examination General: No Apparent Distress, Other (obese) HEENT: Positive: EOMI, Normocephaly, Mucus Membranes Moist Neck: Positive: neck supple, trachea midline, JVD/HJR (elevated) Cardiac: Positive: Reg Rate and Rhythm Lungs: Positive: Decreased Breath Sounds Neuro: Positive: Grossly Intact Abdomen: Positive: Soft, Active Bowel Sounds. Negative: Tender Skin: Positive: Other (thick and edematous) Musculoskeletal: Normal Range of Motion Extremities: Present: edema (generalized), +1 Edema (BLE), +2 Edema (BLE,better in AM.) - Labs and Meds Cardiac Enzymes 09/02/17 Range/Units 08:33 AST 43 H (5-40) units/L CBC 09/02/17 Range/Units 08:33 WBC 7.1 (4.5-11.0) K/mm3 RBC 5.07 H (3.65-5.03) M/mm3 Hgb 13.8 (10.1-14.3) gm/dl Hct 45.1 H (30.3-42.9) % Plt Count 148 (140-440) K/mm3 Comprehensive Metabolic Panel 09/02/17 Range/Units 08:33 Sodium 144 (137-145) mmol/L Potassium 4.1 (3.6-5.0) mmol/L Chloride 90.6 L (98-107) mmol/L Carbon Dioxide 42 H* (22-30) mmol/L BUN 18 H (7-17) mg/dL Creatinine 0.7 (0.7-1.2) mg/dL Glucose 73 (65-100) mg/dL Calcium 6.9 L D (8.4-10.2) mg/dL AST 43 H (5-40) units/L ALT 31 (7-56) units/L Alkaline Phosphatase 169 H (35-129) units/L Total Protein 7.2 (6.3-8.2) g/dL Albumin 3.5 L (3.9-5) g/dL - Imaging and Cardiology EKG: image reviewed Echo: report reviewed (04/2017 (ANGELIKA prior to DCCV): EF 55-60%, no intracardiac thrombus or shunt, LA mod dilated, mild MR, mild TR, LVH. ) - EKG Sinus rhythms and dysrhythmias: sinus rhythm
[2017-09-03] MEDS: LASIX IV SCH ×3 (05:15→17:34)
[2017-09-03] MEDS: PERCOCET 5/325 PO PRN ×3 (06:07→22:46)
[2017-09-03] MEDS: APRESOLINE PO SCH ×3 (09:13→21:22)
[2017-09-03] MEDS: GLUCOPHAGE PO SCH ×2 (09:13→17:33)
[2017-09-03] MEDS: K-DUR PO SCH (11:00)
[2017-09-03] MEDS: LOPRESSOR PO SCH ×2 (11:00→21:21)
[2017-09-03] MEDS: IMDUR PO SCH (11:00)
[2017-09-03] MEDS: BABY ASPIRIN PO SCH (11:01)
[2017-09-03] MEDS: ZESTRIL PO SCH (11:01)
[2017-09-03] MEDS: PEPCID PO SCH (11:01)
[2017-09-03] MEDS: CORDARONE PO SCH (11:01)
[2017-09-03] MEDS: WELLBUTRIN SR PO SCH ×2 (11:01→21:22)
--- NOTE | 2017-09-03 11:16 | Discharge Summary ---
Providers - Providers Date of Admission: 08/27/17 07:24 Attending physician: COLIN MORALES MD 08/27/17 06:55 Consult to Physician [CONS] Urgent Comment: Consulting Provider: NINO SCHUMACHER Physician Instructions: Reason For Exam: chf 08/29/17 09:24 Consult to Physician [CONS] Urgent Comment: Consulting Provider: ROCK HOPKINS Physician Instructions: Reason For Exam: Acute on chronic hypercapneic respr failure Primary care physician: USPS LETTER CARRIER Hospitalization Condition: Good Disposition: DC-30 STILL A PATIENT Exam - Constitutional Vitals: Temp Pulse Resp BP Pulse Ox 98.2 F 69 20 150/93 98 09/03/17 09:01 09/03/17 11:01 09/03/17 09:40 09/03/17 11:01 09/03/17 10:00 Plan Follow up with: CARMELO LOVE MD [Primary Care Provider] - 3-5 Days NINO SCHUMACHER MD [Staff Physician] - 7 Days ([facility], 09/04/2017 @ 11:00AM)
--- NOTE | 2017-09-03 12:08 | Progress Note ---
Assessment and Plan Assessment and plan: - Acute on chronic diastolic (congestive) heart failure CHF exacerbation CXR indicated generalized enlargement of cardiac silhouette without localized infiltrates/congestion commence pt on Daily weight stick Is and Os iv Lasix 40 mg q24, ACEI, BB, Had ECHO in 04/2017 with normal EF 55-60% and no intracardiac thrombus or shunt Cardiology following - Acute on chronic hypercapneic respiratory failure On Bronchodilators Continue to monitor respiratory acidosis Pulmonology following - COPD on home oxygen Supplemental oxygen and Bronchodilators - T2DM (type 2 diabetes mellitus) Cont sliding scale insulin, consistent carbohydrate diet, well managed POC glucose Metformin, A1c was 6.4 Hypokalemia and hypomagnesemia - Supplements provided, continue monitoring - Potassium normalized on scheduled supplementation - HLD (hyperlipidemia) on statins - HTN (hypertension) Continue antihypertensives, nifedipine added Blood pressure at 150/93 mm Hg - DVT prophylaxis with Scd's. Pt already on Eliquis History Interval history: Pt seen and examined. She has no new complaints today. She denies CP, dyspnea, NV. Labs, chart notes, nursing notes reviewed. Hospitalist Physical - Physical exam Narrative exam: General appearance: Present: no acute distress, well-nourished, obese - EENT Eyes: Present: PERRL, EOM intact ENT: hearing intact, clear oral mucosa - Neck Present: supple, normal ROM - Respiratory Respiratory effort: normal Respiratory: bilateral: diminished - Cardiovascular Rhythm: regular Heart Sounds: Present: S1 & S2 - Extremities Extremities: no ischemia, BLE 3+ - Abdominal General gastrointestinal: soft, non-tender, non-distended - Integumentary Integumentary: Present: clear, warm - Psychiatric Psychiatric: appropriate mood/affect, intact judgment & insight, cooperative - Neurologic Neurologic: CNII-XII intact, moves all extremities - Constitutional Vitals: Temp Pulse Resp BP Pulse Ox 98.2 F 69 20 150/93 98 09/03/17 09:01 09/03/17 11:01 09/03/17 09:40 09/03/17 11:01 09/03/17 10:00 Results - Labs CBC & Chem 7: 09/02/17 08:33 09/02/17 08:33 Labs: Laboratory Last Values WBC 7.1 K/mm3 (4.5-11.0) 09/02/17 08:33 RBC 5.07 M/mm3 (3.65-5.03) H 09/02/17 08:33 Hgb 13.8 gm/dl (10.1-14.3) 09/02/17 08:33 Hct 45.1 % (30.3-42.9) H 09/02/17 08:33 MCV 89 fl (79-97) 09/02/17 08:33 MCH 27 pg (28-32) L 09/02/17 08:33 MCHC 31 % (30-34) 09/02/17 08:33 RDW 19.0 % (13.2-15.2) H 09/02/17 08:33 Plt Count 148 K/mm3 (140-440) 09/02/17 08:33 Add Manual Diff Complete 09/02/17 08:33 Total Counted 100 09/02/17 08:33 Seg Neuts % (Manual) 78.0 % (40.0-70.0) H 09/02/17 08:33 Band Neutrophils % 0 % 09/02/17 08:33 Lymphocytes % (Manual) 11.0 % (13.4-35.0) L 09/02/17 08:33 Reactive Lymphs % (Man) 0 % 09/02/17 08:33 Monocytes % (Manual) 10.0 % (0.0-7.3) H 09/02/17 08:33 Eosinophils % (Manual) 1.0 % (0.0-4.3) 09/02/17 08:33 Basophils % (Manual) 0 % (0.0-1.8) 09/02/17 08:33 Metamyelocytes % 0 % 09/02/17 08:33 Myelocytes % 0 % 09/02/17 08:33 Promyelocytes % 0 % 09/02/17 08:33 Blast Cells % 0 % 09/02/17 08:33 Nucleated RBC % Not Reportable 09/02/17 08:33 Seg Neutrophils # Man 5.5 K/mm3 (1.8-7.7) 09/02/17 08:33 Band Neutrophils # 0.0 K/mm3 09/02/17 08:33 Lymphocytes # (Manual) 0.8 K/mm3 (1.2-5.4) L 09/02/17 08:33 Abs React Lymphs (Man) 0.0 K/mm3 09/02/17 08:33 Monocytes # (Manual) 0.7 K/mm3 (0.0-0.8) 09/02/17 08:33 Eosinophils # (Manual) 0.1 K/mm3 (0.0-0.4) 09/02/17 08:33 Basophils # (Manual) 0.0 K/mm3 (0.0-0.1) 09/02/17 08:33 Metamyelocytes # 0.0 K/mm3 09/02/17 08:33 Myelocytes # 0.0 K/mm3 09/02/17 08:33 Promyelocytes # 0.0 K/mm3 09/02/17 08:33 Blast Cells # 0.0 K/mm3 09/02/17 08:33 WBC Morphology Not Reportable 09/02/17 08:33 Hypersegmented Neuts Not Reportable 09/02/17 08:33 Hyposegmented Neuts Not Reportable 09/02/17 08:33 Hypogranular Neuts Not Reportable 09/02/17 08:33 Smudge Cells Not Reportable 09/02/17 08:33 Toxic Granulation Not Reportable 09/02/17 08:33 Toxic Vacuolation Not Reportable 09/02/17 08:33 Dohle Bodies Not Reportable 09/02/17 08:33 Pelger-Huet Anomaly Not Reportable 09/02/17 08:33 Chiara Rods Not Reportable 09/02/17 08:33 Platelet Estimate Consistent w auto 09/02/17 08:33 Clumped Platelets Not Reportable 09/02/17 08:33 Plt Clumps, EDTA Not Reportable 09/02/17 08:33 Large Platelets Not Reportable 09/02/17 08:33 Giant Platelets Not Reportable 09/02/17 08:33 Platelet Satelliting Not Reportable 09/02/17 08:33 Plt Morphology Comment Not Reportable 09/02/17 08:33 RBC Morphology Not Reportable 09/02/17 08:33 Dimorphic RBCs Not Reportable 09/02/17 08:33 Polychromasia Not Reportable 09/02/17 08:33 Hypochromasia 1+ 09/02/17 08:33 Poikilocytosis Not Reportable 09/02/17 08:33 Anisocytosis Not Reportable 09/02/17 08:33 Microcytosis Not Reportable 09/02/17 08:33 Macrocytosis Not Reportable 09/02/17 08:33 Spherocytes Not Reportable 09/02/17 08:33 Pappenheimer Bodies Not Reportable 09/02/17 08:33 Sickle Cells Not Reportable 09/02/17 08:33 Target Cells Not Reportable 09/02/17 08:33 Tear Drop Cells Not Reportable 09/02/17 08:33 Ovalocytes Not Reportable 09/02/17 08:33 Stomatocytes Few 08/28/17 06:52 Helmet Cells Not Reportable 09/02/17 08:33 Mora-Mccloud Bodies Not Reportable 09/02/17 08:33 Livingston Rings Not Reportable 09/02/17 08:33 Bethel Cells Not Reportable 09/02/17 08:33 Bite Cells Not Reportable 09/02/17 08:33 Crenated Cell Not Reportable 09/02/17 08:33 Elliptocytes Not Reportable 09/02/17 08:33 Acanthocytes (Spur) Not Reportable 09/02/17 08:33 Rouleaux Not Reportable 09/02/17 08:33 Hemoglobin C Crystals Not Reportable 09/02/17 08:33 Schistocytes Not Reportable 09/02/17 08:33 Malaria parasites Not Reportable 09/02/17 08:33 Bryant Bodies Not Reportable 09/02/17 08:33 Hem Pathologist Commnt No 09/02/17 08:33 PT 20.8 Sec. (12.2-14.9) H 08/28/17 06:52 INR 1.68 (0.87-1.13) H 08/28/17 06:52 POC ABG pH 7.334 (7.35-7.45) L 08/27/17 11:40 POC ABG pCO2 73.2 (35-45) H 08/27/17 11:40 POC ABG pO2 84 (80-105) 08/27/17 11:40 POC ABG HCO3 38.9 08/27/17 11:40 POC ABG Total CO2 41 08/27/17 11:40 POC ABG O2 Sat 95 08/27/17 11:40 POC ABG Base Excess 13 08/27/17 11:40 FiO2 35 % 08/27/17 11:40 Sodium 144 mmol/L (137-145) 09/02/17 08:33 Potassium 4.1 mmol/L (3.6-5.0) 09/02/17 08:33 Chloride 90.6 mmol/L (98-107) L 09/02/17 08:33 Carbon Dioxide 42 mmol/L (22-30) H* 09/02/17 08:33 Anion Gap 16 mmol/L 09/02/17 08:33 BUN 18 mg/dL (7-17) H 09/02/17 08:33 Creatinine 0.7 mg/dL (0.7-1.2) 09/02/17 08:33 Estimated GFR > 60 ml/min 09/02/17 08:33 BUN/Creatinine Ratio 26 % 09/02/17 08:33 Glucose 73 mg/dL (65-100) 09/02/17 08:33 POC Glucose 129 (70-105) H 09/02/17 15:44 Hemoglobin A1c 6.4 % (4-6) H 08/27/17 21:02 Calcium 6.9 mg/dL (8.4-10.2) L D 09/02/17 08:33 Phosphorus 4.50 mg/dL (2.5-4.5) 08/28/17 06:52 Magnesium 1.50 mg/dL (1.7-2.3) L 08/28/17 06:52 Total Bilirubin 2.10 mg/dL (0.1-1.2) H 09/02/17 08:33 AST 43 units/L (5-40) H 09/02/17 08:33 ALT 31 units/L (7-56) 09/02/17 08:33 Alkaline Phosphatase 169 units/L (35-129) H 09/02/17 08:33 NT-Pro-B Natriuret Pep 2624 pg/mL (0-900) H 08/27/17 07:07 Total Protein 7.2 g/dL (6.3-8.2) 09/02/17 08:33 Albumin 3.5 g/dL (3.9-5) L 09/02/17 08:33 Albumin/Globulin Ratio 0.9 % 09/02/17 08:33
--- NOTE | 2017-09-03 12:10 | Progress Note ---
Assessment and Plan Continue diuresis. Possible d/c home in AM. The patient has been seen in conjunction with Dr. Zhang who agrees with the assessment and plan of care. - Patient Problems (1) Acute on chronic heart failure with normal ejection fraction Current Visit: Yes Status: Acute (2) Acute on chronic respiratory failure with hypoxemia Current Visit: Yes Status: Acute (3) Anasarca Current Visit: Yes Status: Acute (4) Uncontrolled hypertension Current Visit: Yes Status: Acute (5) Obstructive sleep apnea Current Visit: Yes Status: Chronic (6) Paroxysmal atrial fibrillation Current Visit: Yes Status: Chronic (7) COPD (chronic obstructive pulmonary disease) Current Visit: Yes Status: Chronic (8) Diabetes Current Visit: Yes Status: Chronic (9) Obesity hypoventilation syndrome Current Visit: Yes Status: Chronic (10) Hypokalemia Current Visit: Yes Status: Acute (11) Hypomagnesemia Current Visit: Yes Status: Acute Subjective Date of service: 09/03/17 Principal diagnosis: Acute on chronic HFpEF, Acute on chronic resp failure, uncontrolled HTN Interval history: pt sitting up at bedside, still with complaints of generalized edema although she reports this symptom is gradually improving, SOB improved. Objective Last Vital Signs Temp 98.2 F 09/03/17 09:01 Pulse 69 09/03/17 11:01 Resp 20 09/03/17 09:40 BP 150/93 09/03/17 11:01 Pulse Ox 98 09/03/17 10:00 - Physical Examination General: No Apparent Distress, Other (obese) HEENT: Positive: EOMI, Normocephaly, Mucus Membranes Moist Neck: Positive: neck supple, trachea midline, JVD/HJR (elevated) Cardiac: Positive: Reg Rate and Rhythm, S1/S2 Lungs: Positive: clear to auscultation Neuro: Positive: Grossly Intact Abdomen: Positive: Soft, Active Bowel Sounds. Negative: Tender Skin: Positive: Other (thick and edematous) Musculoskeletal: Normal Range of Motion Extremities: Present: edema (generalized), +1 Edema (BLE), +2 Edema (BLE,better in AM.) - Imaging and Cardiology EKG: image reviewed Echo: report reviewed (04/2017 (ANGELIKA prior to [facility]): EF 55-60%, no intracardiac thrombus or shunt, LA mod dilated, mild MR, mild TR, LVH. ) - Telemetry EKG Rhythm: Sinus Rhythm - EKG Sinus rhythms and dysrhythmias: sinus rhythm
[2017-09-03] MEDS: PROCARDIA XL PO SCH (13:40)
--- NOTE | 2017-09-03 14:46 | Progress Note ---
Assessment and Plan Acute on chronic respiratory failure. Controlled PAF Decompensated congestive heart failure with preserved ejection fraction. Still be in diuresis per cardiology recommendations [facility] Severe morbid obesity Recommendations Continue current respiratory care BiPAP at night According to the patient, she needs her CPAP to be serviced by Diane SOLIMAN. Please check this with discharge planning She follows with Dr. Chirinos at home. Can be discharged from pulmonary standpoint for office follow-up We'll sign off unless otherwise needed. Subjective Date of service: 09/03/17 Principal diagnosis: Acute on chronic HFpEF, Acute on chronic resp failure, uncontrolled HTN Interval history: No shortness of breath. Still some leg swelling. Objective Vital Signs - 12hr 09/03/17 09/03/17 09/03/17 06:07 07:07 09:01 Temperature 98.2 F Pulse Rate 70 Pulse Rate [ Apical] Respiratory 20 20 20 Rate Blood Pressure 150/93 O2 Sat by Pulse 90 Oximetry 09/03/17 09/03/17 09/03/17 09:40 10:00 11:00 Temperature Pulse Rate 69 Pulse Rate [ 69 Apical] Respiratory 20 Rate Blood Pressure 150/93 O2 Sat by Pulse 98 Oximetry 09/03/17 11:01 Temperature Pulse Rate 69 Pulse Rate [ Apical] Respiratory Rate Blood Pressure 150/93 O2 Sat by Pulse Oximetry Constitutional: no acute distress, alert, other (morbidly obese) Eyes: non-icteric ENT: other Neck: supple Effort: mildly labored Ascultation: Bilateral: diminished breath sounds, rales Percussion: Bilateral: not dull Cardiovascular: regular rate and rhythm Gastrointestinal: other (obese) Integumentary: normal Neurologic: normal mental status, non-focal exam, pupils equal and round, CN II- XII normal Psychiatric: mood appropriate CBC and BMP: 09/02/17 08:33 09/02/17 08:33 ABG, PT/INR, D-dimer: ABG POC ABG pH 7.334 (7.35-7.45) L 08/27/17 11:40 POC ABG pCO2 73.2 (35-45) H 08/27/17 11:40 POC ABG pO2 84 (80-105) 08/27/17 11:40 POC ABG HCO3 38.9 08/27/17 11:40 POC ABG Total CO2 41 08/27/17 11:40 POC ABG O2 Sat 95 08/27/17 11:40 PT/INR, D-dimer PT 20.8 Sec. (12.2-14.9) H 08/28/17 06:52 INR 1.68 (0.87-1.13) H 08/28/17 06:52 Abnormal lab findings: Abnormal Labs 08/26/17 08/26/17 08/27/17 23:55 23:55 07:07 RBC 5.36 H Hgb 14.9 H Hct 47.7 H MCH RDW 20.5 H Seg Neuts % (Manual) 82.0 H Lymphocytes % (Manual) 12.0 L Monocytes % (Manual) Seg Neutrophils # Man Lymphocytes # (Manual) 0.9 L PT 22.5 H INR 1.85 H POC ABG pH POC ABG pCO2 Potassium Chloride 90.3 L Carbon Dioxide 37 H BUN Glucose 117 H POC Glucose Hemoglobin A1c Calcium Magnesium Total Bilirubin AST Alkaline Phosphatase NT-Pro-B Natriuret Pep Albumin 08/27/17 08/27/17 08/27/17 07:07 11:40 21:02 RBC Hgb Hct MCH RDW Seg Neuts % (Manual) Lymphocytes % (Manual) Monocytes % (Manual) Seg Neutrophils # Man Lymphocytes # (Manual) PT INR POC ABG pH 7.334 L POC ABG pCO2 73.2 H Potassium Chloride Carbon Dioxide BUN Glucose POC Glucose Hemoglobin A1c 6.4 H Calcium Magnesium Total Bilirubin AST Alkaline Phosphatase NT-Pro-B Natriuret Pep 2624 H Albumin 08/28/17 08/28/17 08/28/17 06:42 06:52 06:52 RBC 5.20 H Hgb Hct 46.3 H MCH RDW 20.2 H Seg Neuts % (Manual) 87.0 H Lymphocytes % (Manual) 7.0 L Monocytes % (Manual) Seg Neutrophils # Man 8.0 H Lymphocytes # (Manual) 0.6 L PT 20.8 H INR 1.68 H POC ABG pH POC ABG pCO2 Potassium Chloride Carbon Dioxide BUN Glucose POC Glucose 120 H Hemoglobin A1c Calcium Magnesium Total Bilirubin AST Alkaline Phosphatase NT-Pro-B Natriuret Pep Albumin 08/28/17 08/28/17 08/28/17 06:52 13:59 17:17 RBC Hgb Hct MCH RDW Seg Neuts % (Manual) Lymphocytes % (Manual) Monocytes % (Manual) Seg Neutrophils # Man Lymphocytes # (Manual) PT INR POC ABG pH POC ABG pCO2 Potassium 3.5 L Chloride 92.3 L Carbon Dioxide 40 H BUN Glucose 118 H POC Glucose 131 H 156 H Hemoglobin A1c Calcium Magnesium 1.50 L Total Bilirubin 1.80 H AST Alkaline Phosphatase 171 H NT-Pro-B Natriuret Pep Albumin 3.4 L 08/28/17 08/29/17 08/29/17 22:14 06:36 06:36 RBC 5.12 H Hgb Hct 45.6 H MCH 27 L RDW 19.9 H Seg Neuts % (Manual) 80.0 H Lymphocytes % (Manual) 11.0 L Monocytes % (Manual) 9.0 H Seg Neutrophils # Man Lymphocytes # (Manual) 1.0 L PT INR POC ABG pH POC ABG pCO2 Potassium Chloride 95.9 L Carbon Dioxide 45 H* BUN Glucose POC Glucose 165 H Hemoglobin A1c Calcium Magnesium Total Bilirubin 1.70 H AST Alkaline Phosphatase 159 H NT-Pro-B Natriuret Pep Albumin 3.4 L 08/29/17 08/29/17 08/29/17 12:23 16:33 22:09 RBC Hgb Hct MCH RDW Seg Neuts % (Manual) Lymphocytes % (Manual) Monocytes % (Manual) Seg Neutrophils # Man Lymphocytes # (Manual) PT INR POC ABG pH POC ABG pCO2 Potassium Chloride Carbon Dioxide BUN Glucose POC Glucose 121 H 130 H 131 H Hemoglobin A1c Calcium Magnesium Total Bilirubin AST Alkaline Phosphatase NT-Pro-B Natriuret Pep Albumin 08/30/17 08/30/17 08/30/17 07:30 07:30 12:14 RBC 5.48 H Hgb 14.9 H Hct 49.1 H MCH 27 L RDW 19.8 H Seg Neuts % (Manual) 84.0 H Lymphocytes % (Manual) 11.0 L Monocytes % (Manual) Seg Neutrophils # Man Lymphocytes # (Manual) 0.8 L PT INR POC ABG pH POC ABG pCO2 Potassium Chloride 90.3 L Carbon Dioxide 39 H BUN 19 H Glucose POC Glucose 151 H Hemoglobin A1c Calcium Magnesium Total Bilirubin 1.70 H AST Alkaline Phosphatase 183 H NT-Pro-B Natriuret Pep Albumin 08/30/17 08/31/17 08/31/17 21:53 06:21 12:42 RBC Hgb Hct MCH RDW Seg Neuts % (Manual) Lymphocytes % (Manual) Monocytes % (Manual) Seg Neutrophils # Man Lymphocytes # (Manual) PT INR POC ABG pH POC ABG pCO2 Potassium Chloride Carbon Dioxide BUN Glucose POC Glucose 113 H 109 H 118 H Hemoglobin A1c Calcium Magnesium Total Bilirubin AST Alkaline Phosphatase NT-Pro-B Natriuret Pep Albumin 08/31/17 08/31/17 09/01/17 13:59 21:08 20:26 RBC Hgb Hct MCH RDW Seg Neuts % (Manual) Lymphocytes % (Manual) Monocytes % (Manual) Seg Neutrophils # Man Lymphocytes # (Manual) PT INR POC ABG pH POC ABG pCO2 Potassium Chloride 91.3 L Carbon Dioxide 42 H* BUN 21 H Glucose POC Glucose 116 H 136 H Hemoglobin A1c Calcium Magnesium Total Bilirubin AST Alkaline Phosphatase NT-Pro-B Natriuret Pep Albumin 09/02/17 09/02/17 09/02/17 08:33 08:33 11:39 RBC 5.07 H Hgb Hct 45.1 H MCH 27 L RDW 19.0 H Seg Neuts % (Manual) 78.0 H Lymphocytes % (Manual) 11.0 L Monocytes % (Manual) 10.0 H Seg Neutrophils # Man Lymphocytes # (Manual) 0.8 L PT INR POC ABG pH POC ABG pCO2 Potassium Chloride 90.6 L Carbon Dioxide 42 H* BUN 18 H Glucose POC Glucose 127 H Hemoglobin A1c Calcium 6.9 L D Magnesium Total Bilirubin 2.10 H AST 43 H Alkaline Phosphatase 169 H NT-Pro-B Natriuret Pep Albumin 3.5 L 09/02/17 15:44 RBC Hgb Hct MCH RDW Seg Neuts % (Manual) Lymphocytes % (Manual) Monocytes % (Manual) Seg Neutrophils # Man Lymphocytes # (Manual) PT INR POC ABG pH POC ABG pCO2 Potassium Chloride Carbon Dioxide BUN Glucose POC Glucose 129 H Hemoglobin A1c Calcium Magnesium Total Bilirubin AST Alkaline Phosphatase NT-Pro-B Natriuret Pep Albumin
[2017-09-03 15:49] LABS: BUN/Creatinine Ratio 23; Blood Urea Nitrogen 18 mg/dL (7-17); Calcium 8.6 mg/dL (8.4-10.2); Hemolysis Index 17
[2017-09-04] MEDS: LASIX IV SCH (05:29)
[2017-09-04] MEDS: PERCOCET 5/325 PO PRN (05:35)
[2017-09-04 05:46] VITALS: BP 148/92
[2017-09-04] MEDS: APRESOLINE PO SCH (09:42)
[2017-09-04] MEDS: GLUCOPHAGE PO SCH (09:43)
[2017-09-04] MEDS: BABY ASPIRIN PO SCH (09:44)
[2017-09-04] MEDS: CORDARONE PO SCH (09:45)
[2017-09-04] MEDS: K-DUR PO SCH (09:46)
[2017-09-04] MEDS: IMDUR PO SCH (09:46)
[2017-09-04] MEDS: LOPRESSOR PO SCH (09:47)
[2017-09-04] MEDS: PEPCID PO SCH (09:47)
[2017-09-04] MEDS: WELLBUTRIN SR PO SCH (09:48)
[2017-09-04] MEDS: PROCARDIA XL PO SCH (09:48)
[2017-09-04] MEDS: ZESTRIL PO SCH (09:49)
--- NOTE | 2017-09-04 10:41 | Discharge Summary ---
Providers - Providers Date of Admission: 08/27/17 07:24 Attending physician: COLIN MORALES MD 08/27/17 06:55 Consult to Physician [CONS] Urgent Comment: Consulting Provider: NINO SCHUMACHER Physician Instructions: Reason For Exam: chf 08/29/17 09:24 Consult to Physician [CONS] Urgent Comment: Consulting Provider: ROCK HOPKINS Physician Instructions: Reason For Exam: Acute on chronic hypercapneic respr failure Primary care physician: BANKMAN Hospitalization Reason for admission: CHF exacerbation Condition: Good Disposition: DC/[place]-06 HOME UNDER HOME HL Time spent for discharge: 45 minutes - Discharge Diagnoses (1) Acute on chronic heart failure with normal ejection fraction Status: Acute (2) Anasarca Status: Acute (3) T2DM (type 2 diabetes mellitus) Status: Chronic (4) Acute respiratory failure Status: Acute (5) HLD (hyperlipidemia) Status: Chronic Qualifiers: Hyperlipidemia type: mixed hyperlipidemia Qualified Code(s): E78.2 - Mixed hyperlipidemia (6) Morbid obesity Status: Chronic Core Measure Documentation - Palliative Care Palliative Care/ Comfort Measures: Not Applicable - Core Measures Any of the following diagnoses?: heart failure - Heart Failure Discharge Requirements MAGNOLIA/ARB for LVSD if EF <40%: Not Applicable Beta baylee at discharge: Yes Exam - Physical Exam Narrative exam: Not in cardiopulmonary distress. The patient is morbidly obese. Vital signs as documented. Head exam is unremarkable. No scleral icterus . Neck is without jugular venous distension, thyromegaly, or carotid bruits. Lungs scattered wheezing Cardiac exam reveals regular rate and Rhythm. Abdominal exam reveals normal bowel sounds. Extremities anasarca. 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 No focal weakness. - Constitutional Vitals: Temp Pulse Resp BP Pulse Ox 98.9 F 70 18 148/92 94 09/04/17 05:45 09/04/17 09:49 09/04/17 05:45 09/04/17 09:49 09/04/17 09:34 Plan Activity: no restrictions Weight Bearing Status: Full Weight Bearing Diet: low fat, low salt, diabetic Special Instructions: record daily weights Follow up with: CARMELO LOVE MD [Primary Care Provider] - 3-5 Days NINO SCHUMACHER MD [Staff Physician] - 7 Days ([facility], 09/04/2017 @ 11:00AM) Prescriptions: Furosemide [Lasix TAB] 80 mg PO QDAY #120 tablet metFORMIN [Glucophage] 500 mg PO BID #60 tablet Potassium Chloride 20 meq PO DAILY #60 packet
--- NOTE | 2017-09-04 14:20 | Progress Note ---
Assessment and Plan Currently stable cardiac status. Convert IV lasix to PO lasix 80mg BID. Pt may discharge home from cardiology standpoint. Follow up in our [place] office with Dr. Gant on 09/18/2017 3:30PM. The patient has been seen in conjunction with Dr. Zhang who agrees with the assessment and plan of care. - Patient Problems (1) Acute on chronic heart failure with normal ejection fraction Current Visit: Yes Status: Acute (2) Acute on chronic respiratory failure with hypoxemia Current Visit: Yes Status: Acute (3) Anasarca Current Visit: Yes Status: Acute (4) Uncontrolled hypertension Current Visit: Yes Status: Acute (5) Obstructive sleep apnea Current Visit: Yes Status: Chronic (6) Paroxysmal atrial fibrillation Current Visit: Yes Status: Chronic (7) COPD (chronic obstructive pulmonary disease) Current Visit: Yes Status: Chronic (8) Diabetes Current Visit: Yes Status: Chronic (9) Obesity hypoventilation syndrome Current Visit: Yes Status: Chronic (10) Hypokalemia Current Visit: Yes Status: Acute (11) Hypomagnesemia Current Visit: Yes Status: Acute Subjective Date of service: 09/04/17 Principal diagnosis: Acute on chronic HFpEF, Acute on chronic resp failure, uncontrolled HTN Interval history: pt sitting up at bedside, SOB and generalized edema continue to improve. she states she feels ready to go home. Objective Last Vital Signs Temp 98.9 F 09/04/17 05:45 Pulse 70 09/04/17 09:49 Resp 18 09/04/17 05:45 BP 148/92 09/04/17 09:49 Pulse Ox 94 09/04/17 09:34 - Physical Examination General: No Apparent Distress, Other (obese) HEENT: Positive: EOMI, Normocephaly, Mucus Membranes Moist Neck: Positive: neck supple, trachea midline Cardiac: Positive: Reg Rate and Rhythm, S1/S2 Lungs: Positive: Decreased Breath Sounds Neuro: Positive: Grossly Intact Abdomen: Positive: Soft, Active Bowel Sounds. Negative: Tender Skin: Positive: Other (thick and edematous) Musculoskeletal: Normal Range of Motion Extremities: Present: edema (generalized), +1 Edema (BLE), +2 Edema (BLE,better in AM.) - Labs and Meds Comprehensive Metabolic Panel 09/03/17 Range/Units 14:59 Sodium 144 (137-145) mmol/L Potassium 3.9 (3.6-5.0) mmol/L Chloride 90.6 L (98-107) mmol/L Carbon Dioxide 42 H* (22-30) mmol/L BUN 18 H (7-17) mg/dL Creatinine 0.8 (0.7-1.2) mg/dL Glucose 102 H (65-100) mg/dL Calcium 8.6 D (8.4-10.2) mg/dL - Imaging and Cardiology EKG: image reviewed Echo: report reviewed (04/2017 (ANGELIKA prior to [facility]): EF 55-60%, no intracardiac thrombus or shunt, LA mod dilated, mild MR, mild TR, LVH. ) - Telemetry EKG Rhythm: Sinus Rhythm - EKG Sinus rhythms and dysrhythmias: sinus rhythm
== END 2017-09-04 17:00 | disposition home health service (06) | DRG 291 ==
LOC: ED 22:37 → 4A 08-27 07:24 → CC1 08-27 17:58 → 4A 08-27 23:17
PROVIDERS: ADMIT Family Medicine; ATTEND Internal Medicine
PROC: 5A09457 Assistance with Respiratory Ventilation, 24-96 Consecutive Hours, Continuous Positive Airway Pressure (ICD-10-PCS; principal; 2017-08-27)
PROC: 4A033R1 Measurement of Arterial Saturation, Peripheral, Percutaneous Approach (ICD-10-PCS; 2017-08-27)
DX: I11.0 Hypertensive heart disease with heart failure (principal); J96.22 Acute and chronic respiratory failure with hypercapnia; Z68.43 Body mass index [BMI] 50.0-59.9, adult; I50.33 Acute on chronic diastolic (congestive) heart failure; E11.9 Type 2 diabetes mellitus without complications; E78.5 Hyperlipidemia, unspecified; E66.01 Morbid (severe) obesity due to excess calories; J44.9 Chronic obstructive pulmonary disease, unspecified; G47.33 Obstructive sleep apnea (adult) (pediatric); E87.70 Fluid overload, unspecified; E87.6 Hypokalemia; E83.42 Hypomagnesemia; I48.0 Paroxysmal atrial fibrillation; Z79.899 Other long term (current) drug therapy; Z82.49 Family history of ischemic heart disease and other diseases of the circulatory system; Z99.81 Dependence on supplemental oxygen
CPT/HCPCS: 36415; 36600; 71046; 80048; 80053; 82803; 82962; 83036; 83735; 83880; 84100; 85007; 85025; 85610; 93005; 93010; 93970; 94640; 94660; 94760; 96374; 96375; A9270-GY; J0360; J1940; J3475; J3480; J7050